=== PATIENT | female | born 1935 | race Caucasian/White ===

== ENCOUNTER → 2016-10-20 | Outpatient (REF) | payer MEDICARE ==
[~2016-10-20] MED LIST: /MOM400 PO; ACET-654 PO; ACET50TA PO; ALLO100T PO; ALLO10TA PO; ALLO15TA PO; AMLO5TAB2 PO; AMLODIPINE PO; ASPI1TAB PO; ASPI81CH21 PO; BISAC5TA PO; CALC0.5C PO; CALC1CAP31 PO; CARBAMAZEPINE PO; COCHICINE PO; COLA100C PO; COLC1TAB13 PO; COLCPOW6 PO; CORE25TA PO; DOCU10ELUD PO; DRIS50002 PO; ESTR0.5T3 PO; FERR325T PO; FLUT1SPR2; FURO20TA2 PO; HUMA75VL SC; IRON325T3 PO; KEFL250C6 PO; LIQUSOL OU; MAALSUS8 PO; METOPROLOL SUCCINATE PO; MIDO25TA PO; MOM30SS PO; NITR0.4D6 SL; NITR4TASL SL; OMEP40CA2 PO; PEG1POW PO; POLYBTL PO; PRAV80TA2 PO; PRAVASTATIN PO; REFR0.5D8 OU; SALI0.653; SODI650T PO; TYLE325T5 PO; VITA200038 PO; VITA500047 PO; [UNRECOGNIZED DRUG - CODE] SC
== END ==
LOC: M SFHCCLAY 15:53
PROVIDERS: ATTEND Family Medicine
DX: E11.43 Type 2 diabetes mellitus with diabetic autonomic (poly)neuropathy (principal); I12.9 Hypertensive chronic kidney disease with stage 1 through stage 4 chronic kidney disease, or unspecified chronic kidney disease
CPT/HCPCS: 81002; 83036; G0463

== ENCOUNTER → 2016-12-21 | Outpatient (REF) | payer MEDICARE ==
[~2016-12-21] MED LIST changes: +CEPH500C PO; +NORC5TAB PO
== END ==
LOC: M SFHCCLAY 11:14
PROVIDERS: ATTEND Family Medicine
DX: N30.00 Acute cystitis without hematuria (principal)

== ENCOUNTER → 2016-12-22 | Outpatient (REF) | payer MEDICARE ==
[~2016-12-22] MED LIST changes: -CEPH500C PO; -NORC5TAB PO
[2016-12-22 18:16] LABS: ALBUMIN 3.2 GM/DL (3.2-5.2); ALBUMIN/GLOBULIN RATIO 0.91 (1.00-1.93); BILIRUBIN,TOTAL 0.2 MG/DL (0.2-1.0); CREATININE FOR GFR 3.76 MG/DL (0.55-1.02); GLOMERULAR FILTRATION RATE 12.3 (>39); MEAN CORPUSCULAR HEMOGLOBIN 29.4 pg (27.0-33.0); MEAN CORPUSCULAR VOLUME 94.8 fl (80.0-96.0); POTASSIUM SERUM 4.6 MEQ/L (3.5-5.1); RED CELL DISTRIBUTION WIDTH 14.5 % (11.5-14.5); TOTAL PROTEIN 6.7 GM/DL (6.4-8.2); WHITE BLOOD COUNT 7.9 K/mm3 (4.0-10.0)
== END ==
LOC: M LABDRAWC 16:33
PROVIDERS: ATTEND Anesthesiology
DX: Z01.812 Encounter for preprocedural laboratory examination (principal); I25.10 Atherosclerotic heart disease of native coronary artery without angina pectoris; I12.9 Hypertensive chronic kidney disease with stage 1 through stage 4 chronic kidney disease, or unspecified chronic kidney disease; N18.9 Chronic kidney disease, unspecified; E78.00 Pure hypercholesterolemia, unspecified; D64.9 Anemia, unspecified; M10.9 Gout, unspecified; E11.9 Type 2 diabetes mellitus without complications

== ENCOUNTER 2016-12-30 06:58 | Inpatient (IN) | payer MEDICARE ==
[2016-12-30] VITALS (7 sets, daily range): BP systolic 95–138; BP diastolic 50–64
[~2016-12-30] VITALS: Ht 165.1 cm; Wt 66.2 kg
[2016-12-30] MEDS ORDERED: LR 1,000 ML IV SCH ×4 (07:15→12:00)
[2016-12-30] MEDS ORDERED: CEPH500C PO (07:54)
[2016-12-30] MEDS ORDERED: LIDOCAINE 2% INJ 100 MG/5 ML SDV (FOR ANES.) As Ordered ONE (08:28)
[2016-12-30] MEDS ORDERED: ROCURONIUM BROMIDE 50 MG/5 ML VIAL As Ordered ONE (08:28)
[2016-12-30] MEDS ORDERED: PROPOFOL 200 MG/20 ML VIAL As Ordered ONE (08:28)
[2016-12-30] MEDS ORDERED: dexameTHASONE 4 MG/ML 1ML VIAL (J1100) As Ordered ONE (08:28)
[2016-12-30] MEDS ORDERED: fentaNYL 250 MCG/5 ML INJECTION (J3010) As Ordered ONE (08:29)
[2016-12-30] MEDS ORDERED: MIDAZOLAM INJ 2 MG/2 ML VIAL (J2250) As Ordered ONE (08:29)
[2016-12-30] MEDS ORDERED: ASPIRIN 81 MG CHEW TABLET PO ONE (08:30)
[2016-12-30] MEDS ORDERED: BUPIVACAINE/EPIN 0.25% 30 ML VIAL As Ordered ONE (08:50)
[2016-12-30] MEDS ORDERED: VASOPRESSIN INJ 20 UNITS/ML VIAL As Ordered ONE (08:51)
[2016-12-30] MEDS ORDERED: NEOSTIGMINE 1MG/ML 5 ML SYRINGE (J2710) As Ordered ONE (09:49)
[2016-12-30] MEDS ORDERED: GLYCOPYRROLATE INJ 0.2 MG/ML 2 ML VIAL As Ordered ONE (09:49)
[2016-12-30] MEDS ORDERED: PHENYLephrine HCL 500 MCG/5 ML (100MCG/ML) SYRINGE (J2370) As Ordered ONE (10:28)
[2016-12-30] MEDS ORDERED: PERCOCET 5MG/325MG TAB PO PRN (12:00)
[2016-12-30] MEDS ORDERED: fentaNYL 100 MCG/2 ML INJECTION (J3010) IV PRN (12:00)
[2016-12-30] MEDS ORDERED: ONDANSETRON 4MG/2ML VIAL (J2405) IV PRN (12:00)
[2016-12-30] MEDS ORDERED: NITROGLYCERIN 0.4 MG SUBL TABLET SL PRN (12:00)
[2016-12-30] MEDS ORDERED: LACTATED RINGER'S 1000 ML IV ONE (13:15)
[2016-12-30] MEDS: ALLOPURINOL 100 MG TAB PO SCH (16:29)
[2016-12-30] MEDS: NORCO, ANEXSIA 5/325MG TABLET (HYDROcodone/ACETAMINOPHEN) PO PRN ×2 (17:30→22:34)
[2016-12-30] MEDS: VITAMIN D 1,000 INTERNATIONAL UNITS TABLET PO SCH (17:40)
[2016-12-30] MEDS: HumaLOG 75/25 MIX INSULIN PER UNIT SC SCH (17:40)
[2016-12-30] MEDS: FUROSEMIDE 20 MG TAB PO SCH (17:41)
[2016-12-30] MEDS ORDERED: PRAVASTATIN 20 MG TAB PO SCH (21:00)
[2016-12-30] MEDS: SODIUM BICARBONATE 325 MG TAB PO SCH (21:58)
[2016-12-31 02:00] VITALS: BP 112/57
[2016-12-31 06:00] VITALS: BP 96/50
[2016-12-31] MEDS: FUROSEMIDE 20 MG TAB PO SCH (08:53)
[2016-12-31] MEDS: HumaLOG 75/25 MIX INSULIN PER UNIT SC SCH (08:53)
[2016-12-31 08:54] VITALS: BP 133/60
[2016-12-31] MEDS: VITAMIN D 1,000 INTERNATIONAL UNITS TABLET PO SCH (08:54)
[2016-12-31] MEDS: SODIUM BICARBONATE 325 MG TAB PO SCH (08:54)
[2016-12-31] MEDS: ALLOPURINOL 100 MG TAB PO SCH (08:54)
[2016-12-31] MEDS ORDERED: CINACALCET 30 MG TAB (SENSIPAR) PO SCH (09:00)
[2016-12-31] MEDS ORDERED: NORC5TAB PO (09:12)
--- NOTE | 2016-12-31 09:37 | RO ---
DATE OF PROCEDURE: 12/30/2016 PREPROCEDURE DIAGNOSES: Procidentia, failed pessary. POSTPROCEDURE DIAGNOSES: Procidentia, failed pessary. PROCEDURE: Both anterior and posterior elevate with colpopexy of course and placement of both anterior and posterior mesh as well as a perineorrhaphy and cystourethroscopy. SURGEON: Dr. Aarti Ramirez PLANT MAINTENANCE ENGINEER: ANESTHESIA: General endotracheal anesthesia. ESTIMATED BLOOD LOSS: BRIEF DESCRIPTION OF PROCEDURE AND FINDINGS: Alyce was brought to the operating room where sufficient general endotracheal anesthesia was induced. She was prepped, draped and positioned in the usual sterile fashion. Bladder emptied and the anterior aspect of the vagina carefully grasped. A Morales was placed into the bladder with the balloon blown up so that we can label the bladder neck and starting there, we injected and hydrodissected with dilute mixture of vasopressin and Marcaine and saline, and the mix of this is on my surgical card. Having dissected with 30-40 mL or so, we then made a midline incision starting actually cephalad to the bladder neck so the edge of the mesh would be under the tissue dissection. Working through the dissection, the incision itself was maybe 5 cm long but we dissected all the way to the cervix and then worked laterally, cleared the tissue laterally and up to the sacrospinous. This patient does have considerable arthritis consistent with her age of 81 but she is thin and the sacrospinous was not difficult to palpate. Then placed the anterior aspect of the mesh, secured it to the bladder neck so it would not slip past using #2-0 Vicryl and using the anchors laterally to secure the anterior part of the anterior elevate mesh. We then placed the anchors into sacrospinous ligaments, passed the anchors through the eyelets in the mesh, secured the mesh by carefully guiding it down a little bit on each side, and then placing the locking nuts or however those locking rings are identified, carefully tighten, the mesh, placed the rings on, used the slider to tighten them further and then perform cystoscopy. We confirmed absence of injury to the bladder and reasonable support and slow jets of urine on both sides but jets were present and then we trimmed the hard stem off those anchors. We also secured the deeper portion of the mesh to the pubocervical fascia near the cervix at the cephalad portion that had been done before it was drawn up, and then we closed the vaginal mucosa over the mesh, again this was a full thickness dissection so there was plenty of thickness and mucosa over it. Then we turned our attention posteriorly. There was already a marked improvement after the anterior, but there was still considerable posterior relaxation and so hydrodissection was performed posteriorly as well and then a transverse incision was made over the posterior vaginal wall approximately 1.5 cm inside the hymenal ring working horizontally and then we were able to bluntly dissect, of course, a full thickness dissection below this transverse incision so that we could work our way cephalad and then laterally to the sacrospinous ligament. We then placed anchors, slid the mesh over that and then secured the mesh to the rectovaginal septum and perineal body posteriorly and of course, anchored the mesh past the locking nuts and trimmed those arms and then made sure the mesh was lying down flat and then closed the posterior vaginal incision after the mesh had been secured again to the rectovaginal septum and the perineal body. We then still had some gaping at the introitus and so a triangle of tissue was removed at the introitus itself over the line of previous obstetric scars in this 5, para 5 patient. Deep stitches of #0 Vicryl were used to reapproximate the perineal body and redevelop this tissue and then the skin over the site was closed with #2-0 Vicryl and then a vaginal pack was placed and the procedure was ended. Estimated blood loss for the procedure: 25 mL. Fluid replacement: Crystalloid. Complications: None. Condition and disposition: Alyce tolerated the procedure well and was recovering in the recovery room in good condition.
[2016-12-31 10:00] VITALS: BP 99/47
--- NOTE | 2017-01-06 16:09 | DSES ---
DATE OF ADMISSION: 12/30/2016 DATE OF DISCHARGE: 12/31/2016 ADMITTING AND FINAL DIAGNOSIS: Included symptomatic pelvic relaxation and failed pessary use. PRINCIPAL PROCEDURE: Anterior and posterior elevate mesh and perineorrhaphy and cystoscopy. BRIEF SUMMARY OF PATIENT HOSPITAL PRESENTATION: She presented on 12/30/2016, as a 81-year-old, 5, para 5 with symptomatic pelvic relaxation and failed pessary usage. Her past medical and surgical history was significant for hypertension, congestive heart failure (CHF), hypercholesterolemia, cardiac disease with diabetes, renal insufficiency, and gout. She also had a history of glasses. She had a surgical history of tonsillectomy, pacemaker placement, and cataracts. She did not have a defibrillator. FAMILY HISTORY: Significant for heart disease, hypertension, and diabetes. SOCIAL HISTORY: She is a nonsmoker, non-drinker, and non-drug user. ALLERGIES: SULFA. MEDICATIONS: Included: - nitroglycerin - aspirin - Lasix - amlodipine - Humalog - allopurinol - vitamin D - iron - pravastatin Physical examination was significant for procidentia and otherwise reassuring as noted in the history and physical (H P). Initial impression 81-year-old 5, para 5 with symptomatic prolapse and failed pessary, plan was support. She underwent surgical correction with elevate mesh, both anterior and posterior mesh were placed in separate repairs, and perineorrhaphy and cystourethroscopy were performed. She then postoperatively, on the evening of her surgery, was not able to void well so she was observed overnight with a Morales and then this was removed in the morning, following which she was able to void without difficulty and was discharged to home in good condition on 12/31/2016, with a plan for outpatient followup and discharge instructions discussed with her prior to discharge.
== END 2016-12-31 11:34 | disposition home or self-care (01) | DRG 748 ==
LOC: M OR 06:58 → M MSPAV 14:31
PROVIDERS: ADMIT Obstetrics & Gynecology; ATTEND Obstetrics & Gynecology
PROC: 0UUG8JZ Supplement Vagina with Synthetic Substitute, Via Natural or Artificial Opening Endoscopic (ICD-10-PCS; principal; 2016-12-30 08:30)
DX: N81.3 Complete uterovaginal prolapse (principal); I11.0 Hypertensive heart disease with heart failure; I50.9 Heart failure, unspecified; I25.10 Atherosclerotic heart disease of native coronary artery without angina pectoris; E11.9 Type 2 diabetes mellitus without complications; N28.9 Disorder of kidney and ureter, unspecified; E78.00 Pure hypercholesterolemia, unspecified; M10.9 Gout, unspecified; Z95.0 Presence of cardiac pacemaker; Z79.82 Long term (current) use of aspirin; Z79.899 Other long term (current) drug therapy; Z79.4 Long term (current) use of insulin

== ENCOUNTER → 2017-01-10 | Outpatient (REF) | payer MEDICARE ==
[~2017-01-10] MED LIST changes: +CEPH500C PO; +NORC5TAB PO
[2017-01-10 14:36] LABS: CHOLESTEROL LEVEL 114 MG/DL (<200); FERRITIN 345 NG/ML (8-252); PERCENT SATURATION 19.6 % (13.2-37.4); TOTAL IRON BINDING CAPACITY 230 UG/DL (250-450); TRIGLYCERIDES LEVEL 87 MG/DL (<150)
[2017-01-12 12:38] LABS: HEPATITIS B SURFACE ANTIBODY NEGATIVE (POSITIVE)
== END ==
LOC: M LAB REF 13:33
PROVIDERS: ATTEND Internal Medicine Nephrology
DX: N18.5 Chronic kidney disease, stage 5 (principal); D63.1 Anemia in chronic kidney disease; E11.22 Type 2 diabetes mellitus with diabetic chronic kidney disease; Z79.899 Other long term (current) drug therapy

== ENCOUNTER 2017-03-16 12:09 | Emergency (ER) | payer MEDICARE ==
[~2017-03-16 12:09] MED LIST changes: -COLA100C PO; +COLA100C3 PO; +NORC1TAB4 PO; -NORC5TAB PO
[2017-03-16] MEDS ORDERED: CINA30TA PO (12:28)
[2017-03-16 13:24] LABS: BASO % 0.5 % (0.0-1.0); EOS # 0.2 K/mm3 (0.0-0.50); LARGE UNSTAINED CELL # 0.1 K/mm3 (0.0-0.4); LARGE UNSTAINED CELL % 1.6 % (0.0-4.0); LYMPH # 1.7 K/mm3 (1.5-4.5); LYMPH % 20.5 % (24.0-44.0); MEAN CORPUSCULAR HEMOGLOBIN 29.5 pg (27.0-33.0); MEAN CORPUSCULAR HGB CONC 32.1 g/dl (32.0-36.5); MEAN CORPUSCULAR VOLUME 91.8 fl (80.0-96.0); MONO # 0.4 K/mm3 (0.0-0.8); MONO % 5.3 % (0.0-5.0); NEUTROPHILS # 5.3 K/mm3 (1.8-7.7); NEUTROPHILS % 70.1 % (36.0-66.0); PLATELET COUNT, AUTOMATED 204 k/mm3 (150-450); WHITE BLOOD COUNT 7.6 K/mm3 (4.0-10.0)
[2017-03-16 13:25] LABS: ALBUMIN 3.4 GM/DL (3.2-5.2); ALBUMIN/GLOBULIN RATIO 0.85 (1.00-1.93); ALKALINE PHOSPHATASE 85 U/L (45-117); ALT/SGPT 12 U/L (12-78); AMYLASE 42 U/L (25-115); ANION GAP 9 MEQ/L (8-16); AST/SGOT 11 U/L (15-37); BILIRUBIN,DIRECT < 0.1 MG/DL (0.0-0.2); BILIRUBIN,TOTAL 0.2 MG/DL (0.2-1.0); BLOOD UREA NITROGEN 62 MG/DL (7-18); CALCIUM LEVEL 9.7 MG/DL (8.8-10.2); CARBON DIOXIDE LEVEL 27 MEQ/L (21-32); CHLORIDE LEVEL 106 MEQ/L (98-107); CREATININE FOR GFR 3.84 MG/DL (0.55-1.02); GLOMERULAR FILTRATION RATE 12.1 (>39); GLUCOSE, FASTING 101 MG/DL (83-110); POTASSIUM SERUM 3.8 MEQ/L (3.5-5.1); SODIUM LEVEL 142 MEQ/L (136-145); TOTAL PROTEIN 7.4 GM/DL (6.4-8.2)
[2017-03-16 14:05] VITALS: BP 162/87
--- NOTE | 2017-03-16 14:23 | REP ---
CT abdomen pelvis without IV or bowel contrast: Comparison is 06/27/2015. The visualized lung fitzpatrick are clear. The unenhanced hepatic parenchyma is homogeneous and unremarkable. The gallbladder is unremarkable. The pancreas and spleen are normal size and unremarkable. There is calcified vascular atheroma. The celiac artery, splenic artery and hepatic artery. The adrenals are unremarkable. The kidneys appear atrophic but otherwise unremarkable. Abdominal aorta is unremarkable. There is no bowel distension or obstruction. The mesentery is unremarkable. Pelvis: The appendix has a normal appearance. There is no adenopathy or ascites. There is descending colon and sigmoid colon diverticulosis without diverticulitis. The uterus and adnexa are unremarkable. There are the bladder is unremarkable. There is bilateral hip osteoarthritis. There is multilevel degenerative disc disease in the lumbar spine. These findings are unchanged. There are no lumbar vertebral compression deformities. There are no lytic, blastic or destructive skeletal changes. There is a stable bone island in the posterior strut of the right acetabulum. These focal swelling of the left iliac this muscle on the comparison study has resolved. Impression: Diverticulosis without diverticulitis. Bilateral hip osteoarthritis. Benign bone island in the posterior strut of the right acetabulum, unchanged. No bowel distension or obstruction. No inflammatory changes or ascites. Bilateral renal cortical atrophy. Multilevel advanced degenerative disc disease throughout the lumbar spine. Signed by Jose Young MD 03/16/2017 02:15 P
--- NOTE | 2017-03-16 14:28 | REP ---
ABDOMEN, FLAT AND UPRIGHT, PA CHEST, THREE VIEWS: HISTORY: Abdominal pain. Air is present in small and large intestine. Several air fluid levels are present. There are no dilated loops of intestine. There is no pneumoperitoneum. The lungs are clear. IMPRESSION: Nonspecific bowel gas pattern. Signed by Martín Lombardo MD 03/16/2017 02:37 P
[2017-03-16] MEDS ORDERED: CEPHALEXIN 250 MG CAP PO ONE (14:45)
[2017-03-16] MEDS ORDERED: ACETAMINOPHEN TAB 650MG DOSE (2X325MG) PO ONE (14:45)
[2017-03-16] MEDS ORDERED: CEPH250T PO (14:58)
[2017-03-16] MEDS ORDERED: ACET-654 PO (14:58)
== END 2017-03-16 15:07 | disposition home or self-care (01) ==
LOC: EDBD 12:09 → M ED 12:55
DX: N39.0 Urinary tract infection, site not specified (principal); E11.9 Type 2 diabetes mellitus without complications; N18.4 Chronic kidney disease, stage 4 (severe)

== ENCOUNTER → 2017-06-01 | Outpatient (REF) | payer MEDICARE ==
[~2017-06-01] MED LIST changes: -ACET-654 PO; +ACET1TAB17 PO; +AMLO2.5T PO; +CEPH250T PO; +CINA30TA PO; -COLA100C3 PO; +COLA100C5 PO; +COLC1TAB14 PO; +FERR1TAB8 PO; -FERR325T PO; +KEFL250C11 PO; -KEFL250C6 PO; +MIRA33504 PO; +RENV2TAB PO; +SALI0.6523; -SALI0.653; +VITA200015
[2017-06-02 17:44] LABS: CHOLESTEROL LEVEL 131 MG/DL (<200); PERCENT SATURATION 19.8 % (13.2-45.0); TRIGLYCERIDES LEVEL 90 MG/DL (<150)
[2017-06-03 11:23] LABS: HEPATITIS B SURFACE ANTIBODY NEGATIVE (POSITIVE)
== END ==
LOC: M LAB REF 15:49
PROVIDERS: ATTEND Internal Medicine Nephrology
DX: N18.5 Chronic kidney disease, stage 5 (principal); D63.1 Anemia in chronic kidney disease

== ENCOUNTER → 2017-06-01 | Outpatient (REF) | payer MEDICARE | LOC: M LAB REF 17:07 | PROVIDERS: ATTEND Internal Medicine Nephrology | DX: N39.0 Urinary tract infection, site not specified (principal) ==

== ENCOUNTER 2017-09-29 20:52 | Inpatient (IN) | payer MEDICARE ==
[~2017-09-29] VITALS: Ht 167.6 cm; Wt 67.4 kg
[2017-09-29 21:30] LABS: VENOUS O2 SATURATION 58.9 % (60.0-80.0); VENOUS PARTIAL PRESSURE CO2 45.9 mmHg (38.0-50.0); VENOUS PARTIAL PRESSURE O2 29.4 mmHg (30.0-50.0); VENOUS STANDARD HCO3 28.2 MEQ/L; VENOUS TOTAL CO2 31.4 MEQ/L (24.0-28.0)
[2017-09-29] MEDS ORDERED: IPRATROPIUM 0.5MG/ALBUTEROL 2.5MG INH SOL UD 3ML (DUONEB)(J7620) NEB ONE (21:30)
[2017-09-29] MEDS ORDERED: BENZONATATE 100 MG CAP PO ONE (21:30)
[2017-09-29 21:38] LABS: BASO % 0.4 % (0.0-1.0); EOS # 0.1 10^3/uL (0.0-0.50); EOS % 1.8 % (0.0-3.0); IMMATURE GRANULOCYTE % 0.4 % (0-0); LYMPH # 1.8 10^3/uL (1.5-4.5); LYMPH % 23.6 % (24.0-44.0); MEAN CORPUSCULAR HEMOGLOBIN 28.5 pg (27.0-33.0); MEAN CORPUSCULAR HGB CONC 31.3 g/dl (32.0-36.5); MEAN CORPUSCULAR VOLUME 90.9 fl (80.0-96.0); MONO # 0.6 10^3/uL (0.0-0.8); MONO % 8.1 % (0.0-5.0); NEUTROPHILS # 5.1 10^3/uL (1.8-7.7); NEUTROPHILS % 65.7 % (36.0-66.0); PLATELET COUNT, AUTOMATED 172 10^3/uL (150-450); RED CELL DISTRIBUTION WIDTH 13.2 % (11.5-14.5); WHITE BLOOD COUNT 7.8 10^3/uL (4.0-10.0)
[2017-09-29 21:55] LABS: CALCIUM LEVEL 8.7 MG/DL (8.8-10.2); CREATININE FOR GFR 3.41 MG/DL (0.55-1.02); GLOMERULAR FILTRATION RATE 13.8 (>39); POTASSIUM SERUM 3.5 MEQ/L (3.5-5.1)
[2017-09-29] MEDS ORDERED: methylPREDNISolone INJ 40 MG/1 ML VIAL (J2920) IV ONE (22:15)
[2017-09-29] MEDS ORDERED: BENZONATATE 100 MG CAP PO PRN (23:45)
[2017-09-30] MEDS ORDERED: VITA100066 PO (00:02)
[2017-09-30] MEDS ORDERED: SENN8.6T8 PO (00:02)
[2017-09-30] MEDS ORDERED: ASPI81TAEC PO (00:02)
--- NOTE | 2017-09-30 01:25 | HPE ---
DATE OF ADMISSION: 09/29/2017 PRIMARY CARE PROVIDER: Dwight Hartman MD. ATTENDING PHYSICIAN: Dwight Hartman MD. APPLE PEELER OPERATOR: Dr. Contreras. CHIEF COMPLAINT: Coughing for about 4 days. HISTORY OF PRESENT ILLNESS: The patient is a 81-year-old white female with history of end-stage renal disease on hemodialysis, presented to the emergency room (ER) for evaluation for worsening cough for about 4 days. The history is provided by herself, as well by review of the chart. She states in the last 4 days she started with some runny nose, coughing and is getting worse gradually. Initially, she thought she got a cold, so that is why she did not see any doctor yet. However, her coughing is getting worse gradually and also she states she had chest tightness when she has a cough, but no chest pain. Also, she denies any fever or chills. No phlegm. In the emergency room (ER), she was tested and found as positive respiratory syncytial virus (RSV) infection. She was given intravenous (IV) steroid, cough medication in the ER and the ER was trying to discharge her, but she states her coughing is too bad and she is not able to go home, so medicine service was called for admission. REVIEW OF SYSTEMS: Denies fever. No chills. No headache. No blurry vision. Positive coughing. Positive shortness of breath, but no hemoptysis. No nausea. No vomiting. No chest pain, but chest tightness. No abdominal pain. No diarrhea. No tingling, numbness, weakness in the arms and lower extremities. All other systems reviewed were negative. PAST MEDICAL HISTORY: 1. End-stage renal disease on dialysis. 2. Coronary artery disease status post stenting. 3. Type 2 diabetes. 4. Chronic anemia. PAST SURGICAL HISTORY: 1. Tonsillectomy. 2. Dilation and curettage (D and C). 3. Dual-chamber pacemaker placement. 4. Cardiac stents in 2001. 5. Eye cataracts, as well as retinal detachment surgery. ALLERGIES: Allergic to SULFA, CODEINE. MEDICATIONS: - amlodipine 2.5 - aspirin 81 - Lasix 20 - pravastatin 80 - Renvela 800 mg three times a day - allopurinol 200 mg by mouth daily SOCIAL HISTORY: Denies tobacco use. Denies alcohol abuse. Denies illicit drug abuse. She is FULL CODE. FAMILY HISTORY: Her mother from hemorrhagic stroke. No family history of end-stage renal disease. PHYSICAL EXAMINATION: VITAL SIGNS: Temperature 98.8, heart rate 69, respirations 18, blood pressure 190/91, and oxygen saturation 98% on room air. GENERAL: She is awake, alert, oriented times three. She is not in acute distress. HEENT: Atraumatic. Pupils are equal, round and reactive to light. No jaundice. Extraocular muscles intact. Ears, nose, and throat are normal. There is no redness in her throat. No oral ulcer. Mouth mucosa a little bit dry. NECK: No jugular venous distention (JVD). No bruits. LUNGS: Clear, no wheezing, no crackles. HEART: S1, S2 regular. No murmur. ABDOMEN: Soft. Bowel sounds positive. Nontender. LOWER EXTREMITIES: No edema in her bilateral lower extremities. NEUROLOGICAL: Nonfocal. SKIN: No rash. PSYCHOLOGICAL: No acute psychosis. DIAGNOSTIC LABORATORY STUDIES: Including the following: CBC and differential: WBC 7.8, hemoglobin and hematocrit 10/32, platelets 172. Sodium 141, potassium 3.5, chloride 103, bicarbonate 30, BUN 22, creatinine 3.4, glucose 83. Chest x-ray unremarkable. IMPRESSION: 1. Respiratory syncytial virus (RSV) bronchitis. 2. End-stage renal disease on dialysis. 3. Type 2 diabetes. 4. Coronary artery disease. 5. Chronic anemia. PLAN: Patient will be admitted for observation. I will treat her supportively including oral prednisone, azithromycin, as well as nebulizer. Will continue her home medications. Will call nephrology for the hemodialysis tomorrow. Dr. Dwight Hartman will followup tomorrow. KARELY
[2017-09-30] MEDS ORDERED: cloNIDine 0.2 MG TAB PO ONE (02:30)
[2017-09-30] MEDS ORDERED: DEXTROSE 50% 50 ML SYRINGE IV PRN (04:00)
[2017-09-30] MEDS ORDERED: GLUCOSE 4 GM CHEW TABLET PO PRN (04:00)
[2017-09-30] MEDS ORDERED: GLUCAGON FOR INJ 1 MG VIAL (J1610) SC PRN (04:00)
--- NOTE | 2017-09-30 05:52 | ECGEPIP ---
Stationary ECG Study [facility] - ED Test Date: 2017-09-29 Pat Name: MARIA FERNANDA REDD Department: Room: - Gender: F Receiver Stocker: gabriela : 1935 Requested By: JACK Hightower Order Number: [id number] Reading MD: Yoandy Silva Measurements Intervals [place] Rate: 69 P: -34 HI: 205 QRS: 61 QRSD: 166 T: 269 QT: 477 QTc: 514 Interpretive Statements ELECTRONIC ATRIAL PACEMAKER ELECTRONIC VENTRICULAR PACEMAKER SIMILAR TO 08/18/17 Electronically Signed On 09-30-2017 5:52:22 EST by Yoandy Silva
--- NOTE | 2017-09-30 07:26 | REP ---
PA and lateral chest: Comparison 08/18/2017. The lung fitzpatrick are clear. The cardiac size is normal The darshana, mediastinum, and bony thorax are unremarkable. Impression: Negative PA and lateral chest. There is a dual-chamber pacemaker, unchanged. Signed by Jose Young MD 09/30/2017 07:18 A
[2017-09-30] MEDS: HumaLOG 75/25 MIX INSULIN PER UNIT SC SCH ×2 (07:30→21:37)
[2017-09-30] MEDS: IPRATROPIUM 0.5MG/ALBUTEROL 2.5MG INH SOL UD 3ML (DUONEB)(J7620) NEB SCH ×3 (08:15→19:40)
[2017-09-30] MEDS: predniSONE 10 MG TAB PO SCH (08:45)
[2017-09-30] MEDS: (RENVELA) SEVELAMER **CARBONate** 800 MG TAB PO SCH ×2 (08:45→20:13)
[2017-09-30] MEDS: ASPIRIN 81 MG ENTERIC TAB PO SCH (08:45)
[2017-09-30] MEDS: SENOKOT S TAB PO SCH ×2 (08:46→20:12)
[2017-09-30] MEDS: HumaLOG INSULIN (NovoLOG) PER UNIT SC SCH ×4 (08:49→21:39)
[2017-09-30] MEDS ORDERED: AZITHROMYCIN 250 MG TAB PO SCH (09:00)
--- NOTE | 2017-09-30 09:32 | IPN ---
DATE: 09/30/2017 Alyce was seen while in an ER interim bed. She was admitted with bronchitis secondary to respiratory syncytial virus (RSV) isolated from respiratory sample. Chest x-ray was clear for infiltrate. She feels much better than yesterday. She is due for dialysis today. PHYSICAL EXAMINATION: 130/60. Pulse 94. Respiratory rate 18. 100% oxygen saturation on 2 liters. General Appearance: She is resting comfortably in no distress. Elderly, alert, conversant. Lungs were entirely clear. Heart: Regular rhythm. Abdomen: Soft. Nontender. Trace peripheral edema. LABS: Were done yesterday, no morning labs. IMPRESSIONS: 1. Bronchitis secondary to RSV. She was placed on azithromycin on admission. I am discontinuing this. There is no sign of bacterial infection and RSV has been confirmed by the respiratory sample. She is on some prednisone, which I think can be discontinued tomorrow. Continue bronchodilator. 2. End stage renal disease on maintenance hemodialysis. I have communicated with Dr. Contreras and he will be giving her, her scheduled dialysis today. 3. Diabetes. She is on 75/25 insulin with sliding scale. Should be able to be discharged tomorrow.
[2017-09-30] MEDS ORDERED: HEPARIN 1,000 UNITS/ML 10ML VIAL (FOR RADIOLOGY& DIALYSIS ONLY) IV ONE (11:30)
--- NOTE | 2017-09-30 15:10 | CR.PDOC ---
[facility] Consultation Consultation DATE OF CONSULTATION: Sep 29, 2017 at 20:52 PRIMARY CARE PHYSICIAN: Dr. Hartman REFERRING PROVIDER: Dr. Hanley ATTENDING PHYSICIAN: Dr. Pollard REASON FOR CONSULTATION/CHIEF COMPLAINT: Management of end-stage renal disease on hemodialysis HISTORY OF PRESENT ILLNESS: Ms. Tejada is a 81-year-old female with a past medical history significant for end-stage renal disease on hemodialysis who presented to the emergency department for a worsening cough. Patient reports upper respiratory symptoms including a runny nose and cough over the last 4 days. She has felt like it has been getting worse and now reports a chest tightness associated with the cough. Denies fever, chills, or productive cough. Positive for respiratory syncytial virus. Given IV Solumedrol, Tessalon Perles, and Duonebs in the ED. Nephrology was consulted for management of patient's end-stage renal disease on hemodialysis. ALLERGIES: Please see below. HOME MEDICATIONS: Please see below. PAST MEDICAL HISTORY: 1. End-stage renal disease on hemodialysis. 2. Chronic anemia secondary to chronic kidney disease. 3. 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 4. Secondary hyperparathyroidism. 5. Chronic gout secondary to chronic kidney disease. 6. Diabetes mellitus, type II. 7. Coronary artery disease status-post stenting. PAST SURGICAL HISTORY: 1. Tonsillectomy. 2. Dilation and curettage. 3. Dual chamber pacemaker insertion. 4. Cardiac stenting. 5. Bilateral cataracts. 6. Retinal detachment surgery. 7. Right upper arm AV fistula. FAMILY HISTORY: No family history of end-stage renal disease. SOCIAL HISTORY: Marital status and/or living arrangements: , lives with in [place] Tobacco use: Denies ETOH: Denies Illicit drug use: Denies IV drug use: Denies REVIEW OF SYSTEMS: Denies fever, chills, headache, blurry vision, hemoptysis, hematemesis. Admits to cough with shortness of breath and chest tightness. Denies nausea, vomiting , abdominal pain, numbness, tingling, diarrhea. All other systems reviewed were negative. PHYSICAL EXAMINATION: VITAL SIGNS: Please see below. GENERAL APPEARANCE: Elderly female, appears stated age, sitting comfortably in the hospital bed, no acute distress HEENT: Atraumatic, normocephalic, PERRL, EOMI, oral mucosa appears pink and moist, nasal septum appears midline, nares are patent RESPIRATORY: Clear to auscultation bilaterally, adequate inspiratory and expiratory airway excursion, no wheeze, rhonchi, crackles CARDIOVASCULAR: Regular rate and rhythm, normal S1 and S2, no murmur, rub, click ABDOMEN: Flat, soft, non-tender, non-distended, bowel sounds appreciated EXTREMITIES: Warm, dry, intact, without peripheral edema, pulses are equal and symmetrical, +2 NEUROLOGICAL: CN II-XII grossly intact PSYCHIATRIC: Alert and conversant, pleasant LABORATORY DATA: Please see below. ASSESSMENT/PLAN: This is a 81-year-old female with a past medical history significant for end-stage renal disease on hemodialysis who tested positive for respiratory syncytial virus. Nephrology consulted for management of end-stage renal disease on hemodialysis. 1. End-stage renal disease on hemodialysis: Patient will received hemodialysis today without ultrafiltration. Patient is not currently fluid overloaded and therefore does not require excess fluid removal. Creatinine is 3.41. 2. Hypertension: Well controlled. 3. Chronic kidney disease mineral bone disease: Continue with current out- patient management protocol of Vitamin D supplementation and Renvela for phosphate management. 4. Chronic anemia due to chronic kidney disease: Continue with current out- patient management protocol. 5. Diabetes mellitus, type II: Continue with Insulin Lispro 10 units in the morning and 6 units in the evening. Continue with sliding scale insulin, fingersticks every morning and before meals, and hypoglycemic protocol. 6. Respiratory syncytial virus: Continue with Duonebs, Tessalon Perles, and oral Prednisone. No need for antibiotics at this time. DISPOSITION: Continue with hemodialysis on Tuesday, Tuesday, Tuesday. Monitor labs. Vital Signs/I&O Vital Signs Date Time Temp Pulse Resp B/P (MAP) Pulse Ox O2 Delivery O2 Flow Rate FiO2 09/30/17 10:09 74 90 09/30/17 09:09 18 130/61 (84) 09/30/17 08:09 97.6 09/29/17 20:57 Room Air Laboratory Data Labs 24H Laboratory Tests 2 09/29/17 21:20: Immature Granulocyte % (Auto) 0.4H, White Blood Count 7.8, Red Blood Count 3.51L , Hemoglobin 10.0L, Hematocrit 31.9L, Mean Corpuscular Volume 90.9, Mean Corpuscular Hemoglobin 28.5, Mean Corpuscular Hemoglobin Concent 31.3L, Red Cell Distribution Width 13.2, Platelet Count 172, Neutrophils (%) (Auto) 65.7, Lymphocytes (%) (Auto) 23.6L, Monocytes (%) (Auto) 8.1H, Eosinophils (%) (Auto) 1.8, Basophils (%) (Auto) 0.4, Neutrophils # (Auto) 5.1, Lymphocytes # (Auto) 1.8, Monocytes # (Auto) 0.6, Eosinophils # (Auto) 0.1, Basophils # (Auto) 0.0, Immature Granulocyte # (Auto) 0.0, Nucleated Red Blood Cells % (auto) 0.0, Blood Gas Bicarbonate Standard 28.2, Venous Blood pH 7.433H, Venous Blood Partial Pressure CO2 45.9, Venous Blood Partial Pressure O2 29.4L, Venous Blood Total Carbon Dioxide 31.4H, Venous Blood HCO3 30.0H, Venous Blood Oxygen Saturation 58.9L, Venous Blood Base Excess 5.0H, Anion Gap 8, Glomerular Filtration Rate 13.8L, Blood Urea Nitrogen 22H, Creatinine 3.41H, Sodium Level 141, Potassium Level 3.5, Chloride Level 103, Carbon Dioxide Level 30, Calcium Level 8.7L, Total Creatine Kinase 151, Creatine Kinase MB 1.9, Creatine Kinase MB Relative Index 1.25, Troponin I 0.03, BZ-[id number]-Type Natriuretic Peptide 5157H 09/30/17 08:42: Bedside Glucose (Misc Panel) 148H CBC/BMP Laboratory Tests 09/29/17 21:20 Red Blood Count 3.51 L, Mean Corpuscular Volume 90.9, Mean Corpuscular Hemoglobin 28.5, Mean Corpuscular Hemoglobin Concent 31.3 L, Red Cell Distribution Width 13.2, Neutrophils (%) (Auto) 65.7, Lymphocytes (%) (Auto) 23.6 L, Monocytes (%) (Auto) 8.1 H, Eosinophils (%) (Auto) 1.8, Basophils (%) ( Auto) 0.4, Neutrophils # (Auto) 5.1, Lymphocytes # (Auto) 1.8, Monocytes # (Auto ) 0.6, Eosinophils # (Auto) 0.1, Basophils # (Auto) 0.0, Calcium Level 8.7 L, Total Creatine Kinase 151 Microbiology Microbiology 09/30/17 Blood Culture, Received Pending 09/29/17 Blood Culture, Received Pending 09/29/17 Respiratory Virus Panel (PCR) ([facility]) - Final, Complete Respiratory Syncytial Virus Allergies Coded Allergies: Codeine (Verified Allergy, Intermediate, HIVES, 09/29/17) Sulfa Drugs (Verified Allergy, Intermediate, hives, 09/29/17) verified with the patient Home Medications Scheduled Aspirin (Aspirin EC) 81 Mg Tabec, 81 MG PO DAILY, (Reported) Cholecalciferol (Vitamin D) 1,000 Unit Tab, 1,000 UNIT PO QHS, (Reported) Docusate Sod/Senna (Docusate Sodium & Senna S 8.6-50 mg) 1 Tab Tab, 2 TAB PO BID , (Reported) Insulin Lispro Protamine/Lispr (Humalog Mix 75/25 (75-25) 100 Unit/ml) 1 Units/ 0.01 Ml Susp, 10 UNITS SC QAM, (Reported) Insulin Lispro Protamine/Lispr (Humalog Mix 75/25 (75-25) 100 Unit/ml) 1 Units/ 0.01 Ml Susp, 6 UNITS SC QPM, (Reported) Sevelamer Carbonate (Renvela) 800 Mg Tab, 800 MG PO BIDWM, (Reported) USUALLY TAKES FOR BREAKFAST AND AFTERNOON MEAL AT 1400 Scheduled PRN Nitroglycerin (Nitrostat) 0.4 Mg Subl, 0.4 MG SL NITRO PRN for CHEST PAIN, ( Reported) ROBINA DEJESUS DO Sep 30, 2017 15:10
[2017-09-30 17:15] VITALS: BP 156/62
[2017-09-30] MEDS: VITAMIN D 1,000 INTERNATIONAL UNITS TABLET PO SCH (20:12)
[2017-09-30 22:00] VITALS: BP 163/65
[2017-10-01 06:00] VITALS: BP 156/61
[2017-10-01] MEDS: HumaLOG 75/25 MIX INSULIN PER UNIT SC SCH ×2 (07:30→17:21)
[2017-10-01] MEDS: IPRATROPIUM 0.5MG/ALBUTEROL 2.5MG INH SOL UD 3ML (DUONEB)(J7620) NEB SCH ×3 (07:48→19:55)
[2017-10-01] MEDS: SENOKOT S TAB PO SCH ×2 (09:05→19:27)
[2017-10-01] MEDS: ASPIRIN 81 MG ENTERIC TAB PO SCH (09:05)
[2017-10-01] MEDS: HumaLOG INSULIN (NovoLOG) PER UNIT SC SCH ×4 (09:05→21:00)
[2017-10-01] MEDS: (RENVELA) SEVELAMER **CARBONate** 800 MG TAB PO SCH ×2 (09:05→16:20)
[2017-10-01] MEDS: predniSONE 10 MG TAB PO SCH (09:06)
[2017-10-01] MEDS: ACETAMINOPHEN TAB 650MG DOSE (2X325MG) PO PRN (09:06)
--- NOTE | 2017-10-01 11:30 | REP ---
PA and lateral chest: Comparison is 2016. The lung fitzpatrick are clear. The cardiac size is normal The darshana, mediastinum, and bony thorax are unremarkable. Impression: Negative PA and lateral chest. There is a dual-chamber pacemaker, unchanged. No interval change otherwise. Signed by Jose Young MD 10/01/2017 11:22 A
[2017-10-01 12:17] LABS: BASO % 0.2 % (0.0-1.0); EOS % 0.1 % (0.0-3.0); IMMATURE GRANULOCYTE % 0.6 % (0-0); LYMPH # 1.2 10^3/uL (1.5-4.5); LYMPH % 10.3 % (24.0-44.0); MEAN CORPUSCULAR HEMOGLOBIN 28.3 pg (27.0-33.0); MEAN CORPUSCULAR HGB CONC 30.8 g/dl (32.0-36.5); MEAN CORPUSCULAR VOLUME 91.9 fl (80.0-96.0); MONO # 0.5 10^3/uL (0.0-0.8); MONO % 4.5 % (0.0-5.0); NEUTROPHILS # 9.9 10^3/uL (1.8-7.7); NEUTROPHILS % 84.3 % (36.0-66.0); PLATELET COUNT, AUTOMATED 215 10^3/uL (150-450); RED CELL DISTRIBUTION WIDTH 13.3 % (11.5-14.5); WHITE BLOOD COUNT 11.7 10^3/uL (4.0-10.0)
[2017-10-01 12:45] LABS: CALCIUM LEVEL 9.6 MG/DL (8.8-10.2); CREATININE FOR GFR 2.86 MG/DL (0.55-1.02); GLOMERULAR FILTRATION RATE 16.9 (>39); POTASSIUM SERUM 3.1 MEQ/L (3.5-5.1)
[2017-10-01 14:00] VITALS: BP 136/85
[2017-10-01] MEDS: guaiFENesin ER 600 MG TAB PO SCH ×2 (14:19→19:27)
--- NOTE | 2017-10-01 14:46 | IPNPDOC ---
Date Seen The patient was seen on 10/01/17. Progress Note SUBJECTIVE: Patient is evaluated at bedside this morning. She has just returned from getting a chest x-ray and is still laying in the transport stretcher. A family member is present during my evaluation. Patient reports a continued dry cough. Reports continued body wide weakness. Admits to a pacemakers. She received dialysis yesterday and offers no complaints from that. She will continue with her regularly scheduled dialysis days once discharged. REVIEW OF SYSTEMS: Reports some shortness of breath with dry cough. Further admits to weakness. Denies headache, fever, night sweats, chills. Denies chest pain or palpitations. Other review of systems are negative. OBJECTIVE PHYSICAL EXAMINATION: VITAL SIGNS: Please see below. GENERAL: Elderly female, appears stated age, well nourished, well developed, no acute distress, alert and conversant HEENT: Atraumatic, normocephalic, PERRL, EOMI, wearing mask due to RSV infection , neck veins appears supple and non-distended CARDIOVASCULAR: Regular rate and rhythm, normal S1 and S2, no murmur, rub, click RESPIRATORY: Crackles appreciated in the lower lobes, adequate inspiratory and expiratory airway excursion ABDOMINAL: Flat, soft, non-tender, non-distended, bowel sounds appreciated EXTREMITIES: Radial pulses equal, symmetrical, +2, without peripheral edema NEUROLOGICAL: CN II-XII grossly intact PSYCHOLOGICAL: Alert and conversant, pleasant LABORATORY DATA: Please see below. CURRENT INPATIENT MEDICATIONS: All medications reviewed by myself and my attending. No changes made to Renvela or Vitamin D. IMAGING: Chest x-ray IMPRESSION: Negative PA and lateral chest. There is a dual-chamber pacemaker, unchanged. No interval change otherwise. ASSESSMENT/PLAN: This is a 81-year-old female with a past medical history significant for end-stage renal disease on hemodialysis who tested positive for respiratory syncytial virus. Nephrology consulted for management of end-stage renal disease on hemodialysis. 1. End-stage renal disease on hemodialysis: Received hemodialysis yesterday. Tolerated it well. Creatinine is 2.86. 2. Hypokalemia: Likely as a result of hemodialysis yesterday. Will replenish with oral supplementation of Potassium 40mEq one-time. 3. Hypertension: Well controlled. 3. Chronic kidney disease mineral bone disease: Continue with current out- patient management protocol of Vitamin D supplementation and Renvela for phosphate management. 4. Chronic anemia due to chronic kidney disease: Continue with current out- patient management protocol. 5. Diabetes mellitus, type II: Continue with Insulin Lispro 10 units in the morning and 6 units in the evening. Continue with sliding scale insulin, fingersticks every morning and before meals, and hypoglycemic protocol. 6. Respiratory syncytial virus: Continue with Duonebs, Tessalon Perles, and oral Prednisone. No need for antibiotics at this time. Guaifenesin added to patient's regimen. DISPOSITION: Continue with hemodialysis on Tuesday, Tuesday, Tuesday. Monitor labs. VS, I&O, 24H, Fishbone Vital Signs/I&O Vital Signs Date Time Temp Pulse Resp B/P (MAP) Pulse Ox O2 Delivery O2 Flow Rate FiO2 10/01/17 06:00 97.0 72 18 156/61 (92) 93 Room Air 10/01/17 05:29 2.0 I&O- Last 24 Hours up to 6 AM 10/02/17 06:00 Intake Total 480 ml Balance 480 ml Laboratory Data 24H LABS Laboratory Tests 2 09/30/17 19:56: Bedside Glucose (Misc Panel) 202H 10/01/17 12:00: Immature Granulocyte % (Auto) 0.6H, White Blood Count 11.7H, Red Blood Count 3.57L, Hemoglobin 10.1L, Hematocrit 32.8L, Mean Corpuscular Volume 91.9, Mean Corpuscular Hemoglobin 28.3, Mean Corpuscular Hemoglobin Concent 30.8L, Red Cell Distribution Width 13.3, Platelet Count 215, Neutrophils (%) (Auto) 84.3H, Lymphocytes (%) (Auto) 10.3L, Monocytes (%) (Auto) 4.5, Eosinophils (%) (Auto) 0.1, Basophils (%) (Auto) 0.2, Neutrophils # (Auto) 9.9H, Lymphocytes # (Auto) 1.2L, Monocytes # (Auto) 0.5, Eosinophils # (Auto) 0.0, Basophils # (Auto) 0.0, Immature Granulocyte # (Auto) 0.1H, Nucleated Red Blood Cells % (auto) 0.0, Anion Gap 6L, Glomerular Filtration Rate 16.9L, Blood Urea Nitrogen 23H, Creatinine 2.86H, Sodium Level 140, Potassium Level 3.1L, Chloride Level 103, Carbon Dioxide Level 31, Calcium Level 9.6 CBC/BMP Laboratory Tests 10/01/17 12:00 Red Blood Count 3.57 L, Mean Corpuscular Volume 91.9, Mean Corpuscular Hemoglobin 28.3, Mean Corpuscular Hemoglobin Concent 30.8 L, Red Cell Distribution Width 13.3, Neutrophils (%) (Auto) 84.3 H, Lymphocytes (%) (Auto) 10.3 L, Monocytes (%) (Auto) 4.5, Eosinophils (%) (Auto) 0.1, Basophils (%) ( Auto) 0.2, Neutrophils # (Auto) 9.9 H, Lymphocytes # (Auto) 1.2 L, Monocytes # ( Auto) 0.5, Eosinophils # (Auto) 0.0, Basophils # (Auto) 0.0, Calcium Level 9.6 Microbiology Microbiology 09/30/17 Blood Culture - Preliminary, Resulted No growth after 24 hours . All specim... 09/29/17 Blood Culture - Preliminary, Resulted No growth after 24 hours . All specim... 09/29/17 Respiratory Virus Panel (PCR) ([facility]) - Final, Complete Respiratory Syncytial Virus ROBINA DEJESUS DO Oct 01, 2017 14:46
[2017-10-01] MEDS ORDERED: POTASSIUM CHLORIDE 10 MEQ SR TABLET PO ONE (15:00)
[2017-10-01] MEDS: VITAMIN D 1,000 INTERNATIONAL UNITS TABLET PO SCH (19:27)
[2017-10-01 22:00] VITALS: BP 157/62
[2017-10-02] MEDS: IPRATROPIUM 0.5MG/ALBUTEROL 2.5MG INH SOL UD 3ML (DUONEB)(J7620) NEB SCH ×3 (01:44→13:10)
[2017-10-02 06:00] VITALS: BP 162/72
[2017-10-02] MEDS: HumaLOG INSULIN (NovoLOG) PER UNIT SC SCH ×4 (07:30→21:00)
[2017-10-02] MEDS: HumaLOG 75/25 MIX INSULIN PER UNIT SC SCH ×2 (07:30→17:14)
--- NOTE | 2017-10-02 07:52 | IPN ---
DATE: 10/01/2017 The patient is seen on rounds for family medicine. She is a 81-year-old woman who is a chronic dialysis patient who was admitted with cough and chest congestion and found to have respiratory syncytial virus infection. Since her admission, she has been getting steroids, nebulizers. She was dialyzed yesterday. She said she felt good yesterday but today she is not feeling as good. She has more coughing and more malaise. She says she breaks out in a sweat if she has a coughing spell. She is not raising up any phlegm. She has not been febrile per se. On examination her temperature is 97, pulse of 72, blood pressure 156/61, O2 saturation was 93% on room air. She has had congestion, voice is raspy. She has an intermittent cough. Mucous membranes are moist. There are no rales or wheezes in her chest, although there are some breath sounds that are harsh and increase when she coughs. Heart has regular rhythm without any murmur, click or gallop. Abdomen is soft and nontender. She has no edema. There are no labs for today. Her admission chest x-ray have been negative. ASSESSMENT: Respiratory syncytial virus bronchitis. ESRD on dialysis PLAN: Since the patient is not feeling better, we will not seek to discharge her today. Will let the nephrology service known in case they want to schedule dialysis for tomorrow. Will recheck her labs and chest x-ray. Continue on her current medications. Hopefully she will be feeling better tomorrow. KARELY
[2017-10-02] MEDS: guaiFENesin ER 600 MG TAB PO SCH ×2 (09:06→20:18)
[2017-10-02] MEDS: predniSONE 10 MG TAB PO SCH (09:07)
[2017-10-02] MEDS: (RENVELA) SEVELAMER **CARBONate** 800 MG TAB PO SCH ×2 (09:07→17:14)
[2017-10-02] MEDS: SENOKOT S TAB PO SCH ×2 (09:08→20:19)
[2017-10-02] MEDS: ASPIRIN 81 MG ENTERIC TAB PO SCH (09:08)
[2017-10-02] MEDS: ACETAMINOPHEN TAB 650MG DOSE (2X325MG) PO PRN ×2 (09:09→10:09)
[2017-10-02] MEDS ORDERED: MIRALAX *UNIT DOSE* 17GM PACKET PO ONE (11:15)
[2017-10-02] MEDS ORDERED: BENZONATATE 100 MG CAP PO ONE (12:00)
--- NOTE | 2017-10-02 13:22 | IPNPDOC ---
Subjective Date Seen The patient was seen on 10/02/17. Subjective Chief Complaint/HPI The patient is a 81-year-old female admitted with a reason for visit of Rsv Bronchitis. Events since last encounter Patient reports feeling better since admission and reports improvement since yesterday. Feels weak overall. Has been afebrile and reports some weakness with ambulation. Has not ambulated much besides going to the bathroom and back. Has been constipated, no bowel movements since admission. Usually takes senokot s at home and has regular BMs. Last had dialysis on Tuesday, is scheduled for tomorrow. Reports still having a cough. Not coughing anything up. No chest pain. No nausea or vomiting, tolerating oral intake, in fact eating more than usually at home. Constitutional: Denies: Chills, Fever Skin: Denies: Rash, Lesions Pulmonary: Reports: Cough, Denies: Dyspnea Cardiovascular: Denies: Chest Pain Gastrointestinal: Denies: Nausea, Vomiting Objective Physical Examination General Exam: Positive: Alert, Cooperative, No Acute Distress ENT Exam: Positive: Atraumatic, Mucous membr. moist/pink Neck Exam: Positive: Supple Chest Exam: Positive: Wheezing (mild) Heart Exam: Positive: Rate Normal, Normal S1, Normal S2 Abdomen Exam: Positive: Normal bowel sounds, Soft, Negative: Tenderness Assessment /Plan Assessment 1. Bronchitis secondary to RSV. Patient reports still having a cough but not as bad as before. Feeling better overall. Continue with current treatment plan. Patient reports some jitteriness after nebulizer this morning and was feeling better on exam. Does not feel she needs more nebulizers and changing to prn. Continue prednisone 30 mg daily. 2. End stage renal disease on maintenance hemodialysis Continue dialysis as needed. Scheduled for tomorrow pending discharge. Appreciate nephrology's assistance in management of this patient at this time. 3. Diabetes. She is on 75/25 insulin with sliding scale. Continue consistent carbohydrate diet. 4. Constipation Usually on senokot s for constipation. Has not had a BM since Tuesday. Dr. Contreras started patient on Polyethanene glycol. Monitor for bowel movements. 5. Deconditioning Patient has mostly been lying in bed since admission, not much ambulation. Encouraging ambulation with assistance. Patient reports feeling weak overall. Ordering PT to see patient and assist with strengthening and ambulation prior to discharge. Patient lives at home by herself and would benefit prior to discharge. VS, I&O, 24H, Fishbone Vital Signs/I&O Vital Signs Date Time Temp Pulse Resp B/P (MAP) Pulse Ox O2 Delivery O2 Flow Rate FiO2 10/02/17 06:00 96.8 69 18 162/72 (102) 97 Room Air 10/01/17 15:22 2.0 I&O- Last 24 Hours up to 6 AM 10/03/17 06:00 Intake Total 360 ml Balance 360 ml Laboratory Data 24H LABS Laboratory Tests 2 10/01/17 16:28: Bedside Glucose (Misc Panel) 237H Microbiology Microbiology 09/30/17 Blood Culture - Preliminary, Resulted No Growth after 48 hours. All Specime... 09/29/17 Blood Culture - Preliminary, Resulted No Growth after 48 hours. All Specime... 09/29/17 Respiratory Virus Panel (PCR) ([facility]) - Final, Complete Respiratory Syncytial Virus GME ATTESTATION GME ATTESTATION My faculty preceptor for this patient encounter was physically present during the encounter and was fully available. All aspects of the patient interview, examination, medical decision making process, and medical care plan development were reviewed and approved by the faculty preceptor. The faculty preceptor is aware and concurs with the plan as stated in the body of this note and will attest to such by his/her cosignature. TESSA PENALOZA DO Oct 02, 2017 13:22
[2017-10-02] MEDS ORDERED: IPRATROPIUM 0.5MG/ALBUTEROL 2.5MG INH SOL UD 3ML (DUONEB)(J7620) NEB PRN (13:30)
[2017-10-02 14:00] VITALS: BP 178/84
--- NOTE | 2017-10-02 18:57 | IPN ---
DATE: 10/02/2017 SUBJECTIVE: The patient is seen this morning at the bedside. She complains of jitteriness after receiving an albuterol treatment today and also complains of constipation, reports she has not had a bowel movement in the past several days. Notes that she slept well last night, but again is having coughing fits this morning. She denies any fevers or chills. Reports her appetite is good. No shortness of breath at rest. VITAL SIGNS: Temperature 96.8, pulse 69, respiratory rate 18, blood pressure 157/62 to 162/72, saturating 97% on room air. Intake and output: Oral intake yesterday 1200 mL, urine output recorded as 200 mL, net positive 1 liter. Weight in the bed scale today is 66.6 kg. GENERAL: The patient is seen, well-groomed, sitting up in bed in no acute distress. Extraocular muscles are intact. The oral mucosa is moist. The neck is supple. There is no jugular venous distention. CARDIAC: S1, S2. 2+ radial pulse. There is no edema in the dependent area or in the peripheries. LUNGS: Dry cough is noted, otherwise there is symmetric air entry bilaterally without crackle or rale. ABDOMEN: Soft, nontender. EXTREMITIES: Without edema. There is a fistula with thrill and bruit in the right upper extremity. NEUROLOGIC: She is at her baseline mentation. PSYCHIATRIC: Appropriate mood and affect. LABORATORY DATA: There are no new labs today. IMAGING: Chest x-ray 10/01/2017, showed clear lung fitzpatrick. INPATIENT MEDICATIONS: I have given the patient a dose of MiraLAX 17 grams by mouth once for constipation and I have also changed her Tessalon Perles to 200 mg by mouth every 8 hours around the clock. Remainder of medications are unchanged from prior. PROBLEMS: 1. End-stage renal disease on hemodialysis on a Tuesday, Tuesday, Tuesday schedule. The patient's next dialysis session will be tomorrow, 10/03/2017, and can be arranged either inpatient or outpatient depending on whether she is discharged or not. She is euvolemic on exam and chest x-ray was negative for any infiltrates or volume overload and clinically there is no edema. Potassium was noted to be low yesterday and the patient received a dose of oral potassium supplementation. 2. Respiratory syncytial virus bronchitis. The patient complains of jitteriness with DuoNeb treatments, otherwise her cough is improved from prior. She is saturating well on room air. She continues on oral prednisone, Mucinex, and I have made her Tessalon Perles around the clock. 3. Hypertension. The patient's blood pressure is acceptable at this time and expected to improve with dialysis and volume removal in the morning. She is not on any antihypertensives. 4. Renal osteodystrophy. The patient continues on Renvela and vitamin D. 5. Anemia of chronic kidney disease. The patient's hemoglobin remains at goal for end-stage renal disease (ESRD). 6. Constipation. The patient reports any bowel movement with use of Senokot. I will give her a dose of MiraLAX today.
[2017-10-02] MEDS: VITAMIN D 1,000 INTERNATIONAL UNITS TABLET PO SCH (20:19)
[2017-10-02 22:00] VITALS: BP 194/72
[2017-10-02] MEDS: BENZONATATE 100 MG CAP PO SCH (23:18)
[2017-10-03 02:00] VITALS: BP 184/78
[2017-10-03 06:00] VITALS: BP 188/64
[2017-10-03] MEDS: predniSONE 10 MG TAB PO SCH (06:48)
[2017-10-03] MEDS: SENOKOT S TAB PO SCH ×2 (06:48→21:00)
[2017-10-03] MEDS: guaiFENesin ER 600 MG TAB PO SCH ×2 (06:48→21:40)
[2017-10-03] MEDS: BENZONATATE 100 MG CAP PO SCH ×3 (06:49→21:40)
[2017-10-03] MEDS: (RENVELA) SEVELAMER **CARBONate** 800 MG TAB PO SCH ×2 (06:49→18:03)
[2017-10-03] MEDS: ASPIRIN 81 MG ENTERIC TAB PO SCH (06:54)
[2017-10-03] MEDS: HumaLOG INSULIN (NovoLOG) PER UNIT SC SCH ×4 (07:30→21:00)
[2017-10-03 07:31] LABS: CALCIUM LEVEL 9.1 MG/DL (8.8-10.2); CREATININE FOR GFR 3.67 MG/DL (0.55-1.02); GLOMERULAR FILTRATION RATE 12.7 (>39); POTASSIUM SERUM 4.2 MEQ/L (3.5-5.1)
[2017-10-03] MEDS: HumaLOG 75/25 MIX INSULIN PER UNIT SC SCH ×2 (08:25→18:04)
--- NOTE | 2017-10-03 09:43 | IPNPDOC ---
Subjective Date Seen The patient was seen on 10/03/17. Subjective Chief Complaint/HPI The patient is a 81-year-old female admitted with a reason for visit of Rsv Bronchitis. Constitutional: Denies: Chills ENT: Denies: Head Aches, Dysphagia Skin: Denies: Rash Pulmonary: Reports: Cough, Denies: Pleuritic Chest Pain Cardiovascular: Denies: Chest Pain, Palpitations Gastrointestinal: Denies: Nausea, Vomiting, Abdominal Pain Objective Physical Examination General Exam: Positive: Alert, Cooperative, No Acute Distress ENT Exam: Positive: Atraumatic, Mucous membr. moist/pink Neck Exam: Positive: Supple Chest Exam: Positive: Normal air movement, Negative: Rales, Wheezing (mild) Heart Exam: Positive: Rate Normal, Normal S1, Normal S2 Abdomen Exam: Positive: Normal bowel sounds, Soft, Negative: Tenderness Extremity Exam: Negative: Swelling Skin Exam: Positive: Nl turgor and temperature Psych Exam: Positive: Mental status NL, Mood NL Assessment /Plan Problems (1) RSV bronchitis Status: Acute Response to Treatment: Improving Problem Text: feels better today. breathing easily. jitteriness resolved w/o beta agonist inhalers (2) CKD (chronic kidney disease) stage V requiring chronic dialysis Status: Chronic Problem Specific Plan: Consult Specialist (Dr. Contreras following.) (3) Diabetes mellitus Status: Chronic Response to Treatment: Stable (4) Hypertension Status: Chronic Problem Text: pressures high today. due for dialysis. consider med addition after dialysis. would defer to Nephrology on this point, however. Plan/VTE VTE Prophylaxis Ordered?: No VTE Exclusion Mechanical Proph: Other (history of retroperitoneal hematoma on Lovenox in past.) VS, I&O, [facility]H, [facility] Vital Signs/I&O Vital Signs Date Time Temp Pulse Resp B/P (MAP) Pulse Ox O2 Delivery O2 Flow Rate FiO2 10/03/17 06:00 97.9 71 18 188/64 (105) 98 Room Air 10/01/17 15:22 2.0 Laboratory Data 24H LABS Laboratory Tests 2 10/02/17 12:08: Bedside Glucose (Misc Panel) 140H 10/02/17 16:53: Bedside Glucose (Misc Panel) 217H 10/02/17 20:38: Bedside Glucose (Misc Panel) 117H 10/03/17 06:33: Anion Gap 13, Glomerular Filtration Rate 12.7L, Blood Urea Nitrogen 54#H, Creatinine 3.67H, Sodium Level 140, Potassium Level 4.2#, Chloride Level 106, Carbon Dioxide Level 21, Calcium Level 9.1 CBC/BMP Laboratory Tests 10/03/17 06:33 Calcium Level 9.1 Microbiology Microbiology 09/30/17 Blood Culture - Preliminary, Resulted No Growth after 72 hours. All specime... 09/29/17 Blood Culture - Preliminary, Resulted No Growth after 72 hours. All specime... 09/29/17 Respiratory Virus Panel (PCR) ([facility]) - Final, Complete Respiratory Syncytial Virus Dwight Hartman MD Oct 03, 2017 09:30
[2017-10-03] MEDS ORDERED: LIDOCAINE 1% SDV 5 ML VIAL SQ ONE (11:00)
[2017-10-03] MEDS ORDERED: HEPARIN 1,000 UNITS/ML 10ML VIAL (FOR RADIOLOGY& DIALYSIS ONLY) IV ONE (11:00)
--- NOTE | 2017-10-03 14:07 | IPNPDOC ---
Date Seen The patient was seen on 10/03/17. Progress Note SUBJECTIVE: The patient is seen and evaluated during hemodialysis this afternoon. The goal is to remove 2kg during dialysis. She states that her constipation has improved and that she is having a more than adequate amount of bowel movements. Her cough has improved and she feels as if her breathing has improved as well. Her blood pressure was somewhat elevated this morning and the patient does not take any anti-hypertensives. Blood pressure during dialysis is 147/70. Denies fever or chills. VITAL SIGNS: See below. GENERAL: The patient is seen, well-groomed, laying in bed in the hemodialysis center, no acute distress. Extraocular muscles are intact. The oral mucosa is moist. The neck is supple. There is no jugular venous distention. CARDIAC: S1, S2. 2+ radial pulse. There is no edema in the dependent area or in the peripheries. LUNGS: Adequate inspiratory and expiratory airway excursion, no wheeze, rhonchi , crackles. ABDOMEN: Soft, nontender. EXTREMITIES: Without edema. There is a fistula that is currently being accessed during hemodialysis. NEUROLOGIC: She is at her baseline mentation. PSYCHIATRIC: Appropriate mood and affect. LABORATORY DATA: See below. INPATIENT MEDICATIONS: No current changes to medications. PROBLEMS: 1. End-stage renal disease on hemodialysis: Receives regularly scheduled dialysis on a Tuesday, Tuesday, Tuesday schedule. Patient is evaluated during hemodialysis with the goal of removing 2kg. She is euvolemic on exam with no overt edema appreciated. Potassium is 4.2 on this mornings labs. 2. Respiratory syncytial virus bronchitis: Patient is on scheduled Tessalon Perles, oral Prednisone, and Mucinex. Per patient, cough has improved. 3. Hypertension: Pre-dialysis blood pressure was somewhat elevated this morning. During dialysis her blood pressure is at an acceptable range of 147/ 70. Blood pressure appears adequately controlled with hemodialysis. No need to initiate anti-hypertensives at this time. 4. Renal osteodystrophy: The patient continues on Renvela and vitamin D. 5. Anemia of chronic kidney disease: Obtaining a CBC to ascertain patient's hemoglobin status. 6. Constipation: Resolved. Patient has had two bowel movements this morning. DISPOSITION: Continue with hemodialysis. Blood pressure adequately controlled with hemodialysis. VS, I&O, 24H, Fishbone Vital Signs/I&O Vital Signs Date Time Temp Pulse Resp B/P (MAP) Pulse Ox O2 Delivery O2 Flow Rate FiO2 10/03/17 09:55 98 Room Air 10/03/17 06:00 97.9 71 18 188/64 (105) 10/01/17 15:22 2.0 I&O- Last 24 Hours up to 6 AM 10/04/17 06:00 Intake Total 420 ml Output Total 100 ml Balance 320 ml Laboratory Data 24H LABS Laboratory Tests 2 10/02/17 16:53: Bedside Glucose (Misc Panel) 217H 10/02/17 20:38: Bedside Glucose (Misc Panel) 117H 10/03/17 06:33: Anion Gap 13, Glomerular Filtration Rate 12.7L, Blood Urea Nitrogen 54#H, Creatinine 3.67H, Sodium Level 140, Potassium Level 4.2#, Chloride Level 106, Carbon Dioxide Level 21, Calcium Level 9.1 10/03/17 11:27: Bedside Glucose (Misc Panel) 145H CBC/BMP Laboratory Tests 10/03/17 06:33 Calcium Level 9.1 Microbiology Microbiology 09/30/17 Blood Culture - Preliminary, Resulted No Growth after 72 hours. All specime... 09/29/17 Blood Culture - Preliminary, Resulted No Growth after 72 hours. All specime... 09/29/17 Respiratory Virus Panel (PCR) ([facility]) - Final, Complete Respiratory Syncytial Virus ROBINA DEJESUS DO Oct 03, 2017 13:43
[2017-10-03 16:45] LABS: BASO % 0.3 % (0.0-1.0); LYMPH # 1.1 10^3/uL (1.5-4.5); LYMPH % 11.2 % (24.0-44.0); MEAN CORPUSCULAR HEMOGLOBIN 28.4 pg (27.0-33.0); MEAN CORPUSCULAR HGB CONC 31.6 g/dl (32.0-36.5); MEAN CORPUSCULAR VOLUME 89.8 fl (80.0-96.0); MONO # 0.4 10^3/uL (0.0-0.8); MONO % 3.6 % (0.0-5.0); NEUTROPHILS # 8.3 10^3/uL (1.8-7.7); NEUTROPHILS % 83.9 % (36.0-66.0); PLATELET COUNT, AUTOMATED 231 10^3/uL (150-450); RED CELL DISTRIBUTION WIDTH 13.6 % (11.5-14.5); WHITE BLOOD COUNT 9.8 10^3/uL (4.0-10.0)
[2017-10-03] MEDS: VITAMIN D 1,000 INTERNATIONAL UNITS TABLET PO SCH (21:40)
[2017-10-03 22:00] VITALS: BP 127/60
[2017-10-04 06:00] VITALS: BP 128/63
[2017-10-04] MEDS: BENZONATATE 100 MG CAP PO SCH (06:10)
[2017-10-04 06:57] LABS: MEAN CORPUSCULAR HEMOGLOBIN 28.5 pg (27.0-33.0); MEAN CORPUSCULAR HGB CONC 31.5 g/dl (32.0-36.5); MEAN CORPUSCULAR VOLUME 90.6 fl (80.0-96.0); PLATELET COUNT, AUTOMATED 234 10^3/uL (150-450); RED CELL DISTRIBUTION WIDTH 13.5 % (11.5-14.5); WHITE BLOOD COUNT 11.9 10^3/uL (4.0-10.0)
[2017-10-04 07:25] LABS: ALBUMIN 3.2 GM/DL (3.2-5.2); CALCIUM LEVEL 9.5 MG/DL (8.8-10.2); CREATININE FOR GFR 2.83 MG/DL (0.55-1.02); GLOMERULAR FILTRATION RATE 17.1 (>39); PHOSPHORUS LEVEL 1.9 MG/DL (2.5-4.9); POTASSIUM SERUM 3.8 MEQ/L (3.5-5.1)
[2017-10-04] MEDS: HumaLOG INSULIN (NovoLOG) PER UNIT SC SCH ×2 (07:27→12:00)
[2017-10-04] MEDS: HumaLOG 75/25 MIX INSULIN PER UNIT SC SCH (07:30)
[2017-10-04] MEDS: (RENVELA) SEVELAMER **CARBONate** 800 MG TAB PO SCH (08:17)
[2017-10-04] MEDS: guaiFENesin ER 600 MG TAB PO SCH (08:17)
[2017-10-04] MEDS: ASPIRIN 81 MG ENTERIC TAB PO SCH (08:17)
[2017-10-04] MEDS: predniSONE 10 MG TAB PO SCH (08:17)
[2017-10-04] MEDS: SENOKOT S TAB PO SCH (08:17)
[2017-10-04] MEDS ORDERED: HUMA75VL SC (11:14)
[2017-10-04] MEDS ORDERED: PRED20TA PO (11:23)
--- NOTE | 2017-10-04 11:53 | IPNPDOC ---
Date Seen The patient was seen on 10/04/17. Progress Note SUBJECTIVE: The patient is seen and evaluated at bedside this morning. A daughter is present during my evaluation. She states that she is still coughing ; however, she feels that it is somewhat improved. She does not feel short of breath with ambulation. She usually ambulates with a seated walker at home and has been using a rolling walker while admitted. Patient has stopped taking the laxatives as they have successfully accomplished their task. Patient had three bowel movements yesterday. Successfully underwent hemodialysis yesterday with removal of 2kg. VITAL SIGNS: See below. GENERAL: The patient is seen, well-groomed, sitting in the chair, no acute distress. Extraocular muscles are intact. The oral mucosa is moist. The neck is supple. There is no jugular venous distention. CARDIAC: S1, S2. 2+ radial pulse. There is no edema in the dependent area or in the peripheries. LUNGS: Adequate inspiratory and expiratory airway excursion, no wheeze, rhonchi , crackles. ABDOMEN: Soft, nontender. EXTREMITIES: Without edema. There is a fistula in her right upper extremity that has a palpable thrill. NEUROLOGIC: She is at her baseline mentation. PSYCHIATRIC: Appropriate mood and affect. LABORATORY DATA: See below. INPATIENT MEDICATIONS: No current changes to medications. PROBLEMS: 1. End-stage renal disease on hemodialysis: Receives regularly scheduled dialysis on a Tuesday, Tuesday, Tuesday schedule. Patient to resume regularly scheduled dialysis outpatient. Continue with Renvela. 2. Respiratory syncytial virus bronchitis: Patient will continue with prescribed Prednisone as ordered at time of discharge. 3. Hypertension: Optimally controlled at time of discharge. No need for anti- hypertensives at this time. 4. Renal osteodystrophy: The patient continues on Renvela and vitamin D. 5. Anemia of chronic kidney disease: Hemoglobin of 10.9 this morning. Stable. 6. Constipation: Resolved. Patient to hold home dose of Senokot for the next couple/several days until increased bowel movements have subsided. Resume home dose Senokot afterwards. DISPOSITION: Continue with outpatient hemodialysis. Continue with current home medication regimens. VS, I&O, 24H, Fishbone Vital Signs/I&O Vital Signs Date Time Temp Pulse Resp B/P (MAP) Pulse Ox O2 Delivery O2 Flow Rate FiO2 10/04/17 06:00 98.6 65 15 128/63 (84) 98 Room Air 10/01/17 15:22 2.0 Laboratory Data 24H LABS Laboratory Tests 2 10/03/17 16:38: Immature Granulocyte % (Auto) 1.0H, White Blood Count 9.8, Red Blood Count 3.91L , Hemoglobin 11.1L, Hematocrit 35.1L, Mean Corpuscular Volume 89.8, Mean Corpuscular Hemoglobin 28.4, Mean Corpuscular Hemoglobin Concent 31.6L, Red Cell Distribution Width 13.6, Platelet Count 231, Neutrophils (%) (Auto) 83.9H, Lymphocytes (%) (Auto) 11.2L, Monocytes (%) (Auto) 3.6, Eosinophils (%) (Auto) 0.0, Basophils (%) (Auto) 0.3, Neutrophils # (Auto) 8.3H, Lymphocytes # (Auto) 1.1L, Monocytes # (Auto) 0.4, Eosinophils # (Auto) 0.0, Basophils # (Auto) 0.0, Immature Granulocyte # (Auto) 0.1H, Nucleated Red Blood Cells % (auto) 0.0 10/03/17 17:59: Bedside Glucose (Misc Panel) 147H 10/03/17 20:43: Bedside Glucose (Misc Panel) 138H 10/04/17 06:33: Nucleated Red Blood Cells % (auto) 0.0, Blood Urea Nitrogen 34H, Creatinine 2.83H, Sodium Level 141, Potassium Level 3.8, Chloride Level 106, Carbon Dioxide Level 27, Anion Gap 8, Glomerular Filtration Rate 17.1L, Calcium Level 9.5, Phosphorus Level 1.9L, Albumin 3.2 CBC/BMP Laboratory Tests 10/03/17 16:38 Red Blood Count 3.91 L, Mean Corpuscular Volume 89.8, Mean Corpuscular Hemoglobin 28.4, Mean Corpuscular Hemoglobin Concent 31.6 L, Red Cell Distribution Width 13.6, Neutrophils (%) (Auto) 83.9 H, Lymphocytes (%) (Auto) 11.2 L, Monocytes (%) (Auto) 3.6, Eosinophils (%) (Auto) 0.0, Basophils (%) ( Auto) 0.3, Neutrophils # (Auto) 8.3 H, Lymphocytes # (Auto) 1.1 L, Monocytes # ( Auto) 0.4, Eosinophils # (Auto) 0.0, Basophils # (Auto) 0.0 10/04/17 06:33 Red Blood Count 3.82 L, Mean Corpuscular Volume 90.6, Mean Corpuscular Hemoglobin 28.5, Mean Corpuscular Hemoglobin Concent 31.5 L, Red Cell Distribution Width 13.5, Anion Gap 8 Microbiology Microbiology 09/30/17 Blood Culture - Preliminary, Resulted No Growth after 72 hours. All specime... 09/29/17 Blood Culture - Preliminary, Resulted No Growth after 72 hours. All specime... 09/29/17 Respiratory Virus Panel (PCR) ([facility]) - Final, Complete Respiratory Syncytial Virus ROBINA DEJESUS DO Oct 04, 2017 11:53
--- NOTE | 2017-10-05 11:46 | DSES ---
DATE OF ADMISSION: 09/30/2017 DATE OF DISCHARGE: 10/04/2017 REASON FOR ADMISSION: Patient admitted through the emergency department with complaints of cough, approximately 4-day duration, initially runny nose and increasing cough. She had evidence of respiratory syncytial virus infection and because of her vulnerability with chronic kidney disease, history of type 2 diabetes insulin-requiring, it was felt the patient needed inpatient stay. She was admitted and given steroids, antibiotics, nebulizers, and nephrology was consulted. She continued her usual hemodialysis while inpatient under direction of Dr. Obinna Contreras. She gradually improved with decreasing cough frequency, decreasing dyspnea, resolution of any fever that might have been present before admission, room air saturations were 98% on the day of discharge with a blood pressure of 128/63. Transiently during hospital, her pressures were high, usually on the day before dialysis, typically in the 170 range being observed. Again, blood cultures were negative. Respiratory panel identified respiratory syncytial virus from which patient seems to be recovering nicely at this time. DISCHARGE DIAGNOSES: 1. Acute bronchitis with respiratory syncytial virus infection. 2. End-stage renal disease. 3. Insulin-requiring diabetes mellitus type 2. 4. Anemia secondary to chronic kidney disease. PLAN: Patient will be discharged on the following medications: - insulin lispro 75/25, 4 units in the evening, 10 units in the morning - vitamin D 1000 units daily - aspirin 81 mg daily - docusate sodium two tablets twice a day (May reduce dose if loose stool develops.) - nitroglycerin sublingual as needed - prednisone 20 mg daily times four more days - Renvela 800 mg twice a day Followup per dialysis schedule. His followup in my office in 10-14 days. Activity otherwise, as tolerated. Diet: Renal diet as specified by her software tools engineer. Call if hypoglycemic events are observed or persistent system blood sugars above 200 are observed.
== END 2017-10-04 13:25 | disposition home or self-care (01) | DRG 202 ==
LOC: M ED 20:52 → M ED INP 20:53 → OBSVTOIN 09-30 10:57 → M MS5PR 09-30 17:05
PROVIDERS: ADMIT Hospitalist; ATTEND Family Medicine
PROC: 5A1D70Z Performance of Urinary Filtration, Intermittent, Less than 6 Hours Per Day (ICD-10-PCS; principal; 2017-09-30)
DX: J20.5 Acute bronchitis due to respiratory syncytial virus (principal); N18.6 End stage renal disease; N25.81 Secondary hyperparathyroidism of renal origin; E11.9 Type 2 diabetes mellitus without complications; I25.10 Atherosclerotic heart disease of native coronary artery without angina pectoris; D63.1 Anemia in chronic kidney disease; Z95.0 Presence of cardiac pacemaker; Z98.41 Cataract extraction status, right eye; Z98.42 Cataract extraction status, left eye; Z99.2 Dependence on renal dialysis; Z88.2 Allergy status to sulfonamides; Z88.5 Allergy status to narcotic agent

== ENCOUNTER 2018-03-10 00:29 | Emergency (ER) | payer MEDICARE | END 2018-03-10 02:07 | disposition left against medical advice (07) | LOC: M ED 00:29 | DX: Z53.29 Procedure and treatment not carried out because of patient's decision for other reasons (principal) ==

== ENCOUNTER → 2018-12-19 | Outpatient (CLI) | payer MEDICARE, MEDICAID ==
[~2018-12-19] MED LIST changes: -/MOM400 PO; -ACET1TAB17 PO; +ACET1TAB55 PO; -ACET50TA PO; -AMLO2.5T PO; +AMLO2.5T3 PO; -AMLO5TAB2 PO; +AMLO5TAB6 PO; -ASPI1TAB PO; +ASPI81TA26 PO; +ASPI81TAEC PO; -CALC0.5C PO; +CALC0.5C14 PO; -DOCU10ELUD PO; +DOCU5LIQ PO; -DRIS50002 PO; +DRIS50003 PO; +FEXO60CA PO; +FEXO60TA71 PO; +ISOVUE-300 61% 50ML VIAL (Q9967) As Ordered ONE; +LIDOCAINE 2% MDV 20 ML VIAL As Ordered ONE; +MAPA500T17 PO; +MIDAZOLAM INJ 2 MG/2 ML VIAL (J2250) As Ordered ONE; -MIDO25TA PO; +MILK10SU PO; -NORC1TAB4 PO; +NORC1TAB7 PO; +PRED20TA PO; +REGL10TA6 PO; -SALI0.6523; +SALI0.6528; +SENN1TAB36 PO; +VITA100066 PO; +[UNRECOGNIZED DRUG - CODE] PO; +fentaNYL 100 MCG/2 ML INJECTION (J3010) As Ordered ONE
--- NOTE | 2019-01-17 07:29 | REPIR ---
DATE OF PROCEDURE: 12/19/2018 ATTENDING SURGEON: Dr. Oli Morris ASSISTANTS: Swati Hudson and Leola Castro PREOPERATIVE DIAGNOSES: End-stage renal disease. Diabetes mellitus. Congestive heart failure. Hyperparathyroid. Dysfunctional right brachiocephalic arteriovenous fistula with increased venous pressure, bleeding and difficulty with cannulation. Hypertension. POSTOPERATIVE DIAGNOSES: End-stage renal disease. Diabetes mellitus. Congestive heart failure. Hyperparathyroid. Dysfunctional right brachiocephalic arteriovenous fistula with increased venous pressure, bleeding and difficulty with cannulation. Hypertension. PROCEDURE: Right brachiocephalic arteriovenous fistulogram. Retrograde right brachial artery angiogram. Placement of two sheaths with two cannulations of the arteriovenous fistula. Selective right brachial artery catheter placement with angiogram runoff. Right cephalic vein angioplasty of 8 x 200 mm balloon. Right cephalic vein brachial artery anastomosis angioplasty with 6 x 40 mm balloon. COMPLICATIONS: None. DRAINS: None. SPECIMENS: None. IMPLANTS: None. FLUORO TIME: 8.9 minutes. CONTRAST: 11 mL of ISOVUE-300. ANESTHESIA: Local with sedation with 2 mg of Versed, 100 mcg of fentanyl, 2 mL of 2% lidocaine. SEDATION TIME: Was from 9:47 a.m. to 10:42 a.m. for a total of 55 minutes. Sedation was administered and cardiopulmonary monitoring performed under my direct supervision. I was present for and directed the entire case. INDICATION: Patient is an 83-year-old female with end-stage renal disease and a right brachiocephalic arteriovenous fistula which is dysfunctional. The patient will undergo a fistulogram with possible angioplasty, stent and/or atherectomy. Risks, benefits, and alternative treatment options were discussed with the patient. PROCEDURE: The patient was taken to the angiography suite, placed supine on the angiography room table, and then prepped and draped in a standard surgical fashion. The right brachiocephalic arteriovenous fistula was cannulated. A fistulogram was performed showing an approximate 85% stenosis in the cephalic vein in the midportion. The cephalic vein was then angioplastied with a 8 x 200 mm balloon, during which a retrograde brachial artery angiogram was performed showing stenosis of approximately 85% at the arteriovenous anastomosis. A second cannulation was performed. The catheter advanced through to the brachial artery in a retrograde fashion and angiogram performed, after which the brachial artery and cephalic vein were angioplastied with a 6 x 40 mm balloon. A completion brachial artery angiogram with runoff showed resolution of the stenosis in the arteriovenous anastomosis as well as at the midportion of the cephalic vein in the upper arm. Catheters and wires were removed. Sutures were placed at the puncture site for hemostasis. Dressings were then applied. The patient tolerated the procedure well. All instrument, sponge, and needle counts were correct at the end the case. There were no complications. Dr. Morris was present for and directed the entire case. The patient was transferred to the holding area and subsequently discharged in stable condition. The arteriovenous fistula is stable for continued use for hemodialysis access.
== END | disposition home or self-care (01) ==
LOC: M IRPRO 07:49
PROVIDERS: ATTEND Surgery Vascular Surgery
DX: T82.858A Stenosis of other vascular prosthetic devices, implants and grafts, initial encounter (principal); I13.2 Hypertensive heart and chronic kidney disease with heart failure and with stage 5 chronic kidney disease, or end stage renal disease; E11.22 Type 2 diabetes mellitus with diabetic chronic kidney disease; N18.6 End stage renal disease; I50.9 Heart failure, unspecified; E21.3 Hyperparathyroidism, unspecified; Z99.2 Dependence on renal dialysis
CPT/HCPCS: 36215; 36902; 75710; 99152; 99153; C1725; C1769; C1887; C1894; J2250; J3010; Q9967

== ENCOUNTER 2019-01-29 12:07 | Emergency (ER) | payer MEDICARE, MEDICAID ==
[~2019-01-29] VITALS: Ht 167.6 cm; Wt 73.3 kg
[~2019-01-29 12:07] MED LIST changes: -CINA30TA PO; +CINA30TA4 PO; -FEXO60CA PO; -FEXO60TA71 PO; -ISOVUE-300 61% 50ML VIAL (Q9967) As Ordered ONE; -LIDOCAINE 2% MDV 20 ML VIAL As Ordered ONE; -MIDAZOLAM INJ 2 MG/2 ML VIAL (J2250) As Ordered ONE; -REGL10TA6 PO; -fentaNYL 100 MCG/2 ML INJECTION (J3010) As Ordered ONE
[2019-01-29] MEDS ORDERED: diphenhydrAMINE INJ 50MG/ML VIAL (J1200) IV STA (12:39)
[2019-01-29] MEDS ORDERED: METOCLOPRAMIDE INJ 10MG/2ML VIAL (J2765) IV ONE (12:45)
[2019-01-29] MEDS ORDERED: FAMOTIDINE 20 MG TAB PO ONE (12:45)
[2019-01-29 13:10] LABS: BASO # 0.1 10^3/uL (0.0-0.2); BASO % 0.8 % (0.0-1.0); EOS # 0.1 10^3/uL (0.0-0.50); EOS % 1.9 % (0.0-3.0); HEMATOCRIT 36.6 % (36.0-47.0); HEMOGLOBIN 11.9 g/dl (12.0-15.5); LYMPH % 15.8 % (24.0-44.0); MEAN CORPUSCULAR HEMOGLOBIN 29.5 pg (27.0-33.0); MEAN CORPUSCULAR HGB CONC 32.5 g/dl (32.0-36.5); MEAN CORPUSCULAR VOLUME 90.8 fl (80.0-96.0); MONO # 0.5 10^3/uL (0.0-0.8); MONO % 8.2 % (0.0-5.0); NEUTROPHILS # 4.7 10^3/uL (1.8-7.7); PLATELET COUNT, AUTOMATED 144 10^3/uL (150-450); RED BLOOD COUNT 4.03 10^6/uL (4.00-5.40); WHITE BLOOD COUNT 6.5 10^3/uL (4.0-10.0)
--- NOTE | 2019-01-29 13:25 | REP ---
CT of the brain without IV contrast: Comparison 06/21/2013. There is no hemorrhage. There is no edema, mass effect or midline shift. There is mild enlargement of the sulci compatible with diffuse volume loss, unchanged. The visualized paranasal sinuses and mastoid air cells are clear. Impression: There is no hemorrhage, acute infarct or mass. There is mild diffuse volume loss, unchanged. Electronically Signed by Jose Young MD 01/29/2019 01:16 P
[2019-01-29 13:40] LABS: ACETAMINOPHEN LEVEL 5.8 UG/ML (10.0-30.0); ALBUMIN 3.6 GM/DL (3.2-5.2); ALT/SGPT 16 U/L (12-78); BILIRUBIN,DIRECT < 0.1 MG/DL (0.0-0.2); BILIRUBIN,TOTAL 0.3 MG/DL (0.2-1.0); BLOOD UREA NITROGEN 14 MG/DL (7-18); CALCIUM LEVEL 8.8 MG/DL (8.8-10.2); CARBON DIOXIDE LEVEL 32 MEQ/L (21-32); CHLORIDE LEVEL 103 MEQ/L (98-107); CPK CREATINE PHOSPHOKINASE 54 U/L (26-192); CREATININE FOR GFR 2.28 MG/DL (0.55-1.30); GLOMERULAR FILTRATION RATE 21.9 (>32); GLUCOSE, FASTING 217 MG/DL (70-100); POTASSIUM SERUM 3.9 MEQ/L (3.5-5.1); SALICYLATE LEVEL < 1.7 MG/DL (5.0-30.0); SODIUM LEVEL 139 MEQ/L (136-145); TOTAL PROTEIN 6.6 GM/DL (6.4-8.2); TROPONIN I < 0.02 NG/ML (< 0.10)
--- NOTE | 2019-01-29 13:51 | REP ---
PA and lateral chest: Comparison is 10/01/2017. Lung fitzpatrick are clear. Cardiac size is mildly enlarged, unchanged. There is a dual-chamber pacemaker, unchanged. The darshana, mediastinum, skeletal structures are unremarkable. There is no interval change. Impression: Chronic changes. No acute cardiopulmonary findings. Electronically Signed by Jose Young MD 01/29/2019 01:42 P
[2019-01-29] MEDS ORDERED: REGL10TA6 PO ×2 (14:21→15:19)
[2019-01-29] MEDS ORDERED: FEXO60TA71 PO (14:21)
[2019-01-29] MEDS ORDERED: KETOROLAC 30 MG/ML VIAL (J1885) IV ONE (14:30)
[2019-01-29 14:56] VITALS: BP 144/88
[2019-01-29] MEDS ORDERED: FEXO60CA PO (15:19)
== END 2019-01-29 15:20 | disposition home or self-care (01) ==
LOC: EDBD 12:07 → M ED 12:07
DX: G44.209 Tension-type headache, unspecified, not intractable (principal)
CPT/HCPCS: 70450; 71046; 80048; 80076; 82140; 82550; 82553; 84443; 84484; 85025; 94760; 96374; 96375; 99284; G0480; J1200; J1885; J2765

== ENCOUNTER 2019-02-13 14:14 | Inpatient (IN) | payer MEDICARE, MEDICAID ==
[~2019-02-13] VITALS: Ht 167.6 cm; Wt 78.9 kg
[~2019-02-13 14:14] MED LIST changes: +FEXO60CA PO; +FEXO60TA71 PO; +REGL10TA6 PO
--- NOTE | 2019-02-13 15:07 | REP ---
CT Head without contrast HISTORY: Altered mental status COMPARISON: 01/29/2019 Areas of decreased attenuation are present in the periventricular and subcortical white matter. This represents small-vessel ischemic disease. There is no intraparenchymal hemorrhage, acute infarct, mass or midline shift. The ventricular system and cortical sulci as well as subarachnoid space in the posterior fossa are dilated consistent with mild volume loss. There is no extra cerebral collection. There is no fracture. The visualized sinuses are clear. IMPRESSION: 1. Small vessel ischemic disease. 2. Mild volume loss. Electronically Signed by Martín Lombardo MD 02/13/2019 02:58 P
[2019-02-13 15:33] LABS: VENOUS BASE EXCESS 3.6 (-2.0-2.0); VENOUS O2 SATURATION 62.5 % (60.0-80.0); VENOUS PARTIAL PRESSURE CO2 53.7 mmHg (38.0-50.0); VENOUS PARTIAL PRESSURE O2 33.8 mmHg (30.0-50.0); VENOUS PH 7.365 UNITS (7.330-7.430); VENOUS STANDARD HCO3 26.9 MEQ/L; VENOUS TOTAL CO2 31.6 MEQ/L (24.0-28.0)
[2019-02-13 15:37] LABS: BASO % 0.5 % (0.0-1.0); EOS # 0.1 10^3/uL (0.0-0.50); EOS % 1.4 % (0.0-3.0); HEMATOCRIT 36.6 % (36.0-47.0); HEMOGLOBIN 11.7 g/dl (12.0-15.5); LYMPH # 1.3 10^3/uL (1.5-4.5); LYMPH % 17.2 % (24.0-44.0); MEAN CORPUSCULAR VOLUME 90.8 fl (80.0-96.0); MONO # 0.7 10^3/uL (0.0-0.8); MONO % 8.6 % (0.0-5.0); NEUTROPHILS # 5.6 10^3/uL (1.8-7.7); NEUTROPHILS % 71.7 % (36.0-66.0); PLATELET COUNT, AUTOMATED 147 10^3/uL (150-450); RED BLOOD COUNT 4.03 10^6/uL (4.00-5.40); WHITE BLOOD COUNT 7.8 10^3/uL (4.0-10.0)
[2019-02-13 16:00] LABS: INR 0.92; PROTHROMBIN TIME 12.4 SECONDS (12.1-14.4)
[2019-02-13 16:01] LABS: PARTIAL THROMBOPLASTIN TIME 27.1 SECONDS (25.4-37.6)
[2019-02-13 16:20] LABS: ALBUMIN 3.2 GM/DL (3.2-5.2); ALT/SGPT 22 U/L (12-78); BILIRUBIN,DIRECT < 0.1 MG/DL (0.0-0.2); BILIRUBIN,TOTAL 0.3 MG/DL (0.2-1.0); BLOOD UREA NITROGEN 35 MG/DL (7-18); CALCIUM LEVEL 8.5 MG/DL (8.8-10.2); CARBON DIOXIDE LEVEL 29 MEQ/L (21-32); CHLORIDE LEVEL 104 MEQ/L (98-107); CPK CREATINE PHOSPHOKINASE 59 U/L (26-192); CREATININE FOR GFR 4.14 MG/DL (0.55-1.30); GLUCOSE, FASTING 130 MG/DL (70-100); MB/CK RELATIVE INDEX 2.88 (< OR =4); POTASSIUM SERUM 3.6 MEQ/L (3.5-5.1); SODIUM LEVEL 141 MEQ/L (136-145); TOTAL PROTEIN 6.7 GM/DL (6.4-8.2); TROPONIN I < 0.02 NG/ML (< 0.10)
[2019-02-13] MEDS ORDERED: MIRA3350 PO (16:21)
[2019-02-13] MEDS ORDERED: HUMA75VL SC ×2 (16:21)
[2019-02-13] MEDS ORDERED: NASA1SPR NARES (16:21)
[2019-02-13] MEDS ORDERED: METO-535 PO (16:21)
[2019-02-13] MEDS ORDERED: COLA100C5 PO (16:21)
[2019-02-13] MEDS ORDERED: FEXO60TA71 PO (16:21)
[2019-02-13] MEDS ORDERED: QC A650T3 PO (16:21)
[2019-02-13] MEDS ORDERED: GLUCOSE 4 GM CHEW TABLET PO PRN (18:00)
[2019-02-13] MEDS ORDERED: GLUCAGON FOR INJ 1 MG VIAL (J1610) SC PRN (18:00)
[2019-02-13] MEDS ORDERED: DEXTROSE 50% 50 ML SYRINGE IV PRN (18:00)
[2019-02-13] MEDS ORDERED: DOCUSATE SODIUM 100 MG CAP PO PRN (18:00)
[2019-02-13] MEDS ORDERED: ISOVUE-370 76% 100ML VIAL (Q9967) As Ordered ONE (18:13)
--- NOTE | 2019-02-13 18:19 | HPEPDOC ---
General Date of Admission 02/13/19 Chief Complaint The patient is a 83-year-old female admitted with a reason for visit of Weakness. History of Present Illness 83-year-old female with past medical history of diabetes, end-stage renal disease on hemodialysis, hyperparathyroidism, permanent pacemaker presented to the ER from [facility] assisted living facility with a chief complaint of transient slurring of speech, expressive aphasia, and confusion. The patient states that after lunch this afternoon she became confused and had difficulty expressing what she wanted to say. She reports understanding what people were telling her, but she could not voice her thoughts. She also explained feeling generalized weakness in her upper and lower extremities bilaterally. She denied any facial droop, focal numbness/tingling, or any visual blurring. The patient does endorse a complaint of frontal headaches which she has had for the last several weeks. Of note, the patient was recently seen in the ER 2 weeks ago for headaches and was discharged home after a CT scan of the head revealed no acute findings. Upon arrival to the ER, the patient states that her symptoms have completely resolved. A CT scan of the head in the ER revealed no acute findings. The patient will be admitted under the service of the [facility] with the diagnosis of possible TIA. Home Medications Scheduled Aspirin (Aspirin EC) 81 Mg Tabec, 81 MG PO DAILY, (Reported) Fexofenadine HCl (Fexofenadine HCl) 60 Mg Tablet, 60 MG PO BID, (Reported) Insulin Lispro Protamine/Lispr (Humalog Mix 75-25 Vial) 1 Units/0.01 Ml Susp, 8 UNITS SC 4XWK, (Reported) SUN/TUE/THURS/SAT AT 0730 Insulin Lispro Protamine/Lispr (Humalog Mix 75-25 Vial) 100 Unit/1 Ml Vial, 8 UNITS SC 3XW, (Reported) MON/WED/FRI AT 0500 Insulin Lispro Protamine/Lispr (Humalog Mix 75-25 Vial) 100 Unit/1 Ml Vial, 2 UNITS SC QPM, (Reported) TAKES AT 1700 Polyethylene Glycol 3350 (Miralax) 119 Gm Powder, 17 GM PO DAILY, (Reported) dilute in 8 ounces of water or juice Sevelamer Carbonate (Renvela) 800 Mg Tab, 800 MG PO QPM, (Reported) TAKES AT 1700 Triamcinolone Acetonide (Nasacort) 10.8 Ml Bode, 2 SPRAY NARES QHS, (Reported) Scheduled PRN Acetaminophen (Acetaminophen 8 Hour) 650 Mg Tablet.er, 1,300 MG PO Q8H PRN for PAIN, (Reported) Docusate Sodium (Colace) 100 Mg Capsule, 100 MG PO BID PRN for CONSTIPATION, (Reported) Metoclopramide HCl (Metoclopramide HCl Odt) 10 Mg Tab.rapdis, 10 MG PO Q6H PRN for NAUSEA, (Reported) Allergies Coded Allergies: Sulfa (Sulfonamide Antibiotics) (Verified Allergy, Mild, hives, 01/29/19) codeine (Verified Allergy, Mild, hives, 01/29/19) Past Medical History Medical History As noted in HPI. Social History * Smoker: Denies Alcohol: Denies Drugs: denies A-FIB/CHADSVASC A-FIB History Current/History of A-Fib/PAF?: No Review of Systems Other systems 10 point review of systems negative unless otherwise specified in the HPI. Physical Examination General Exam: Positive: Alert, Cooperative, No Acute Distress Eye Exam: Positive: PERRLA, Conjunctiva & lids normal, EOMI ENT Exam: Positive: Atraumatic, Mucous membr. moist/pink Neck Exam: Negative: JVD Chest Exam: Positive: Clear to auscultation, Normal air movement Heart Exam: Positive: Rate Normal, Normal S1, Normal S2 Abdomen Exam: Positive: Soft; Negative: Tenderness Extremity Exam: Negative: Tenderness, Swelling Neuro Exam: Positive: Normal Speech, Strength at 5/5 X4 ext, Normal Tone, Sensation Intact, Cranial Nerves 3-12 NL Psych Exam: Positive: Oriented x 3 Vital Signs Vital Signs Date Time Temp Pulse Resp B/P (MAP) Pulse Ox O2 Delivery O2 Flow Rate FiO2 02/13/19 17:29 71 97 02/13/19 17:15 168/72 (104) 02/13/19 17:14 16 02/13/19 14:27 Room Air 02/13/19 14:25 97.6 Laboratory Data Labs 24H Laboratory Tests 2 02/13/19 15:23: Immature Granulocyte % (Auto) 0.6, White Blood Count 7.8, Red Blood Count 4.03, Hemoglobin 11.7L, Hematocrit 36.6, Mean Corpuscular Volume 90.8, Mean Corpuscular Hemoglobin 29.0, Mean Corpuscular Hemoglobin Concent 32.0, Red Cell Distribution Width 13.3, Platelet Count 147L, Neutrophils (%) (Auto) 71.7H, Lymphocytes (%) (Auto) 17.2L, Monocytes (%) (Auto) 8.6H, Eosinophils (%) (Auto) 1.4, Basophils (%) (Auto) 0.5, Neutrophils # (Auto) 5.6, Lymphocytes # (Auto) 1.3L, Monocytes # (Auto) 0.7, Eosinophils # (Auto) 0.1, Basophils # (Auto) 0.0, Nucleated Red Blood Cells % (auto) 0.0, Prothrombin Time 12.4, Prothromb Time In ternational Ratio 0.92, Activated Partial Thromboplast Time 27.1, Blood Gas Bicarbonate Standard 26.9, Venous Blood pH 7.365, Venous Blood Partial Pressure CO2 53.7H, Venous Blood Partial Pressure O2 33.8, Venous Blood Total Carbon Dioxide 31.6H, Venous Blood HCO3 30.0H, Venous Blood Oxygen Saturation 62.5, Venous Blood Base Excess 3.6H, Anion Gap 8, Glomerular Filtration Rate 11.0L, Lactic Acid Level 1.6, Calcium Level 8.5L, Aspartate Amino Transf (AST/SGOT) 14, Alanine Aminotransferase (ALT/SGPT) 22, Alkaline Phosphatase 96, Total Bilirubin 0.3, Direct Bilirubin < 0.1, Ammonia < 10, Total Creatine Kinase 59, Creatine Kinase MB 2.0, Creatine Kinase MB Relative Index 2.88, Troponin I < 0.02, Total Protein 6.7, Albumin 3.2, Albumin/Globulin Ratio 0.91L, Thyroid Stimulating Hormone (TSH) 2.500 02/13/19 15:34: Bedside Glucose (Misc Panel) 145H CBC/BMP Laboratory Tests 02/13/19 15:23 Red Blood Count 4.03, Mean Corpuscular Volume 90.8, Mean Corpuscular Hemoglobin 29.0, Mean Corpuscular Hemoglobin Concent 32.0, Red Cell Distribution Width 13.3, Neutrophils (%) (Auto) 71.7 H, Lymphocytes (%) (Auto) 17.2 L, Monocytes (%) (Auto) 8.6 H, Eosinophils (%) (Auto) 1.4, Basophils (%) (Auto) 0.5, Neutrophils # (Auto) 5.6, Lymphocytes # (Auto) 1.3 L, Monocytes # (Auto) 0.7, Eosinophils # (Auto) 0.1, Basophils # (Auto) 0.0 Microbiology Microbiology 02/13/19 Blood Culture, Received Pending 02/13/19 Blood Culture, Received Pending Plan / VTE VTE Prophylaxis Ordered?: Yes Plan Plan Episode of Expressive Aphasia, Confusion, Weakness possibly 2/[address] Head negative for acute event Patient unable to get an MRI 2/2 PPM-->Neuro contacted in the ER by ER provider and has recommended CTA Head and Neck. 2D ECHO Cont ASA, and Atorvastatin has been added Neurochecks Monitor on Tele PT/OT Consider official Neuro consult if Imaging is positive Accelerated HTN 2/2 Above Patient not on any antihypertensives at home as she has a chronically low blood pressure. We will allow for permissive hypertension at this time, it already appears that her blood pressure has decreased from being in the 210s systolic upon arrival to 160s in the ER. Cont to monitor DM ISS ESRD on HD Nephro consulted DVT Prophylaxis SCDs/TEDs The patient will be admitted under the service of Dr. Ruggiero of the [facility], who will start following the patient at 7 PM on 02/13/19. JOSE HOPKINS MD Feb 13, 2019 18:19
--- NOTE | 2019-02-13 20:04 | REPVR ---
EXAM: CT Angiography Head With Contrast EXAM DATE/TIME: 02/13/2019 6:47 PM CLINICAL HISTORY: 83 years old, female; Pain; Headache; Additional info: TIA TECHNIQUE: Imaging protocol: Axial computed tomographic angiography images of the head with intravenous contrast using CT angiography protocol. Coronal and sagittal reformatted images were created and reviewed. 3D rendering: MIP and 3D reconstructed images were created and reviewed. Radiation optimization: All CT scans at this facility use at least one of these dose optimization techniques: automated exposure control; mA and/or kV adjustment per patient size (includes targeted exams where dose is matched to clinical indication); or iterative reconstruction. Contrast material: ISO 370; Contrast volume: 100 ml; Contrast route: IV COMPARISON: CT Head without contrast 02/13/2019 2:38 PM FINDINGS: Ventricles, cisterns and sulci are symmetric and appropriate for age. No intracranial mass or focal mass effect. No intracranial hemorrhage, midline shift or acute territorial infarct. Anterior circulation: Normal contrast opacification and luminal caliber in the petrous, cavernous and supraclinoid internal carotid arteries. Normal appearance of the anterior cerebral artery branches and middle cerebral artery branches through the MCA trifurcations. No occlusion, high-grade focal stenosis or dissection. No aneurysm. Posterior circulation: Normal distal vertebral arteries, with patent normal caliber basilar artery, and normal superior cerebellar and posterior cerebral arteries. No occlusion, high-grade stenosis or aneurysm. Right P1 segment is diminutive and the normal caliber right posterior cerebral artery is supplied by a posterior communicating artery Dural sinuses appear patent. Bony structures show no acute fracture or destructive process. IMPRESSION: Unremarkable CT Angiogram of the head and [place]. No intracranial large vessel disease Electronically signed by: Alo Ahn On 02/13/2019 20:04:18 PM
--- NOTE | 2019-02-13 20:10 | REPVR ---
EXAM: CT Angiography Neck With Contrast EXAM DATE/TIME: 02/13/2019 6:47 PM CLINICAL HISTORY: 83 years old, female; Pain; Headache; Additional info: TIA TECHNIQUE: Imaging protocol: Axial computed tomographic angiography images of the neck with intravenous contrast using CT angiography protocol. Coronal and sagittal reformatted images were created and reviewed. 3D rendering: MIP and 3D reconstructed images were created and reviewed. Radiation optimization: All CT scans at this facility use at least one of these dose optimization techniques: automated exposure control; mA and/or kV adjustment per patient size (includes targeted exams where dose is matched to clinical indication); or iterative reconstruction. Contrast material: ISO 370; Contrast volume: 100 ml; Contrast route: IV COMPARISON: No relevant prior studies available. FINDINGS: Bilateral common, internal and external carotid system shows normal contrast opacification with no occlusion, flow limiting stenosis, or intimal flap to suggest dissection. No concerning luminal irregularity to suggest vasculitis. Bilateral carotid bulb calcified atherosclerotic plaque is present with milder than 50% short segment luminal caliber narrowing and normal luminal caliber and enhancement to the skull base level Vertebral arteries demonstrate normal course to the level of the skull base and show no occlusion, flow limiting stenosis or dissection. No flow limiting stenosis or anomaly of the great vessel origins. Imaged soft tissue structures show no abnormality. IMPRESSION: Mild bilateral carotid bulb atherosclerotic plaque with short segment, milder than 50% luminal caliber narrowing and normal flow distally. No hemodynamically significant stenosis. CAROTID STENOSIS REFERENCE USING NASCET CRITERIA: % ICA stenosis = (1 - narrowest ICA diameter/diameter of distal cervical ICA) x 100. Mild - <50% stenosis. Moderate - 50-69% stenosis. Severe - 70-94% stenosis. Near occlusion - 95-99% stenosis. Occluded - 100% stenosis. Electronically signed by: Alo Ahn On 02/13/2019 20:10:28 PM
[2019-02-13] MEDS ORDERED: hydrALAZINE INJ 20 MG/ML VIAL IV STA (20:24)
--- NOTE | 2019-02-13 20:28 | REP ---
PORTABLE CHEST: AP portable view of the chest is performed. There is no acute infiltrate. There is mild cardiomegaly. There is mild calcification and tortuosity of the thoracic aorta. 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 IMPRESSION: No acute infiltrate. Electronically Signed by Jose Collins MD 02/14/2019 04:52 P
[2019-02-13] MEDS: ACETAMINOPHEN TAB 650MG DOSE (2X325MG) PO PRN (20:32)
[2019-02-13] MEDS: FEXOFENADINE 60 MG TAB PO SCH (21:00)
[2019-02-13] MEDS: HumaLOG INSULIN (NovoLOG) PER UNIT SC SCH (21:00)
[2019-02-13 21:05] VITALS: BP 178/62
[2019-02-13 22:12] VITALS: BP 150/64
[2019-02-14] VITALS (9 sets, daily range): BP systolic 140–192; BP diastolic 70–84
--- NOTE | 2019-02-14 05:52 | ECGEPIP ---
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
[2019-02-14 06:12] LABS: ALBUMIN 2.9 GM/DL (3.2-5.2); BILIRUBIN,TOTAL 0.4 MG/DL (0.2-1.0); CALCIUM LEVEL 8.6 MG/DL (8.8-10.2); CREATININE FOR GFR 4.26 MG/DL (0.55-1.30); GLOMERULAR FILTRATION RATE 10.6 (>32); MAGNESIUM LEVEL 1.9 MG/DL (1.8-2.4); POTASSIUM SERUM 4.3 MEQ/L (3.5-5.1); TOTAL PROTEIN 6.4 GM/DL (6.4-8.2)
[2019-02-14] MEDS: HumaLOG INSULIN (NovoLOG) PER UNIT SC SCH ×4 (08:30→19:42)
[2019-02-14] MEDS: FEXOFENADINE 60 MG TAB PO SCH ×2 (08:31→19:43)
[2019-02-14] MEDS: ACETAMINOPHEN TAB 650MG DOSE (2X325MG) PO PRN ×2 (08:31→18:04)
[2019-02-14] MEDS: ASPIRIN 81 MG ENTERIC TAB PO SCH (08:31)
[2019-02-14] MEDS: ATORVASTATIN 20 MG TAB PO SCH (08:31)
--- NOTE | 2019-02-14 08:40 | IPNPDOC ---
Subjective Date Seen The patient was seen on 02/14/19. Subjective Chief Complaint/HPI Lying in bed comfortably as I entered the room. She reports to be feeling better then yesterday, however, states she doesn't feel back to her baseline. She reports feeling tired with mild SOB with activity that has been ongoing for many weeks. She denies any cough, chest pain, angina, orthopnea or edema. No further headache and she states she is able to verbally communicate per her usual, no further weakness Constitutional: Denies: Chills, Fever Pulmonary: Reports: Dyspnea; Denies: Cough, Pleuritic Chest Pain Cardiovascular: Denies: Chest Pain, Palpitations, Orthopnea, Edema Gastrointestinal: Denies: Nausea, Vomiting Neurological: Denies: Weakness, Change in speech, Confusion Psych: Reports: Mood Normal Objective Physical Examination General Exam: Positive: Alert, Cooperative, No Acute Distress Eye Exam: Positive: PERRLA, Conjunctiva & lids normal, EOMI ENT Exam: Positive: Atraumatic, Mucous membr. moist/pink Neck Exam: Negative: JVD Chest Exam: Positive: Clear to auscultation, Normal air movement; Negative: Rales, Rhonchi, Wheezing Heart Exam: Positive: Rate Normal, Normal S1, Normal S2 Abdomen Exam: Positive: Soft; Negative: Tenderness Extremity Exam: Negative: Edema Skin Exam: Positive: Nl turgor and temperature Neuro Exam: Positive: Normal Speech, Strength at 5/5 X4 ext, Normal Tone, Sensation Intact, Cranial Nerves 3-12 NL Psych Exam: Positive: Oriented x 3 A-FIB/CHADSVASC A-FIB History Current/History of A-Fib/PAF?: No Assessment /Plan Assessment 02/14 -- Patient had another episode of slurred speech while at dialysis this afternoon. Dialysis terminated early, f/u EKG and head CT ordered without acute finding. Nonfocal exam. Neurology consulted. Problems (1) TIA (transient ischemic attack) Status: Acute Response to Treatment: Stable Problem Text: 02/14/19: Patient appears to be back to her baseline. She denies further speech difficulties, no headache and strength is per her baseline CT Angio FINDINGS: Ventricles, cisterns and sulci are symmetric and appropriate for age. No intracranial mass or focal mass effect. No intracranial hemorrhage, midline shift or acute territorial infarct. Anterior circulation: Normal contrast opacification and luminal caliber in the petrous, cavernous and supraclinoid internal carotid arteries. Normal appearance of the anterior cerebral artery branches and middle cerebral artery branches through the MCA trifurcations. No occlusion, high-grade focal stenosis or dissection. No aneurysm. ] CTA Neck FINDINGS: Bilateral common, internal and external carotid system shows normal contrast opacification with no occlusion, flow limiting stenosis, or intimal flap to suggest dissection. No concerning luminal irregularity to suggest vasculitis. Bilateral carotid bulb calcified atherosclerotic plaque is present with milder than 50% short segment luminal caliber narrowing and normal luminal caliber and enhancement to the skull base level Vertebral arteries demonstrate normal course to the level of the skull base and show no occlusion, flow limiting stenosis or dissection. No flow limiting stenosis or anomaly of the great vessel origins. (2) CKD (chronic kidney disease) stage V requiring chronic dialysis Status: Chronic Response to Treatment: Stable Problem Specific Plan: Consult Specialist Problem Text: 02/14/19: Nephrology was consulted and patient is scheduled for dialysis today (3) Hypertension Status: Chronic Response to Treatment: Stable Problem Text: 02/14/19: Pressures appear to be running higher then usual for patient. She is not currently on antihypertensive medications. She was given hydralazine single dose in the ER for systolic pressure of 216. Her pressures have improved, however, still above goal. It appears patient was on Amlodipine in the past, however, this was stopped d/t hypotension related to her HD. I will consult with nephrology regarding restarting her HTN and appropriate regimen (4) Diabetes mellitus Status: Chronic Response to Treatment: Stable Problem Text: 02/14/19: SSI per protocol (5) Shortness of breath Status: Acute Response to Treatment: Stable Problem Text: 02/14/19: SOB with activity only. This has been ongoing for a few weeks. She had chest x-ray on 01/29 and again yesterday. Patient with hx of CHF, mild aortic valvular sclerosis without functional abnormality, moderate mitral annual calcification without inflow tract obstruction and only very mild insufficiency. Last ECHO 12/2016, LVEF 65% and she appears well compensated on exam today. We may want to consider repeat ECHO. I will discuss this with rosalie luther Chest X-ray: There is no acute infiltrate. There is mild cardiomegaly. There is mild calcification and tortuosity of the thoracic aorta. 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 IMPRESSION: No acute infiltrate. (6) Headache Status: Resolved Problem Text: 02/14/19: This has resolved (7) Diastolic dysfunction Status: Chronic Response to Treatment: Stable Problem Text: 02/14/19: Appears well compensated on exam today Plan/VTE VTE Prophylaxis Ordered?: Yes VS, I&O, 24H, Fishbone Vital Signs/I&O Vital Signs Date Time Temp Pulse Resp B/P (MAP) Pulse Ox O2 Delivery O2 Flow Rate FiO2 02/14/19 04:00 98.4 70 19 159/72 (101) 95 02/13/19 20:18 Room Air Laboratory Data 24H LABS Laboratory Tests 2 02/13/19 15:23: Immature Granulocyte % (Auto) 0.6, White Blood Count 7.8, Red Blood Count 4.03, Hemoglobin 11.7L, Hematocrit 36.6, Mean Corpuscular Volume 90.8, Mean Corpuscular Hemoglobin 29.0, Mean Corpuscular Hemoglobin Concent 32.0, Red Cell Distribution Width 13.3, Platelet Count 147L, Neutrophils (%) (Auto) 71.7H, Lymphocytes (%) (Auto) 17.2L, Monocytes (%) (Auto) 8.6H, Eosinophils (%) (Auto) 1.4, Basophils (%) (Auto) 0.5, Neutrophils # (Auto) 5.6, Lymphocytes # (Auto) 1.3L, Monocytes # (Auto) 0.7, Eosinophils # (Auto) 0.1, Basophils # (Auto) 0.0, Nucleated Red Blood Cells % (auto) 0.0, Prothrombin Time 12.4, Prothromb Time International Ratio 0.92, Activated Partial Thromboplast Time 27.1, Blood Gas Bicarbonate Standard 26.9, Venous Blood pH 7.365, Venous Blood Partial Pressure CO2 53.7H, Venous Blood Partial Pressure O2 33.8, Venous Blood Total Carbon Dioxide 31.6H, Venous Blood HCO3 30.0H, Venous Blood Oxygen Saturation 62.5, V enous Blood Base Excess 3.6H, Anion Gap 8, Glomerular Filtration Rate 11.0L, Lactic Acid Level 1.6, Calcium Level 8.5L, Aspartate Amino Transf (AST/SGOT) 14, Alanine Aminotransferase (ALT/SGPT) 22, Alkaline Phosphatase 96, Total Bilirubin 0.3, Direct Bilirubin < 0.1, Ammonia < 10, Total Creatine Kinase 59, Creatine Kinase MB 2.0, Creatine Kinase MB Relative Index 2.88, Troponin I < 0.02, Total Protein 6.7, Albumin 3.2, Albumin/Globulin Ratio 0.91L, Thyroid Stimulating Hormone (TSH) 2.500 02/13/19 15:34: Bedside Glucose (Misc Panel) 145H 02/13/19 21:27: Bedside Glucose (Misc Panel) 156H 02/14/19 05:14: Anion Gap 8, Glomerular Filtration Rate 10.6L, Calcium Level 8.6L, Aspartate Amino Transf (AST/SGOT) 13, Alanine Aminotransferase (ALT/SGPT) 20, Alkaline Phosphatase 83, Total Bilirubin 0.4, Total Protein 6.4, Albumin 2.9L, Albumin /Globulin Ratio 0.83L, Blood Urea Nitrogen 37H, Creatinine 4.26H, Sodium Level 141, Potassium Level 4.3, Chloride Level 105, Carbon Dioxide Level 28, Magnesium Level 1.9 CBC/BMP Laboratory Tests 02/13/19 15:23 Red Blood Count 4.03, Mean Corpuscular Volume 90.8, Mean Corpuscular Hemoglobin 29.0, Mean Corpuscular Hemoglobin Concent 32.0, Red Cell Distribution Width 13.3, Neutrophils (%) (Auto) 71.7 H, Lymphocytes (%) (Auto) 17.2 L, Monocytes (%) (Auto) 8.6 H, Eosinophils (%) (Auto) 1.4, Basophils (%) (Auto) 0.5, Neutrophils # (Auto) 5.6, Lymphocytes # (Auto) 1.3 L, Monocytes # (Auto) 0.7, Eosinophils # (Auto) 0.1, Basophils # (Auto) 0.0 02/14/19 05:14 Calcium Level 8.6 L, Aspartate Amino Transf (AST/SGOT) 13, Alanine Aminotransferase (ALT/SGPT) 20, Alkaline Phosphatase 83, Total Bilirubin 0.4, Total Protein 6.4, Albumin 2.9 L Microbiology Microbiology 02/13/19 Blood Culture, Received Pending 02/13/19 Blood Culture, Received Pending ANI YOO February 14, 2019 08:11 BERNABE BERMEO DO February 15, 2019 00:48
[2019-02-14] MEDS ORDERED: HEPARIN 1,000 UNITS/ML 10ML VIAL (FOR RADIOLOGY& DIALYSIS ONLY) IV ONE (11:15)
--- NOTE | 2019-02-14 12:50 | CR ---
DATE OF CONSULTATION: 02/14/2019 REQUESTING PHYSICIAN: Dr. Pancho Ruggiero CONSULTING PHYSICIAN: Dr. Pollard REASON FOR CONSULTATION: Management of end-stage renal disease and hemodialysis. CHIEF COMPLAINT: The patient presented to the hospital yesterday with headache, confusion, slurred speech and weakness of the arms. HISTORY OF PRESENT ILLNESS Alyce Tejada is an 83-year-old female with past medical history of end-stage renal disease on hemodialysis q. Tuesday, Tuesday and Tuesday, history of diabetes mellitus type 2, and multiple other comorbidities as mentioned below. She has no history of hypertension as baseline. She presented to the emergency room yesterday from [facility] because of sudden onset of slurred speech, confusion, expressive aphasia, and difficulty to do simple tasks with her arms. She was found to have elevated blood pressures in the emergency room. A complete CVA protocol was followed. CAT scan and CT angio of the head and neck was done. The patient's symptoms resolved after some time. She was admitted under the hospitalist service last night. The nephrology service was called for further help in the management of end-stage renal disease and arrangement of hemodialysis. I saw and evaluated the patient today morning at the bedside. The patient reports that she is feeling much better today as compared with yesterday. She was just given a dose of hydralazine yesterday for evaluated blood pressures. Her blood pressures are getting better now. 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 PAST SURGICAL HISTORY: Status post right upper arm AV fistula. ALLERGIES: She is allergic to SULFA DRUGS and CODEINE. FAMILY HISTORY: No significant family history of end-stage renal disease requiring hemodialysis. SOCIAL HISTORY: She denies any smoking or illicit drug abuse. She is currently residing at [facility]. REVIEW OF SYSTEMS: Constitutional: She denies any fevers and chills. Eyes: She denies any blurry vision, double vision. ENT: She denies any dysphagia, odynophagia or ear discharge. Cardiovascular: She denies any chest palpitations. She does report high blood pressures when she presented to the hospital. Respiratory: She denies any cough or wheezing. GI: She denies any nausea or vomiting. Genitourinary: She denies any dysuria or hematuria. Musculoskeletal: She did report muscle weakness in the upper extremities when she arrived, but she denies any muscle weakness right now. 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 Skin: She denies any rashes or ulcers. Hematology/Oncology: She denies any easy bleeding or bruising. Endocrine: She reports history of secondary hyperparathyroidism. All other review of systems is negative. PHYSICAL EXAMINATION: General: The patient is awake, alert, oriented times three, sitting up in the bed in no apparent distress. Vital Signs: Temperature is 97.8 degrees Fahrenheit, blood pressure 178/78, pulse is 70, respiratory rate of 18, and saturating 96% on room air. Intake and output: There is no urine output recorded. Head and Neck Exam: Extraocular muscles intact. Pupils equally round and reactive to light. Mucous membranes are moist. Neck is supple. There is no jugular venous distention (JVD). Cardiovascular: S1 and S2, regular rate. No edema of the bilateral lower extremities. Respiratory: Chest is clear to auscultation bilaterally. Bilateral equal air entry. No rales or rhonchi. Abdomen: Soft. Present bowel sounds. Nontender. No organomegaly. Musculoskeletal: No clubbing or cyanosis. Pulses are 2+. 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 Power is 5/5 in all extremities. AV Access: She has a right upper arm AV fistula with positive thrill and bruit. LAB REVIEW: CBC showed a WBC 7.8, hemoglobin of 11.7 and platelets are 147. INR is 0.92. BMP showed sodium 141, potassium 4.3, chloride 105, bicarb 28, BUN 37, creatinine is 4.2, calcium is 8.6, and albumin is 2.9. Microbiology: Blood cultures are pending. IMAGING STUDIES: CT angiogram of the head was done which showed no abnormality in the [place]. CT angiogram of the neck was done which showed mild bilateral carotid bulb atherosclerotic plaques. There was no significant stenosis. CURRENT INPATIENT MEDICATIONS: The patient's medications were all reviewed by me. She is on Tylenol p.r.n., aspirin 81 mg daily, Lipitor 40 mg daily, Altagracia 60 mg p.o. twice a day, hydralazine 10 mg IV one dose was given yesterday, insulin sliding scale, and Renvela 800 mg p.o. daily once a day. ASSESSMENT: 83-year-old female with end-stage renal disease on hemodialysis who admitted this time with transient ischemic attack and accelerated hypertension. PLAN: 1. End-stage renal disease on hemodialysis. Today is the patient's regular day of dialysis. She will be dialyzed today. I will try to remove about 1 kg of fluid as tolerated by her blood pressure. 2. Transient ischemic attack. All the workup done so for by neurology is negative. She is currently on statin and aspirin. The rest of the management is as per neurology recommendations. 2-D echogram was ordered. Official report is pending. 3. Hypertension. The patient does not have history of hypertension. She came in with elevated blood pressure secondary to transient ischemic attack. No apparent hypertensive medications are being used at this point. Her blood pressure is slowly improving now. Hemodialysis and ultrafiltration will also help improve her blood pressure. 4. Chronic kidney disease mineral bone disease. Continue home dose of Renvela 800 mg p.o. daily. 5. Anemia in end-stage renal disease. Hemoglobin is 11.7, which is optimal. No need of Aranesp administration at this point. Thank you for involving me in the care of this patient. I shall be happy to follow the patient along with you tomorrow morning.
--- NOTE | 2019-02-14 17:47 | ECHO ---
DATE OF PROCEDURE: 02/14/2019 REFERRING PHYSICIAN: Dio Robles MD INDICATION: Transient cerebral ischemia, unspecified. HEIGHT: 167 cm WEIGHT: 80.5 kg 2D MEASUREMENTS: Aortic root: 3.4 cm Proximal ascending aorta: 3.5 cm Left atrium: 4.7 cm Ventricular septum: 1.27 cm Posterior wall: 1.27 cm Left ventricle diastole: 3.9 cm Right ventricle: 3.8 cm Inferior vena cava: 1.8 cm (more than 50% respiratory variation) DOPPLER MEASUREMENTS: Aortic valve velocity: 165 cm/s LVOT velocity: 107 cm/s LVOT VTI: 25.1 cm Very mild mitral regurgitation. Mitral E velocity: 134 cm/s Mitral A velocity: 174 cm/s Mitral deceleration time: 275 ms Very mild tricuspid regurgitation. Estimated right ventricle systolic pressure: 48 - 53 mmHg assuming a right atrial pressure of 5 - 10 mmHg. MITRAL ANNULAR TISSUE DOPPLER: E prime septal: 4.9 cm/s E prime lateral: 4.9 cm/s DESCRIPTION: Rhythm was AV sequential paced at 70 beats per minute. This was a 2D, M-mode, color flow Doppler and pulse wave Doppler examination that included mitral annular tissue Doppler. Image quality was adequate. No pericardial effusion. CONCLUSIONS: 1. Mild concentric left ventricle hypertrophy. Normal regional left ventricle (LV) wall motion and wall thickening. No paradoxical septal motion apparent despite ventricular pacing. Left ventricular ejection fraction (LVEF) 60% (3D). Grade 1 LV diastolic dysfunction (impaired relaxation filling pattern). 2. Severe left atrial dilatation. 3. Mild mitral annular calcification. Very mild mitral regurgitation. 4. 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 The right ventricle lead probably implants somewhere in the upper portion of the anterior right ventricle free wall. 5. Suggestive of moderate elevation of estimated right ventricle systolic pressure. Mild mitral regurgitation. Normal right ventricle size and systolic function.
[2019-02-14] MEDS: (RENVELA) SEVELAMER **CARBONate** 800 MG TAB PO SCH (18:04)
--- NOTE | 2019-02-14 18:05 | REP ---
CT Head without contrast HISTORY: Slurred speech COMPARISON: 02/13/2019 Areas of decreased attenuation are present in the periventricular and subcortical white matter. This represents small-vessel ischemic disease. There is no intraparenchymal hemorrhage, acute infarct, mass or midline shift. The ventricular system and cortical sulci are dilated consistent with mild volume loss. There is no extra cerebral collection. There is no fracture. The visualized sinuses are clear. IMPRESSION: 1. Small vessel ischemic disease. 2. Mild volume loss Electronically Signed by Martín Lombardo MD 02/14/2019 05:56 P
[2019-02-14] MEDS ORDERED: SLF 3 ML SYR IV PRN (21:00)
[2019-02-14] MEDS: SLF 3 ML SYR IV SCH (21:00)
[2019-02-15 04:00] VITALS: BP 154/71
[2019-02-15] MEDS: SLF 3 ML SYR IV SCH ×3 (06:00→20:37)
[2019-02-15 06:22] LABS: CHOLESTEROL RISK RATIO 2.608 (<5)
--- NOTE | 2019-02-15 07:02 | ECGEPIP ---
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
[2019-02-15] MEDS: ASPIRIN 81 MG ENTERIC TAB PO SCH (07:55)
[2019-02-15] MEDS: FEXOFENADINE 60 MG TAB PO SCH ×2 (07:55→20:01)
[2019-02-15] MEDS: ATORVASTATIN 20 MG TAB PO SCH (07:56)
[2019-02-15] MEDS: HumaLOG INSULIN (NovoLOG) PER UNIT SC SCH ×4 (07:56→20:01)
[2019-02-15 08:00] VITALS: BP 113/54
--- NOTE | 2019-02-15 10:35 | IPNPDOC ---
Subjective Date Seen The patient was seen on 02/15/19. Subjective Chief Complaint/HPI Patient sitting comfortably in bed eating breakfast as I entered the room. She reports to be feeling much better Constitutional: Denies: Chills, Fever Pulmonary: Denies: Dyspnea, Cough Cardiovascular: Denies: Chest Pain, Palpitations, Orthopnea, Edema Gastrointestinal: Denies: Nausea, Vomiting, Abdominal Pain Neurological: Denies: Weakness, Change in speech, Confusion Psych: Reports: Mood Normal Objective Physical Examination General Exam: Positive: Alert, Cooperative, No Acute Distress Eye Exam: Positive: PERRLA, Conjunctiva & lids normal, EOMI ENT Exam: Positive: Atraumatic, Mucous membr. moist/pink Neck Exam: Negative: JVD Chest Exam: Positive: Clear to auscultation, Normal air movement; Negative: Rales, Rhonchi, Wheezing Heart Exam: Positive: Rate Normal, Normal S1, Normal S2 Abdomen Exam: Positive: Soft; Negative: Tenderness Extremity Exam: Negative: Edema Skin Exam: Positive: Nl turgor and temperature Neuro Exam: Positive: Normal Speech, Strength at 5/5 X4 ext, Normal Tone, Sensation Intact, Cranial Nerves 3-12 NL Psych Exam: Positive: Oriented x 3 A-FIB/CHADSVASC A-FIB History Current/History of A-Fib/PAF?: No Assessment /Plan Assessment 02/15: Feeling much better, has not had an additional episode of slurred speech. Family feels that she is doing well. Neurology has been consulted. -- CDT Problems (1) TIA (transient ischemic attack) Status: Acute Response to Treatment: Stable Problem Text: 02/15/19: Patient apparently had a second episode of slurred speech and confusion during dialysis yesterday. CT scan was repeated. Results negative. Neurology was consulted. We await their recommendations. Patient appears to be back to her baseline this morning 02/14/19: Patient appears to be back to her baseline. She denies further speech difficulties, no headache and strength is per her baseline CT Angio FINDINGS: Ventricles, cisterns and sulci are symmetric and appropriate for age. No intracranial mass or focal mass effect. No intracranial hemorrhage, midline shift or acute territorial infarct. Anterior circulation: Normal contrast opacification and luminal caliber in the petrous, cavernous and supraclinoid internal carotid arteries. Normal appearance of the anterior cerebral artery branches and middle cerebral artery branches through the MCA trifurcations. No occlusion, high-grade focal stenosis or dissection. No aneurysm. CTA Neck FINDINGS: Bilateral common, internal and external carotid system shows normal contrast opacification with no occlusion, flow limiting stenosis, or intimal flap to suggest dissection. No concerning luminal irregularity to suggest vasculitis. Bilateral carotid bulb calcified atherosclerotic plaque is present with milder than 50% short segment luminal caliber narrowing and normal luminal caliber and enhancement to the skull base level Vertebral arteries demonstrate normal course to the level of the skull base and show no occlusion, flow limiting stenosis or dissection. No flow limiting stenosis or anomaly of the great vessel origins. (2) CKD (chronic kidney disease) stage V requiring chronic dialysis Status: Chronic Response to Treatment: Stable Problem Specific Plan: Consult Specialist Problem Text: 02/15/19: Neurology following. She had dialysis yesterday. She is scheduled MWF 02/14/19: Nephrology was consulted and patient is scheduled for dialysis today (3) Hypertension Status: Chronic Response to Treatment: Stable Problem Text: 02/15/19: Pressure improved with dialysis yesterday. Spoke with nephrology, no addition of antihypertensives are recommended 02/14/19: Pressures appear to be running higher then usual for patient. She is not currently on antihypertensive medications. She was given hydralazine single dose in the ER for systolic pressure of 216. Her pressures have improved, however, still above goal. It appears patient was on Amlodipine in the past, however, this was stopped d/t hypotension related to her HD. I will consult with nephrology regarding restarting her HTN and appropriate regimen (4) Shortness of breath Status: Acute Response to Treatment: Stable Problem Text: 02/15/19: Unchanged. Patient worked with PT and was cleared. Her SOB does not appear to be limiting her activity and she is not de-sating ECHO CONCLUSIONS: 1. Mild concentric left ventricle hypertrophy. Normal regional left ventricle (LV) wall motion and wall thickening. No paradoxical septal motion apparent despite ventricular pacing. Left ventricular ejection fraction (LVEF) 60% (3D). Grade 1 LV diastolic dysfunction (impaired relaxation filling pattern). 2. Severe left atrial dilatation. 3. Mild mitral annular calcification. Very mild mitral regurgitation. 4. 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 The right ventricle lead probably implants somewhere in the upper portion of the anterior right ventricle free wall. 5. Suggestive of moderate elevation of estimated right ventricle systolic pressure. Mild mitral regurgitation. Normal right ventricle size and systolic function. 02/14/19: SOB with activity only. This has been ongoing for a few weeks. She had chest x-ray on 01/29 and again yesterday. Patient with hx of CHF, mild aortic valvular sclerosis without functional abnormality, moderate mitral annual calcification without inflow tract obstruction and only very mild insufficiency. Last ECHO 12/2016, LVEF 65% and she appears well compensated on exam today. Chest X-ray: There is no acute infiltrate. There is mild cardiomegaly. There is mild calcification and tortuosity of the thoracic aorta. 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 IMPRESSION: No acute infiltrate. (5) Diastolic dysfunction Status: Chronic Response to Treatment: Stable Problem Text: 02/15/19: Well compensated on exam today 02/14/19: Appears well compensated on exam today (6) Diabetes mellitus Status: Chronic Response to Treatment: Stable Problem Text: 02/14/19: SSI per protocol (7) Headache Status: Resolved Problem Text: 02/14/19: This has resolved Plan/VTE VTE Prophylaxis Ordered?: Yes VS, I&O, 24H, Fishbone Vital Signs/I&O Vital Signs Date Time Temp Pulse Resp B/P (MAP) Pulse Ox O2 Delivery O2 Flow Rate FiO2 02/15/19 04:00 98.8 72 18 154/71 (98) 91 02/14/19 18:58 2.0 02/13/19 20:18 Room Air I&O- Last 24 Hours up to 6 AM 02/15/19 06:00 Intake Total 720 ml Output Total 600 ml Balance 120 ml Laboratory Data 24H LABS Laboratory Tests 2 02/14/19 12:42: Bedside Glucose (Misc Panel) 94 02/14/19 17:58: Bedside Glucose (Misc Panel) 130H 02/14/19 19:41: Bedside Glucose (Misc Panel) 160H 02/15/19 05:23: Triglycerides Level 88, LDL Cholesterol 56, Total Cholesterol 120, Non-HDL Cholesterol (LDL + VLDL) 74, Total HDL Cholesterol 46, Cholesterol/HDL Ratio 2.608 02/15/19 06:35: Bedside Glucose (Misc Panel) 117H Microbiology Microbiology 02/13/19 Blood Culture - Preliminary, Resulted No growth after 24 hours . All specim... 02/13/19 Blood Culture - Preliminary, Resulted No growth after 24 hours . All specim... ANI YOO February 15, 2019 07:31 BERNABE BERMEO DO February 15, 2019 23:23
[2019-02-15 12:00] VITALS: BP 173/73
--- NOTE | 2019-02-15 12:56 | IPN ---
DATE: 02/15/2019 SUBJECTIVE: The patient was seen and examined at the bedside today morning. She is afebrile and hemodynamically stable. She was dialyzed yesterday and she had problem during hemodialysis at the end of dialysis. She had the same symptoms of TIA again. She had slurred speech, weakness of the upper extremities and she was confused. Dialysis was stopped earlier. Rapid assessment team evaluation was called. The patient was taken to the CT scan. A stat CT scan was done, which did not show any new findings; and the patient reports that overnight, her symptoms improved and she is feeling better again today. She denies any active complaints and her blood pressures are also better. OBJECTIVE: Vital signs: Temperature is 98.4 degrees Fahrenheit, blood pressure is 113/54, pulse is 70, respiratory of 18, saturating 95% on room air. Intake and output: Ultrafiltration with hemodialysis was 400 mL. Weight in the bed scale is 78.6 kg. PHYSICAL EXAMINATION: General: The patient is awake, alert, oriented x3, sitting up in the bed in no apparent distress. Head and neck exam: Extraocular muscles intact. Pupils equally round and reactive to light. Mucous membranes are moist. Neck is supple. There is no JVD. Cardiovascular: S1, S2 regular rate. No edema in bilateral lower extremities. Respiratory: Chest is clear to auscultation bilaterally. Bilateral equal air entry. No rales or rhonchi. Abdomen: Soft. Positive bowel sounds. Nontender. No organomegaly. Musculoskeletal: No clubbing or cyanosis. Pulses are 2+. AURICULAR THERAPIST: No focal deficit. Power is 5/5 in all extremities. AV axis: Right upper arm AV fistula with positive thrill and bruit. LABORATORY REVIEW: Complete blood count (CBC) showed a white blood count (WBC) of 7.8 and hemoglobin 11.7 and that is from January 1938. Basic metabolic panel (BMP) was reviewed and that is from yesterday. There is a lipid panel done today which showed LDL cholesterol of 56. Microbiology: Blood cultures are all negative. IMAGING STUDIES: A repeat CT scan of the head was done yesterday after dialysis, which showed small vessel ischemic disease. Mild volume loss. CURRENT MEDICATIONS: The patient's medications were all reviewed by me. There is no change in the medications today as compared with yesterday. She is not on any antihypertensives at this point. ASSESSMENT/PLAN: 1. End-stage renal disease on hemodialysis. The patient's regular hemodialysis days are Tuesday, Tuesday, Tuesday. She was dialyzed yesterday. Next hemodialysis session will be tomorrow morning. Ultrafiltration goal will be reduced because the patient does not have any edema and she did become symptomatic at the end of dialysis with fluid removal. 2. Transient acute ischemic attack. The patient has second episode of transient ischemic attack (TIA) yesterday after dialysis. All the workup so far is negative. The patient is pending evaluation by neurology. Continue statin and aspirin. 3. Elevated blood pressures the patient does not have hypertension at baseline. She actually gets hypotensive with dialysis. She does not need any antihypertensives. Blood pressures are within the acceptable range. I would avoid lowering her blood pressure because she is having transient ischemic attack (TIA) episodes 4. Anemia and end-stage renal disease. She is currently not on Aranesp, latest hemoglobin was above 11.
[2019-02-15 16:00] VITALS: BP 167/74
[2019-02-15] MEDS: (RENVELA) SEVELAMER **CARBONate** 800 MG TAB PO SCH (17:08)
[2019-02-15 19:42] VITALS: BP 156/70
[2019-02-16] VITALS (8 sets, daily range): BP systolic 134–194; BP diastolic 56–80
[2019-02-16 04:18] LABS: HEMATOCRIT 34.5 % (36.0-47.0); HEMOGLOBIN 10.9 g/dl (12.0-15.5); MEAN CORPUSCULAR HEMOGLOBIN 28.5 pg (27.0-33.0); MEAN CORPUSCULAR HGB CONC 31.6 g/dl (32.0-36.5); MEAN CORPUSCULAR VOLUME 90.1 fl (80.0-96.0); PLATELET COUNT, AUTOMATED 147 10^3/uL (150-450); RED BLOOD COUNT 3.83 10^6/uL (4.00-5.40); WHITE BLOOD COUNT 7.6 10^3/uL (4.0-10.0)
[2019-02-16 04:42] LABS: BILIRUBIN,TOTAL 0.4 MG/DL (0.2-1.0); CALCIUM LEVEL 8.6 MG/DL (8.8-10.2); CREATININE FOR GFR 4.76 MG/DL (0.55-1.30); GLOMERULAR FILTRATION RATE 9.4 (>32); POTASSIUM SERUM 4.7 MEQ/L (3.5-5.1); TOTAL PROTEIN 6.5 GM/DL (6.4-8.2)
[2019-02-16] MEDS: SLF 3 ML SYR IV SCH ×3 (06:00→20:51)
[2019-02-16] MEDS: HumaLOG INSULIN (NovoLOG) PER UNIT SC SCH ×4 (06:17→20:50)
[2019-02-16] MEDS: ATORVASTATIN 20 MG TAB PO SCH (06:19)
[2019-02-16] MEDS: FEXOFENADINE 60 MG TAB PO SCH ×2 (06:19→20:50)
--- NOTE | 2019-02-16 08:18 | IPNPDOC ---
Subjective Date Seen The patient was seen on 02/16/19. Subjective Chief Complaint/HPI Patient reports to be feeling well. No new concerns. No further episodes of slurred speech or confusion. She is scheduled for Dialysis today. Neurology consulted yesterday Constitutional: Denies: Chills, Fever Pulmonary: Denies: Dyspnea, Cough Cardiovascular: Denies: Chest Pain, Palpitations, Orthopnea, Edema Gastrointestinal: Denies: Nausea, Vomiting, Abdominal Pain Neurological: Denies: Numbness, Change in speech, Confusion Psych: Reports: Mood Normal Objective Physical Examination General Exam: Positive: Alert, Cooperative, No Acute Distress Eye Exam: Positive: PERRLA, Conjunctiva & lids normal, EOMI ENT Exam: Positive: Atraumatic, Mucous membr. moist/pink Neck Exam: Negative: JVD Chest Exam: Positive: Clear to auscultation, Normal air movement; Negative: Rales, Rhonchi, Wheezing Heart Exam: Positive: Rate Normal, Normal S1, Normal S2 Abdomen Exam: Positive: Soft; Negative: Tenderness Extremity Exam: Negative: Edema Skin Exam: Positive: Nl turgor and temperature Neuro Exam: Positive: Normal Speech, Strength at 5/5 X4 ext, Normal Tone, Sensation Intact, Cranial Nerves 3-12 NL Psych Exam: Positive: Oriented x 3 A-FIB/CHADSVASC A-FIB History Current/History of A-Fib/PAF?: No Assessment /Plan Assessment 02/16: Added low dose amlodipine for better HTN control. Sometimes BP drops precipitously during dialysis, and may need to hold this on dialysis days. -- CDT Problems (1) TIA (transient ischemic attack) Status: Acute Response to Treatment: Stable Problem Text: 02/16/19: No further episodes of slurred speech of confusion. Neurology was consulted yesterday and we await their findings and recommendations. Work-up thus far has been negative. 02/15/19: Patient apparently had a second episode of slurred speech and confusion during dialysis yesterday. CT scan was repeated. Results negative. Neurology was consulted. We await their recommendations. Patient appears to be back to her baseline this morning 02/14/19: Patient appears to be back to her baseline. She denies further speech difficulties, no headache and strength is per her baseline CT Angio FINDINGS: Ventricles, cisterns and sulci are symmetric and appropriate for age. No intracranial mass or focal mass effect. No intracranial hemorrhage, midline shift or acute territorial infarct. Anterior circulation: Normal contrast opacification and luminal caliber in the petrous, cavernous and supraclinoid internal carotid arteries. Normal appearance of the anterior cerebral artery branches and middle cerebral artery branches through the MCA trifurcations. No occlusion, high-grade focal stenosis or dissection. No aneurysm. CTA Neck FINDINGS: Bilateral common, internal and external carotid system shows normal contrast opacification with no occlusion, flow limiting stenosis, or intimal flap to suggest dissection. No concerning luminal irregularity to suggest vasculitis. Bilateral carotid bulb calcified atherosclerotic plaque is present with milder than 50% short segment luminal caliber narrowing and normal luminal caliber and enhancement to the skull base level Vertebral arteries demonstrate normal course to the level of the skull base and show no occlusion, flow limiting stenosis or dissection. No flow limiting stenosis or anomaly of the great vessel origins. (2) CKD (chronic kidney disease) stage V requiring chronic dialysis Status: Chronic Response to Treatment: Stable Problem Specific Plan: Consult Specialist Problem Text: 02/16/19:Nephrology following. Dialysis today. 02/15/19: Nephrology following. She had dialysis yesterday. She is scheduled MWF 02/14/19: Nephrology was consulted and patient is scheduled for dialysis today (3) Hypertension Status: Chronic Response to Treatment: Stable Problem Text: 02/16/19: Pressures slightly elevated today. She is scheduled for dialysis this morning. 02/15/19: Pressure improved with dialysis yesterday. Spoke with nephrology, no addition of antihypertensives are recommended 02/14/19: Pressures appear to be running higher then usual for patient. She is not currently on antihypertensive medications. She was given hydralazine single dose in the ER for systolic pressure of 216. Her pressures have improved, however, still above goal. It appears patient was on Amlodipine in the past, however, this was stopped d/t hypotension related to her HD. I will consult with nephrology regarding restarting her HTN and appropriate regimen (4) Shortness of breath Status: Acute Response to Treatment: Stable Problem Text: 02/15/19: Unchanged. Patient worked with PT and was cleared. Her SOB does not appear to be limiting her activity and she is not de-sating ECHO CONCLUSIONS: 1. Mild concentric left ventricle hypertrophy. Normal regional left ventricle (LV) wall motion and wall thickening. No paradoxical septal motion apparent despite ventricular pacing. Left ventricular ejection fraction (LVEF) 60% (3D). Grade 1 LV diastolic dysfunction (impaired relaxation filling pattern). 2. Severe left atrial dilatation. 3. Mild mitral annular calcification. Very mild mitral regurgitation. 4. 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 The right ventricle lead probably implants somewhere in the upper portion of the anterior right ventricle free wall. 5. Suggestive of moderate elevation of estimated right ventricle systolic pressure. Mild mitral regurgitation. Normal right ventricle size and systolic function. 02/14/19: SOB with activity only. This has been ongoing for a few weeks. She had chest x-ray on 01/29 and again yesterday. Patient with hx of CHF, mild aortic valvular sclerosis without functional abnormality, moderate mitral annual calcification without inflow tract obstruction and only very mild insufficiency. Last ECHO 12/2016, LVEF 65% and she appears well compensated on exam today. Chest X-ray: There is no acute infiltrate. There is mild cardiomegaly. There is mild calcification and tortuosity of the thoracic aorta. 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 IMPRESSION: No acute infiltrate. (5) Diastolic dysfunction Status: Chronic Response to Treatment: Stable Problem Text: 02/15/19: Well compensated on exam today 02/14/19: Appears well compensated on exam today (6) Diabetes mellitus Status: Chronic Response to Treatment: Stable Problem Text: 02/16/19: Controlled. SSI per protocol 02/14/19: SSI per protocol (7) Headache Status: Resolved Problem Text: 02/14/19: This has resolved Plan/VTE VTE Prophylaxis Ordered?: Yes (Mechanical TEDS and sequentials ) VS[facility]/I&O Vital Signs Date Time Temp Pulse Resp B/P (MAP) Pulse Ox O2 Delivery O2 Flow Rate FiO2 02/16/19 04:00 97.1 70 18 172/70 (104) 94 02/14/19 18:58 2.0 02/13/19 20:18 Room Air I&O- Last 24 Hours up to 6 AM 02/16/19 06:00 Intake Total 870 ml Balance 870 ml Laboratory Data 24H LABS Laboratory Tests 2 02/15/19 11:32: Bedside Glucose (Misc Panel) 160H 02/15/19 16:53: Bedside Glucose (Misc Panel) 109 02/15/19 19:57: Bedside Glucose (Misc Panel) 135H 02/16/19 03:49: Nucleated Red Blood Cells % (auto) 0.0, Anion Gap 5L, Glomerular Filtration Rate 9.4L, Blood Urea Nitrogen 41H, Creatinine 4.76H, Sodium Level 140, Potassium Level 4.7, Chloride Level 106, Carbon Dioxide Level 29, Calcium Level 8.6L, Aspartate Amino Transf (AST/SGOT) 10, Alanine Aminotransferase (ALT/SGPT) 16, Alkaline Phosphatase 82, Total Bilirubin 0.4, Total Protein 6.5, Albumin 3.0L, Albumin/Globulin Ratio 0.86L CBC/BMP Laboratory Tests 02/16/19 03:49 Red Blood Count 3.83 L, Mean Corpuscular Volume 90.1, Mean Corpuscular Hemoglobin 28.5, Mean Corpuscular Hemoglobin Concent 31.6 L, Red Cell Distribution Width 13.6, Calcium Level 8.6 L, Aspartate Amino Transf (AST/SGOT) 10, Alanine Aminotransferase (ALT/SGPT) 16, Alkaline Phosphatase 82, Total Bilirubin 0.4, Total Protein 6.5, Albumin 3.0 L Microbiology Microbiology 02/13/19 Blood Culture - Preliminary, Resulted No Growth after 48 hours. All Specime... 02/13/19 Blood Culture - Preliminary, Resulted No Growth after 48 hours. All Specime... ANI YOO [facility] February 16, 2019 08:18 BERNABE BERMEO DO February 17, 2019 00:49
[2019-02-16] MEDS: ASPIRIN 81 MG ENTERIC TAB PO SCH (08:19)
--- NOTE | 2019-02-16 09:40 | CR ---
DATE OF CONSULTATION: 02/15/2019 REFERRING PHYSICIAN: Angela Awad DO REASON FOR CONSULTATION: Suspected transient ischemic attack (TIA). HISTORY OF PRESENT ILLNESS: Alyce Tejada is an 83-year-old woman with history of diabetes, end-stage renal disease on hemodialysis in 2017, pacemaker placement who lives at [facility]. She was brought to [facility] due to sudden onset of slurred speech, trouble finding words, and confusion. The patient states that it happened in the afternoon after she had lunch. She was trying to brush her hair when she dropped her hairbrush and developed slurred speech, imbalance and trouble talking. A nurse checked her blood pressure and it was 200/100. EMS brought her to [facility] and her symptoms resolved within 2-3 hours. It happened again in hemodialysis yesterday and she states that she could not function, talk and felt weak all over. Her blood pressure was again close to 200. She states that she was given IV medications to bring her blood pressure down. She denies any dysphagia, dysarthria, diplopia, urinary incontinence, falls or loss of consciousness. She had severe headache over the last 2 days in the frontal head region. She usually does not get headaches. She denies any neck or back pain. PAST MEDICAL HISTORY: End-stage renal disease on hemodialysis. Tertiary hyperparathyroidism. Pacemaker placement. CURRENT MEDICATIONS: - aspirin 325 mg p.o. daily - insulin Humalog sliding scale - Renvela 800 mg p.o. q.h.s. - Nasacort spray two sprays in the nose once a day - Tylenol - Reglan - Colace - Altagarcia 60 mg p.o. b.i.d. ALLERGIES: 1. SULFA. 2. CODEINE. SOCIAL HISTORY: She denies smoking, alcohol or illicit drugs. FAMILY HISTORY: Noncontributory. REVIEW OF SYSTEMS: All systems were reviewed and found to be noncontributory except as mentioned is present illness. PHYSICAL EXAMINATION: Temperature 98.5, pulse 71, respiratory 18, blood pressure 167/74. Heart regular rate and rhythm. Lungs clear to auscultation. Abdomen soft, nontender, nondistended. No pedal edema. No musculoskeletal abnormalities. No rash. No signs of meningeal irritation. The patient is awake, alert, oriented to place, person and time. Normal speech, comprehension and repetition. Extraoral muscles are intact. No facial weakness. Tongue and uvula are midline. 5/5 strength in all four extremities. She has decreased cold pinprick vibration sensation in her feet. Deep tendon flexes 1+ in arms and knees and absent at ankles. She uses a walker for ambulation. DIAGNOSTIC STUDIES: CT scan of her head twice showed only small vessel ischemic disease of brain without acute disease. CT angiography of head and neck showed mild atherosclerosis. ASSESSMENT: 1. Hypertensive emergency and labile blood pressure. 2. There is concern for transient ischemic attack, although both of these episodes happened right after or during hemodialysis and her blood pressure was running very high. PLAN: 1. Echocardiogram. Patient cannot have MRI scan of brain due to her pacemaker. Her EKG and telemetry monitoring revealed paced rhythm. 2. Continue aspirin 325 mg p.o. daily. 3. Keep systolic blood pressure below 140 and diastolic blood pressure below 90. 4. Physical and occupational therapy. 5. Follow with our office in 2-4 weeks after hospital discharge.
[2019-02-16] MEDS ORDERED: HEPARIN 1,000 UNITS/ML 10ML VIAL (FOR RADIOLOGY& DIALYSIS ONLY) IV ONE (11:15)
[2019-02-16] MEDS: (RENVELA) SEVELAMER **CARBONate** 800 MG TAB PO SCH (17:29)
--- NOTE | 2019-02-16 20:19 | IPN ---
DATE: 02/16/2019 SUBJECTIVE: The patient was seen and examined at the bedside today morning. She is afebrile, hemodynamically stable. Denies any more episodes of weakness and slurred speech. Blood pressures is acceptable. Today is patient's day of dialysis. She will be dialyzed in the afternoon today. OBJECTIVE: Vital signs: Temperature 96.75 degrees Fahrenheit, blood pressure 134/56, pulse is 78, respiratory rate of 18, saturating 98% on room air. Intake and output: There is no urine output recorded. Weight on the bed scale is 79.5 kg. PHYSICAL EXAMINATION General: The patient is awake, alert, oriented times three, sitting up in the bed in no apparent distress. Head and neck exam: Extraocular muscles intact. Pupils equally round and reactive to light. Mucous membranes are moist. Neck is supple. There is no jugular venous distention (JVD). Cardiovascular: S1, S2, regular rate. No edema of the bilateral lower extremities. Respiratory: Chest is clear to auscultation bilaterally. Bilateral equal air entry. No rales or rhonchi. Abdomen: Soft. Positive bowel sounds. Nontender. No organomegaly. Musculoskeletal: No clubbing or cyanosis. Pulses are 2+. SPRING UPHOLSTERER: No focal deficit. Power is 5/5 in all extremities. Arteriovenous (AV) access: Right upper arm AV fistula with positive thrill and bruit. LAB REVIEW: CBC showed a WBC of 7.6, hemoglobin 10.9, platelets are 147. BMP showed sodium 140, potassium 4.7, chloride 106, bicarbonate 29, BUN 41, creatinine is 4.7. Microbiology: Cultures are negative so far. CURRENT INPATIENT MEDICATIONS: The patient's medications were all reviewed by me. I see that she has been started on amlodipine 2.5 mg by mouth daily. No other change in the medications today as compared with yesterday. ASSESSMENT/PLAN: 1. End-stage renal disease, on hemodialysis. Today is patient's regular day of dialysis. Patient's blood pressures are labile. I will try to remove only 500 mL of fluid as tolerated by her blood pressure. 2. Transient ischemic attacks. The patient had two side episodes of transient ischemic attack (TIA) during this admission. She is already on statin and aspirin. Rest of the management is as per neurology. Echocardiogram and a CT angio of head and neck was negative. 3. Hypertension. The patient usually has normal blood pressures, and her blood pressures tend to drop during hemodialysis. I see she has been started on low dose of amlodipine by primary team. Continue to monitor the blood pressures. 4. Anemia in end-stage renal disease. Hemoglobin is 10.9, which is optimal. She has not been receiving Aranesp at this point.
[2019-02-16] MEDS: ACETAMINOPHEN TAB 650MG DOSE (2X325MG) PO PRN (20:50)
[2019-02-17 04:00] VITALS: BP 140/69
[2019-02-17] MEDS: SLF 3 ML SYR IV SCH ×3 (04:35→20:45)
[2019-02-17 06:09] LABS: HEMATOCRIT 34.7 % (36.0-47.0); HEMOGLOBIN 10.9 g/dl (12.0-15.5); MEAN CORPUSCULAR HEMOGLOBIN 28.8 pg (27.0-33.0); MEAN CORPUSCULAR HGB CONC 31.4 g/dl (32.0-36.5); MEAN CORPUSCULAR VOLUME 91.6 fl (80.0-96.0); PLATELET COUNT, AUTOMATED 130 10^3/uL (150-450); RED BLOOD COUNT 3.79 10^6/uL (4.00-5.40); WHITE BLOOD COUNT 6.8 10^3/uL (4.0-10.0)
[2019-02-17 06:37] LABS: BILIRUBIN,TOTAL 0.4 MG/DL (0.2-1.0); CALCIUM LEVEL 8.4 MG/DL (8.8-10.2); CREATININE FOR GFR 3.21 MG/DL (0.55-1.30); GLOMERULAR FILTRATION RATE 14.7 (>32); POTASSIUM SERUM 4.2 MEQ/L (3.5-5.1); TOTAL PROTEIN 6.1 GM/DL (6.4-8.2)
[2019-02-17] MEDS: HumaLOG INSULIN (NovoLOG) PER UNIT SC SCH ×4 (07:30→20:44)
[2019-02-17 08:00] VITALS: BP 182/70
[2019-02-17] MEDS: ASPIRIN 81 MG ENTERIC TAB PO SCH (09:34)
[2019-02-17] MEDS: ATORVASTATIN 20 MG TAB PO SCH (09:34)
[2019-02-17] MEDS: FEXOFENADINE 60 MG TAB PO SCH ×2 (09:34→20:44)
[2019-02-17 12:00] VITALS: BP 140/78
[2019-02-17] MEDS: CLOPIDOGREL 75 MG TAB PO SCH (12:29)
--- NOTE | 2019-02-17 13:08 | IPNPDOC ---
Text Note Date of Service The patient was seen on 02/17/19. NOTE Nephrology Service: Subjective: Patient seen and examined at bedside. Is afebrile and hemodynamically stable today. She denies any acute complaints today. Denies fevers, chills, chest pain, SOB. Denies slurred speech or weakness in extremities today. Is eating and drinking normally. Was dialyzed yesterday for clearance of toxins only. No fluid removal was performed. Next dialysis session will be Tuesday. Still hypertensive this AM. Also, patient had reportedly ~20 minutes of slurred speech and weakness again during dialysis session yesterday as per daughter and patient. Objective: Vitals: T: 96.8 BP: 182/70 RR: 18 P: 70 O2 Saturation: 98% room air Weight: 79.5 kg yesterday and 78.3 kg today Intake: 1019 ml Output: 0 mL Balance: (+) 1019 ml General: AAO x 3. Sitting up in hospital bed comfortably. NAD. Pleasant and cooperative. Speaking full sentences without any slurring of words. HEENT: Head: normocephalic, atraumatic. Eyes: sclera nonicteric, EOMI. Ears: A bit hard of hearing grossly. Neck: Supple. No JVD. Chest: Symmetrical chest rise bilaterally. Respiratory: Clear to auscultation bilaterally with no wheezes, rales, or rhonchi. Cardiovascular: (+)S1S2, regular rate and rhythm, with no murmurs, rubs or gallops. Abdomen: Soft, nontender, nondistended, normoactive bowel sounds. No hepatosplenomegaly appreciated. Extremities: No clubbing, cyanosis, edema. R Upper Arm AV Fistula with palpable thrill and bruit. Musculoskeletal: Normal ROM on inspection. Neurological: No focal neurologic deficits appreciated bilaterally. Laboratory data: CBC is remarkable for WBC 6.8, RBC 3.79, Hgb 10.9, Hct 34.7, MCV 91.6, RDW 13.3, MCHC 31.4, platelets 130 (L). BMP is remarkable for Na 140, K 4.2, CO2 31, BUN 20 (H), Cr 3.21, GFR 14.7, glucose 95, Calcium 8.4 (L). Total Bilirubin: 0.4, AST: 12, ALT 16, Alk Phos: 79, Total Protein: 6.1 (L), Albumin: 3.0 (L) POC Glucose: 187 (H) Microbiology: Blood Cx: NGTD x 72 hours. Imaging: No new imaging today. Current Inpatient Medications: Amlodipine 2.5 mg PO daily Renvela (Sevelamer Carbonate) 800 mg daily @ 1700 PO Aspirin 81 mg PO daily Atorvastatin 40 mg PO daily Plavix (Clopidogrel) 75 mg PO daily was begun today. No other change in the medications today as compared with yesterday. Assessment/Plan: 1. End-stage renal disease on Hemodialysis: Was dialyzed yesterday for clearance (because of blood pressure drop concerns and concerns for becoming symptomatic with full dialysis) without fluid removal. Next dialysis will be Tuesday. Will be kept in the hospital until next dialysis session and until BP improved. Intake yesterday was: 1019 mL and Output was: 0 mL. Continue renvela. 2. Transient Ischemic Attacks: It seems the patient had three episodes of TIA during this admission. On atorvastatin, plavix, and aspirin. Management as per Neurology. Echocardiogram and CT Angio of the Head & Neck were negative. 3. Hypertension: Uncontrolled. BP high today at 182/70. Primary team began patient on low dose amlodipine 2.5 mg PO daily yesterday. However, patient remains hypertensive this morning. As per Dr. Ferguson of primary team, she intends to keep patient in hospital until next dialysis and until BP is improved. She plans to titrate the amlodipine dose for a stable BP to be achieved prior to discharge. Otherwise, patient's BPs do tend to drop during HD sessions. Continue to monitor BP. 4. Anemia in end-stage renal disease: Hgb stable at 10.9 today which is optimal. Patient not requiring Aranesp at this point. 5. Thrombocytopenia: Seems to be chronic and stable. My preceptor for this patient encounter was Dr. Alfredo Pollard, and was physically present in the building during the encounter and was fully available. As needed, all aspects of the patient interview, examination, medical decision making process, and medical care plan development were reviewed and approved by the preceptor. Preceptor is aware and concurs with the plan as stated in the earl dy of this note and will attest to such by his/her cosignature. A-FIB/CHADSVASC A-FIB History Current/History of A-Fib/PAF?: No Current Oral Anticoagulant The: No VS,Fishbone, I+O VS, Fishbone, I+O Laboratory Tests 02/17/19 04:59 Red Blood Count 3.79 L, Mean Corpuscular Volume 91.6, Mean Corpuscular Hemoglobin 28.8, Mean Corpuscular Hemoglobin Concent 31.4 L, Red Cell Distribution Width 13.3, Calcium Level 8.4 L, Aspartate Amino Transf (AST/SGOT) 12, Alanine Aminotransferase (ALT/SGPT) 16, Alkaline Phosphatase 79, Total Bilirubin 0.4, Total Protein 6.1 L, Albumin 3.0 L Vital Signs Date Time Temp Pulse Resp B/P (MAP) Pulse Ox O2 Delivery O2 Flow Rate FiO2 02/17/19 09:36 70 182/70 02/17/19 08:00 96.8 18 98 02/14/19 18:58 2.0 02/13/19 20:18 Room Air I&O- Last 24 Hours up to 6 AM 02/17/19 06:00 Intake Total 1019 ml Output Total 0 ml Balance 1019 ml Attending Note Attending Note PT was seen and examined with the resident. A: ESRD on HD Recurrent TIA HTN Anemia in ESRD P: Minimal UF with HD Amlodipine low dose started by medical team. Pt to get another HD in the hospital before discharge to make sure she doesn't have more symptoms. JOSE PADILLA DO February 17, 2019 13:08 ALFREDO POLLARD MD February 18, 2019 17:07
[2019-02-17 16:00] VITALS: BP 160/62
[2019-02-17] MEDS: (RENVELA) SEVELAMER **CARBONate** 800 MG TAB PO SCH (16:42)
--- NOTE | 2019-02-17 17:57 | IPNPDOC ---
Subjective Date Seen The patient was seen on 02/17/19. Subjective Chief Complaint/HPI slurred speech Events since last encounter She had an episode of slurred speech and hand numbness at the end of dialysis last night. Denies any symptoms today, feeling fine. Family supportive and at bedside. MOLST form discussed and filled out; previously only had first page (DNR) filled out. Discussed with both Dr. Pollard and Dr. Neville. Constitutional: Denies: Chills, Fever Pulmonary: Denies: Dyspnea, Cough Cardiovascular: Denies: Chest Pain Gastrointestinal: Denies: Nausea, Vomiting, Diarrhea, Constipation Neurological: Denies: Weakness, Numbness, Change in speech (not at this time, though has intermittently been present) Objective Physical Examination General Exam: Positive: Alert, Cooperative, No Acute Distress Eye Exam: Positive: PERRLA, Conjunctiva & lids normal, EOMI ENT Exam: Positive: Atraumatic, Mucous membr. moist/pink Neck Exam: Negative: JVD Chest Exam: Positive: Clear to auscultation, Normal air movement; Negative: Rales, Rhonchi, Wheezing Heart Exam: Positive: Rate Normal, Normal S1, Normal S2 Abdomen Exam: Positive: Soft; Negative: Tenderness Extremity Exam: Negative: Edema Skin Exam: Positive: Nl turgor and temperature Neuro Exam: Positive: Normal Speech, Strength at 5/5 X4 ext, Normal Tone, Sensation Intact, Cranial Nerves 3-12 NL Psych Exam: Positive: Oriented x 3 A-FIB/CHADSVASC A-FIB History Current/History of A-Fib/PAF?: No Assessment /Plan Problems (1) TIA (transient ischemic attack) Status: Acute Response to Treatment: Stable Problem Text: 02/17: She had another episode during dialysis last night. Neurology recommends adding Plavix and lowering her BP. Nephrology notes that she has tended to drop BP during dialysis. Discussed with patient and family keeping her in hospital until BP lowered and she tolerates dialysis without the se symptoms. 02/16/19: No further episodes of slurred speech of confusion. Neurology was consulted yesterday and we await their findings and recommendations. Work-up thus far has been negative. 02/15/19: Patient apparently had a second episode of slurred speech and confusion during dialysis yesterday. CT scan was repeated. Results negative. Neurology was consulted. We await their recommendations. Patient appears to be back to her baseline this morning 02/14/19: Patient appears to be back to her baseline. She denies further speech difficulties, no headache and strength is per her baseline CT Angio FINDINGS: Ventricles, cisterns and sulci are symmetric and appropriate for age. No intracranial mass or focal mass effect. No intracranial hemorrhage, midline shift or acute territorial infarct. Anterior circulation: Normal contrast opacification and luminal caliber in the petrous, cavernous and supraclinoid internal carotid arteries. Normal appearance of the anterior cerebral artery branches and middle cerebral artery branches through the MCA trifurcations. No occlusion, high-grade focal stenosis or dissection. No aneurysm. CTA Neck FINDINGS: Bilateral common, internal and external carotid system shows normal contrast opacification with no occlusion, flow limiting stenosis, or intimal flap to suggest dissection. No concerning luminal irregularity to suggest vasculitis. Bilateral carotid bulb calcified atherosclerotic plaque is present with milder than 50% short segment luminal caliber narrowing and normal luminal caliber and enhancement to the skull base level Vertebral arteries demonstrate normal course to the level of the skull base and show no occlusion, flow limiting stenosis or dissection. No flow limiting stenosis or anomaly of the great vessel origins. (2) Hypertension Status: Chronic Response to Treatment: Stable Problem Text: 02/17: She was started on low dose amlodipine, and tolerated this well, though BP still remains elevated. Plan to lower BP further with 5 mg of amlodipine. However, will hold amlodipine on dialysis days, at least until we have a better idea of how she tolerates this medication. 02/16/19: Pressures slightly elevated today. She is scheduled for dialysis this morning. 02/15/19: Pressure improved with dialysis yesterday. Spoke with nephrology, no addition of antihypertensives are recommended 02/14/19: Pressures appear to be running higher then usual for patient. She is not currently on antihypertensive medications. She was given hydralazine single dose in the ER for systolic pressure of 216. Her pressures have improved, however, still above goal. It appears patient was on Amlodipine in the past, however, this was stopped d/t hypotension related to her HD. I will consult with nephrology regarding restarting her HTN and appropriate regimen (3) CKD (chronic kidney disease) stage V requiring chronic dialysis Status: Chronic Response to Treatment: Stable Problem Specific Plan: Consult Specialist Problem Text: 02/16/19:Nephrology following. Dialysis today. 02/15/19: Nephrology following. She had dialysis yesterday. She is scheduled MWF 02/14/19: Nephrology was consulted and patient is scheduled for dialysis today (4) Shortness of breath Status: Acute Response to Treatment: Stable Problem Text: 02/15/19: Unchanged. Patient worked with PT and was cleared. Her SOB does not appear to be limiting her activity and she is not de-sating ECHO CONCLUSIONS: 1. Mild concentric left ventricle hypertrophy. Normal regional left ventricle (LV) wall motion and wall thickening. No paradoxical septal motion apparent despite ventricular pacing. Left ventricular ejection fraction (LVEF) 60% (3D). Grade 1 LV diastolic dysfunction (impaired relaxation filling pattern). 2. Severe left atrial dilatation. 3. Mild mitral annular calcification. Very mild mitral regurgitation. 4. 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 The right ventricle lead probably implants somewhere in the upper portion of the anterior right ventricle free wall. 5. Suggestive of moderate elevation of estimated right ventricle systolic pressure. Mild mitral regurgitation. Normal right ventricle size and systolic function. 02/14/19: SOB with activity only. This has been ongoing for a few weeks. She had chest x-ray on 01/29 and again yesterday. Patient with hx of CHF, mild aortic valvular sclerosis without functional abnormality, moderate mitral annual calcification without inflow tract obstruction and only very mild insufficiency. Last ECHO 12/2016, LVEF 65% and she appears well compensated on exam today. Chest X-ray: There is no acute infiltrate. There is mild cardiomegaly. There is mild calcification and tortuosity of the thoracic aorta. 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 IMPRESSION: No acute infiltrate. (5) Diastolic dysfunction Status: Chronic Response to Treatment: Stable Problem Text: 02/15/19: Well compensated on exam today 02/14/19: Appears well compensated on exam today (6) Diabetes mellitus Status: Chronic Response to Treatment: Stable Problem Text: 02/16/19: Controlled. SSI per protocol 02/14/19: SSI per protocol (7) Headache Status: Resolved Problem Text: 02/14/19: This has resolved Plan/VTE VTE Prophylaxis Ordered?: Yes (Mechanical TEDS and sequentials ) VS, I&O, 24H, Fishbone Vital Signs/I&O Vital Signs Date Time Temp Pulse Resp B/P (MAP) Pulse Ox O2 Delivery O2 Flow Rate FiO2 02/17/19 16:00 97.7 70 18 160/62 (94) 97 02/14/19 18:58 2.0 02/13/19 20:18 Room Air I&O- Last 24 Hours up to 6 AM 02/17/19 06:00 Intake Total 1019 ml Output Total 0 ml Balance 1019 ml Laboratory Data 24H LABS Laboratory Tests 2 02/16/19 20:18: Bedside Glucose (Misc Panel) 187H 02/17/19 04:59: Nucleated Red Blood Cells % (auto) 0.0, Anion Gap 5L, Glomerular Filtration Rate 14.7L, Blood Urea Nitrogen 20#H, Creatinine 3.21H, Sodium Level 140, Potassium Level 4.2, Chloride Level 104, Carbon Dioxide Level 31, Calcium Level 8.4L, Aspartate Amino Transf (AST/SGOT) 12, Alanine Aminotransferase (ALT/SGPT) 16, Alkaline Phosphatase 79, Total Bilirubin 0.4, Total Protein 6.1L, Albumin 3.0L, Albumin/Globulin Ratio 0.97L 02/17/19 11:53: Bedside Glucose (Misc Panel) 176H 02/17/19 16:39: Bedside Glucose (Misc Panel) 85 CBC/BMP Laboratory Tests 02/17/19 04:59 Red Blood Count 3.79 L, Mean Corpuscular Volume 91.6, Mean Corpuscular Hemoglobin 28.8, Mean Corpuscular Hemoglobin Concent 31.4 L, Red Cell Distribution Width 13.3, Calcium Level 8.4 L, Aspartate Amino Transf (AST/SGOT) 12, Alanine Aminotransferase (ALT/SGPT) 16, Alkaline Phosphatase 79, Total Johnny irubin 0.4, Total Protein 6.1 L, Albumin 3.0 L Microbiology Microbiology 02/13/19 Blood Culture - Preliminary, Resulted No Growth after 72 hours. All specime... 02/13/19 Blood Culture - Preliminary, Resulted No Growth after 72 hours. All specime... BERNABE BERMEO DO February 17, 2019 17:57
[2019-02-17 20:00] VITALS: BP 170/70
[2019-02-17 23:59] VITALS: BP 153/69
[2019-02-18 04:00] VITALS: BP 142/70
[2019-02-18 05:24] LABS: HEMATOCRIT 35.4 % (36.0-47.0); HEMOGLOBIN 11.3 g/dl (12.0-15.5); MEAN CORPUSCULAR HEMOGLOBIN 28.8 pg (27.0-33.0); MEAN CORPUSCULAR HGB CONC 31.9 g/dl (32.0-36.5); MEAN CORPUSCULAR VOLUME 90.3 fl (80.0-96.0); PLATELET COUNT, AUTOMATED 156 10^3/uL (150-450); RED BLOOD COUNT 3.92 10^6/uL (4.00-5.40); WHITE BLOOD COUNT 7.6 10^3/uL (4.0-10.0)
[2019-02-18 05:48] LABS: ALBUMIN 3.1 GM/DL (3.2-5.2); BILIRUBIN,TOTAL 0.4 MG/DL (0.2-1.0); CALCIUM LEVEL 8.7 MG/DL (8.8-10.2); CREATININE FOR GFR 4.08 MG/DL (0.55-1.30); GLOMERULAR FILTRATION RATE 11.2 (>32); POTASSIUM SERUM 4.4 MEQ/L (3.5-5.1); TOTAL PROTEIN 6.5 GM/DL (6.4-8.2)
[2019-02-18] MEDS: SLF 3 ML SYR IV SCH ×3 (06:00→21:11)
[2019-02-18] MEDS: HumaLOG INSULIN (NovoLOG) PER UNIT SC SCH ×4 (07:30→21:00)
[2019-02-18 08:00] VITALS: BP 162/62
[2019-02-18] MEDS: CLOPIDOGREL 75 MG TAB PO SCH (09:03)
[2019-02-18] MEDS: amLODIPine 5 MG TAB PO SCH (09:04)
[2019-02-18] MEDS: ATORVASTATIN 20 MG TAB PO SCH (09:04)
[2019-02-18] MEDS: ASPIRIN 81 MG ENTERIC TAB PO SCH (09:05)
[2019-02-18] MEDS: FEXOFENADINE 60 MG TAB PO SCH ×2 (09:05→21:11)
[2019-02-18] MEDS ORDERED: POLYVINYL ALCOHOL OPHTH SOLN 15 ML(LIQUITEARS) OU PRN (11:45)
[2019-02-18 12:00] VITALS: BP 158/60
[2019-02-18 16:00] VITALS: BP 160/72
[2019-02-18] MEDS: (RENVELA) SEVELAMER **CARBONate** 800 MG TAB PO SCH (17:30)
[2019-02-18 20:00] VITALS: BP 140/70
[2019-02-19] VITALS: BP 170/74
--- NOTE | 2019-02-19 00:14 | IPNPDOC ---
Subjective Date Seen The patient was seen on 02/18/19. Subjective Chief Complaint/HPI follow up TIA Events since last encounter She is feeling well, denies any signs of TIA. Notes dry eyes. Constitutional: Denies: Chills, Fever Pulmonary: Denies: Dyspnea, Cough Cardiovascular: Denies: Chest Pain, Palpitations Gastrointestinal: Denies: Nausea, Vomiting, Abdominal Pain, Diarrhea, Constipation Neurological: Denies: Weakness, Numbness, Change in speech Psych: Reports: Mood Normal Objective Physical Examination General Exam: Positive: Alert, Cooperative, No Acute Distress Eye Exam: Positive: PERRLA, Conjunctiva & lids normal, EOMI ENT Exam: Positive: Atraumatic, Mucous membr. moist/pink Neck Exam: Negative: JVD Chest Exam: Positive: Clear to auscultation, Normal air movement; Negative: Rales, Rhonchi, Wheezing Heart Exam: Positive: Rate Normal, Normal S1, Normal S2 Abdomen Exam: Positive: Soft; Negative: Tenderness Extremity Exam: Negative: Edema Skin Exam: Positive: Nl turgor and temperature Neuro Exam: Positive: Normal Speech, Strength at 02/18 X4 ext, Normal Tone, Sensation Intact, Cranial Nerves 3-12 NL Psych Exam: Positive: Oriented x 3 A-FIB/CHADSVASC A-FIB History Current/History of A-Fib/PAF?: No Assessment /Plan Problems (1) TIA (transient ischemic attack) Status: Acute Response to Treatment: Stable Problem Text: 02/18: Increased amlodipine 50 mg; asymptomatic. Amlodipine to be held during dialysis. 02/17: She had another episode during dialysis last night. Neurology recommends adding Plavix and lowering her BP. Nephrology notes that she has tended to drop BP during dialysis. Discussed with patient and family keeping her in hospital until BP lowered and she tolerates dialysis without these symptoms. 02/16/19: No further episodes of slurred speech of confusion. Neurology was consulted yesterday and we await their findings and recommendations. Work-up thus far has been negative. 02/15/19: Patient apparently had a second episode of slurred speech and confusion during dialysis yesterday. CT scan was repeated. Results negative. Neurology was consulted. We await their recommendations. Patient appears to be back to her baseline this morning 02/14/19: Patient appears to be back to her baseline. She denies further speech difficulties, no headache and strength is per her baseline CT Angio FINDINGS: Ventricles, cisterns and sulci are symmetric and appropriate for age. No intracranial mass or focal mass effect. No intracranial hemorrhage, midline shift or acute territorial infarct. Anterior circulation: Normal contrast opacification and luminal caliber in the petrous, cavernous and supraclinoid internal carotid arteries. Normal appearance of the anterior cerebral artery branches and middle cerebral artery branches through the MCA trifurcations. No occlusion, high-grade focal stenosis or dissection. No aneurysm. CTA Neck FINDINGS: Bilateral common, internal and external carotid system shows normal contrast opacification with no occlusion, flow limiting stenosis, or intimal flap to suggest dissection. No concerning luminal irregularity to suggest vasculitis. Bilateral carotid bulb calcified atherosclerotic plaque is present with milder than 50% short segment luminal caliber narrowing and normal luminal caliber and enhancement to the skull base level Vertebral arteries demonstrate normal course to the level of the skull base and show no occlusion, flow limiting stenosis or dissection. No flow limiting stenosis or anomaly of the great vessel origins. (2) Hypertension Status: Chronic Response to Treatment: Stable Problem Text: 02/18: Tolerating 5 mg amlodipine so far. Will evaluate BP while amlodipine is on hold tomorrow (a dialysis day.) 02/17: She was started on low dose amlodipine, and tolerated this well, though BP still remains elevated. Plan to lower BP further with 5 mg of amlodipine. However, will hold amlodipine on dialysis days, at least until we have a better idea of how she tolerates this medication. 02/16/19: Pressures slightly elevated today. She is scheduled for dialysis this morning. 02/15/19: Pressure improved with dialysis yesterday. Spoke with nephrology, no addition of antihypertensives are recommended 02/14/19: Pressures appear to be running higher then usual for patient. She is not currently on antihypertensive medications. She was given hydralazine single dose in the ER for systolic pressure of 216. Her pressures have improved, however, still above goal. It appears patient was on Amlodipine in the past, however, this was stopped d/t hypotension related to her HD. I will consult with nephrology regarding restarting her HTN and appropriate regimen (3) CKD (chronic kidney disease) stage V requiring chronic dialysis Status: Chronic Response to Treatment: Stable Problem Specific Plan: Consult Specialist Problem Text: 02/16/19:Nephrology following. Dialysis today. 02/15/19: Nephrology following. She had dialysis yesterday. She is scheduled MWF 02/14/19: Nephrology was consulted and patient is scheduled for dialysis today (4) Shortness of breath Status: Acute Response to Treatment: Stable Problem Text: 02/15/19: Unchanged. Patient worked with PT and was cleared. Her SOB does not appear to be limiting her activity and she is not de-sating ECHO CONCLUSIONS: 1. Mild concentric left ventricle hypertrophy. Normal regional left ventricle (LV) wall motion and wall thickening. No paradoxical septal motion apparent despite ventricular pacing. Left ventricular ejection fraction (LVEF) 60% (3D). Grade 1 LV diastolic dysfunction (impaired relaxation filling pattern). 2. Severe left atrial dilatation. 3. Mild mitral annular calcification. Very mild mitral regurgitation. 4. 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 The right ventricle lead probably implants somewhere in the upper portion of the anterior right ventricle free wall. 5. Suggestive of moderate elevation of estimated right ventricle systolic pressure. Mild mitral regurgitation. Normal right ventricle size and systolic function. 02/14/19: SOB with activity only. This has been ongoing for a few weeks. She had chest x-ray on 01/29 and again yesterday. Patient with hx of CHF, mild aortic valvular sclerosis without functional abnormality, moderate mitral annual calcification without inflow tract obstruction and only very mild insufficiency. Last ECHO 12/2016, LVEF 65% and she appears well compensated on exam today. Chest X-ray: There is no acute infiltrate. There is mild cardiomegaly. There is mild calcification and tortuosity of the thoracic aorta. 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 IMPRESSION: No acute infiltrate. (5) Diastolic dysfunction Status: Chronic Response to Treatment: Stable Problem Text: 02/15/19: Well compensated on exam today 02/14/19: Appears well compensated on exam today (6) Diabetes mellitus Status: Chronic Response to Treatment: Stable Problem Text: 02/16/19: Controlled. SSI per protocol 02/14/19: SSI per protocol (7) Headache Status: Resolved Problem Text: 02/14/19: This has resolved Plan/VTE VTE Prophylaxis Ordered?: Yes (Mechanical TEDS and sequentials ) VS, I&O, 24H, Fishbone Vital Signs/I&O Vital Signs Date Time Temp Pulse Resp B/P (MAP) Pulse Ox O2 Delivery O2 Flow Rate FiO2 02/18/19 20:00 98.9 66 18 140/70 (93) 95 02/14/19 18:58 2.0 02/13/19 20:18 Room Air I&O- Last 24 Hours up to 6 AM 02/19/19 06:00 Intake Total 540 ml Output Total 0 ml Balance 540 ml Laboratory Data 24H LABS Laboratory Tests 2 02/18/19 04:55: Nucleated Red Blood Cells % (auto) 0.0, Anion Gap 5L, Glomerular Filtration Rate 11.2L, Blood Urea Nitrogen 31#H, Creatinine 4.08H, Sodium Level 142, Potassium Level 4.4, Chloride Level 108H, Carbon Dioxide Level 29, Calcium Level 8.7L, Aspartate Amino Transf (AST/SGOT) 11, Alanine Aminotransferase (ALT/SGPT) 15, Alkaline Phosphatase 84, Total Bilirubin 0.4, Total Protein 6.5, Albumin 3.1L, Albumin/Globulin Ratio 0.91L 02/18/19 11:39: Bedside Glucose (Misc Panel) 214H 02/18/19 16:42: Bedside Glucose (Misc Panel) 83 02/18/19 21:01: Bedside Glucose (Misc Panel) 147H CBC/BMP Laboratory Tests 02/18/19 04:55 Red Blood Count 3.92 L, Mean Corpuscular Volume 90.3, Mean Corpuscular Hemoglobin 28.8, Mean Corpuscular Hemoglobin Concent 31.9 L, Red Cell Distribution Width 13.3, Calcium Level 8.7 L, Aspartate Amino Transf (AST/SGOT) 11, Alanine Aminotransferase (ALT/SGPT) 15, Alkaline Phosphatase 84, Total Bilirubin 0.4, Total Protein 6.5, Albumin 3.1 L Microbiology Microbiology 02/13/19 Blood Culture - Final, Complete NO GROWTH AFTER 5 DAYS 02/13/19 Blood Culture - Final, Complete NO GROWTH AFTER 5 DAYS BERNABE BERMEO DO February 19, 2019 00:14
[2019-02-19 04:00] VITALS: BP 150/70
[2019-02-19 04:23] LABS: HEMATOCRIT 33.5 % (36.0-47.0); HEMOGLOBIN 10.6 g/dl (12.0-15.5); MEAN CORPUSCULAR HEMOGLOBIN 28.3 pg (27.0-33.0); MEAN CORPUSCULAR HGB CONC 31.6 g/dl (32.0-36.5); MEAN CORPUSCULAR VOLUME 89.6 fl (80.0-96.0); PLATELET COUNT, AUTOMATED 149 10^3/uL (150-450); RED BLOOD COUNT 3.74 10^6/uL (4.00-5.40); WHITE BLOOD COUNT 7.6 10^3/uL (4.0-10.0)
[2019-02-19 04:42] LABS: ALBUMIN 2.9 GM/DL (3.2-5.2); BILIRUBIN,TOTAL 0.4 MG/DL (0.2-1.0); CALCIUM LEVEL 8.5 MG/DL (8.8-10.2); CREATININE FOR GFR 4.61 MG/DL (0.55-1.30); GLOMERULAR FILTRATION RATE 9.7 (>32); POTASSIUM SERUM 4.5 MEQ/L (3.5-5.1); TOTAL PROTEIN 6.2 GM/DL (6.4-8.2)
[2019-02-19] MEDS: SLF 3 ML SYR IV SCH ×3 (05:20→22:00)
--- NOTE | 2019-02-19 05:41 | IPN ---
DATE OF SERVICE: 02/18/2019 SUBJECTIVE: The patient is seen and examined this morning at the bedside. She denies any acute overnight complaints. Her blood pressures have been ranging systolic 140s-160s. She is a little apprehensive about dialysis tomorrow. She has not had any more episodes of weakness, numbness or slurred speech. PHYSICAL EXAMINATION: VITAL SIGNS: Temperature 97.9, pulse 70, respiratory rate 18, blood pressure 158/60, saturating 96% on room air. Intake yesterday was not fully recorded. Weight in the bed scale today is 80.6 kg. GENERAL: The patient i s seen sitting upright in bed. Family is present at the bedside. The patient is smiling, awake, alert and oriented times three. No apparent distress. HEENT: Extraocular muscles intact. Pupils equal, round, and reactive to light. Moist mucous membranes. NECK: Supple, no jugular venous distention. CARDIAC: S12, S2, regular rate. No edema in the bilateral lower extremities. LUNGS: Clear to auscultation bilaterally. No rale or rhonchi. ABDOMEN: Soft, there are bowel sounds. There is no tenderness to palpation. MUSCULOSKELETAL: No clubbing, cyanosis or edema. There are compression stockings on the legs. NEUROLOGIC: No focal deficits. She is cooperative, conversational and oriented. Arteriovenous (AV) access in the right upper arm with thrill and bruit. LABORATORY DATA: White count 7.6, hemoglobin 11.3, platelets 156. Sodium 142, potassium 4.4. INPATIENT MEDICATIONS: Reviewed by myself. She is receiving amlodipine 5 mg by mouth on nondialysis days. The remainder of the medications are unchanged from prior. PROBLEMS: 1. End-stage renal disease on hemodialysis Tuesday, Tuesday and Tuesday schedule. She has been having transient ischemic attacks that are around the time of hemodialysis. She has also had labile blood pressures. She is now receiving amlodipine on nondialysis days only. We will dialyze her tomorrow with the use of a profile on the dialysis machine to try and avoid fluctuation in her hemodynamics and I will not try to remove much fluid either as that can cause blood pressure fluctuation as well. She is already on aspirin, statin and Plavix. 2. Transient ischemic attacks, recurrent and seems to be around the time of hemodialysis treatments. The patient has a tendency of blood pressure fluctuation during dialysis. We will try a gentle prescription tomorrow without much fluid removal and also with the use of a profile. She has been evaluated by neurology. She continues on aspirin, statin and Plavix and the imaging studies are reviewed. 3. Hypertension. Agree with the addition of amlodipine on dialysis days and would not use the same on hemodialysis days as it may further hypotension of hemodialysis. J 4. Diastolic congestive heart failure. Volume status at present is reasonable. Gentle fluid removal with hemodialysis at present due to the ongoing neurologic issues.
[2019-02-19 07:00] VITALS: BP 140/70
[2019-02-19] MEDS: HumaLOG INSULIN (NovoLOG) PER UNIT SC SCH ×4 (07:40→20:44)
[2019-02-19] MEDS: FEXOFENADINE 60 MG TAB PO SCH ×2 (07:41→20:43)
[2019-02-19] MEDS: CLOPIDOGREL 75 MG TAB PO SCH (07:41)
[2019-02-19] MEDS: ATORVASTATIN 20 MG TAB PO SCH (07:41)
[2019-02-19] MEDS: ASPIRIN 81 MG ENTERIC TAB PO SCH (07:41)
[2019-02-19] MEDS ORDERED: HEPARIN 1,000 UNITS/ML 10ML VIAL (FOR RADIOLOGY& DIALYSIS ONLY) IV ONE (10:30)
--- NOTE | 2019-02-19 11:41 | IPNPDOC ---
Text Note Date of Service The patient was seen on 02/19/19. NOTE Nephrology Service: Subjective: Patient seen and examined at bedside. Is afebrile and hemodynamically stable today. She denies any acute complaints today. Denies fevers, chills, chest pain, SOB, or any overnight events. Is a bit nervous about dialysis today. Denies numbness, slurred speech or weakness in extremities today. Next dialysis session is today. BP has improved today and has been ranging 140s-170s systolic with most recent being 140 systolic. Objective: Vitals: T: 97.5 BP: 140/70 RR: 18 P: 70 O2 Saturation: 97% room air Weight: 80.6 kg yesterday and 77.2 kg today Intake: 660 ml Output: 200 mL Balance: (+) 460 ml UO: 0.10 mL/kg/hr General: AAO x 3. Sitting up in hospital bed comfortably with one family member at bedside. Smiling. NAD. Pleasant and cooperative. Speaking full sentences without any slurring of words. HEENT: Head: normocephalic, atraumatic. Eyes: sclera nonicteric, EOMI. Ears: A bit hard of hearing grossly. Neck: Supple. No JVD. Chest: Symmetrical chest rise bilaterally. Respiratory: Clear to auscultation bilaterally with no wheezes, rales, or rhonchi. Cardiovascular: (+)S1S2, regular rate and rhythm, with no murmurs, rubs or ga llops. Abdomen: Soft, nontender, nondistended, normoactive bowel sounds. No hepatosplenomegaly appreciated. Extremities: No clubbing, cyanosis, edema. R Upper Arm AV Fistula with palpable thrill and bruit (auscultated). Musculoskeletal: Normal ROM on inspection. Neurological: No focal neurologic deficits appreciated bilaterally. CN 2-12 grossly intact bilaterally. Good handgrip bilaterally. Laboratory data: CBC is remarkable for WBC 7.6, Hgb 10.6, platelets 149 (L). BMP is remarkable for Na 141, K 4.5, BUN 41 (H), Cr 4.61 (H), GFR 9.7 (L). Current Inpatient Medications: Renvela (Sevelamer Carbonate) 800 mg daily @ 1700 PO Aspirin 81 mg PO daily Atorvastatin 40 mg PO daily Plavix (Clopidogrel) 75 mg PO daily was begun today. New medication changes: On Amlodipine 5 mg SuTuThuSa PO (withheld on days of dialysis) No other change in the medications today as compared with yesterday. Assessment/Plan: 1. End-stage renal disease on hemodialysis Tuesday, Tuesday and Tuesday schedule: On amlodipine for nondialysis days. Next dialysis session is today. She is getting a Gentle Dialysis Prescription due to her recent hx of recurrent TIAs during HD sessions and labile BPs. Only clearance today and fluid removal will be minimal/gentle. Continue renvela. 2. Recurrent Transient Ischemic Attacks: Has had at least 3 episodes during most recent HD sessions. Patient's hemodynamics fluctuate with fluctuating blood pressures that can cause cerebral hypoperfusion causing the TIA symptoms. Patient on aspirin, plavix, and atorvastatin. Dr. Contreras is using an adjustment profile and using a gentle prescription today. Echocardiogram and CT Angio of the Head & Neck were negative. 3. Hypertension: Controlled today with BP at 140/70. Amlodipine was increased from 2.5 mg to 5 mg on nondialysis days yesterday. It is held during dialysis days to avoid hypotension. Continue to monitor BPs during dialysis and hopefully achieve optimal BP control as well as avoid TIAs prior to discharge. 4. Diastolic congestive heart failure: Volume status is acceptable currently. No signs of volume overload such as JVD or lower extremity edema on PE. No SOB at rest. Patient will get gentle fluid removal with hemodialysis today. 5. Anemia in end-stage renal disease: Hgb stable at 10.6 today. Patient not requiring Aranesp at this point. 5. Thrombocytopenia: Seems to be chronic and stable. My preceptor for this patient encounter was Dr. Obinna Contreras, and was physically present in the building during the encounter and was fully available. As needed, all aspects of the patient interview, examination, medical decision making process, and medical care plan development were reviewed and approved by the preceptor. Preceptor is aware and concurs with the plan as stated in the body of this note and will attest to such by his/her cosignature. A-FIB/CHADSVASC A-FIB History Current/History of A-Fib/PAF?: No Current Oral Anticoagulant The: No VS,Fishbone, I+O VS, Fishbone, I+O Laboratory Tests 02/19/19 03:52 Red Blood Count 3.74 L, Mean Corpuscular Volume 89.6, Mean Corpuscular Hemoglobin 28.3, Mean Corpuscular Hemoglobin Concent 31.6 L, Red Cell Distribution Width 13.2, Calcium Level 8.5 L, Aspartate Amino Transf (AST/SGOT) 11, Alanine Aminotransferase (ALT/SGPT) 14, Alkaline Phosphatase 85, Total Bilirubin 0.4, Total Protein 6.2 L, Albumin 2.9 L Vital Signs Date Time Temp Pulse Resp B/P (MAP) Pulse Ox O2 Delivery O2 Flow Rate FiO2 02/19/19 07:00 97.5 70 18 140/70 (93) 97 02/14/19 18:58 2.0 02/13/19 20:18 Room Air I&O- Last 24 Hours up to 6 AM 02/19/19 06:00 Intake Total 540 ml Output Total 300 ml Balance 240 ml JOSE PADILLA DO February 19, 2019 11:41
[2019-02-19 16:00] VITALS: BP 122/68
--- NOTE | 2019-02-19 17:10 | IPNPDOC ---
Subjective Date Seen The patient was seen on 02/19/19. Subjective Chief Complaint/HPI no further TIA symptoms Constitutional: Denies: Chills, Fever Eyes: Denies: Pain ENT: Denies: Head Aches Pulmonary: Denies: Dyspnea, Cough Cardiovascular: Denies: Chest Pain, Palpitations Gastrointestinal: Denies: Vomiting Objective Physical Examination General Exam: Positive: Alert, Cooperative, No Acute Distress Eye Exam: Positive: PERRLA, Conjunctiva & lids normal, EOMI ENT Exam: Positive: Atraumatic, Mucous membr. moist/pink Neck Exam: Negative: JVD Chest Exam: Positive: Clear to auscultation, Normal air movement; Negative: Rales, Rhonchi, Wheezing Heart Exam: Positive: Rate Normal, Normal S1, Normal S2 Abdomen Exam: Positive: Soft; Negative: Tenderness Extremity Exam: Negative: Edema Skin Exam: Positive: Nl turgor and temperature Neuro Exam: Positive: Normal Speech, Strength at 5/5 X4 ext, Normal Tone, Sensation Intact, Cranial Nerves 3-12 NL Psych Exam: Positive: Oriented x 3 A-FIB/CHADSVASC A-FIB History Current/History of A-Fib/PAF?: No Current Oral Anticoagulant The: No Assessment /Plan Problems (1) TIA (transient ischemic attack) Status: Acute Response to Treatment: Stable Problem Text: Stable on HI statin, clopid/asa 81 plan dc home 02/20 if OK by Nephro 02/19 Nephro attempted more "gentle" dialysis s TIA sx (although post -dialysis SBP 122) 02/17: She had another episode during dialysis last night. Neurology recommends adding Plavix and lowering her BP. Nephrology notes that she has tended to drop BP during dialysis. Discussed with patient and family keeping her in hospital until BP lowered and she tolerates dialysis without these symptoms. 02/15/19: Patient apparently had a second episode of slurred speech and confusion during dialysis yesterday. CT scan was repeated. Results negative. Neurology was consulted. We await their recommendations. Patient appears to be back to her baseline this morning 02/14/19: Patient appears to be back to her baseline. She denies further speech difficulties, no headache and strength is per her baseline 02/13, 02/14 CT head mild 02/14 CTA head NAD CTA Neck: Bilateral carotid bulb calcified atherosclerotic plaque is present with milder than 50% short segment luminal caliber narrowing (2) Hypertension Status: Chronic Response to Treatment: Stable Problem Text: Stable on amlo 5 QD (holding on dialysis days) 02/17: She was started on low dose amlodipine, and tolerated this well, though BP still remains elevated. Plan to lower BP further with 5 mg of amlodipine. However, will hold amlodipine on dialysis days, at least until we have a better idea of how she tolerates this medication. 02/16/19: Pressures slightly elevated today. She is scheduled for dialysis this morning. 02/15/19: Pressure improved with dialysis yesterday. Spoke with nephrology, no addition of antihypertensives are recommended 02/14/19: Pressures appear to be running higher then usual for patient. She is not currently on antihypertensive medications. She was given hydralazine single dose in the ER for systolic pressure of 216. Her pressures have improved, however, still above goal. It appears patient was on Amlodipine in the past, however, this was stopped d/t hypotension related to her HD. I will consult with nephrology regarding restarting her HTN and appropriate regimen (3) CKD (chronic kidney disease) stage V requiring chronic dialysis Status: Chronic Response to Treatment: Stable Problem Specific Plan: Consult Specialist Problem Text: 02/16/19:Nephrology following. Dialysis today. 02/15/19: Nephrology following. She had dialysis yesterday. She is scheduled MWF 02/14/19: Nephrology was consulted and patient is scheduled for dialysis today (4) Shortness of breath Status: Acute Response to Treatment: Stable Problem Text: 02/15/19: Unchanged. Patient worked with PT and was cleared. Her SOB does not appear to be limiting her activity and she is not de-sating ECHO CONCLUSIONS: 1. Mild concentric left ventricle hypertrophy. Normal regional left ventricle (LV) wall motion and wall thickening. No paradoxical septal motion apparent despite ventricular pacing. Left ventricular ejection fraction (LVEF) 60% (3D). Grade 1 LV diastolic dysfunction (impaired relaxation filling pattern). 2. Severe left atrial dilatation. 3. Mild mitral annular calcification. Very mild mitral regurgitation. 4. 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 The right ventricle lead probably implants somewhere in the upper portion of the anterior right ventricle free wall. 5. Suggestive of moderate elevation of estimated right ventricle systolic pressure. Mild mitral regurgitation. Normal right ventricle size and systolic function. 02/14/19: SOB with activity only. This has been ongoing for a few weeks. She had chest x-ray on 01/29 and again yesterday. Patient with hx of CHF, mild aortic valvular sclerosis without functional abnormality, moderate mitral annual calcification without inflow tract obstruction and only very mild insufficiency. Last ECHO 12/2016, LVEF 65% and she appears well compensated on exam today. Chest X-ray: There is no acute infiltrate. There is mild cardiomegaly. There is mild calcification and tortuosity of the thoracic aorta. 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 IMPRESSION: No acute infiltrate. (5) Diastolic dysfunction Status: Chronic Response to Treatment: Stable Problem Text: 02/15/19: Well compensated on exam today 02/14/19: Appears well compensated on exam today (6) Diabetes mellitus Status: Chronic Response to Treatment: Stable Problem Text: 02/16/19: Controlled. SSI per protocol 02/14/19: SSI per protocol (7) Headache Status: Resolved Problem Text: 02/14/19: This has resolved (8) Physical deconditioning Status: Chronic Problem Text: 02/14 PT: safe to dc back to prior AL status Plan/VTE VTE Prophylaxis Ordered?: Yes (Mechanical TEDS and sequentials ) VS, I&O, 24H, Fishbone Vital Signs/I&O Vital Signs Date Time Temp Pulse Resp B/P (MAP) Pulse Ox O2 Delivery O2 Flow Rate FiO2 02/19/19 16:00 97.1 70 17 122/68 (86) 94 02/14/19 18:58 2.0 02/13/19 20:18 Room Air I&O- Last 24 Hours up to 6 AM 02/19/19 06:00 Intake Total 540 ml Output Total 300 ml Balance 240 ml Laboratory Data 24H LABS Laboratory Tests 2 02/18/19 21:01: Bedside Glucose (Misc Panel) 147H 02/19/19 03:52: Nucleated Red Blood Cells % (auto) 0.0, Anion Gap 6L, Glomerular Filtration Rate 9.7L, Blood Urea Nitrogen 41H, Creatinine 4.61H, Sodium Level 141, Potassium Level 4.5, Chloride Level 109H, Carbon Dioxide Level 26, Calcium Level 8.5L, Aspartate Amino Transf (AST/SGOT) 11, Alanine Aminotransferase (ALT/SGPT) 14, Alkaline Phosphatase 85, Total Bilirubin 0.4, Total Protein 6.2L, Albumin 2.9L, Albumin/Globulin Ratio 0.88L 02/19/19 10:45: Bedside Glucose (Misc Panel) 143H 02/19/19 16:54: Bedside Glucose (Misc Panel) 141H CBC/BMP Laboratory Tests 02/19/19 03:52 Red Blood Count 3.74 L, Mean Corpuscular Volume 89.6, Mean Corpuscular Hemoglobin 28.3, Mean Corpuscular Hemoglobin Concent 31.6 L, Red Cell Distribution Width 13.2, Calcium Level 8.5 L, Aspartate Amino Transf (AST/SGOT) 11, Alanine Aminotransferase (ALT/SGPT) 14, Alkaline Phosphatase 85, Total Bilirubin 0.4, Total Protein 6.2 L, Albumin 2.9 L Microbiology Microbiology 02/13/19 Blood Culture - Final, Complete NO GROWTH AFTER 5 DAYS 02/13/19 Blood Culture - Final, Complete NO GROWTH AFTER 5 DAYS Pancho Ruggiero M.D. February 19, 2019 17:09
[2019-02-19] MEDS: (RENVELA) SEVELAMER **CARBONate** 800 MG TAB PO SCH (17:30)
[2019-02-19 20:00] VITALS: BP 158/68
[2019-02-19 23:37] VITALS: BP 154/56
[2019-02-20 03:38] VITALS: BP 150/64
[2019-02-20 03:55] LABS: HEMATOCRIT 33.7 % (36.0-47.0); HEMOGLOBIN 10.7 g/dl (12.0-15.5); MEAN CORPUSCULAR HEMOGLOBIN 28.9 pg (27.0-33.0); MEAN CORPUSCULAR HGB CONC 31.8 g/dl (32.0-36.5); MEAN CORPUSCULAR VOLUME 91.1 fl (80.0-96.0); PLATELET COUNT, AUTOMATED 141 10^3/uL (150-450)
[2019-02-20 04:23] LABS: ALBUMIN 2.9 GM/DL (3.2-5.2); BILIRUBIN,TOTAL 0.4 MG/DL (0.2-1.0); CALCIUM LEVEL 8.5 MG/DL (8.8-10.2); CREATININE FOR GFR 2.96 MG/DL (0.55-1.30); GLOMERULAR FILTRATION RATE 16.2 (>32); POTASSIUM SERUM 4.5 MEQ/L (3.5-5.1); TOTAL PROTEIN 6.5 GM/DL (6.4-8.2)
[2019-02-20] MEDS: SLF 3 ML SYR IV SCH ×2 (05:41→12:56)
[2019-02-20 07:05] VITALS: BP 144/70
[2019-02-20 07:55] VITALS: BP 144/70
[2019-02-20] MEDS: HumaLOG INSULIN (NovoLOG) PER UNIT SC SCH ×2 (07:55→12:28)
[2019-02-20] MEDS: CLOPIDOGREL 75 MG TAB PO SCH (07:55)
[2019-02-20] MEDS: FEXOFENADINE 60 MG TAB PO SCH (07:55)
[2019-02-20] MEDS: ASPIRIN 81 MG ENTERIC TAB PO SCH (07:55)
[2019-02-20] MEDS: amLODIPine 5 MG TAB PO SCH (07:55)
[2019-02-20] MEDS: ATORVASTATIN 20 MG TAB PO SCH (07:55)
[2019-02-20] MEDS ORDERED: ATOR1TAB21 PO (10:54)
[2019-02-20] MEDS ORDERED: CLOP75TA2 PO (10:54)
[2019-02-20] MEDS ORDERED: AMLO5TAB6 PO (10:54)
--- NOTE | 2019-02-20 11:21 | DSES ---
DATE OF ADMISSION: 02/13/2019 DATE OF DISCHARGE: BRIEF HISTORY AND PHYSICAL: Patient is an 83-year-old patient of Dr. Hartman who presented with acute confusion, difficulty expressing herself. She reported to understand what people were telling her but she could not voice her thoughts. She has associated generalized weakness without focal numbness or tingling. No blurry vision or facial droop. She does have a slight frontal headache last couple of weeks. PAST MEDICAL HISTORY: Patient has a history of end-stage renal disease on hemodialysis, hyperparathyroidism, permanent pacemaker placement and diabetes. Pertinent labs on admission: White count 7.8, hemoglobin 11.7, platelets 147. Sodium 41, potassium 3.6, BUN 35, creatinine 4.1, glucose 130. CT of the head showed small vessel ischemic disease and mild volume loss. Chest x-ray showed no acute infiltrates. CTA of the neck showed mild bilateral carotid bulb atherosclerotic plaques with short segment milder greater than 50% luminal caliber narrowing an a normal flow distally. No hemodynamically significant stenosis. CT angiogram of the head was unremarkable. HOSPITAL COURSE: 1. The patient was admitted for transient ischemic attack (TIA). She had two more episodes while in the hospital, both occurring after dialysis. She was seen by neurology who recommended the addition of Plavix to her regimen, atorvastatin was also added. She remains on her aspirin. Her blood pressure was high during the admission but due to the lability of blood pressure during dialysis, her dialysis regimen is being adjusted by nephrology to avoid hypotension and her new blood pressure medication, the amlodipine, will not be given on dialysis days as an effort to avoid hypotension, which may be contributing to cerebral hypoperfusion and TIA symptoms. She has been stable since her adjustments of her medications have been made and she will be discharged home. 2. Hypertension: As above amlodipine was added to her regimen. This is been adjusted such that she takes this on non-dialysis days only in order to avoid exacerbation of hypotension that occurs during dialysis. 3. Chronic kidney disease, end-stage requiring chronic dialysis. She gets dialysis Tuesday, Wednesdays and Fridays and is followed by nephrology. She will be on a more gentle dialysis regimen in an effort to avoid TIA symptoms related to blood pressure fluctuations that occurred during dialysis. 4. Diabetes: Stable on her usual regimen. 5. Physical Deconditioning: She has had physical therapy and is safe for discharge back to assisted living. DISPOSITION: She is stable for discharge back to [facility]). MEDICATIONS: - amlodipine 5 mg Tuesday, Tuesday, and Saturdays. These are her non-dialysis days. She will not be getting amlodipine on the days that she goes for dialysis. - atorvastatin 40 mg daily - clopidogrel 75 mg daily - acetaminophen 1300 mg every 8 hours as needed for pain - aspirin 81 mg daily - Colace 100 mg twice a day as needed for constipation - fexofenadine 60 mg twice a day - Humalog 75/25 8 units subcu and 2 units at bedtime. Her insulin regimen is the same as it was prior to her admission. - metoclopramide 10 mg every 6 hours as needed for nausea - MiraLAX 17 grams daily - Renvela 800 mg at bedtime - Nasacort nasal spray 2 sprays to the nostril bedtime. DISCHARGE DIAGNOSES: 1. Transient ischemic attack (TIA). 2. Hypertension. 3. End-stage renal disease. 4. Diabetes mellitus type 2. 5. Physical deconditioning.
--- NOTE | 2019-02-21 19:20 | IPNPDOC ---
Text Note Date of Service The patient was seen on 02/20/19. NOTE Nephrology Service: Subjective: Patient seen and examined sitting up in chair. Is afebrile and hemodynamically stable today. She denies any acute complaints today. Denies fevers, chills, chest pain, SOB, or any overnight events. States dialysis session went well yesterday without any neurological compromise symptoms. Had 150 mL removed. Denies blurred vision, dizziness, headache, numbness, slurred speech or weakness in extremities today. Is going to be discharged today by primary team and will return for dialysis at outpatient center. BP has improved today and has been r anging 140s-150s systolic with most recent being 144 systolic. Objective: Vitals: T: 97.6 BP: 144/70 RR: 16 P: 70 O2 Saturation: 96% room air Weight: 77.2 kg yesterday and 78.9 kg today Intake: 360 ml Output: 450 mL Balance: (-) 90 ml UO: 0.16 mL/kg/hr General: AAO x 3. Sitting up in chair with one family member at bedside. Smiling. NAD. Pleasant and cooperative. Speaking full sentences without any slurring of words. HEENT: Head: normocephalic, atraumatic. Eyes: sclera nonicteric, EOMI. Neck: Supple. No JVD. Chest: Symmetrical chest rise bilaterally. Respiratory: Clear to auscultation bilaterally with no wheezes, rales, or rhonchi. Cardiovascular: (+)S1S2, regular rate and rhythm, with no murmurs, rubs or gallops. Abdomen: Soft, nontender, nondistended, normoactive bowel sounds. Extremities: No clubbing, cyanosis, edema. R Upper Arm AV Fistula with palpable thrill and bruit. Musculoskeletal: Normal ROM on inspection. Neurological: No focal neurologic deficits appreciated bilaterally. CN 2-12 grossly intact bilaterally. Good handgrip bilaterally. Laboratory data: CBC: WBC 8, Hgb 10.7 (L), platelets 141 (L). BMP: Na 141, K 4.5, BUN 22 (H), Cr 2.96 (H), GFR 16.2 (L). POC Glucose: 144 (H) Current Inpatient Medications: Renvela (Sevelamer Carbonate) 800 mg daily @ 1700 PO Aspirin 81 mg PO daily Atorvastatin 40 mg PO daily Plavix (Clopidogrel) 75 mg PO daily Amlodipine 5 mg SuTuThuSa PO (withheld on days of dialysis) No other change in the medications today as compared with yesterday. Assessment/Plan: 1. End-stage renal disease on hemodialysis Tuesday, Tuesday and Tuesday schedule: Last received dialysis yesterday 02/19/19 with 150 mL removed without any complications or recurrent TIA symptoms. Recommend to continue amlodipine 5 mg only on nondialysis days. Next dialysis session Tuesday. Continue renvela. Will continue dialysis in the outpatient setting as patient being discharged today per primary team. 2. Recurrent Transient Ischemic Attacks: Has had at least 3 episodes during most recent HD sessions. However, tolerated dialysis well yesterday without any recurrent TIA symptoms. Continue aspirin, plavix, and atorvastatin. Dr. Contreras will work on titrating patient on an adjustment profile and using a gentle prescription with dialysis sessions as necessary as outpatient. 3. Hypertension: Controlled today with BP at 144/70. Continue amlodipine nondialysis days. It is held during dialysis days to avoid hypotension. Continue to monitor BPs during dialysis and hopefully achieve optimal BP control as well as avoid TIAs in the future. 4. Diastolic congestive heart failure: Volume status is acceptable currently. No signs of volume overload such as JVD or lower extremity edema on PE. No SOB at rest. Continue to monitor clinically and as routine as outpatient. 5. Anemia in end-stage renal disease: Hgb stable at 10.7 today. Patient not requiring Aranesp at this point. 5. Thrombocytopenia: Seems to be chronic and stable. My preceptor for this patient encounter was Dr. Obinna Contreras, and was physically present in the building during the encounter and was fully available. As needed, all aspects of the patient interview, examination, medical decision making process, and medical care plan development were reviewed and approved by the preceptor. Preceptor is aware and concurs with the plan as stated in the body of this note and will attest to such by his/her cosignature. A-FIB/CHADSVASC A-FIB History Current/History of A-Fib/PAF?: No Current Oral Anticoagulant The: No VS,Fishbone, I+O VS, Fishbone, I+O Laboratory Tests 02/20/19 03:22 Red Blood Count 3.70 L, Mean Corpuscular Volume 91.1, Mean Corpuscular Hemoglobin 28.9, Mean Corpuscular Hemoglobin Concent 31.8 L, Red Cell Distribution Width 13.2, Calcium Level 8.5 L, Aspartate Amino Transf (AST/SGOT) 13, Alanine Aminotransferase (ALT/SGPT) 16, Alkaline Phosphatase 94, Total Bilirubin 0.4, Total Protein 6.5, Albumin 2.9 L Vital Signs Date Time Temp Pulse Resp B/P (MAP) Pulse Ox O2 Delivery O2 Flow Rate FiO2 02/20/19 07:55 70 144/70 02/20/19 07:05 97.6 16 96 02/14/19 18:58 2.0 I&O- Last 24 Hours up to 6 AM 02/20/19 06:00 Intake Total 360 ml Output Total 350 ml Balance 10 ml JOSE PADILLA DO February 20, 2019 19:53
== END 2019-02-20 14:54 | DRG 69 ==
LOC: M ED 14:14 → M ED INP 17:48 → M PCU 21:07
PROVIDERS: ADMIT Internal Medicine; ATTEND Family Medicine
PROC: 5A1D70Z Performance of Urinary Filtration, Intermittent, Less than 6 Hours Per Day (ICD-10-PCS; principal; 2019-02-15)
DX: G45.9 Transient cerebral ischemic attack, unspecified (principal); N18.6 End stage renal disease; N25.81 Secondary hyperparathyroidism of renal origin; I13.2 Hypertensive heart and chronic kidney disease with heart failure and with stage 5 chronic kidney disease, or end stage renal disease; I16.1 Hypertensive emergency; I50.32 Chronic diastolic (congestive) heart failure; D63.1 Anemia in chronic kidney disease; E11.22 Type 2 diabetes mellitus with diabetic chronic kidney disease; D69.6 Thrombocytopenia, unspecified; Z95.0 Presence of cardiac pacemaker; Z79.82 Long term (current) use of aspirin; Z79.4 Long term (current) use of insulin; Z79.899 Other long term (current) drug therapy; Z88.2 Allergy status to sulfonamides; Z88.5 Allergy status to narcotic agent; Z99.2 Dependence on renal dialysis

== ENCOUNTER → 2019-04-10 | Outpatient (REF) | payer MEDICARE, MEDICAID ==
[~2019-04-10] MED LIST changes: +ATOR1TAB21 PO; +CLOP75TA2 PO; +METO-535 PO; +MIRA3350 PO; +NASA1SPR NARES; +QC A650T3 PO
[2019-04-10 10:36] LABS: CHOLESTEROL RISK RATIO 2.14 (<5)
== END ==
PROVIDERS: ATTEND Family Medicine
DX: G45.9 Transient cerebral ischemic attack, unspecified (principal)

== ENCOUNTER 2019-05-11 13:38 | Emergency (ER) | payer MEDICARE, MEDICAID ==
[~2019-05-11] VITALS: Ht 167.6 cm; Wt 73.2 kg
[2019-05-11 14:31] VITALS: BP 142/65
--- NOTE | 2019-05-11 14:54 | REP ---
REASON FOR TODAY'S EXAM: Trauma. COMPARISON: Multiple, the latest 02/14/2019. There is no change in appearance of the intracranial contents when compared to 02/14/2019. There is evidence of age-related deep white matter ischemic change and atrophy, status quo. There is no evidence of an acute intracranial hemorrhagic or nonhemorrhagic event. There is no change in appearance of the ventricles and sulci. There are no acute extra-axial fluid collections. There is no evidence of shift in the midline structures. There is a bandage over the left frontal vertex region, which has been applied over an area of soft tissue swelling, consistent with recent scalp trauma. IMPRESSION: 1. No change in appearance of the intracranial contents and no evidence of an acute skull fracture. 2. Soft tissue changes, as described above. Electronically Signed by Mustapha Kim DO 05/11/2019 03:22 P
== END 2019-05-11 15:06 | disposition home or self-care (01) ==
LOC: M ED 13:38 → EDBD 13:38 → M ED 15:06
DX: S09.90XA Unspecified injury of head, initial encounter (principal); V48.4XXA Person boarding or alighting a car injured in noncollision transport accident, initial encounter; Y92.12 Nursing home as the place of occurrence of the external cause; E10.9 Type 1 diabetes mellitus without complications; I11.0 Hypertensive heart disease with heart failure; I50.9 Heart failure, unspecified; N18.5 Chronic kidney disease, stage 5; E78.9 Disorder of lipoprotein metabolism, unspecified; I48.91 Unspecified atrial fibrillation; Z79.899 Other long term (current) drug therapy; Z79.82 Long term (current) use of aspirin; Z79.4 Long term (current) use of insulin; Z79.02 Long term (current) use of antithrombotics/antiplatelets; Z88.1 Allergy status to other antibiotic agents; Z88.2 Allergy status to sulfonamides; Z88.5 Allergy status to narcotic agent

== ENCOUNTER → 2019-09-07 | Outpatient (CLI) | payer MEDICARE, MEDICAID ==
[~2019-09-07] MED LIST changes: +ATOR40TA75 PO; +ISOVUE-300 61% 50ML VIAL (Q9967) As Ordered ONE; +LIDOCAINE 1% MDV 20ML VIAL As Ordered ONE; +MIDAZOLAM INJ 2 MG/2 ML VIAL (J2250) As Ordered ONE; -OMEP40CA2 PO; +OMEP40CA97 PO; +fentaNYL 100 MCG/2 ML INJECTION (J3010) As Ordered ONE
--- NOTE | 2019-09-07 14:12 | ROOPDOC ---
[facility] Report Of Operation Report of Operation DATE OF PROCEDURE: 09/07/19 PREPROCEDURE DIAGNOSES: End-stage renal disease with increased venous pressures right upper extremity brachiocephalic AV fistula with increased bleeding times and pulsatility. POSTPROCEDURE DIAGNOSES: Same. PROCEDURE: 1. Ultrasound-guided access right cephalic vein fistula 2. Right upper extremity fistulogram and central venogram 3. Crossing occlusion proximal right cephalic vein and right cephalic subclavian junction 4. Angioplasty right cephalic vein and right subclavian vein with 4 x 40 Nathan balloon, 8 x 20 cutting balloon and 8 x 200 [place] Woolley balloon 5. Completion arteriograms SURGEON: Yonny Cueto MD ANESTHESIA: Local anesthesia 2 mL lidocaine. Moderate intravenous conscious sedation was administered by Dr. Cueto. The patient was independently monitored by registered nurse and signed the Department of radiology using automated blood pressure, EKG, and pulse oximetry. The detailed sedation record is permanently in the hospital information system. Following is the brief sedation record: Start time 12:51, stop time: 13:36, Versed 1 mg IV, fentanyl 50 g IV. INDICATION FOR PROCEDURE: Ms. Tejada is a very pleasant 83-year-old patient's dialyzing with a right upper extremity brachiocephalic AV fistula and lately she's had increased venous pressures, increased bleeding times after dialysis, poor venous flows, and significant increase in pulsatility. Wrist benefits and alternatives to a fistulogram potential intervention were explained to the patient. She is agreeable to proceed. Informed consent was obtained. INTERPRETATION: 1. There is widely patent inflow through the AV anastomosis with 2 aneurysmal segments connected by a nonstenotic bridge of vein. Proximal to this, the cephalic vein is widely patent with a focal 30% stenosis in the mid upper arm, a 95% stenosis at the shoulder, and a near complete occlusion at the junction with the subclavian vein. 2. After angioplasty, there was a marked improvement in thrill, resolution of pulsatility in the fistula, in-line flow through the areas of stenosis with less than 10% residual stenosis noted. No extravasation or embolization was noted. REPORT OF OPERATION: The patient was brought to the angiographic suite in stable condition and her right upper extremity was prepped and draped in a sterile fashion. A timeout was performed. Local anesthesia was museum educator to the skin and subcutaneous tissue over the cephalic vein near the AV anastomosis microneedle was used to access the vein and a wire was passed through this vein under fluoroscopic guidance. A 6 Bengali sheath was placed and flushed with saline. 0.5 mg of Versed and 25 g of fentanyl were administered through the sheath. Sheath was flushed with saline. A fistulogram and central venogram were performed. Please see interpretation above. A Glidewire was advanced through the fistula, but we could not navigate through the extreme tortuosity in the vein past the areas of near occlusion. Apply cath was placed and after about 15 minutes, we were able to cross her both areas. A VAT wire was passed through the glide cath into the central system in the clinic catheter removed. We then used a 4 x 100 Nathan balloon to predilate the near occlusion at the subclavian junction. Following this, we placed an 8 x 20 cutting balloon across both areas of focal tight stenosis proximally. Several inflations were performed. After this, there was improved flow and no extravasation. We then advanced an 8 x 200 [place] Woolley balloon across the entire area and performed three-minute angioplasty. After this angioplasty, there was a excellent thrill and the fistula, all pulsatility had resolved, and there was widely patent inflow through to the central system. We retracted the balloon slightly back into the mid arm to angioplasty the focal stenosis in the mid arm, and this was performed with angioplasty 2 for three- minute inflations. There was less than 10% residual stenosis in this concluded her procedure. Local anesthesia was administered around the sheath and a Prolene suture was placed in a [id number] pattern and secured in the sheath was removed. Pressure was held for hemostasis and sterile dressings were applied. Patient tolerated the procedure well and was taken to recovery in stable condition. There were no complications and it is okay for her to use her fistula for dialysis. ESTIMATED BLOOD LOSS: Approximately 5 mL. COMPLICATIONS: None. PLAN: Okay to use AV fistula right upper extremity for dialysis. Patient later fistula check in 1-2 months to make sure she is not having restenosis of the very tight stenotic areas noted in her fistula today. YONNY CUETO MD Sep 07, 2019 14:12
[2019-09-07 14:15] VITALS: BP 189/77
== END ==
LOC: M IRPRO 11:30
PROVIDERS: ATTEND Surgery Vascular Surgery
DX: N18.6 End stage renal disease (principal); I87.8 Other specified disorders of veins; T82.898A Other specified complication of vascular prosthetic devices, implants and grafts, initial encounter; X58.XXXA Exposure to other specified factors, initial encounter; Y93.9 Activity, unspecified; Y92.9 Unspecified place or not applicable; Y99.9 Unspecified external cause status
CPT/HCPCS: 36902; 36907; 99152; 99153; C1725; C1769; C1887; C1894; J2250; J3010; Q9967

== ENCOUNTER → 2019-12-17 | Outpatient (CLI) | payer MEDICARE, MEDICAID ==
[~2019-12-17] MED LIST changes: -ISOVUE-300 61% 50ML VIAL (Q9967) As Ordered ONE; -LIDOCAINE 1% MDV 20ML VIAL As Ordered ONE; -MIDAZOLAM INJ 2 MG/2 ML VIAL (J2250) As Ordered ONE; -fentaNYL 100 MCG/2 ML INJECTION (J3010) As Ordered ONE
--- NOTE | 2019-12-17 18:48 | REP ---
Bilateral lower extremity arterial Doppler ultrasound: History: Peripheral vascular disease with ulceration. Findings: Ankle brachial index could not be obtained on the right due to noncompressible vessels. Ankle brachial index on the left is normal at 1.2. Heavily calcified vessels are seen bilaterally. Relatively normal Doppler wave forms are seen predominately biphasic bilaterally. The anterior tibial artery on the right is occluded distally. No high-grade stenosis is appreciated. Velocity chart right lower extremity arteries: CF A 113 cm/S Profunda 67 Proximal SFA 127 Mid SFA 82 Distal SFA 96 Popliteal 89 Proximal AT A 9 Tibioperoneal trunk 57 Proximal DEMOLITION WORKER 60 Distal DEMOLITION WORKER 87 Distal AT A occluded Velocity chart left lower extremity arteries: CF A 81 cm/S Profunda 57 Proximal SFA 74 Mid SFA 70 Distal SFA 69 Popliteal 88 Proximal AT A 71 Tibioperoneal trunk 70 Proximal DEMOLITION WORKER 39 Distal DEMOLITION WORKER 46 Distal AT A 83 Electronically Signed by Kristofer Kurtz MD 12/17/2019 06:39 P
== END ==
LOC: M RAD 14:33
PROVIDERS: ATTEND Podiatrist Foot & Ankle Surgery
DX: I74.3 Embolism and thrombosis of arteries of the lower extremities (principal); I73.9 Peripheral vascular disease, unspecified

== ENCOUNTER → 2020-04-29 | Outpatient (CLI) | payer MEDICARE, MEDICAID ==
[~2020-04-29] MED LIST changes: +AMLO1TAB24 PO; -AMLO5TAB6 PO; +ECOT81TA5 PO
== END ==
LOC: M LABSMTC 12:51
PROVIDERS: ATTEND Anesthesiology
DX: Z01.818 Encounter for other preprocedural examination (principal); Z11.59 Encounter for screening for other viral diseases; Z20.828 Contact with and (suspected) exposure to other viral communicable diseases
CPT/HCPCS: C9803; U0002

== ENCOUNTER 2020-05-01 08:02 | Day surgery (SDC) | payer MEDICARE, MEDICAID ==
[~2020-05-01] VITALS: Ht 167.6 cm; Wt 71.8 kg
[~2020-05-01 08:02] MED LIST changes: +BACITRACIN PWD 50,000 UNITS VIAL As Ordered ONE; -ECOT81TA5 PO; +LIDOCAINE 1% SDV 30ML VIAL As Ordered ONE; +MIDAZOLAM INJ 2MG/2ML VIAL (J2250 PER 1MG) As Ordered ONE; +fentaNYL 100 MCG/2 ML INJECTION (J3010) As Ordered ONE
[2020-05-01] MEDS ORDERED: D5W/0.2% SODIUM CHLORIDE 1,000 ML IV ONE (08:15)
[2020-05-01] MEDS ORDERED: ceFAZolin SOD 1 GM in D5W MINI-BAG PLUS 50 ML IV ONE (08:15)
[2020-05-01] MEDS ORDERED: LIDOCAINE 2% 100MG/5ML SDV (FOR ANES.) As Ordered ONE (10:06)
[2020-05-01] MEDS ORDERED: propofoL 200 MG/20 ML VIAL As Ordered ONE (10:11)
[2020-05-01] MEDS ORDERED: ONDANSETRON 4MG/2ML VIAL As Ordered ONE (10:21)
[2020-05-01 11:25] VITALS: BP 169/76
--- NOTE | 2020-05-01 12:09 | RO ---
DATE OF PROCEDURE: 05/01/2020 TITLE OF PROCEDURE: 1. Explantation of depleted pacemaker pulse generator. 2. Testing of old atrial and ventricular pacing leads. 3. Implantation of new dual-chamber pulse generator. IMPLANTING DIRECTOR OF WEB MARKETING: Dr. Rusty Sanon ANESTHESIOLOGIST: Dr. Davis PREOPERATIVE DIAGNOSES: 1. Pacemaker battery depletion. 2. Complete heart block. POSTOPERATIVE DIAGNOSES: 1. Pacemaker battery depletion. 2. Complete heart block. TYPE OF ANESTHESIA: Monitored local anesthesia. CLINICAL SUMMARY: This 84-year-old resident of [place] is well-known to our cardiology practice with ischemic, hypertensive, and valvular heart disease complicated by abnormal EKG, complete heart block and heart failure (diastolic dysfunction). She also has end-stage renal failure on dialysis since September 2017. She has been followed on a regular basis through our office. At her last visit, 04/28/2020, her pacemaker was found to be at elective replacement indicator. Customarily despite her age has remained active ultimately limited by dyspnea. Denies chest pain, orthopnea, palpitations, syncope or embolic phenomenon. Pleasant elderly woman of medium body build lay comfortably. Heart rate 68 beats per minute and regular, blood pressure 126/68 sitting, respiratory rate 16, BMI 24.7. No pallor icterus. Trachea midline. Neck veins were 3 cm above the sternal angle. Normal oral moisture. No central cyanosis. Normal-appearing chest configuration and chest expansion. Chronic bibasilar inspiratory crepitations. Slight prolongation of expiration. Apical impulse not palpable. Heart sounds, S1 was normal, S2 was paradoxically split. S4 gallop with grade 2-3/6 systolic ejection murmur left sternal border. Soft, nontender abdomen. No current dependent edema. Normal pedal pulses. EKG shows underlying sinus rhythm with appropriate atrial sensing and tracking with consistent ventricular pacing. DESCRIPTION OF PROCEDURE: In the fasting state following informed consent and Ancef 2 grams IV premedication, the patient was taken to the operating theater. Numerous skin electrodes were applied to facilitate continuous electrocardiographic monitoring. The left subclavian region was prepped and draped in the usual fashion and the old pacemaker incision was infiltrated with 1% Xylocaine. A 5 cm linear incision was made over the old pacer incision site and careful dissection was carried down to the level of her depleted pacemaker, which was then explanted ([employer] - model number 2110, serial number [id number], implanted 02/02/2012). The old atrial and ventricular pacing leads were then carefully removed and tested independently. The right ventricular lead ([employer] - model number 1388TC/58, serial number [id number]) measurements were: Stimulation threshold 0.7 V/0.4 ms/impedance 781 ohms. There was no intrinsic ventricular activity. The atrial lead ([employer] - model number 1388TC/52, serial number [id number]) measurements were: Stimulation threshold 0.7 V/0.4 ms/ impedance 378 ohms. The P wave amplitude measured 1.5 mV. These old pacing leads were then connected to a new dual-chamber pulse generator ([employer] - model number [id number], serial number [id number]) and appropriate DDD pacing was documented. The old pacer pocket was thoroughly irrigated with bacitracin solution and the new device was placed in the pocket. The subcutaneous tissues were approximated using a running chromic suture and skin was closed using juanita. A dry dressing was applied. The patient was returned to the recovery room in good condition. No apparent complications. Estimated blood loss zero mL. The patient will be allowed to go home when she is alert and ambulatory. DISCHARGE RECOMMENDATIONS AND MEDICATIONS: The patient was encouraged to resume her customary no added salt, low fat, low cholesterol diet. Activity was to be as tolerated with light activities of her left arm until she has her juaniat removed in our office 05/13/2020 at 10:15 a.m. We will request that she also try to keep her incision dry. Should she notice any abnormal erythema, swelling or discharge, she has been encouraged to contact us promptly. Her medications were to continue to be: Atorvastatin 40 mg at bedtime, aspirin 81 mg daily, Nitrostat 0.4 mg sublingually 1 tablet every 5 minutes for chest pain as necessary. Fexofenadine 60 mg by mouth twice a day, MiraLAX daily, Colace 100 mg twice a day, sevelamer 800 mg daily, Humalog mix 75/25 as directed by her primary, and Tylenol 500 mg tablets four times a day as needed.
== END 2020-05-01 11:58 | disposition home or self-care (01) ==
LOC: M SDC 08:02
PROVIDERS: ATTEND Internal Medicine Cardiovascular Disease
DX: Z45.010 Encounter for checking and testing of cardiac pacemaker pulse generator [battery] (principal); I50.30 Unspecified diastolic (congestive) heart failure; I49.5 Sick sinus syndrome; I10 Essential (primary) hypertension; E78.5 Hyperlipidemia, unspecified; E11.9 Type 2 diabetes mellitus without complications; N18.9 Chronic kidney disease, unspecified; Z86.73 Personal history of transient ischemic attack (TIA), and cerebral infarction without residual deficits; M10.9 Gout, unspecified; D64.9 Anemia, unspecified; Z79.899 Other long term (current) drug therapy; Z98.61 Coronary angioplasty status; Z88.2 Allergy status to sulfonamides; Z88.5 Allergy status to narcotic agent; Z88.8 Allergy status to other drugs, medicaments and biological substances; F41.9 Anxiety disorder, unspecified; F32.9 Major depressive disorder, single episode, unspecified; Z79.82 Long term (current) use of aspirin; Z79.4 Long term (current) use of insulin
CPT/HCPCS: 33228; 36415; 84132; C1785; J0690; J2250; J2405; J3010

== ENCOUNTER 2020-07-21 03:31 | Emergency (ER) | payer MEDICARE, MEDICAID ==
[~2020-07-21] VITALS: Ht 167.6 cm; Wt 70.9 kg
[~2020-07-21 03:31] MED LIST changes: -BACITRACIN PWD 50,000 UNITS VIAL As Ordered ONE; -LIDOCAINE 1% SDV 30ML VIAL As Ordered ONE; -MIDAZOLAM INJ 2MG/2ML VIAL (J2250 PER 1MG) As Ordered ONE; -fentaNYL 100 MCG/2 ML INJECTION (J3010) As Ordered ONE
[2020-07-21] MEDS ORDERED: ECOT81TA5 PO (03:53)
[2020-07-21 04:17] LABS: BASO % 0.3 % (0.0-1.0); EOS # 0.1 10^3/uL (0.0-0.5); EOS % 0.5 % (0.0-3.0); HEMATOCRIT 31.5 % (36.0-47.0); HEMOGLOBIN 9.7 g/dl (12.0-15.5); LYMPH # 1.1 10^3/uL (1.5-5.0); LYMPH % 10.4 % (24.0-44.0); MEAN CORPUSCULAR HGB CONC 30.8 g/dl (32.0-36.5); MEAN CORPUSCULAR VOLUME 90.8 fl (80.0-96.0); MONO # 0.8 10^3/uL (0.0-0.8); MONO % 7.9 % (0.0-5.0); NEUTROPHILS # 8.4 10^3/uL (1.5-8.5); NEUTROPHILS % 80.4 % (36.0-66.0); PLATELET COUNT, AUTOMATED 176 10^3/uL (150-450); RED BLOOD COUNT 3.47 10^6/uL (4.00-5.40); WHITE BLOOD COUNT 10.4 10^3/uL (4.0-10.0)
--- NOTE | 2020-07-21 04:44 | REPVR ---
PROCEDURE INFORMATION: Exam: XR Left Femur Exam date and time: 07/21/2020 4:31 AM Age: 84 years old Clinical indication: Pain; Hip; Left; Additional info: Leg pain TECHNIQUE: Imaging protocol: XR Left femur. Views: 2 views. COMPARISON: No relevant prior studies available. 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 There also patellofemoral DJD. There is left hip DJD. Soft tissues: Unremarkable. Vasculature: There is severe calcification of the femoropopliteal artery. IMPRESSION: No definite acute fracture or dislocation. Electronically signed by: Faizan Jackson On 07/21/2020 04:44:19 AM
[2020-07-21 04:46] LABS: CALCIUM LEVEL 8.8 MG/DL (8.8-10.2); CREATININE FOR GFR 5.03 MG/DL (0.55-1.30); GLOMERULAR FILTRATION RATE 8.8 (>32); POTASSIUM SERUM 4.3 MEQ/L (3.5-5.1)
--- NOTE | 2020-07-21 05:00 | REPVR ---
PROCEDURE INFORMATION: Exam: US Duplex Left Lower Extremity Veins, Limited Exam date and time: 07/21/2020 4:46 AM Age: 84 years old Clinical indication: Pain; Leg, lower; Left; Additional info: Leg pain TECHNIQUE: Imaging protocol: Real-time Duplex ultrasound of the Left Lower Extremity with 2-D wyatt scale, color Doppler flow and spectral waveform analysis with image documentation. Limited exam focused on the left lower extremity veins. COMPARISON: No relevant prior studies available. FINDINGS: Left deep veins: Unremarkable. The common femoral, femoral, proximal profunda femoral and popliteal veins are patent without thrombus. Normal Doppler waveforms. Normal compressibility and/or augmentation response. Left superficial veins: Unremarkable. Saphenofemoral junction is patent without thrombus. Soft tissues: There is a 3.5 x 2.2 x 2.2 cm fluid collection in the left popliteal fossa likely Sharma cyst.. Technologist reported that this is slightly larger than 2011. Please note that images from 2010 are not available for comparison at this time. IMPRESSION: 1. No sonographic evidence of left lower extremity DVT. 2. 3.5 x 2.2 x 2.2 cm mildly septated left popliteal fossa Sharma cyst. Electronically signed by: Faizan Jackson On 07/21/2020 04:59:22 AM
[2020-07-21] MEDS ORDERED: NORCO, ANEXSIA 5/325MG TABLET (HYDROcodone/ACETAMINOPHEN) PO ONE (05:15)
[2020-07-21 06:00] VITALS: BP 186/72
[2020-07-21] MEDS ORDERED: NORC1TAB7 PO (06:35)
== END 2020-07-21 07:05 | disposition home or self-care (01) ==
LOC: M ED 03:31
DX: M79.652 Pain in left thigh (principal); M71.22 Synovial cyst of popliteal space [Baker], left knee; E11.9 Type 2 diabetes mellitus without complications; N18.6 End stage renal disease; M10.9 Gout, unspecified; I77.0 Arteriovenous fistula, acquired; Z79.4 Long term (current) use of insulin; Z79.899 Other long term (current) drug therapy; Z79.82 Long term (current) use of aspirin; Z86.718 Personal history of other venous thrombosis and embolism; Z88.1 Allergy status to other antibiotic agents; Z88.5 Allergy status to narcotic agent; Z88.6 Allergy status to analgesic agent; Z88.8 Allergy status to other drugs, medicaments and biological substances

== ENCOUNTER 2020-09-29 02:23 | Emergency (ER) | payer MEDICARE, MEDICAID ==
[~2020-09-29] VITALS: Ht 167.6 cm; Wt 71.4 kg
[~2020-09-29 02:23] MED LIST changes: +COLC0.6T47 PO; -COLC1TAB13 PO; +ECOT81TA5 PO
[2020-09-29 04:45] LABS: BASO % 0.4 % (0.0-1.0); EOS # 0.2 10^3/uL (0.0-0.5); EOS % 3.2 % (0.0-3.0); HEMATOCRIT 33.2 % (36.0-47.0); LYMPH # 1.1 10^3/uL (1.5-5.0); LYMPH % 15.1 % (24.0-44.0); MEAN CORPUSCULAR HEMOGLOBIN 27.6 pg (27.0-33.0); MEAN CORPUSCULAR HGB CONC 30.1 g/dl (32.0-36.5); MEAN CORPUSCULAR VOLUME 91.7 fl (80.0-96.0); MONO # 0.6 10^3/uL (0.0-0.8); NEUTROPHILS # 5.1 10^3/uL (1.5-8.5); NEUTROPHILS % 71.9 % (36.0-66.0); PLATELET COUNT, AUTOMATED 145 10^3/uL (150-450); RED BLOOD COUNT 3.62 10^6/uL (4.00-5.40); WHITE BLOOD COUNT 7.1 10^3/uL (4.0-10.0)
[2020-09-29 04:49] LABS: CALCIUM LEVEL 8.7 MG/DL (8.8-10.2); CREATININE FOR GFR 5.02 MG/DL (0.55-1.30); GLOMERULAR FILTRATION RATE 8.8 (>32); POTASSIUM SERUM 4.3 MEQ/L (3.5-5.1)
[2020-09-29 05:55] LABS: RSV AMPLIFICATION NEGATIVE (NEGATIVE)
--- NOTE | 2020-09-29 07:23 | REP ---
INDICATION: cough. COMPARISON: 02/13/2019. TECHNIQUE: Single AP view of the chest performed portably with the patient upright. FINDINGS: Lung fitzpatrick are clear. Cardiac size is enlarged, unchanged, however there is magnification from portable positioning. The darshana, mediastinum, and skeletal structures are unremarkable. There is a dual chamber pacemaker entering from the left, unchanged. IMPRESSION: No acute cardiopulmonary findings. <Electronically signed by Jose Young > 09/29/20 0719
[2020-09-29 07:42] VITALS: BP 157/72
== END 2020-09-29 08:07 | disposition home or self-care (01) ==
LOC: M ED 02:23
DX: J06.9 Acute upper respiratory infection, unspecified (principal); N18.6 End stage renal disease; Z99.2 Dependence on renal dialysis; E11.9 Type 2 diabetes mellitus without complications; I12.0 Hypertensive chronic kidney disease with stage 5 chronic kidney disease or end stage renal disease; Z79.899 Other long term (current) drug therapy; Z79.82 Long term (current) use of aspirin; Z79.4 Long term (current) use of insulin; Z88.1 Allergy status to other antibiotic agents; Z88.2 Allergy status to sulfonamides; Z88.5 Allergy status to narcotic agent; Z88.8 Allergy status to other drugs, medicaments and biological substances

== ENCOUNTER → 2020-10-01 | Outpatient (REF) | payer MEDICARE, MEDICAID | PROVIDERS: ATTEND Internal Medicine | DX: Z20.828 Contact with and (suspected) exposure to other viral communicable diseases (principal) ==

== ENCOUNTER → 2020-10-06 | Outpatient (REF) | payer MEDICARE, MEDICAID | PROVIDERS: ATTEND Internal Medicine | DX: Z20.828 Contact with and (suspected) exposure to other viral communicable diseases (principal) ==

== ENCOUNTER → 2020-10-13 | Outpatient (REF) | payer MEDICARE, MEDICAID | PROVIDERS: ATTEND Internal Medicine | DX: Z20.828 Contact with and (suspected) exposure to other viral communicable diseases (principal) ==

== ENCOUNTER → 2020-10-20 | Outpatient (REF) | payer MEDICARE, MEDICAID | PROVIDERS: ATTEND Internal Medicine | DX: Z11.52 Encounter for screening for COVID-19 (principal) ==

== ENCOUNTER → 2020-10-27 | Outpatient (REF) | payer MEDICARE, MEDICAID | PROVIDERS: ATTEND Internal Medicine | DX: Z20.822 Contact with and (suspected) exposure to COVID-19 (principal) ==

== ENCOUNTER → 2020-11-03 | Outpatient (REF) | payer MEDICARE, MEDICAID | PROVIDERS: ATTEND Internal Medicine | DX: Z20.822 Contact with and (suspected) exposure to COVID-19 (principal) ==

== ENCOUNTER → 2020-11-10 | Outpatient (REF) | payer MEDICARE, MEDICAID | PROVIDERS: ATTEND Internal Medicine | DX: Z20.822 Contact with and (suspected) exposure to COVID-19 (principal) ==

== ENCOUNTER → 2020-11-17 | Outpatient (REF) | payer MEDICARE, MEDICAID | PROVIDERS: ATTEND Internal Medicine | DX: Z20.822 Contact with and (suspected) exposure to COVID-19 (principal) ==

== ENCOUNTER → 2020-11-24 | Outpatient (REF) | payer MEDICARE, MEDICAID | PROVIDERS: ATTEND Internal Medicine | DX: Z20.822 Contact with and (suspected) exposure to COVID-19 (principal) ==

== ENCOUNTER → 2020-12-01 | Outpatient (REF) | payer MEDICARE, MEDICAID | PROVIDERS: ATTEND Internal Medicine | DX: Z20.822 Contact with and (suspected) exposure to COVID-19 (principal) ==

== ENCOUNTER → 2021-01-27 | Outpatient (CLI) | payer MEDICARE, MEDICAID ==
[~2021-01-27] MED LIST changes: +ASPI-569 PO; -ASPI81TAEC PO; +ISOVUE-300 61% 50ML VIAL As Ordered ONE; +LIDOCAINE 1% MDV 20ML VIAL As Ordered ONE; +MIDAZOLAM INJ 2MG/2ML VIAL (J2250 PER 1MG) As Ordered ONE; -PEG1POW PO; +POLY17PO18 PO; +fentaNYL 100 MCG/2 ML INJECTION (J3010) As Ordered ONE
--- NOTE | 2021-01-27 13:57 | ROOPDOC ---
[facility] Report Of Operation Report of Operation DATE OF PROCEDURE: 01/27/21 PREPROCEDURE DIAGNOSES: End-stage renal disease with increased venous pressures and bleeding from right brachiocephalic AV fistula with dialysis POSTPROCEDURE DIAGNOSES: Same PROCEDURE: 1. Right upper extremity fistulogram and central venogram 2. Angioplasty right cephalic vein with 8 x 20 cut balloon, 8 x 200 [place] balloon, 9 x 40 [place] balloon 3. Completion venogram SURGEON: Yonny Cueto MD ANESTHESIA: Local anesthesia 2 mL lidocaine. Moderate intravenous conscious sedation was administered by Dr. Cueto. The patient was independently monitored by a registered nurse assigned to the Department of radiology using automated blood pressure, EKG, and pulse oximetry. The detailed sedation record is permanently stored in the hospital information system. The following is a brief sedation record: Start time 13:01, stop time 13:36, Versed 1 mg IV, fentanyl 50 g IV. CONTRAST: 38 mL Isovue-300 INDICATION FOR PROCEDURE: This is a very pleasant 85-year-old patient with a right brachiocephalic AV fistula and increased venous pressures during dialysis, and sometimes increased bleeding after dialysis treatments. Risks benefits and alternatives to right upper extremity fistulogram and potential intervention were explained to the patient and she is agreeable to proceed. Informed consent was obtained. INTERPRETATION: 1. Right brachiocephalic AV anastomosis is widely patent, please see ultrasound images. 2. 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 The right subclavian vein and central veins are widely patent. 3. After angioplasty of the cephalic vein between the aneurysms and proximally at the junction with the subclavian vein with 8 x 20 cutting balloon, there is no extravasation and improvement in the thrill of the fistula and improvement in flow. 4. After angioplasty along the length of the cephalic vein with an 8 x 200 cutt ing balloon for 2 three-minute inflations proximally and more distally, there is definitely improvement in flow but still some residual stenosis at the proximal cephalic vein at the right subclavian junction. However, after repeat angioplasty with a 9 x 40 [place] balloon, for three-minute inflations, there was a marked improvement in flow and improvement in the thrill. However, in order to completely eliminate pulsatility, we would likely have to replace the segment vein that is so tortuous in the upper arm. This 360 turn provide the level of resistance to flow that cannot be recommended with angioplasty. However, outflow is intact and there definitely is an improvement after today's procedure. REPORT OF OPERATION: Patient was brought to the angiographic suite in stable condition. Her right upper extremity was prepped and draped in a sterile fashion. A timeout was performed. Local anesthesia was administered to the skin and subcutaneous tissue over the cephalic vein near the AV anastomosis. Ultrasound was used to examine the AV anastomosis with color flow Doppler and found to be widely patent, please see images. We then used ultrasound to gain access to the cephalic vein with a microneedle. A wire was passed through this access needle was removed. A 4 Armenian sheath was placed and flushed with saline. Fistulogram and central venogram were performed, please interpretation above. We then advanced a 035 Glidewire through the fistula and exchanged the sheath for 7 Armenian sheath and flushed the sheath with saline. We exchanged the wire for a 018 glide wire advantage. Over the wire we advanced an 8 x 20 cutting balloon and did serial angioplastied to cross the proximal cephalic vein near the junction with the subclavian vein, and also between the aneurysmal segments. Following this, there is an improvement in flow no extravasation, but still residual stenosis. We did three-minute inflations with an 8 x 200 [place] balloon proximally and distally along the length of cephalic vein. Following this there was definitely improvement in flow but still some residual stenosis at the proximal cephalic vein near the junction with the right subclavian vein. We then exchange the balloon for 9 x 40 [place] balloon and a three-minute inflations was performed proximally. Following this, there is definitely marked improvement in flow, and improvement in the thrill. We then give additional local anesthesia around the sheath exit site, place a [id number] Prolene suture and secured the suture upon removal of the sheath. Steri-Strips and sterile dressings were applied and good hemostasis was noted. The patient was taken to recovery in stable condition. She tolerated the procedure and the sedation well. ESTIMATED BLOOD LOSS: Approximately 5 mL. COMPLICATIONS: None PLAN: It is okay to use the fistula for dialysis. It is okay to resume home diet and medications. We appreciate the opportunity to participate in the care of this patient. YONNY CUETO MD Jan 27, 2021 13:57
[2021-01-27 14:10] VITALS: BP 172/79
== END ==
LOC: M IRPRO 11:23
PROVIDERS: ATTEND Surgery Vascular Surgery
DX: T82.590A Other mechanical complication of surgically created arteriovenous fistula, initial encounter (principal); N18.6 End stage renal disease; X58.XXXA Exposure to other specified factors, initial encounter
CPT/HCPCS: 36902; 99152; 99153; C1725; C1729; C1769; C1894; J1644; J2250; J3010; Q9967

== ENCOUNTER → 2021-02-09 | Outpatient (CLI) | payer MEDICARE, MEDICAID ==
[~2021-02-09] MED LIST changes: -ISOVUE-300 61% 50ML VIAL As Ordered ONE; -LIDOCAINE 1% MDV 20ML VIAL As Ordered ONE; -MIDAZOLAM INJ 2MG/2ML VIAL (J2250 PER 1MG) As Ordered ONE; -fentaNYL 100 MCG/2 ML INJECTION (J3010) As Ordered ONE
--- NOTE | 2021-02-09 15:11 | REPPI ---
INDICATION: CHRONIC COUGH. COMPARISON: Multiple the latest 09/29/2020 a portable exam TECHNIQUE: PA and lateral FINDINGS: There is near complete opacification of the left lung with only a small amount of air density seen in the medial left apical region. This represents a significant change compared to the prior exam. All of the left heart border has been silhouetted out. There is a dual chamber bipolar pacemaker device status quo. The right lung is clear and unchanged. The right CP angle is sharp. IMPRESSION: Near complete opacification of the left lung as described above. Atelectasis versus pleural effusion versus consolidation with or without post obstruction phenomenon. Consider chest CT. <Electronically signed by Mustapha Kim > 02/09/21 [id number]
== END ==
LOC: M PLAIMG 11:28
PROVIDERS: ATTEND Family Medicine
DX: R91.8 Other nonspecific abnormal finding of lung field (principal); Z95.0 Presence of cardiac pacemaker

== ENCOUNTER 2021-02-14 09:48 | Inpatient (IN) | payer MEDICARE, MEDICAID ==
[2020-12-25] MEDS: LEVALBUTEROL 1.25 MG/0.5 ML CONCENTRATE NEB NEB SCH (21:00)
[~2021-02-14] VITALS: Ht 167.6 cm; Wt 66.5 kg
[2021-02-14 10:29] LABS: BASO % 0.3 % (0.0-1.0); EOS % 0.2 % (0.0-3.0); HEMATOCRIT 35.7 % (36.0-47.0); HEMOGLOBIN 10.7 g/dl (12.0-15.5); LYMPH # 1.2 10^3/uL (1.5-5.0); LYMPH % 11.3 % (24.0-44.0); MEAN CORPUSCULAR HEMOGLOBIN 27.5 pg (27.0-33.0); MEAN CORPUSCULAR VOLUME 91.8 fl (80.0-96.0); MONO % 8.8 % (2.0-8.0); NEUTROPHILS # 8.5 10^3/uL (1.5-8.5); NEUTROPHILS % 78.9 % (36.0-66.0); PLATELET COUNT, AUTOMATED 211 10^3/uL (150-450); RED BLOOD COUNT 3.89 10^6/uL (4.00-5.40); WHITE BLOOD COUNT 10.8 10^3/uL (4.0-10.0)
[2021-02-14 10:31] LABS: ALBUMIN 3.1 GM/DL (3.2-5.2); BILIRUBIN,DIRECT 0.1 MG/DL (0.0-0.2); BILIRUBIN,TOTAL 0.4 MG/DL (0.2-1.0); CALCIUM LEVEL 9.4 MG/DL (8.8-10.2); CREATININE FOR GFR 3.93 MG/DL (0.55-1.30); GLOMERULAR FILTRATION RATE 11.6 (>32); POTASSIUM SERUM 3.5 MEQ/L (3.5-5.1); TOTAL PROTEIN 6.4 GM/DL (6.4-8.2)
[2021-02-14] MEDS ORDERED: AMLO1TAB24 PO (10:55)
[2021-02-14] MEDS ORDERED: DRIS50003 PO (10:55)
--- NOTE | 2021-02-14 11:30 | REP ---
INDICATION: sob, productive cough, recent abnormal cxr COMPARISON: None TECHNIQUE: Axial noncontrast images from the thoracic inlet to the upper abdomen with coronal and sagittal reformations. This CT examination was performed using the following dose reduction techniques: Automated exposure control, adjustment of mA and/or kv according to the patient's size, and use of iterative reconstruction technique. FINDINGS: Examination demonstrates complete opacification of the left hemithorax due to large effusion and complete collapse to the left upper lobe and left lower lobe. Right hemithorax is relatively well aerated although minimal right basilar atelectasis is suggested. Small mediastinal lymph nodes are nonspecific in appearance. Atherosclerotic changes to the thoracic aorta and coronary arteries noted without aortic aneurysm or cardiomegaly. No pericardial effusion. Pacemaker identified. Limited upper abdomen demonstrates small amount of perihepatic ascites along with ill-defined areas of hazy opacification and nodularity is within the visualized mesentery and greater omentum highly suspicious for malignancy/metastatic disease. IMPRESSION: 1. Complete opacification of the left hemithorax with large effusion and collapse of the left upper lobe and left lower lobes. Minimal right basilar atelectasis. 2. Highly suspicious changes in the visualized upper abdomen as described above worrisome for malignancy/metastatic disease. <Electronically signed by John Bustillos > 02/14/21 [id number]
--- NOTE | 2021-02-14 12:45 | REP ---
INDICATION: pleural effusion c/f GI malignancy COMPARISON: None TECHNIQUE: Axial noncontrast images from the lung bases to the pubic symphysis with coronal and sagittal reformations. This CT examination was performed using the following dose reduction techniques: Automated exposure control, adjustment of mA and/or kv according to the patient's size, and use of iterative reconstruction technique. FINDINGS: There is a small amount of ascites extending from the perihepatic space into the right pericolic gutter and into the pelvis. There is subtle diffuse stranding and small scattered nodular densities throughout the mesentery as well as along the greater omentum with suspicious soft tissue and possible mucosal thickening involving the mid to distal stomach. These findings must be considered malignant unless proven otherwise. Liver, spleen, visualized pancreas, gallbladder, and bilateral adrenal glands are relatively normal by noncontrast evaluation. The kidneys have symmetric atrophic appearance without acute perinephric stranding or hydronephrosis. Extensive atherosclerotic changes to the aorta and branch vessels are noted without aneurysm. The enteric system is without obstruction or obvious focal acute process. Moderate fecal stasis noted along with diffuse diverticulosis primarily involving the sigmoid colon. Pelvis demonstrates normal bladder and heterogeneous changes to the uterus. No retroperitoneal adenopathy. No free air. No drainable collection/abscess identified. The osseous structures demonstrate age-related osteopenia and nonspecific changes which are likely degenerative. No obvious acute fracture/compression injury noted. IMPRESSION: 1. Findings are highly suspicious for metastatic changes involving the peritoneum and omentum. There is somewhat irregular soft tissue and suspected mucosal thickening involving the mid to distal stomach possibly site of primary malignancy. 2. Moderate fecal stasis and diffuse diverticulosis without evidence for bowel obstruction or perforation. 3. Further nonacute findings as described above. <Electronically signed by John Bustillos > 02/14/21 [id number]
--- NOTE | 2021-02-14 13:24 | ECGEPIP ---
[facility] - ED Test Date: 2021-02-14 Pat Name: MARIA FERNANDA REDD Department: Room: - Gender: Female 911 Telecommunicator: LYDIA : [id number] Requested By: COURTNEY LEAHY PA-C. Order Number: [id number] Reading MD: Elias Avelar Measurements Intervals [place] Rate: 71 P: [place]: 210 QRS: 56 QRSD: 150 T: 225 QT: 446 QTc: 484 Interpretive Statements AV dual-paced rhythm with prolonged AV conduction cw 02/14/29 rate increased Similar morphology Electronically Signed on 02-14-2021 13:23:54 EDT by Elias Avelar
[2021-02-14 14:15] VITALS: BP 152/71
[2021-02-14] MEDS: amLODIPine 5 MG TAB PO SCH (15:10)
[2021-02-14] MEDS: MIRALAX *UNIT DOSE* 17GM PACKET PO SCH (15:11)
[2021-02-14] MEDS: (RENVELA) SEVELAMER **CARBONate** 800 MG TAB PO SCH (17:00)
--- NOTE | 2021-02-14 18:52 | HPEPDOC ---
General Date of Admission February 14, 2021 at 12:12 Date of Service: February 14, 2021 Attending Physician: RK MCGHEE MD Chief Complaint Presenting compliant:The patient is a 85-year-old female admitted with a reason for visit of shortness of breath on exertion History of present illness: 85-year-old female patient with past medical history of diabetes mellitus, osteoarthritis, HTN, bilateral hearing and visual impairment, ESRD is coming in from [facility] as she is having progressively shortness of breath with activity, increased cough with sputum, pressure over the left side of chest and abdomen, decreased appetite which has been worsening since 4 days. Patient reports she always has a baseline cough but it has been worsening since 4 days which is purulent with clear sputum no blood, pressure over the left side of the chest which has been gradually increased, no chest pain, no radiation. She noticed that she has been burping a lot and is 4 days. Shortness of breath on activity only. She has to rest for a while to catch her breath. She also reports feeling very hot followed by feeling very cold more since 4 days along with subjective chills. He denies having any fever, headache, nausea, vomiting, diarrhea, constipation, chest pain, abdominal pain. Past medical history: - Diabetes mellitus type 2 : Patient used to be on 8 units of insulin 4 times a week, given that the hemoglobin A1c is around 5, her PCP asked her to discontinue the insulin. - End-stage renal and disease on dialysis M, W , F schedule - Cardiac Pacemaker by Dr. Fab kendall. - Bladder prolapse status post bladder sling surgery - Osteoarthritis she gets corticosteroid injections in her bilateral knees - Hypertension controlled by medication - Difficulty hearing likely sensorineural hearing loss - Visual impairment, he can only see things in 5-6 feet Social history: She denies any alcohol use. She denies any smoking history. She denies using any illicit drugs. Family History: - Mother at age 59 due to CVA - Father at age 92 due to old age - She has one brother who has hypertension - She has 6 children 4 of her own and 2 adopted. REVIEW OF SYSTEMS: Constitutional: Denies having fever, chills, night sweats, weight loss, headaches. Eyes: Patient reports having visual impairment field of vision is maximum 5-6 feet ENT: Denies any dysphagia, odynophagia, ear discharge. Reports having bilateral hearing difficulty Cardiovascular: Denies any chest pain or palpitations. Respiratory: She has shortness of breath on exertion and productive cough Gastrointestinal (GI): Denies any nausea or vomiting. Genitourinary: Denies dysuria, hematuria. Musculoskeletal: Reports having joint pains due to osteoarthritis Skin: Denies any rashes or ulcers. Hematology/Oncology: Denies any easy bleeding or bruising. Endocrine: Denies cold intolerance, heat intolerance, polydipsia, polyphagia, polyuria All other review of systems is negative. PHYSICAL EXAMINATION: Vital Signs: When she presented to the ED Temperature: 97.9 Pulse: 70 RR: 20/min BP: 147/67 mm HG Oxygen saturation %: 94 on room air General: Patient is awake, alert, oriented times three, laying in bed, no apparent distress. Eyes: Conjunctiva clear, pupils equal round and sluggishly reactive to light and accommodation. EOM full, Fundus: not visualized. ENT: She has bilateral hearing impairment. No nasal deviation, oropharynx clear with no lesions/erythema. Neck: supple, no masses, trachea midline, no thyroid nodules appreciated. Cardiovascular: S1, S2, normal rhythm, systolic murmur 2/6 murmur, no JVD noted Respiratory: Patient does not have any breath sounds on left lung, clear breath sounds on the right lung, normal respiratory effort with no use of accessory muscles. Dullness to percussion on left lung, No rhonchi, wheezes appreciated Abdomen: On palpation felt some lumps and bumps all over the abdomen, no masses felt, bowel sounds positive, no bruits. Nontender on palpation. Extremities: No clubbing or cyanosis. No edema, no tenderness. She does have osteoarthritis in her legs. She does have an small ulcer on the right first metatarsal medially, she reports it is because of her shoe rubbing on the medial edge. Central nervous system (BUCKET CHUCKER): Awake, alert and fully oriented. Cranial nerves III-XII grossly intact. Motor: Strength normal, patient moves all extremities. S ensory: Decreased sensation to touch and pinprick in the bilateral lower legs up till the ankle region, rest grossly normal to touch and pin prick. Skin: Patient does have a small ulcer on the right foot first metatarsal medially. Likely diabetic ulcer,No rashes. Imaging: Chest CT done on 02/14/2021: Reported as: 1. Complete opacification of the left hemithorax with large effusion and collapse of the left upper lobe and left lower lobes. Minimal right basilar atelectasis. 2. Highly suspicious changes in the visualized upper abdomen small amount of perihepatic ascites along with ill-defined areas of hazy opacification and nodularity is within the visualized mesentery and greater omentum highly suspicious for malignancy/metastatic diseas e. CT abdomen and pelvis without contrast: Done on 02/14/2021: Reported as: 1. Findings are highly suspicious for metastatic changes involving the peritoneum and omentum. There is somewhat irregular soft tissue and suspected mucosal thickening involving the mid to distal stomach possibly site of primary malignancy. 2. Moderate fecal stasis and diffuse diverticulosis without evidence for bowel obstruction or perforation. 3. Further nonacute findings as described above. LABS: W BC 10.8, hemoglobin 10.7, hematocrit 55.7, platelet 211, BMP sodium 141, K3.5, chloride 102, I can't 32, BUN 22, creatinine 3.92. Assessment: 85 year old female with PMH DM, oriented, HTN, ESRD on M, , schedule, bilateral hearing and visual impairment presenting to [facility] from [facility] due to progressive increase of shortness of breath with cough, pressure in her left chest and abdomen since 4 days. On presentation to [facility] she did get some imaging of her lungs showing complete left lung pleural effusion and suspicious abdominal findings, further imaging showed that she does have omental caking which needed further investigation. She is being admitted under medical team for further evaluation and treatment. Plan: Left lung pleural effusion: - Patient having SOB with activity is most likely due to her left-sided pleural effusion. - She is saturating well at room air at rest - She would be needing an thoracentesis to evaluate what is the type of effusion she has in order to treat it. - Given the huge effusion it might most likely be gradually progress to over a period of time. - At this point cannot rule out malignancy within her left lung due to the effusion. - Thoracocentesis orders were placed to be done on Tuesday. - Cardiothoracic surgeon should be contacted on Tuesday, to see if this effusion can be drained. Given the patient is not acutely symptomatic CT surgeon was not contacted over the weekend. - Acapella was ordered encourage patient to use it. Abdominal omental caking: - Incidental finding on the chest CT of abdominal changes to getting a CT scan of her abdomen which showed metastatic changes in her peritoneum. - The imaging also comments about the primary site being the stomach. - Given the imaging findings she would be a benefited from getting endoscopy and colonoscopy to see what's going on. - Please contact GI on Tuesday to get EGD and colonoscopy. - Cancer markers CA 1919, CA-125, CEA have been ordered. -Patient and her daughter was informed about the diagnosis and they agrees with the plan. ESRD: - Patient is on Tuesday schedule outpatient. -Nephrology was contacted for getting her dialysis inpatient as per the schedule. - Renal diet Diabetes mellitus type 2: -Patient has well-controlled sugar levels. Hypertension: - Well controlled with amlodipine 5 mg by mouth daily. - Will continue amlodipine 5 mg by mouth ASCVD; - Will continue aspirin 81 mg by mouth - Will continue Lipitor 40 mg by mouth Osteoarthritis:: - Will continue vitamin D by mouth. Constipation: - Will continue Colace, MiraLAX. DVT prophylaxis: - Teds and sequentials Disposition: - She might need a chest tube to drain the fluid in her left lung. More than 2 n ights. Home Medications Scheduled Amlodipine Besylate (Amlodipine Besylate) 5 Mg Tablet, 5 MG PO DAILY, (Reported) Aspirin (Ecotrin) 81 Mg Tablet.dr, 81 MG PO DAILY, (Reported) Atorvastatin Calcium (Atorvastatin Calcium) 40 Mg Tablet, 40 MG PO QPM, (Reported) Ergocalciferol (Vitamin D2) (Drisdol) 1,250 Mcg Capsule, 1,250 MCG PO QWEEK, (Reported) SUNDAYS Fexofenadine HCl (Fexofenadine HCl) 60 Mg Tablet, 60 MG PO DAILY, (Reported) Polyethylene Glycol 3350 (Miralax) 119 Gm Powder, 17 GM PO DAILY, (Reported) dilute in 8 ounces of water or juice Sevelamer Carbonate (Renvela) 800 Mg Tab, 800 MG PO BIDWM, (Reported) 1200/1700 Scheduled PRN Acetaminophen (Acetaminophen 8 Hour) 650 Mg Tablet.er, 1,300 MG PO Q8H PRN for PAIN, (Reported) Docusate Sodium (Colace) 100 Mg Capsule, 100 MG PO BID PRN for CONSTIPATION, (Reported) Allergies Coded Allergies: Sulfa (Sulfonamide Antibiotics) (Verified Allergy, Mild, hives, 04/30/20) codeine (Verified Allergy, Mild, hives, 04/30/20) Quinolones (Verified Allergy, Unknown, 04/30/20) metoprolol (Verified Allergy, Unknown, 04/30/20) morphine (Verified Allergy, Unknown, 04/30/20) morphine anologues A-FIB/CHADSVASC A-FIB History Current/History of A-Fib/PAF?: No Current PO Anticoag Therapy: No Vital Signs Vital Signs Date Time Temp Pulse Resp B/P (MAP) Pulse Ox O2 Delivery O2 Flow Rate FiO2 02/14/21 15:10 69 139/68 02/14/21 14:15 98.3 20 94 Room Air Laboratory Data Labs 24H Laboratory Tests 2 02/14/21 09:59: Immature Granulocyte % (Auto) 0.5, Neutrophils (%) (Auto) 78.9H, Lymphocytes (%) (Auto) 11.3L, Monocytes (%) (Auto) 8.8H, Eosinophils (%) (Auto) 0.2, Basophils (%) (Auto) 0.3, Neutrophils # (Auto) 8.5, Lymphocytes # (Auto) 1.2L, Monocytes # (Auto) 1.0H, Eosinophils # (Auto) 0.0, Basophils # (Auto) 0.0, Nucleated Red Blood Cells % (auto) 0.0, Anion Gap 7L, Glomerular Filtration Rate 11.6L, Calcium Level 9.4, Total Bilirubin 0.4, Direct Bilirubin 0.1, Aspartate Amino Transf (AST/SGOT) 8, Alanine Aminotransferase (ALT/SGPT) 10L, Alkaline Phosphatase 116, NA-Iix-P-Type Natriuretic Peptide 4592H, Total Protein 6.4, Albumin 3.1L, Albumin/Globulin Ratio 0.9L 02/14/21 10:19: POC Glucose (Misc Panel) 112H, POC Sodium (Misc Panel) 139, POC Potassium (Misc Panel) 3.3L, POC Chloride (Misc Panel) 97L, POC Total CO2 (Misc Panel) 33.0H, POC Blood Urea Nitrogen (Misc Panel 24, POC Ionized Calcium (Misc Panel) 4.9, POC Creatinine (Misc Panel) 4.0H, POC Hematocrit (Misc Panel) 36.0L 02/14/21 10:22: POC Troponin I (Misc) 0.00 CBC/BMP Laboratory Tests 02/14/21 09:59 Microbiology Microbiology 02/14/21 Respiratory Virus Panel (PCR) ([facility]) - Final, Complete Plan / VTE VTE Prophylaxis Ordered?: Yes GME ATTESTATION GME ATTESTATION My faculty preceptor for this patient encounter was physically present during the encounter and was fully available. All aspects of the patient interview, examination, medical decision making process, and medical care plan development were reviewed and approved by the faculty preceptor. The faculty preceptor is aware and concurs with the plan as stated in the body of this note and will att est to such by his/her cosignature. ATTENDING NOTE I personally examined Ms. Mead and discussed her findings, studies and plan with the resident physician as noted above. Briefly, she is a joel 85 yo W with ESRD on HD who recently developed gradually worsening SOB and BYERS and had an outpatient chest XR that noted a large left pleural effusion and she was due to get a chest CT per PCP workup but her BYERS got worse prompting hospital admission during which we have also found some trace ascites and potential omental implants c/f metastatic disease with some gastric wall thickening c/f a GI malignancy now pending thoracentesis on Tuesday and GI consult as well as we expedite an oncology workup. Job Mclean MD February 14, 2021 18:52 RK MCGHEE MD February 15, 2021 07:32
[2021-02-14] MEDS: ATORVASTATIN 20 MG TAB PO SCH (20:58)
[2021-02-14] MEDS: ACETAMINOPHEN 650MG ER TAB (TYLENOL ARTHRITIS) PO PRN (20:58)
[2021-02-14 22:00] VITALS: BP 146/66
[2021-02-15 06:00] VITALS: BP 132/64
[2021-02-15 07:53] LABS: HEMATOCRIT 35.1 % (36.0-47.0); HEMOGLOBIN 10.6 g/dl (12.0-15.5); MEAN CORPUSCULAR HGB CONC 30.2 g/dl (32.0-36.5); MEAN CORPUSCULAR VOLUME 89.5 fl (80.0-96.0); PLATELET COUNT, AUTOMATED 217 10^3/uL (150-450); RED BLOOD COUNT 3.92 10^6/uL (4.00-5.40); WHITE BLOOD COUNT 10.1 10^3/uL (4.0-10.0)
[2021-02-15 08:23] LABS: BILIRUBIN,TOTAL 0.3 MG/DL (0.2-1.0); CALCIUM LEVEL 9.1 MG/DL (8.8-10.2); CREATININE FOR GFR 4.55 MG/DL (0.55-1.30); GLOMERULAR FILTRATION RATE 9.8 (>32); MAGNESIUM LEVEL 2.5 MG/DL (1.8-2.4); POTASSIUM SERUM 4.2 MEQ/L (3.5-5.1); TOTAL PROTEIN 6.4 GM/DL (6.4-8.2)
[2021-02-15] MEDS: MIRALAX *UNIT DOSE* 17GM PACKET PO SCH (08:35)
[2021-02-15] MEDS: FEXOFENADINE 60 MG TAB PO SCH (08:36)
[2021-02-15] MEDS: ASPIRIN 81MG ENTERIC TABLET PO SCH (08:36)
[2021-02-15] MEDS: amLODIPine 5 MG TAB PO SCH (08:36)
[2021-02-15] MEDS ORDERED: DARBEPOETIN 40 MCG/0.4 ML *DIALYSIS* SYRINGE (J0882) SQ SCH (09:00)
[2021-02-15] MEDS ORDERED: VITAMIN D 50,000 UNITS CAPSULE (ERGOCALCIFEROL 1.25MG) PO SCH (09:00)
[2021-02-15] MEDS: (RENVELA) SEVELAMER **CARBONate** 800 MG TAB PO SCH (12:58)
--- NOTE | 2021-02-15 14:12 | CR ---
NEPHROLOGY CONSULTATION DATE: 02/15/2021 REQUESTING PHYSICIAN: Nidhi Enamorado REASON FOR CONSULTATION: Management of end-stage renal disease and hemodialysis. CHIEF COMPLAINT: Patient presented to the hospital yesterday with progressively worsening shortness of breath. HISTORY OF PRESENT ILLNESS: Alyce Tejada is an 85-year-old female with past medical history of end-stage renal disease on hemodialysis every Tuesday, Tuesday and Tuesday, well-known to nephrology service from outpatient nephrology clinic and outpatient hemodialysis. She is a resident of [facility]. She reports that progressively, for the last few weeks, she has been getting more and more short of breath. She is short of breath on very mild activities now. She is also complaining of cough with phlegm production. She otherwise denies any fevers, chills or rigors. She is also having decreasing appetite and feeling of fullness in the abdomen. Further evaluation in the emergency room, including CT of the chest and CT abdomen and pelvis showed that she had a large left-sided pleural effusion and there was concern for intraabdominal malignancy. She was admitted under the hospitalist service. Nephrology service was called for further help in the management of end-stage renal disease. I saw and evaluated the patient today morning at the bedside. She is awake and alert. She was able to provide me with the history. Today is patient's regular day of dialysis. PAST MEDICAL HISTORY: 1. End-stage renal disease on hemodialysis every Tuesday, Tuesday and Tuesday. 2. Diabetes mellitus type 2, insulin dependent. 3. Osteoarthritis. 4. Hypertension. 5. Hard of hearing. PAST SURGICAL HISTORY: 1. Status post right arm arteriovenous (AV) fistula placement. 2. Status post cardiac pacemaker. 3. History of bladder prolapse requiring bladder sling surgery. ALLERGIES: She is allergic to QUINOLONES, SULFA, CODEINE, METOPROLOL and MORPHINE. FAMILY HISTORY: No significant family history of end-stage renal disease requiring hemodialysis. SOCIAL HISTORY: Patient is a resident of [facility]. She denies any smoking, illicit drug abuse or alcohol abuse. REVIEW OF SYSTEMS: CONSTUTIONAL: Patient reports getting more and more weak and reports some weight loss as well. EYES: She reports visual impairment. EARS, NOSE AND THROAT (ENT): She reports she is very hard of hearing. CARDIOVASCULAR: She denies any chest pain or palpitations. RESPIRATORY: She reports progressive shortness of breath. GASTROINTESTINAL (GI): She reports decreased appetite and epigastric discomfort. GENITOURINARY: She reports decreased urine output. MUSCULOSKELETAL: She reports joint pains because of osteoarthritis. SKIN: Denies any rashes or ulcers. HEMATOLOGICAL/ONCOLOGICAL: She denies any easy bleeding or bruising. All other review of systems are negative. PHYSICAL EXAMINATION: GENERAL: Patient is awake, alert, oriented times three, laying in bed. VITAL SIGNS: Temperature 98.3 degrees Fahrenheit, blood pressure 132/64, pulse 72, respiratory rate 18, saturating 89% on room air. HEAD AND NECK EXAM: Extraocular muscles intact. Pupils equally round and reactive to light. Mucous membranes are moist. Neck is supple. There is no jugular venous distention (JVD). CARDIOVASCULAR: S1, S2. Regular rate. No edema of the bilateral lower extremities. RESPIRATORY: Decreased breath sounds on the right lung started from the base all the way up to the apices. Decreased vocal resonance on the left side as well. ABDOMEN: Soft. There is mild discomfort and mass-like sensation in the epigastrium on deep palpation. GENITOURINARY: Bladder is not palpable. MUSCULOSKELETAL: No clubbing or cyanosis. Pulses 2+. ARTERIOVENOUS (AV) ACCESS: She has a large tortuous AV fistula in the right arm. CENTRAL NERVOUS SYSTEM (MANAGER R D): No focal deficits. Power is 5/5 in all extremities. LABORATORY STUDIES: CBC showed WBC 10.1, hemoglobin 10.6, platelets 217. BMP showed sodium 137, potassium 4.2, chloride 101, bicarbonate 29, BUN 35, creatinine 4.5, magnesium 2.5. Albumin 3. MICROBIOLOGY: Respiratory viral panel is negative. IMAGING: A CT of the chest was done yesterday, which showed complete opacification of the left hemithorax with large effusion and collapse of the left upper lobe and left lower lobes. CAT scan of the abdomen and pelvis was done which showed highly suspicious for metastatic changes involving the peritoneum and omentum. Irregular soft tissue and suspected mucosal thickening involving the distal stomach, possible site of primary malignancy. There was moderate fecal stasis. CURRENT INPATIENT MEDICATIONS: Patient's medications include: - Tylenol as needed - amlodipine 5 mg daily - aspirin 81 mg daily - Lipitor 40 mg at bedtime - Altagracia as needed - Colace 100 mg by mouth twice a day - MiraLax one packet by mouth daily - Renvela 800 mg by mouth twice a day - vitamin D 50,000 units once a week. ASSESSMENT AND PLAN: 1. End-stage renal disease. Patient's regular dialysis days are Tuesday, Tuesday and Tuesday. She will be dialyzed tomorrow morning. She does not have much fluid overload. Only 500 mL of fluid will be removed. 2. Anemia in end-stage renal disease. Hemoglobin level is 10.6. I will check her outpatient erythropoiesis stimulating agents (YOSI) dose and start her on Aranesp. 3. Chronic kidney disease/mineral bone disease. Patient is currently on Renvela. There is some fecal statis on the imaging and she is getting worked up for gastrointestinal (GI) malignancy. I am going to stop Renvela at this time. 4. Hypertension. Blood pressure is controlled with current dose of amlodipine 5 mg by mouth daily. Blood pressure is optimal. 5. Large left-sided pleural effusion. Patient is going to have thoracentesis done tomorrow morning by interventional radiology (IR). 6. Possible intraabdominal malignancy with metastasis in the peritoneum. Patient will need esophagogastroduodenoscopy (EGD) with possible stomach biopsy. Tumor markers have already been sent by the medical team. Thank you for involving me in the care of this patient. I shall be happy to follow the patient along with you tomorrow morning.
[2021-02-15 14:39] VITALS: BP 157/70
[2021-02-15] MEDS: DARBEPOETIN 40 MCG/0.4 ML *NON-DIALYSIS* SYRINGE (J0881) SQ SCH (18:32)
[2021-02-15] MEDS: ACETAMINOPHEN 650MG ER TAB (TYLENOL ARTHRITIS) PO PRN (20:35)
[2021-02-15] MEDS: ATORVASTATIN 20 MG TAB PO SCH (20:36)
[2021-02-15 22:00] VITALS: BP 142/66
[2021-02-16] VITALS (12 sets, daily range): BP systolic 102–161; BP diastolic 58–72
[2021-02-16] MEDS: ASPIRIN 81MG ENTERIC TABLET PO SCH (05:32)
[2021-02-16] MEDS: DOCUSATE SODIUM 100MG CAPSULE PO PRN (05:33)
[2021-02-16] MEDS: FEXOFENADINE 60 MG TAB PO SCH (05:33)
[2021-02-16] MEDS: MIRALAX *UNIT DOSE* 17GM PACKET PO SCH (05:33)
[2021-02-16] MEDS: amLODIPine 5 MG TAB PO SCH (05:34)
[2021-02-16] MEDS ORDERED: LIDOCAINE 1% SDV 5ML VIAL SC PRN (06:00)
[2021-02-16 06:50] LABS: HEMATOCRIT 36.5 % (36.0-47.0); MEAN CORPUSCULAR HEMOGLOBIN 27.3 pg (27.0-33.0); MEAN CORPUSCULAR HGB CONC 30.1 g/dl (32.0-36.5); MEAN CORPUSCULAR VOLUME 90.6 fl (80.0-96.0); PLATELET COUNT, AUTOMATED 231 10^3/uL (150-450); RED BLOOD COUNT 4.03 10^6/uL (4.00-5.40); WHITE BLOOD COUNT 11.4 10^3/uL (4.0-10.0)
[2021-02-16 07:17] LABS: ALBUMIN 2.7 GM/DL (3.2-5.2); BILIRUBIN,TOTAL 0.4 MG/DL (0.2-1.0); CALCIUM LEVEL 9.4 MG/DL (8.8-10.2); CREATININE FOR GFR 5.58 MG/DL (0.55-1.30); GLOMERULAR FILTRATION RATE 7.8 (>32); POTASSIUM SERUM 4.2 MEQ/L (3.5-5.1); TOTAL PROTEIN 6.4 GM/DL (6.4-8.2)
[2021-02-16] MEDS ORDERED: BISACODYL 10 MG SUPP PR PRN (08:55)
[2021-02-16] MEDS ORDERED: LEVALBUTEROL 1.25 MG/0.5 ML CONCENTRATE NEB NEB PRN (08:55)
[2021-02-16] MEDS ORDERED: ONDANSETRON 4MG/2ML VIAL IV PRN (08:55)
[2021-02-16] MEDS ORDERED: KETOROLAC 30 MG/ML 1ML VIAL IV SCH (08:55)
[2021-02-16] MEDS ORDERED: PANTOPRAZOLE 40MG TAB (PROTONIX) PO SCH (09:00)
--- NOTE | 2021-02-16 09:11 | IPNPDOC ---
Text Note Date of Service The patient was seen on 02/15/21. NOTE SUBJECTIVE: -No acute complaints OBJECTIVE: Vitals: see below General: Patient is awake, alert, oriented times three, sitting up in chair eating breakfast, in no apparent distress. Eyes: Conjunctiva clear, EOMI ENT: She has bilateral hearing impairment. MMM Neck: supple, no masses, trachea midline, no thyroid nodules appreciated. Cardiovascular: S1, S2, normal rhythm, systolic murmur 2/6 murmur, no JVD Respiratory: No breath sounds heard on left lung, clear breath sounds on the right lung, normal respiratory effort with no use of accessory muscles. Abdomen: On palpation felt some lumps and bumps all over the abdomen, no masses felt, bowel sounds positive, no bruits. Nontender on palpation. Extremities: No clubbing or cyanosis. No edema, no tenderness. Has RUE fistula with a palpable thrill. GARAGE SUPERVISOR: Awake, alert and fully oriented. Cranial nerves III-XII grossly intact. Motor: Strength normal, patient moves all extremities. Labs: Reviewed. WBC 10.1 Hgb 10.6 platelets 217 Na 137 K 4.2 BUN 35 Cr 4.55 Imaging: Chest CT done on 02/14/2021: Reported as: 1. Complete opacification of the left hemithorax with large effusion and collapse of the left upper lobe and left lower lobes. Minimal right basilar atelectasis. 2. Highly suspicious changes in the visualized upper abdomen small amount of perihepatic ascites along with ill-defined areas of hazy opacification and nodularity is within the visualized mesentery and greater omentum highly suspicious for malignancy/metastatic disease. CT abdomen and pelvis without contrast: Done on 02/14/2021: Reported as: 1. Findings are highly suspicious for metastatic changes involving the peritoneum and omentum. There is somewhat irregular soft tissue and suspected mucosal thickening involving the mid to distal stomach possibly site of primary malignancy. 2. Moderate fecal stasis and diffuse diverticulosis without evidence for bowel obstruction or perforation. 3. Further nonacute findings as described above. Assessment: 85 year old female with PMH DM, oriented, HTN, ESRD on M, W, F schedule, bilateral hearing and visual impairment presenting to [facility] from [facility] due to progressive increase of shortness of breath with cough, pressure in her left chest and abdomen since 4 days. On presentation to [facility] she did get some imaging of her lungs showing complete left lung pleural effusion and suspicious abdominal findings, further imaging showed that she does have omental caking which needed further investigation. She is being admitted under medical team for further evaluation and treatment. Plan: Left lung pleural effusion: - Planning for therapeutic thoracentesis tomorrow AM. Studies and cytology ordered for fluid analysis - Likely 2/2 malignancy given imaging findings - Acapella was ordered encourage patient to use it. Abdominal omental noduled c/f implants: - Incidental finding on the chest CT of abdominal changes to getting a CT scan of her abdomen which showed metastatic changes in her peritoneum. - The imaging also comments about the primary site being the stomach. - Given the imaging findings she would be a benefited from getting endoscopy and colonoscopy to see what's going on. - Please contact GI on Tuesday to get EGD and colonoscopy. - Cancer markers CA 1919, CA-125, CEA have been ordered. -Patient and her daughter was informed about the diagnosis and they agrees with the plan. ESRD: - Patient is on Tuesday schedule outpatient. -Nephrology was contacted for getting her dialysis inpatient as per the schedule. - Renal diet Diabetes mellitus type 2: -Patient has well-controlled sugar levels. Hypertension: - Well controlled with amlodipine 5 mg by mouth daily. - Will continue amlodipine 5 mg by mouth ASCVD; - Will continue aspirin 81 mg by mouth - Will continue Lipitor 40 mg by mouth Osteoarthritis:: - Will continue vitamin D by mouth. Constipation: - Will continue Colace, MiraLAX. DVT prophylaxis: - Teds and sequentials Disposition: - She might need a chest tube to drain the fluid in her left lung. More than 2 nights. VS,Fishbone, I+O VS, Fishbone, I+O Laboratory Tests 02/15/21 07:14 Vital Signs Date Time Temp Pulse Resp B/P (MAP) Pulse Ox O2 Delivery O2 Flow Rate FiO2 02/15/21 08:36 78 163/72 02/15/21 06:00 98.3 18 89 Room Air I&O- Last 24 Hours up to 6 AM 02/15/21 06:00 Intake Total 200 ml Output Total 0 ml Balance 200 ml RK MCGHEE MD February 15, 2021 13:48
[2021-02-16] MEDS ORDERED: PERCOCET 5MG/325MG TAB PO PRN ×2 (10:00)
[2021-02-16] MEDS ORDERED: NORCO, ANEXSIA 5/325MG TABLET (HYDROcodone/ACETAMINOPHEN) PO PRN (10:00)
[2021-02-16] MEDS: LEVALBUTEROL 1.25 MG/0.5 ML CONCENTRATE NEB NEB SCH ×3 (10:02→19:15)
[2021-02-16 11:40] LABS: CA 125 532.3 U/ML (<30.2)
--- NOTE | 2021-02-16 12:05 | IPNPDOC ---
Text Note Date of Service The patient was seen on 02/16/21. NOTE SUBJECTIVE: -No acute complaints -Discussed with Dr. Marx who suggested a pigtail catheter and will now transfer to PCU OBJECTIVE: Vitals: see below General: Patient is awake, alert, oriented times three, sitting up in chair eating breakfast, in no apparent distress. Eyes: Conjunctiva clear, EOMI ENT: She has bilateral hearing impairment. MMM Neck: supple, no masses, trachea midline, no thyroid nodules appreciated. Cardiovascular: S1, S2, normal rhythm, systolic murmur 2/6 murmur, no JVD Respiratory: No breath sounds heard on left lung, clear breath sounds on the right lung, normal respiratory effort with no use of accessory muscles. Abdomen: On palpation felt some lumps and bumps all over the abdomen, no masses felt, bowel sounds positive, no bruits. Nontender on palpation. Extremities: No clubbing or cyanosis. No edema, no tenderness. Has RUE fistula with a palpable thrill. EMERGENCY MEDICINE SPECIALIST: Awake, alert and fully oriented. Cranial nerves III-XII grossly intact. Mo tor: Strength normal, patient moves all extremities. Labs: Reviewed. WBC 11.4 Hgb 11 platelets 231 Na 138 K 4.2 Cr 5.78 Imaging: Chest CT done on 02/14/2021: Reported as: 1. Complete opacification of the left hemithorax with large effusion and collapse of the left upper lobe and left lower lobes. Minimal right basilar atelectasis. 2. Highly suspicious changes in the visualized upper abdomen small amount of perihepatic ascites along with ill-defined areas of hazy opacification and nodularity is within the visualized mesentery and greater omentum highly suspicious for malignancy/metastatic disease. CT abdomen and pelvis without contrast: Done on 02/14/2021: Reported as: 1. Findings are highly suspicious for metastatic changes involving the peritoneum and omentum. There is somewhat irregular soft tissue and suspected mucosal thickening involving the mid to distal stomach possibly site of primary malignancy. 2. Moderate fecal stasis and diffuse diverticulosis without evidence for bowel obstruction or perforation. 3. Further nonacute findings as described above. Assessment: 85 year old female with PMH DM, oriented, HTN, ESRD on M, W, F schedule, bilateral hearing and visual impairment presenting to [facility] from [facility] due to progressive increase of shortness of breath with cough, pressure in her left chest and abdomen since 4 days. On presentation to [facility] she did get some imaging of her lungs showing complete left lung pleural effusion and suspicious abdominal findings, further imaging showed that she does have omental caking which needed further investigation. She is being admitted under medical team for further evaluation and treatment. Plan: Left lung pleural effusion: - Discussed with Dr. Marx, plan is for pigtail catheter and drainage with fluid analysis - Likely 2/2 malignancy given imaging findings - Acapella was ordered encourage patient to use it. - transfer to PCU Abdominal omental nodules c/f metastatic implants: - Incidental finding on the chest CT of abdominal changes to getting a CT scan of her abdomen which showed metastatic changes in her peritoneum. - The imaging also comments about the primary site being the stomach. - Given the imaging findings she would be a benefited from getting endoscopy and colonoscopy to see what's going on. - Spoke with Dr. John who will check on the call schedule because there is some confusion on GI scheduling but did recommend clear liquid diet after the pigtail catheter for potential EGD and colonoscopy. - Cancer markers CA 1919, CA-125, CEA have been ordered. Follow up -Patient and her daughter was informed about the diagnosis and they agrees with the plan. ESRD: - Patient is on Tuesday schedule outpatient. - Nephrology was contacted for getting her dialysis inpatient as per the schedule. Diabetes mellitus type 2: -Patient has well-controlled sugar levels. Hypertension: - Well controlled with amlodipine 5 mg by mouth daily. - Will continue amlodipine 5 mg by mouth ASCVD; - Will continue aspirin 81 mg by mouth - Will continue Lipitor 40 mg by mouth Osteoarthritis:: - Will continue vitamin D by mouth. Constipation: - Will continue Colace, MiraLAX. DVT prophylaxis: - Teds and sequentials Disposition: PCU VS,Fishbone, I+O VS, Fishbone, I+O Laboratory Tests 02/16/21 06:27 Vital Signs Date Time Temp Pulse Resp B/P (MAP) Pulse Ox O2 Delivery O2 Flow Rate FiO2 02/16/21 07:57 97.6 75 18 150/70 (96) 92 Room Air I&O- Last 24 Hours up to 6 AM 02/16/21 06:00 Intake Total 200 ml Output Total 0 ml Balance 200 ml RK MCGHEE MD February 16, 2021 09:21
[2021-02-16] MEDS: MOM 30ML SUSPENSION UDC PO SCH (12:07)
[2021-02-16 15:30] LABS: APPEARANCE, BODY FLUID HAZY (CLEAR); PLEURAL FL COLOR YELLOW (COLORLESS); SOURCE, BODY FLUID PLEURAL
[2021-02-16 15:32] LABS: AMYLASE, BODY FLUID 17 U/L (NOT ESTABLISHED); CHOLESTEROL, BODY FLUID 53 MG/DL (NOT ESTABLISHED); LDH, BODY FLUID 373 U/L (NOT ESTABLISHED); SOURCE, BODY FLUID AMYLASE PLEURAL; SOURCE, BODY FLUID CHOL PLEURAL; SOURCE, BODY FLUID GLUCOSE PLEURAL; SOURCE, BODY FLUID LDH PLEURAL; SOURCE, BODY FLUID TRIG PLEURAL; TRIGLYCERIDE, BODY FLUID 25 MG/DL (NOT ESTABLISHED)
[2021-02-16 15:50] LABS: PH BODY FLUID > 7.800 UNITS (NOT ESTABLISHED); SOURCE, BODY FLUID pH PLEURAL
[2021-02-16 16:01] LABS: SOURCE, BODY FLUID ALBUMIN PLEURAL; SOURCE, BODY FLUID TOT PROTEIN PLEURAL; TOTAL PROTEIN, BODY FLUID 4.2 G/DL (NOT ESTABLISHED)
--- NOTE | 2021-02-16 16:23 | REP ---
INDICATION: LEFT pigtail to pleurvac-20, see specimen orders. COMPARISON: None. TECHNIQUE: The procedure was performed under the direct supervision of Dr. Collins. The risks and benefits of the procedure were explained to the patient and informed consent was obtained. The left pleural effusion was localized using ultrasound guidance. The skin was prepped and draped in a sterile fashion. 1% lidocaine was used as a local anesthetic. Using ultrasound guidance a 10 Syriac skater APDL catheter was inserted using trocar technique. 500 cc of clear yellow fluid was withdrawn and sent to the lab for analysis. The catheter was affixed to the skin and a sterile dressing was applied. The catheter was connected to a pleura vac. The patient tolerated the procedure well and there were no immediate complications. FINDINGS: None IMPRESSION: Ultrasound-guided left thoracentesis with catheter placement. <Electronically signed by Jarrett Boston > 02/16/21 1528 <Electronically signed by Jose Collins > 02/16/21 1666
--- NOTE | 2021-02-16 16:23 | REP ---
INDICATION: POST THORA/PIGTAIL PLACEMENT, 2 VIEW. COMPARISON: 02/09/2021. TECHNIQUE: Frontal and lateral views of the chest. FINDINGS: A left pleural pigtail drainage catheter has been placed. There is no definite pneumothorax. There is still a moderate to large left pleural effusion present with adjacent parenchymal opacity in the left lung. The right lung appears clear. The heart size cannot be evaluated. There is calcification of the thoracic aorta. A left pacemaker is again noted. IMPRESSION: Placement of pigtail drainage catheter in the posteroinferior left pleural space. Moderate to large amount of left pleural fluid with adjacent left lung parenchymal opacity. No pneumothorax. <Electronically signed by Jose Collins > 02/16/21 [id number]
--- NOTE | 2021-02-16 17:32 | CR ---
CONSULTATION DATE: 02/16/2021 REQUESTING PHYSICIAN: Nidhi Enamorado M.D. REASON FOR CONSULTATION: Shortness of breath and large pleural effusion. HISTORY OF PRESENT ILLNESS: The patient is an 85-year-old white female with end-stage renal disease on renal dialysis. Her renal dialysis is probably secondary to diabetes and hypertension. Over the last month, she states that she is becoming more short of breath; however, in the past four days, her shortness of breath has markedly increased such that she is short of breath with minimum of activity. She was brought to the emergency room yesterday for the shortness of breath and she was found to have a very large pleural effusion on chest x-ray and chest CT. She complains of cough, but she only produces clear sputum over the last few days. Likewise, she has had no fever, but does feel a bit sweaty in the last few days. There is no actual pain, but she does complain of a pressure-type discomfort when she takes a deep breath. There is no dysphagia, although she has had a decreased appetite over the last four days. There is no cardia chest pain consistent with angina. PAST MEDICAL HISTORY: 1. Diabetes. 2. End-stage renal disease. 3. Cardiac pacemaker in the remote past. 4. Osteoarthritis. 5. Hypertension. 6. Hearing loss. PAST SURGICAL HISTORY: 1. The above cardiac pacemaker for complete heart block and originally sinus node dysfunction. HOME MEDICATIONS: 1. Amlodipine 5 mg q. day. 2. Aspirin 81 mg q. day. 3. Atorvastatin 40 mg q. day. 4. Vitamin D2 at 1250 mg q. week. 5. Fexofenadine 60 mg q. day. 6. Renvela 800 mg b.i.d. Tuesday and Tuesday. HABITS: Does not smoke. Does not use alcohol. Denies illicit drugs. TRAVEL HISTORY: Not obtained. FAMILY HISTORY: Mother at 59 secondary to CVA. Father at 92 of unknown causes. REVIEW OF SYSTEMS: Denies fevers or chills. Does have sweats. Thinks she has lost weight because of her decreased appetite. Eyes without amaurosis fugax or diplopia, but has impaired vision and can see only four to five feet. Nose with epistaxis. Pulmonary: See HPI. Cardiac: See HPI. Denies orthopnea, paroxysmal nocturnal dyspnea, or peripheral edema. Denies anginal pain. GI without nausea, vomiting, diarrhea, constipation, melena, hematochezia, or abdominal pain. : Status post bladder prolapse surgery in the remote past. Without dysuria or hematuria. Neurologic: Without paresthesias, paralysis, or prior seizures. Psychiatric: Without pathological psychosis, depression, or anxieties. PHYSICAL EXAMINATION: GENERAL APPEARANCE: Well-developed and well-nourished white female in no acute distress and quite conversational. VITAL SIGNS: Temperature 97.6 with a heart rate of 75 in a regular rate and rhythm. Respiratory rate is 18 without the use of accessory muscles who is 92% saturated on room air and whose blood pressure is 150/70. HEAD: Normocephalic. Eyes: Pupils equal, round, and reactive to light. Extraocular muscles intact. Sclerae nonicteric. Nose without deformity. Mouth shows the mucous membranes to be pink and moist. Lip and commisures without lesions and no thrush. NECK: Supple. There is no jugular venous distention. No subcutaneous emphysema. Trachea is midline. She has 2+ carotid upstrokes without bruits. There is no thyromegaly lymphadenopathy. LUNGS: Show markedly decreased breath sounds on the left with a dull percussion note throughout the entire span of the chest. She has E:A egophony. Right lung shows normal vesicular sounds without wheezes, rhonchi, or rales. Percussion note is full to the diaphragm on the right. CARDIAC: Without murmurs, clicks, gallops, or rubs. I cannot feel her PMI. S1, S2 are normal. ABDOMEN: Soft and nontender. Bowel sounds are positive. There is no hepatomegaly and no CVA tenderness. EXTREMITIES: Show no pretibial edema. No calf tenderness. No differential swelling of the upper extremities. SKIN: Warm, dry, and perfuse without cyanosis or mottling including that of the nail beds and knees. NEUROLOGIC: Shows 2 through 12 intact. Normal gross motor. Gross sensation intact. Gait was not tested. PSYCHIATRIC: Shows her to be awake, alert, and oriented x3 with appropriate mood and affect and conversational. Physical examination was done in the dialysis unit. LABORATORY DATA: Her white count today is 11.4 with hemoglobin and hematocrit of 11.0 and 36.5 respectively. Platelet count is 231,000. There is no differential. Differential on 02/14 showed 79% neutrophils, 11% lymphocytes, and 8% monocytes. There were no immunofixation or toxic granulations reported at that time. Her electrolytes are normal with a BUN and creatinine of 48 and 5.56 prior to dialysis today. Glucose is 98 with a calcium of 9.4. AST and ALT are 12 and 10 respectively. Albumin is 2.7 with a total protein of 6.4. IMAGING DATA: Her chest x-ray done on 02/09/2021, shows left hemithorax completely opacified except for just a small amount of the cupula, which is aerated. It looks like a pleural effusion. There is a shift to the right of the trachea. Chest CT done yesterday in the emergency room confirms a large pleural effusion. Mediastinum is slightly shifted to the right. There is complete lung compression of the lower and upper lobes. There is no pathological mediastinal lymphadenopathy. She has extensive coronary artery disease throughout the left anterior descending and the circumflex coronary arteries, as well as the right coronary artery. Underlying lung parenchyma in the right lung is nearly normal without emphysematous changes. I do not see any masses. Right adrenal has a normal configuration as does the left. IMPRESSION: 1. Large left-sided pleural effusion. 2. End-stage renal disease. 3. Hypertension. 4. Diabetes. 5. Osteoporosis. PLAN AND DISCUSSION: I will have x-ray place a pigtail catheter and drain her in that manner to a Pleur-Evac. It will send it off for all the requisite studies to include chemistries, cytologies, bacteriologies, and hematologies. We will need to be very careful observing her over the next 24 hours for postexpansion pulmonary edema. To that end, I have asked the hospitalist service to transfer her to the progressive care unit (PCU). I would also recommend undertaking an echocardiogram after she is drained. We will continue to follow her chest x-rays. Her last echocardiogram was done in 2019, which just showed some mild concentric left ventricular hypertrophy with ejection fraction of 60%. There was just mild tricuspid regurgitation with an estimated right ventricular systolic pressure of 48 to 53 mmHg.
[2021-02-16] MEDS ORDERED: NULYTELY SOLN 4000ML BTL PO ONE (18:15)
--- NOTE | 2021-02-16 18:27 | IPN ---
PROGRESS NOTE DATE: 02/16/2021 SUBJECTIVE: Ms. Tejada is seen and examined this morning in the hemodialysis unit receiving her maintenance treatment with minimal fluid removal. She is for pigtail catheter placement this afternoon with Dr. Marx to drain the left pleural effusion and the patient is receiving dialysis without any Heparin in view of the same. She notes some cough but otherwise denies any new complaints and is in good spirits despite knowing that she is being worked up for probable malignancy. OBJECTIVE: VITAL SIGNS: Temperature is 97.8, pulse is 69, respiratory rate 18, blood pressure is 137/60, saturating 93% on 2 liter nasal cannula. INTAKE AND OUTPUT: Intake was not fully recorded yesterday. Dialysis today removed no fluid. Weight on the bed scale is 70.8 kg. GENERAL: Patient is seen awake, oriented, comfortable, receiving her treatment and in no distress. HEENT: Extraocular muscles are intact. Tongue is moist. NECK: Supple. Jugular veins are not elevated. HEART: Heart sounds are regular, S1 and S2. There is a systolic murmur. There is no peripheral edema. No dependent edema. There is good breast movement on the right lung but not much air movement at all heard on the left. There is no accessory muscle use. She is seen comfortable on nasal cannula with no tachypnea and able to speak comfortably in full sentences. ABDOMEN: Soft and nontender. EXTREMITIES: There is no leg edema. There is a right arm fistula which is currently in use. NEUROLOGIC: She is awake, alert and oriented x3 at baseline mentation. LABORATORY DATA: White count 11.4, hemoglobin is 11.0, platelets 231,000, sodium 138, potassium 4.2, bicarbonate 29, BUN 48. Albumin 2.7. Respiratory viral panel is negative. CT of the chest done on February 14 showed complete opacification of the left hemithorax with large effusion and collapse of the left upper and left lower lobe. CT of the abdomen and pelvis is noted to be suspicious for metastatic changes of the peritoneum and the omentum. INPATIENT MEDICATIONS: Reviewed by myself. I note that she was in for p.r.n. Dulcolax suppository and given a dose of Milk of Magnesia 30 ml p.o. daily and her pain medications were adjusted and she was started on Protonix 40 mg p.o. daily. The remainder of medications are unchanged as compared to yesterday. PROBLEMS: 1. Endstage renal disease on hemodialysis on a Tuesday, Tuesday and Tuesday schedule. Patient is dialyzed today and she was dialyzed only for clearance with no fluid removal. Because her blood pressures were soft on dialysis, she usually does not recall require a significant amount of fluid removed in any case. Her electrolytes are acceptable and she is euvolemic with the exception of left pleural effusion that is being drained with pigtail catheter. She received Heparin pre-dialysis today. 2. Left lung pleural effusion, probably secondary to malignancy. Patient received Heparin free dialysis and plan is for a pigtail catheter this afternoon and drainage of the fluid with subsequent analysis. 3. Hypertension. Blood pressures are well-controlled and patient is on amlodipine. 4. Anemia of chronic renal failure. Hemoglobin is optimal and at goal and no changes are being made to her erythropoietin stimulating agent regimen. 5. Metastatic changes of peritoneum noted on recent CT scan concerning for malignancy with primary source as of yet unknown. The Primary Team is in discussion with Gastroenterology for setting up potential upper and lower scopes.
[2021-02-16] MEDS ORDERED: GOLYTELY SOLN 4000 ML BTL PO ONE (19:00)
[2021-02-16] MEDS: ATORVASTATIN 20 MG TAB PO SCH (20:59)
[2021-02-17] VITALS (7 sets, daily range): BP systolic 107–145; BP diastolic 53–64
[2021-02-17] MEDS: LEVALBUTEROL 1.25 MG/0.5 ML CONCENTRATE NEB NEB SCH ×4 (02:55→19:17)
[2021-02-17 05:35] LABS: ABG BASE EXCESS 2.8 (-2.0-2.0); ABG O2 SATURATION 95.6 % (95.0-99.0); ABG PARTIAL PRESSURE CO2 34.5 mmHg (35.0-45.0); ABG PARTIAL PRESSURE O2 72.2 mmHg (75.0-100.0); ABG TOTAL CO2 27.1 MEQ/L (23.0-31.0); ABG pH (ARTERIAL) 7.495 UNITS (7.350-7.450)
[2021-02-17 05:45] LABS: BASO % 0.4 % (0.0-1.0); EOS # 0.1 10^3/uL (0.0-0.5); EOS % 1.4 % (0.0-3.0); HEMOGLOBIN 9.6 g/dl (12.0-15.5); LYMPH # 1.1 10^3/uL (1.5-5.0); LYMPH % 10.8 % (24.0-44.0); MEAN CORPUSCULAR VOLUME 90.1 fl (80.0-96.0); MONO # 0.9 10^3/uL (0.0-0.8); MONO % 8.5 % (2.0-8.0); NEUTROPHILS # 7.9 10^3/uL (1.5-8.5); NEUTROPHILS % 78.4 % (36.0-66.0); PLATELET COUNT, AUTOMATED 178 10^3/uL (150-450); RED BLOOD COUNT 3.55 10^6/uL (4.00-5.40); WHITE BLOOD COUNT 10.1 10^3/uL (4.0-10.0)
[2021-02-17 05:52] LABS: ALBUMIN 2.6 GM/DL (3.2-5.2); BILIRUBIN,TOTAL 0.3 MG/DL (0.2-1.0); CALCIUM LEVEL 8.3 MG/DL (8.8-10.2); CREATININE FOR GFR 4.24 MG/DL (0.55-1.30); GLOMERULAR FILTRATION RATE 10.6 (>32); TOTAL PROTEIN 5.2 GM/DL (6.4-8.2)
[2021-02-17] MEDS: MOM 30ML SUSPENSION UDC PO SCH (09:00)
[2021-02-17] MEDS: MIRALAX *UNIT DOSE* 17GM PACKET PO SCH (09:00)
--- NOTE | 2021-02-17 09:24 | REP ---
INDICATION: pleural effusion. COMPARISON: Comparison chest x-ray 16 Feb 2021. TECHNIQUE: Two views.. FINDINGS: The pigtail drainage catheter is seen in the posterolateral pleural angle region on today's radiograph. There is a large left pleural opacity persisting although there is some improved aeration in the left upper lobe compared to the preprocedure image. There is nodular ill-defined opacity in the left apex overlying the medial clavicle. The lower 2/3 of the left hemithorax are opacified today on the frontal view. Right lung is essentially clear. Cardiomegaly with a dual lead pacemaker again noted. IMPRESSION: Large pleural opacity/effusion persists despite the pigtail catheter placement on the left. Cardiomegaly with pacemaker. Some improved aeration in the left upper lobe from preprocedure radiograph.. <Electronically signed by Ricky Kurtz > 02/17/21 4021
--- NOTE | 2021-02-17 10:05 | REP ---
INDICATION: pleural effusion, consolidation. COMPARISON: Comparison is made with today's chest x-ray. Pre pigtail catheter drainage chest CT study is from February 14, 2021.. TECHNIQUE: Helical scanning is acquired. 3 mm axial images are generated. Coronal and sagittal MPR and coronal MIP images are generated. FINDINGS: A moderate amount of pleural fluid persists on the left. The pigtail drainage catheter is seen in the posterior most pleural gutter posterolaterally and inferiorly in the left pleural space. There is partial reinflation of left lower lobe and left upper lobe. In the left upper lobe there is central peribronchovascular consolidation in the aerated left upper lobe question pneumonia. There is peripheral atelectasis and compression of the left lower lobe. No definite parietal pleural thickening is evident. There is no hilar or mediastinal adenopathy apparent. Extensive vascular calcification is noted and there is a pacemaker in the right heart view of the left side. The right lung is essentially clear. There are advanced degenerative disc changes in the lower thoracic spine. No bony destructive lesion is seen. Vascular calcifications noted. There is minimal upper abdominal ascites. IMPRESSION: Left pleural drainage pigtail catheter deep in the posterior pleural sulcus on the left. There is a moderate amount of remaining left pleural fluid and incomplete in reinflation of the left lung. An infiltrative nodular pattern is seen in the peribronchovascular region of the reinflated left upper lobe. <Electronically signed by Ricky Kurtz > 02/17/21 1001
[2021-02-17] MEDS ORDERED: fentaNYL 100 MCG/2 ML INJECTION (J3010) As Ordered ONE (10:12)
[2021-02-17] MEDS ORDERED: LIDOCAINE 2% 100MG/5ML SDV (FOR ANES.) As Ordered ONE (10:13)
[2021-02-17] MEDS ORDERED: propofoL 200 MG/20 ML VIAL As Ordered ONE (10:13)
--- NOTE | 2021-02-17 11:41 | ROOR ---
Patient Name: Alyce Tejada Procedure Date: 02/17/2021 10:19 AM Date of : 1935 Age: 85 Room: [facility] Gender: Female Note Status: Finalized Procedure: Upper GI endoscopy Indications: Abnormal CT of the GI tract Providers: Albert John MD Referring MD: 2. Inpatient 2. Inpatient Requesting Provider: Medicines: Monitored Anesthesia Care Complications: No immediate complications. Procedure: Pre-Anesthesia Assessment: - Prior to the procedure, a History and Physical was performed, and patient medications and allergies were reviewed. The patient is competent. The risks and benefits of the procedure and the sedation options and risks were discussed with the patient. All questions were answered and informed consent was obtained. Patient identification and proposed procedure were verified by the physician, the nurse and the anesthesiologist in the procedure room. Mental Status Examination: alert and oriented. Airway Examination: normal oropharyngeal airway and neck mobility. Respiratory Examination: clear to auscultation. CV Examination: normal. Prophylactic Antibiotics: The patient does not require prophylactic antibiotics. Prior Anticoagulants: The patient has taken no previous anticoagulant or antiplatelet agents. ASA Grade Assessment: III - A patient with severe systemic disease. After reviewing the risks and benefits, the patient was deemed in satisfactory condition to undergo the procedure. The anesthesia plan was to use monitored anesthesia care (MAC). Immediately prior to administration of medications, the patient was re-assessed for adequacy to receive sedatives. The heart rate, respiratory rate, oxygen saturations, blood pressure, adequacy of pulmonary ventilation, and response to care were monitored throughout the procedure. The physical status of the patient was re-assessed after the procedure. The Endoscope was introduced through the mouth, and advanced to the second part of duodenum. The upper GI endoscopy was accomplished without difficulty. The patient tolerated the procedure well. Findings: The Z-line was irregular and was found in the distal esophagus. Two non-bleeding linear gastric ulcers with a clean ulcer base (Pierce Class III) were found in the gastric antrum. The largest lesion was 15 mm in largest dimension. Biopsies were taken with a cold forceps for histology. Verification of patient identification for the specimen was done by the physician and nurse using the patient's name, date and medical record number. One non-bleeding cratered duodenal ulcer with no stigmata of bleeding was found in the second portion of the duodenum. The lesion was 10 mm in largest dimension. Impression: - Z-line irregular, in the distal esophagus. - Non-bleeding gastric ulcers with a clean ulcer base (Pierce Class III). Biopsied. - Non-bleeding duodenal ulcer with no stigmata of bleeding. Recommendation: - Patient has a contact number available for emergencies. The signs and symptoms of potential delayed complications were discussed with the patient. Return to normal activities tomorrow. Written discharge instructions were provided to the patient. - Clear liquid diet. - Continue present medications. - Use Protonix (pantoprazole) 40 mg PO BID for 8 weeks. - Await pathology results. - Repeat upper endoscopy in 3 months to check healing and depending on the symptoms and clinical response. - Return to primary care physician. Procedure Code(s): --- Professional --- 68796, Esophagogastroduodenoscopy, flexible, transoral; with biopsy, single or multiple Diagnosis Code(s): --- Professional --- K22.8, Other specified diseases of esophagus K25.9, Gastric ulcer, unspecified as acute or chronic, without hemorrhage or perforation K26.9, Duodenal ulcer, unspecified as acute or chronic, without hemorrhage or perforation R93.3, Abnormal findings on diagnostic imaging of other parts of digestive tract CPT copyright 2019 [employer]. All rights reserved. The codes documented in this report are preliminary and upon production scheduler review may be revised to meet current compliance requirements. Albert John MD Albert John MD 02/17/2021 11:41:32 AM Electronically signed by Albert John MD Number of Addenda: 0 Note Initiated On: 02/17/2021 10:19 AM Estimated Blood Loss: Estimated blood loss was minimal.
[2021-02-17] MEDS ORDERED: ALTEPLASE 2MG/2ML VIAL XX ONE (12:00)
--- NOTE | 2021-02-17 12:12 | ROOR ---
Patient Name: Alyce Tejada Procedure Date: 02/17/2021 10:21 AM Date of : 1935 Age: 85 Room: [facility] Gender: Female Note Status: Finalized Procedure: Colonoscopy Indications: Hematochezia Providers: Albert John MD Referring MD: 2. Inpatient 2. Inpatient Requesting Provider: Medicines: Monitored Anesthesia Care Complications: No immediate complications. Procedure: Pre-Anesthesia Assessment: - Prior to the procedure, a History and Physical was performed, and patient medications and allergies were reviewed. The patient is competent. The risks and benefits of the procedure and the sedation options and risks were discussed with the patient. All questions were answered and informed consent was obtained. Patient identification and proposed procedure were verified by the physician, the nurse and the anesthesiologist in the procedure room. Mental Status Examination: alert and oriented. Airway Examination: normal oropharyngeal airway and neck mobility. Respiratory Examination: clear to auscultation. CV Examination: normal. Prophylactic Antibiotics: The patient does not require prophylactic antibiotics. Prior Anticoagulants: The patient has taken no previous anticoagulant or antiplatelet agents. ASA Grade Assessment: II - A patient with mild systemic disease. After reviewing the risks and benefits, the patient was deemed in satisfactory condition to undergo the procedure. The anesthesia plan was to use monitored anesthesia care (MAC). Immediately prior to administration of medications, the patient was re-assessed for adequacy to receive sedatives. The heart rate, respiratory rate, oxygen saturations, blood pressure, adequacy of pulmonary ventilation, and response to care were monitored throughout the procedure. The physical status of the patient was re-assessed after the procedure. The Colonoscope was introduced through the anus with the intention of advancing to the cecum. The scope was advanced to the descending colon before the procedure was aborted. Medications were given. The Colonoscope was introduced through the and advanced to. The colonoscopy was performed without difficulty. The patient tolerated the procedure well. The quality of the bowel preparation was poor and inadequate. The rectum was photographed. Scope insertion time was 4 minutes. Scope withdrawal time was 2 minutes. The total duration of the procedure was 8 minutes. Findings: The perianal and digital rectal examinations were normal. Multiple small and large-mouthed diverticula were found from sigmoid to descending colon. There was narrowing of the colon in association with the diverticular opening. There was evidence of diverticular spasm. There was no evidence of diverticular bleeding. A moderate amount of semi-solid stool was found from sigmoid to descending colon, making visualization difficult. Procedure stopped duet to significant colonic inflammation and inadequate bowel preparation Impression: - Preparation of the colon was poor. - Preparation of the colon was inadequate. - Severe diverticulosis from sigmoid to descending colon. There was narrowing of the colon in association with the diverticular opening. There was evidence of diverticular spasm. There was no evidence of diverticular bleeding. - Stool from sigmoid to descending colon. - No specimens collected. Recommendation: - Patient has a contact number available for emergencies. The signs and symptoms of potential delayed complications were discussed with the patient. Return to normal activities tomorrow. Written discharge instructions were provided to the patient. - Clear liquid diet. - Continue present medications. - Miralax 1 capful (17 grams) in 8 ounces of water PO daily. - Perform an air contrast barium enema today. - Repeat colonoscopy is not recommended due to current age (66 years or older) for screening purposes and depending on clinical and functional status. - Return to primary care physician. Procedure Code(s): --- Professional --- 07489, 53, Colonoscopy, flexible; diagnostic, including collection of specimen(s) by brushing or washing, when performed (separate procedure) Diagnosis Code(s): --- Professional --- K92.1, Melena (includes Hematochezia) K57.30, Diverticulosis of large intestine without perforation or abscess without bleeding CPT copyright 2019 [employer]. All rights reserved. The codes documented in this report are preliminary and upon nut threader review may be revised to meet current compliance requirements. Albert John MD Albert John MD 02/17/2021 12:11:49 PM Electronically signed by Albert John MD Number of Addenda: 0 Note Initiated On: 02/17/2021 10:21 AM Estimated Blood Loss: Estimated blood loss was minimal.
[2021-02-17] MEDS ORDERED: LIDOCAINE 1% MDV 20ML VIAL As Ordered ONE (13:03)
--- NOTE | 2021-02-17 14:04 | REP ---
INDICATION: s/p pigtail insertion. COMPARISON: Today at 8:07 a.m. TECHNIQUE: AP and lateral views FINDINGS: The technique utilized in obtaining the radiograph has magnified the cardiac silhouette and attenuated the interstitial markings. There is improved aeration, albeit minimally, in the left lower lung region. There is persistent silhouetting out of the diaphragmatic surface of the left lung and left heart border. A pigtail catheter has been placed or repositioned, now seen in the left posterior lower lobe region. There is a dual chamber bipolar pacemaker device status quo. There are no right lung field changes. There is no change in the osseous structures. IMPRESSION: Minimally improved aeration left lung as described above. Pigtail catheter as described above. <Electronically signed by Mustapha Kmi > 02/17/21 1400
[2021-02-17] MEDS: FEXOFENADINE 60 MG TAB PO SCH (14:27)
[2021-02-17] MEDS: ASPIRIN 81MG ENTERIC TABLET PO SCH (14:27)
[2021-02-17] MEDS: amLODIPine 5 MG TAB PO SCH (14:28)
[2021-02-17] MEDS: ACETAMINOPHEN 650MG ER TAB (TYLENOL ARTHRITIS) PO PRN (14:29)
[2021-02-17] MEDS: PANTOPRAZOLE 40MG TAB (PROTONIX) PO SCH ×2 (14:29→20:58)
[2021-02-17 15:16] LABS: CA19-9 TUMOR MARKER,CARBOHYDRA 4.7 U/ML (<35.0)
--- NOTE | 2021-02-17 16:42 | REP ---
INDICATION: reposition/replace pigtail. COMPARISON: None. TECHNIQUE: Procedure was performed under the direct supervision of Dr. Collins. The patient had a left thoracic drainage tube placed yesterday however was placed low the lung and discontinued draining. A request was made to reinsert the chest tube. The risks and benefits of the procedure were explained to the patient and informed consent was obtained. The left pleural effusion was localized using ultrasound guidance. The skin was prepped and draped in a sterile fashion. 1% lidocaine was used as a local anesthetic. Using ultrasound guidance a 10 Indonesian skater APDL catheter was inserted using trocar technique. The catheter was affixed to the skin and a sterile dressing was applied. The catheter was connected to a pleura vac. The original catheter was then removed without difficulty. The patient tolerated the procedure well and there were no immediate complications. After the appropriate amount to monitor convalescence the patient was discharged from the department. FINDINGS: None IMPRESSION: Ultrasound-guided left thoracentesis with catheter placement. <Electronically signed by Jarrett Boston > 02/17/21 1534 <Electronically signed by Jose Collins > 02/17/21 0882
--- NOTE | 2021-02-17 20:27 | IPNPDOC ---
Subjective Date Seen The patient was seen on 02/17/21. Subjective Chief Complaint/HPI Patient had EGD and colonoscopy today and also had repositioning of pig tail catheter. Feeling Ok now. Having some cough. No abdominal pain or nausea or vomiting. Objective Physical Examination General Exam: Positive: Alert, Cooperative, No Acute Distress Eye Exam: Positive: PERRLA, Conjunctiva & lids normal, EOMI; Negative: Sclera icteric Neck Exam: Positive: Supple; Negative: JVD, thyromegaly Chest Exam: Positive: Other (decreased breath sounds at the left base) Heart Exam: Positive: Rate Normal, Regular Rhythm, Normal S1, Normal S2; Negative: Murmurs, Rubs Abdomen Exam: Positive: Normal bowel sounds, Soft; Negative: Tenderness, Hepatospenomegaly Extremity Exam: Negative: Clubbing, Cyanosis, Edema Assessment /Plan Assessment 85 year old female with PMH DM, oriented, HTN, ESRD on M, W, F schedule, bilateral hearing and visual impairment presenting to [facility] from [facility] due to progressive increase of shortness of breath with cough, pressure in her left chest and abdomen since 4 days. On presentation to [facility] she did get some imaging of her lungs showing complete left lung pleural effusion and suspicious abdominal findings, further imaging showed that she does have omental caking which needed further investigation. She is being admitted under medical team for further evaluation and treatment. Left lung pleural effusion: s/p pigtail catheter placement and repositioning Likely 2/2 malignancy given imaging findings Exudative cytology pending. Abdominal omental nodules c/f metastatic implants/ thickening of gastric wall. Incidental finding on the chest CT of abdominal changes led to getting a CT scan of her abdomen which showed metastatic changes in her peritoneum. The imaging also comments about the primary site being the stomach. EGD showed gastric and duodenal ulcers biopsies taken. Colonoscopy inadequate due to poor prep and also unable to advance scope beyond the descending colon due to severe diverticulosis and stricture. If Gi source still considered and no information from the pleural fluid will need a barium enema. Cancer markers CA 1919, CA-125, CEA have been ordered. clear liquids for now PPI bid. ESRD dialysis inpatient as per the schedule. Diabetes mellitus type 2: Patient has well-controlled sugar levels. Hypertension: amlodipine Ischemic/ valvular/ hypertensive heart disease ASA and statin Constipation: Colace, MiraLAX. Pacemaker due to h/o complete heart block. DVT prophylaxis: Teds and sequentials Plan/VTE VTE Prophylaxis Ordered?: Yes VS, I&O, 24H, Fishbone Vital Signs/I&O Vital Signs Date Time Temp Pulse Resp B/P (MAP) Pulse Ox O2 Delivery O2 Flow Rate FiO2 02/17/21 14:28 69 125/66 02/17/21 14:16 18 92 Room Air 02/17/21 12:10 99.1 02/17/21 11:49 1.0 I&O- Last 24 Hours up to 6 AM 02/17/21 06:00 Intake Total 1800 ml Output Total 1535 ml Balance 265 ml Laboratory Data 24H LABS Laboratory Tests 2 02/16/21 17:52: Bedside Glucose (Misc Panel) 102 02/17/21 04:18: Immature Granulocyte % (Auto) 0.5, Neutrophils (%) (Auto) 78.4H, Lymphocytes (%) (Auto) 10.8L, Monocytes (%) (Auto) 8.5H, Eosinophils (%) (Auto) 1.4, Basophils (%) (Auto) 0.4, Neutrophils # (Auto) 7.9, Lymphocytes # (Auto) 1.1L, Monocytes # (Auto) 0.9H, Eosinophils # (Auto) 0.1, Basophils # (Auto) 0.0, Nucleated Red Blood Cells % (auto) 0.0, Anion Gap 6L, Glomerular Filtration Rate 10.6L, Calcium Level 8.3L, Total Bilirubin 0.3, Aspartate Amino Transf (AST/SGOT) 12, Alanine Aminotransferase (ALT/SGPT) 9L, Alkaline Phosphatase 90, Total Protein 5.2L, Albumin 2.6L, Albumin/Globulin Ratio 1.0L 02/17/21 05:27: Blood Gas Bicarbonate Standard 27.0H, Arterial Blood pH 7.495H, Arterial Blood Partial Pressure CO2 34.5L, Arterial Blood Partial Pressure O2 72.2L, Arterial Blood Total CO2 27.1, Arterial Blood HCO3 26.0, Arterial Blood Base Excess 2.8H, Arterial Blood Oxygen Saturation 95.6 CBC/BMP Laboratory Tests 02/17/21 04:18 Microbiology Microbiology 02/16/21 Acid Fast Stain, Received Pending 02/16/21 Mycobacterial Culture, Received Pending 02/16/21 Fungal Smear, Received Pending 02/16/21 Fungal Culture, Received Pending 02/16/21 Gram Stain - Final, Resulted 02/16/21 Anaerobic Culture, Resulted Pending 02/16/21 Body Fluid Culture, Received Pending 02/14/21 Respiratory Virus Panel (PCR) ([facility]) - Final, Complete RAJESH ROY MD February 17, 2021 16:35
[2021-02-17] MEDS: ATORVASTATIN 20 MG TAB PO SCH (20:58)
[2021-02-18] VITALS: BP 132/58
[2021-02-18] MEDS: LEVALBUTEROL 1.25 MG/0.5 ML CONCENTRATE NEB NEB SCH ×4 (01:35→19:24)
[2021-02-18 04:00] VITALS: BP 128/60
[2021-02-18 05:09] LABS: BASO % 0.3 % (0.0-1.0); EOS # 0.3 10^3/uL (0.0-0.5); EOS % 2.9 % (0.0-3.0); HEMATOCRIT 34.3 % (36.0-47.0); HEMOGLOBIN 10.4 g/dl (12.0-15.5); LYMPH # 0.9 10^3/uL (1.5-5.0); LYMPH % 10.1 % (24.0-44.0); MEAN CORPUSCULAR HEMOGLOBIN 27.4 pg (27.0-33.0); MEAN CORPUSCULAR HGB CONC 30.3 g/dl (32.0-36.5); MEAN CORPUSCULAR VOLUME 90.5 fl (80.0-96.0); MONO # 0.9 10^3/uL (0.0-0.8); MONO % 9.8 % (2.0-8.0); NEUTROPHILS % 76.3 % (36.0-66.0); PLATELET COUNT, AUTOMATED 164 10^3/uL (150-450); RED BLOOD COUNT 3.79 10^6/uL (4.00-5.40); WHITE BLOOD COUNT 9.2 10^3/uL (4.0-10.0)
[2021-02-18 05:31] LABS: ALBUMIN 2.2 GM/DL (3.2-5.2); BILIRUBIN,TOTAL 0.3 MG/DL (0.2-1.0); CALCIUM LEVEL 8.4 MG/DL (8.8-10.2); CREATININE FOR GFR 5.24 MG/DL (0.55-1.30); GLOMERULAR FILTRATION RATE 8.3 (>32); TOTAL PROTEIN 5.3 GM/DL (6.4-8.2)
[2021-02-18 08:00] VITALS: BP 155/67
--- NOTE | 2021-02-18 08:29 | REP ---
INDICATION: pleural effusion. COMPARISON: Comparison chest x-ray 02/17/2021 at 1:51 p.m. as well as 02/17/2021 at 8:07 a.m.. TECHNIQUE: Two views.. FINDINGS: The reposition pigtail drainage catheter is seen in the posteromedial pleural space on the left a little higher than on the earlier film from yesterday. There is interval improvement in the size of the left pleural effusion although pleural fluid persists along the left lower lateral chest wall. A nodular opacity is again seen in the reinflated left upper lobe consistent with infiltrate and or neoplasm. There is some atelectatic changes in the right base. Right lung is otherwise clear. IMPRESSION: Improving left pleural effusion post pigtail catheter repositioning. Nodular infiltrate persists in the Ree aerated left upper lobe. Cardiac pacemaker leads.. <Electronically signed by Ricky Kurtz > 02/18/21 1068
[2021-02-18] MEDS: FEXOFENADINE 60 MG TAB PO SCH (09:04)
[2021-02-18] MEDS: amLODIPine 5 MG TAB PO SCH (09:04)
[2021-02-18] MEDS: PANTOPRAZOLE 40MG TAB (PROTONIX) PO SCH ×2 (09:04→20:03)
[2021-02-18] MEDS: ASPIRIN 81MG ENTERIC TABLET PO SCH (09:04)
[2021-02-18] MEDS: MOM 30ML SUSPENSION UDC PO SCH (09:04)
[2021-02-18] MEDS: MIRALAX *UNIT DOSE* 17GM PACKET PO SCH (09:04)
--- NOTE | 2021-02-18 09:37 | REP ---
INDICATION: status of pleural effusion. COMPARISON: 02/17/2021. TECHNIQUE: CT chest performed without the use of intravenous contrast. Sagittal and coronal reconstruction images are performed. FINDINGS: Left posteroinferior pigtail pleural drainage catheter is noted. The previously noted left pleural effusion has almost completely resolved with very small amount of residual fluid posteriorly, with very small amount of pleural air. There is diffuse pleural thickening inferiorly and laterally. There is mild atelectatic opacity in the posteroinferior right lower lobe. Ill-defined consolidative opacities again seen in the left apex. This has improved. Left lower lobe consolidative opacity has improved. There is no significant adenopathy in the chest. There is mild cardiomegaly. There is no pericardial effusion. There is scattered atherosclerotic calcification of the thoracic aorta without aneurysm. Severe bilateral renal atrophy is again noted. There is a small amount of perihepatic fluid. There is a left pacemaker. There are degenerative changes of the spine without compression deformity. IMPRESSION: There is almost complete resolution of the left pleural effusion with a small amount of residual pleural fluid noted, as well as small amount of pleural air. There is diffuse left pleural thickening inferolaterally. Mild dependent atelectatic change posteroinferior right lower lobe. Diffuse consolidative opacities in the left lung have improved. <Electronically signed by Jose Collins > 02/18/21 0903
--- NOTE | 2021-02-18 09:54 | CR.PDOC ---
General Date of Consultation: February 16, 2021 Referring Provider: RK ENAMORADO MD Attending Physician: RAFIQ CRESPO MD Consultation Referring physician / PCP : Dr Enamorado, Reason for consult: Abnormal CT scan findings. HPI: 85-year-old female patient with DM type 2, osteoarthritis, HTN, bilateral hearing and visual impairment, ESRD on HD ( MWF), was admitted from [facility] for progressive shortness of breath and cough with sputum. Patient had further work up and noted to have large left sided pleural effusion and incidental finding of nodularity in visualized in omentum suggesting metastatic disease. GI was consulted for the same. Patient denies any active GI symptoms. She denies having any fever, headache, nausea, vomiting, diarrhea, constipation, chest pain, abdom inal pain, unintentional weight loss. Review of Systems: GI: as stated above CVS: No chest pain, No palpitations, No leg swelling RS: As above. Reports shortness of breath, No Wheezing GRINDING ROOM INSPECTOR: No loss of consciousness, No focal motor weakness., Hematology: No easy bruising, No gum bleeding, Musculoskeletal: ambulating well. : No blood in urine, No burning sensation of the urine ENT: No ear discharge/ pain, No dysphagia. Eyes: No photophobia. Skin: No rash Home medications: reviewed. No Plavix and No anticoagulants Medical h/o: As above. Surgical h/o: None on abdomen. Social h/o: Denies Alcohol, smoking, IVDA/ drugs. Family h/o of GI cancers - None Prior Endoscopies: None in [facility]. Prior GI evaluation: None in [facility] Exam: Vitals: reviewed General: Alert and oriented x 3, not in acute distress HEENT: No pallor, no icterus. Normal oropharynx, NO cervical lymphadenopathy. Chest: symmetric with bilateral air entry, CVS: S1, S2 heard, Abdomen: non-distended, soft, non-tender, no rigidity or guarding, no palpable masses, normal bowel sounds heard. Rectal exam: Patient refused / Deferred at this time in view of scheduled colonoscopy. Extremities: pulses palpable, no pedal edema, GRINDING ROOM INSPECTOR: no focal motor or sensory deficits. Moves all extremities Skin: no rash. Labs: reviewed. Imaging: reviewed. Impression: -- 85 year old female patient with large left sided pleural effusion, with omental involvement suggestive of metastatic cancer ( noted in CT abdomen) Needs further evaluation for the primary cancer. DDxPossible metastatic lung cancer vs rule out Gastric cancer, colon cancer vs ovarian cancer. Recommendations: -- Patient educated about the prior test results and all questions answered. -- IN view of the CT scan findings, will proceed with EGD and Colonoscopy after the bowel prep. Patient and her daughter were educated on the procedures, indications, risk and benefits. Patient verbalized understanding and signed informed consent. -- NPO and Bowel prep for the procedures ordered. -- Please follow operative notes for post procedure recommendations. -- Plan of care educated to patient and patient verbalized understanding and agreed. All questions answered. -- Recommendations communicated to primary team. Patient to follow with PCP upon discharge for routine medical care. Addendum -- post procedures: Patient tolerated the procedures well. NO post procedure complications. Patient was noted to have gastric and duodenal ulcers without endoscopic features suggestive of cancer. Biopsies were taken. Colonoscopy showed severe diverticulosis in sigmoid colon with significant restriction of movement, poor bowel preparation and procedure was aborted in descending colon. Recommendations: As the patient had pleural biopsy and fluid cytology, which might give the possible source of Primary cancer, as per discussion with patient and primary team, would recommended to review the pathology from those sample and based on the clinical course to consider Barium enema and/ or repeat Colonoscopy after extended bowel prep. At this time, patient can be advanced on the diet as tolerated. GI will follow after the above biopsy results. Vital Signs/I&O Vital Signs Date Time Temp Pulse Resp B/P (MAP) Pulse Ox O2 Delivery O2 Flow Rate FiO2 02/18/21 06:00 69 96 Nasal Cannula 0.5 02/18/21 04:00 97.4 20 128/60 (82) I&O- Last 24 Hours up to 6 AM 02/18/21 05:59 Intake Total 800 ml Output Total 1740 ml Balance -940 ml Laboratory Data Labs 24H Laboratory Tests 2 02/17/21 17:42: Bedside Glucose (Misc Panel) 116H 02/18/21 04:46: Immature Granulocyte % (Auto) 0.6, Neutrophils (%) (Auto) 76.3H, Lymphocytes (%) (Auto) 10.1L, Monocytes (%) (Auto) 9.8H, Eosinophils (%) (Auto) 2.9, Basophils (%) (Auto) 0.3, Neutrophils # (Auto) 7.0, Lymphocytes # (Auto) 0.9L, Monocytes # (Auto) 0.9H, Eosinophils # (Auto) 0.3, Basophils # (Auto) 0.0, Nucleated Red Blood Cells % (auto) 0.0, Anion Gap 8, Glomerular Filtration Rate 8.3L, Calcium Level 8.4L, Total Bilirubin 0.3, Aspartate Amino Transf (AST/SGOT) 12, Alanine Aminotransferase (ALT/SGPT) 8L, Alkaline Phosphatase 85, Total Protein 5.3L, Albumin 2.2L, Albumin/Globulin Ratio 0.7L CBC/BMP Laboratory Tests 02/18/21 04:46 Microbiology Microbiology 02/16/21 Acid Fast Stain, Received Pending 02/16/21 Mycobacterial Culture, Received Pending 02/16/21 Fungal Smear, Received Pending 02/16/21 Fungal Culture, Received Pending 02/16/21 Gram Stain - Final, Resulted 02/16/21 Anaerobic Culture, Resulted Pending 02/16/21 Body Fluid Culture, Received Pending 02/14/21 Respiratory Virus Panel (PCR) ([facility]) - Final, Complete Allergies Coded Allergies: Sulfa (Sulfonamide Antibiotics) (Verified Allergy, Mild, hives, 04/30/20) codeine (Verified Allergy, Mild, hives, 04/30/20) Quinolones (Verified Allergy, Unknown, 04/30/20) metoprolol (Verified Allergy, Unknown, 04/30/20) morphine (Verified Adverse Reaction, Mild, FEELS FUNNY, 02/16/21) Home Medications Scheduled Amlodipine Besylate (Amlodipine Besylate) 5 Mg Tablet, 5 MG PO DAILY, (Reported) Aspirin (Ecotrin) 81 Mg Tablet.dr, 81 MG PO DAILY, (Reported) Atorvastatin Calcium (Atorvastatin Calcium) 40 Mg Tablet, 40 MG PO QPM, (Reported) Ergocalciferol (Vitamin D2) (Drisdol) 1,250 Mcg Capsule, 1,250 MCG PO QWEEK, (Reported) SUNDAYS Fexofenadine HCl (Fexofenadine HCl) 60 Mg Tablet, 60 MG PO DAILY, (Reported) Polyethylene Glycol 3350 (Miralax) 119 Gm Powder, 17 GM PO DAILY, (Reported) dilute in 8 ounces of water or juice Sevelamer Carbonate (Renvela) 800 Mg Tab, 800 MG PO BIDWM, (Reported) 1200/1700 Scheduled PRN Acetaminophen (Acetaminophen 8 Hour) 650 Mg Tablet.er, 1,300 MG PO Q8H PRN for PAIN, (Reported) Docusate Sodium (Colace) 100 Mg Capsule, 100 MG PO BID PRN for CONSTIPATION, (Reported) RAFIQ CRESPO MD February 18, 2021 09:54
[2021-02-18 12:00] VITALS: BP 149/70
--- NOTE | 2021-02-18 14:21 | IPN ---
PROGRESS NOTE DATE: 02/18/2021 I was not able to see Ms. Tejada yesterday, as she was in both gastrointestinal (GI) and interventional radiology (IR) both times that I came by. I had obtained a CT scan of her chest yesterday after noting a large opacity is still continuing in the left chest. CT scan showed retained pleural fluid, and the pigtail catheter was right at the very bottom of the costophrenic angle and probably blocked off at the costophrenic angle from the apposition of the diaphragm to the chest wall. I therefore had that replaced one level up with good results. Today, Ms. Tejada is sitting up comfortably and breathing comfortably. She says she is doing a lot better even than she was yesterday. Vital signs show a maximum temperature of 98.0 with a heart rate that ranges between 69-71 in a paced rhythm with a respiratory rate of 17-20 without the use of accessory muscles, who is 94%-97% saturated on half-liter nasal cannula and whose blood pressure is ranging between 155/67 to 128/60. PHYSICAL EXAMINATION: She still has some decreased breath sounds on the left side. Percussion note, however, is full to the diaphragm. There are some inspiratory crackles on the left side with some coarse rhonchi, not all of which clear with coughing. Cardiac exam is without murmurs, clicks, gallops, or rubs. I cannot feel her point of maximal impulse (PMI). S1 and S2 are normal. Abdomen is soft and nontender. Bowel sounds are positive. There is no hepatomegaly. No costovertebral angle (CVA) tenderness. Extremities show no pretibial edema, no calf tenderness, no differential swelling of the upper extremities. Skin is warm, dry, and perfused without cyanosis or mottling, including that of the nailbeds and knees. Neck is supple. There is no jugular venous distention. No subcutaneous emphysema. Trachea is midline. Mouth shows the mucous membranes to be pink and moist. Lips and commissures without lesions. No thrush. Eyes show her pupils to be equal and reactive. Extraocular motion intact. Sclerae anicteric. Neurologic shows II-XII intact. Normal gross motor, gross sensation intact. Gait is not tested. Psychiatric shows her to be awake, alert, and oriented times three with appropriate mood and affect and conversational. Her white count today is 9.2 with a hemoglobin and hematocrit of 10.4 and 34.3, respectively. Platelet count is 164 and differential shows 76% neutrophils, 10% lymphocytes, 9% monocytes. There are no immature forms or toxic granulations. Her electrolytes are normal with a BUN and creatinine of 34 and 5.24. She is due for dialysis. Calcium is 8.4 with a glucose of 101 and a corresponding albumin of 2.2. Her chest x-ray still shows opacity in the left lower hemithorax. I therefore obtained yet another CT scan. CT scan shows some residual but minimal pleural effusion with most of the left lower lobe being either consolidated or compressed. She also has an infiltrative process in the left upper lobe. It may be a malignant process. I do not see liver lesions, and her adrenals have a normal configuration. Pathology cell block is still pending, however, the cytology is positive for malignancy. Her GI biopsies done yesterday on the duodenum show no malignancy in either the duodenum or the stomach. IMPRESSION: 1. Large left-sided pleural effusion. 2. End-stage renal disease. 3. Hypertension. 4. Diabetes. 5. Osteoporosis. 6. 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 7. Left upper lobe lesion, may be malignant. 8. Hypertension. 9. End-stage renal disease. 10. Diabetes. PLAN AND DISCUSSION: We will have to wait for the cell block and further pathology. I have a sinking feeling that the large infiltrative process in the left upper lobe is indeed malignancy. By definition she is stage IV, and we could not offer a surgical option. KARELY
[2021-02-18 16:00] VITALS: BP 150/66
--- NOTE | 2021-02-18 17:59 | IPNPDOC ---
Subjective Date Seen The patient was seen on 02/18/21. Subjective Chief Complaint/HPI Had HD today. CT chest almost complete resolution of the left pleural effusion. There is ill defined patchy opacities in the TONY and some in LLL both have improved . Also there is pleural thickening at the lower and lateral part on the left. Objective Physical Examination General Exam: Positive: Alert, Cooperative, No Acute Distress Eye Exam: Positive: PERRLA, Conjunctiva & lids normal, EOMI; Negative: Sclera icteric Neck Exam: Positive: Supple; Negative: JVD, thyromegaly Chest Exam: Positive: Other (decreased breath sounds at the left base) Heart Exam: Positive: Rate Normal, Regular Rhythm, Normal S1, Normal S2; Negative: Murmurs, Rubs Abdomen Exam: Positive: Normal bowel sounds, Soft; Negative: Tenderness, Hepatospenomegaly Extremity Exam: Negative: Clubbing, Cyanosis, Edema Assessment /Plan Assessment 85 year old female with PMH DM, oriented, HTN, ESRD on M, W, schedule, bilateral hearing and visual impairment presenting to [facility] from [facility] due to progressive increase of shortness of breath with cough, pressure in her left chest and abdomen since 4 days. On presentation to [facility] she did get some imaging of her lungs showing complete left lung pleural effusion and suspicious abdominal findings, further imaging showed that she does have omental caking which needed further investigation. She is being admitted under medical team for further evaluation and treatment. Left lung pleural effusion: s/p pigtail catheter placement and repositioning Pleural fluid cytology positive for malignancy. Likely source is the lung. Has a TONY patchy mass. This is stage 4 cancer and option for treatment is chemotherapy. Patient tells me that she has decided not to go for chemotherapy. Abdominal omental nodules c/f metastatic implants/ thickening of gastric wall. Incidental finding on the chest CT of abdominal changes led to getting a CT scan of her abdomen which showed metastatic changes in her peritoneum. EGD showed gastric and duodenal ulcers. Biopsies were negative for malignancy. Colonoscopy inadequate due to poor prep and also unable to advance scope beyond the descending colon due to severe diverticulosis and stricture. Cancer markers CA 1919, CA-125, CEA have been ordered. PPI bid. ESRD dialysis inpatient as per the schedule. Diabetes mellitus type 2: Patient has well-controlled sugar levels. Hypertension: amlodipine Ischemic/ valvular/ hypertensive heart disease ASA and statin Constipation: Colace, MiraLAX. Pacemaker due to h/o complete heart block. DVT prophylaxis: Teds and sequentials Plan/VTE VTE Prophylaxis Ordered?: Yes VS, I&O, 24H, Fishbone Vital Signs/I&O Vital Signs Date Time Temp Pulse Resp B/P (MAP) Pulse Ox O2 Delivery O2 Flow Rate FiO2 02/18/21 16:00 97.7 69 16 150/66 (94) 96 Room Air 02/18/21 06:00 0.5 I&O- Last 24 Hours up to 6 AM 02/18/21 07:00 Intake Total 800 ml Output Total 1710 ml Balance -910 ml Laboratory Data 24H LABS Laboratory Tests 2 02/18/21 04:46: Immature Granulocyte % (Auto) 0.6, Neutrophils (%) (Auto) 76.3H, Lymphocytes (%) (Auto) 10.1L, Monocytes (%) (Auto) 9.8H, Eosinophils (%) (Auto) 2.9, Basophils (%) (Auto) 0.3, Neutrophils # (Auto) 7.0, Lymphocytes # (Auto) 0.9L, Monocytes # (Auto) 0.9H, Eosinophils # (Auto) 0.3, Basophils # (Auto) 0.0, Nucleated Red Blood Cells % (auto) 0.0, Anion Gap 8, Glomerular Filtration Rate 8.3L, Calcium Level 8.4L, Total Bilirubin 0.3, Aspartate Amino Transf (AST/SGOT) 12, Alanine Aminotransferase (ALT/SGPT) 8L, Alkaline Phosphatase 85, Total Protein 5.3L, Albumin 2.2L, Albumin/Globulin Ratio 0.7L CBC/BMP Laboratory Tests 02/18/21 04:46 Microbiology Microbiology 02/16/21 Acid Fast Stain, Received Pending 02/16/21 Mycobacterial Culture, Received Pending 02/16/21 Fungal Smear, Received Pending 02/16/21 Fungal Culture, Received Pending 02/16/21 Gram Stain - Final, Resulted 02/16/21 Anaerobic Culture, Resulted Pending 02/16/21 Body Fluid Culture, Received Pending 02/14/21 Respiratory Virus Panel (PCR) ([facility]) - Final, Complete RAJESH ROY MD February 18, 2021 17:59
[2021-02-18 20:00] VITALS: BP 122/60
[2021-02-18] MEDS: ATORVASTATIN 20 MG TAB PO SCH (20:04)
[2021-02-19] VITALS: BP 129/63
[2021-02-19] MEDS: LEVALBUTEROL 1.25 MG/0.5 ML CONCENTRATE NEB NEB SCH ×4 (01:24→19:07)
[2021-02-19 04:00] VITALS: BP 139/65
[2021-02-19 04:52] LABS: BASO % 0.2 % (0.0-1.0); EOS # 0.2 10^3/uL (0.0-0.5); EOS % 1.6 % (0.0-3.0); HEMATOCRIT 30.2 % (36.0-47.0); HEMOGLOBIN 9.4 g/dl (12.0-15.5); LYMPH # 0.8 10^3/uL (1.5-5.0); LYMPH % 8.5 % (24.0-44.0); MEAN CORPUSCULAR HEMOGLOBIN 27.8 pg (27.0-33.0); MEAN CORPUSCULAR HGB CONC 31.1 g/dl (32.0-36.5); MEAN CORPUSCULAR VOLUME 89.3 fl (80.0-96.0); MONO # 0.8 10^3/uL (0.0-0.8); NEUTROPHILS # 7.5 10^3/uL (1.5-8.5); NEUTROPHILS % 79.7 % (36.0-66.0); PLATELET COUNT, AUTOMATED 180 10^3/uL (150-450); RED BLOOD COUNT 3.38 10^6/uL (4.00-5.40); WHITE BLOOD COUNT 9.4 10^3/uL (4.0-10.0)
[2021-02-19 05:16] LABS: ALBUMIN 2.3 GM/DL (3.2-5.2); BILIRUBIN,TOTAL 0.3 MG/DL (0.2-1.0); CALCIUM LEVEL 8.4 MG/DL (8.8-10.2); CREATININE FOR GFR 6.09 MG/DL (0.55-1.30); POTASSIUM SERUM 3.8 MEQ/L (3.5-5.1)
--- NOTE | 2021-02-19 07:27 | IPN ---
PROGRESS NOTE DATE: 02/18/2021 SUBJECTIVE: Alyce is seen and examined this morning at the [facility] in the Intensive Care Unit. She denies any complaints. She reports shortness of breath is improved. Her chest tube has put out almost a total of 3 liters since it was placed. She underwent EGD and colonoscopy yesterday but the colonoscopy had a poor prep. The patient denies any shortness of breath, chest pain or vomiting. OBJECTIVE: VITAL SIGNS: Temperature 97.6, pulse is 69, respiratory rate 18, blood pressure is 149/70, saturating 98% on room air. INTAKE AND OUTPUT: Intake yesterday was 1280, chest tube drainage yesterday was 1560. There were six bowel movements yesterday (colonoscopy prep). Weight on the bed scale 64.9 kg. GENERAL: Patient is seen sitting out of bed to the chair. Elderly female, awake, alert and oriented x3, comfortable in no apparent distress. HEENT: Extraocular muscles are intact. Tongue is moist. NECK: Supple. Jugular veins are not elevated. HEART: Heart sounds are regular, S1 and S2. LUNGS: Good air entry bilaterally including improved air movement all throughout the left lung. There is a pigtail catheter at the left lung base. ABDOMEN: Soft and nontender. EXTREMITIES: Negative for clubbing, cyanosis and edema. There is a fistula present in the right arm. NEUROLOGIC: She is awake, alert and oriented x3 and at baseline mentation. SKIN: Normal temperature and turgor. LABORATORY DATA: White count 9.2, hemoglobin 10.4, platelets 164,000, sodium 141, potassium 4.0, bicarbonate 27, BUN 34, calcium 8.4. IMAGING: CT of the chest done today shows almost complete resolution of left pleural effusion, diffuse consolidative opacities in the left lung has improved. INPATIENT MEDICATIONS: Reviewed by myself and no changes noted over the past 24 hours. PROBLEMS: 1. Endstage renal disease on hemodialysis on MWF schedule. The patient is due for dialysis today but we are going to hold dialysis given that she has left sided pigtail catheter that has drained almost 3 liters of fluid and also given that she had an endoscopy and colonoscopy yesterday with bowel prep. Patient is down several kilograms since admission. There is no urgent need for dialysis today. Her electrolytes and volume status are acceptable. I will plan for no procedure today and we will dialyze her on . 2. Left lung pleural effusion status post pigtail catheter, almost 3 liters have drained and now output seems to be slowing down. Her CT chest today shows significant improvement and resolution of the effusion. She also has a lesion in the left upper lobe which may be malignancy. So far, her scopes have not revealed primary source of cancer although the colonoscopy prep was poor. 3. Hypertension, patient continues on amlodipine and blood pressures are very well-controlled. 4. Anemia related to chronic renal failure. Patient continues on Aranesp and hemoglobin is at goal.
[2021-02-19 08:00] VITALS: BP 135/65
[2021-02-19] MEDS ORDERED: SODIUM CHLORIDE 0.9% 1000ML IV PRN (08:15)
[2021-02-19] MEDS ORDERED: LIDOCAINE 1% SDV 5ML VIAL SC PRN (08:15)
[2021-02-19] MEDS: DARBEPOETIN 40 MCG/0.4 ML *NON-DIALYSIS* SYRINGE (J0881) SQ SCH (09:27)
--- NOTE | 2021-02-19 09:30 | REP ---
INDICATION: pleural effusion COMPARISON: 02/18/2021. TECHNIQUE: PA/Lateral FINDINGS: Pigtail pleural drainage catheter is noted projecting over the lower left hemithorax posteriorly. There may be a small amount of loculated pleural air inferiorly as seen on the lateral view. Left pleural effusion/thickening and basilar consolidation is unchanged. There is improved infiltrate in the left upper lobe. There appears to be a small right pleural effusion. Cardiomediastinal silhouette and left pacemaker are unchanged. IMPRESSION: Lower left pigtail drainage catheter again noted. Possible small amount of loculated pleural air inferiorly on the left. Left pleural fluid/thickening and basilar consolidation unchanged. Improved infiltrate left upper lobe. <Electronically signed by Jose Collins > 02/19/21 0985
--- NOTE | 2021-02-19 10:32 | IPNPDOC ---
Subjective Date Seen The patient was seen on 02/19/21. Subjective Chief Complaint/HPI Getting HD. No complaints. no SOB or chest discomfort. Likely the Pig tail cath will come out today. Objective Physical Examination General Exam: Positive: Alert, Cooperative, No Acute Distress Eye Exam: Positive: PERRLA, Conjunctiva & lids normal, EOMI; Negative: Sclera icteric Neck Exam: Positive: Supple; Negative: JVD, thyromegaly Chest Exam: Positive: Other (decreased breath sounds at the left base) Heart Exam: Positive: Rate Normal, Regular Rhythm, Normal S1, Normal S2; Negative: Murmurs, Rubs Abdomen Exam: Positive: Normal bowel sounds, Soft; Negative: Tenderness, Hepatospenomegaly Extremity Exam: Negative: Clubbing, Cyanosis, Edema Assessment /Plan Assessment 85 year old female with PMH DM, oriented, HTN, ESRD on , W, schedule, bilateral hearing and visual impairment presenting to [facility] from [facility] due to progressive increase of shortness of breath with cough, pressure in her left chest and abdomen since 4 days. On presentation to [facility] she did get some imaging of her lungs showing complete left lung pleural effusion and suspicious abdominal findings, further imaging showed that she does have omental caking which needed further investigation. She is being admitted under medical team for further evaluation and treatment. 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 Source yet undetermined. Ca 125 is very elevated. Has a TONY patchy density and heterogeneous changes to the uterus. There is thickening in the gastric wall. Pathology of gastric ulcer biopsies are negative. This is stage 4 cancer and option for treatment is chemotherapy. Patient tells me that she has decided not to go for chemotherapy. Abdominal omental nodules c/f metastatic implants/ thickening of gastric wall. Incidental finding on the chest CT of abdominal changes led to getting a CT scan of her abdomen which showed metastatic changes in her peritoneum. EGD showed gastric and duodenal ulcers. Biopsies were negative for malignancy. Colonoscopy inadequate due to poor prep and also unable to advance scope beyond the descending colon due to severe diverticulosis and stricture. Cancer markers CA 1919, CEA normal. But Ca 125 is very elevated. PPI bid. ESRD dialysis inpatient as per the schedule. Diabetes mellitus type 2: Patient has well-controlled sugar levels. Hypertension: amlodipine Ischemic/ valvular/ hypertensive heart disease ASA and statin Constipation: Colace, MiraLAX. Pacemaker due to h/o complete heart block. DVT prophylaxis: Teds and sequentials Plan/VTE VTE Prophylaxis Ordered?: Yes VS, I&O, 24H, Fishbone Vital Signs/I&O Vital Signs Date Time Temp Pulse Resp B/P (MAP) Pulse Ox O2 Delivery O2 Flow Rate FiO2 02/19/21 04:00 98.2 76 20 139/65 (89) 92 Room Air 02/18/21 06:00 0.5 I&O- Last 24 Hours up to 6 AM 02/19/21 06:00 Intake Total 1020 ml Output Total 225 ml Balance 795 ml Laboratory Data 24H LABS Laboratory Tests 2 02/19/21 04:12: Immature Granulocyte % (Auto) 1.0, Neutrophils (%) (Auto) 79.7H, Lymphocytes (%) (Auto) 8.5L, Monocytes (%) (Auto) 9.0H, Eosinophils (%) (Auto) 1.6, Basophils (%) (Auto) 0.2, Neutrophils # (Auto) 7.5, Lymphocytes # (Auto) 0.8L, Monocytes # (Auto) 0.8, Eosinophils # (Auto) 0.2, Basophils # (Auto) 0.0, Nucleated Red Blood Cells % (auto) 0.0, Anion Gap 7L, Glomerular Filtration Rate 7.0L, Calcium Level 8.4L, Total Bilirubin 0.3, Aspartate Amino Transf (AST/SGOT) 10, Alanine Aminotransferase (ALT/SGPT) 7L, Alkaline Phosphatase 92, Total Protein 5.0L, Albumin 2.3L, Albumin/Globulin Ratio 0.9L CBC/BMP Laboratory Tests 02/19/21 04:12 Microbiology Microbiology 02/16/21 Acid Fast Stain, Received Pending 02/16/21 Mycobacterial Culture, Received Pending 02/16/21 Fungal Smear, Received Pending 02/16/21 Fungal Culture, Received Pending 02/16/21 Gram Stain - Final, Resulted 02/16/21 Anaerobic Culture, Resulted Pending 02/16/21 Body Fluid Culture - Final, Complete 02/14/21 Respiratory Virus Panel (PCR) ([facility]) - Final, Complete RAJESH ROY MD February 19, 2021 10:32
[2021-02-19 12:00] VITALS: BP 119/57
[2021-02-19] MEDS: ASPIRIN 81MG ENTERIC TABLET PO SCH (12:00)
[2021-02-19] MEDS: MIRALAX *UNIT DOSE* 17GM PACKET PO SCH (12:00)
[2021-02-19] MEDS: FEXOFENADINE 60 MG TAB PO SCH (12:00)
[2021-02-19] MEDS: PANTOPRAZOLE 40MG TAB (PROTONIX) PO SCH ×2 (12:01→20:40)
[2021-02-19] MEDS: MOM 30ML SUSPENSION UDC PO SCH (12:01)
[2021-02-19] MEDS: amLODIPine 5 MG TAB PO SCH (12:01)
[2021-02-19] MEDS: DOCUSATE SODIUM 100MG CAPSULE PO PRN (12:01)
--- NOTE | 2021-02-19 13:53 | IPN ---
PROGRESS NOTE DATE: 02/19/2021 Mrs. Tejada is sitting up comfortably in bed. She is bright and alert. Pain is being well controlled at the chest catheter insertion site. Her vital signs show a maximum temperature of 98.2 with a heart rate that ranges between 69-76 in a paced rhythm with a respiratory rate of 16-20 without the use of accessory muscles, who is 92%-95% saturated on room air and whose blood pressure is ranging between 139/65 to 119/57. Her intake and output for the past 24 hours has been recorded as 1080 in and 295 out, for a positivity of 785 mL. She has put out 45 mL from the chest tube and only 10 mL in the last 12 hours. Weight today is 65.4 kg compared to 64.9 kg yesterday. She is back from dialysis, where they removed 500 mL of fluid. PHYSICAL EXAMINATION: Her lungs still show decreased breath sounds with bronchophony in the left lower hemithorax. Percussion is still dull at the left lower hemithorax. Right side shows normal vesicular sounds and a full percussion note to the diaphragm. Cardiac exam is without murmurs, clicks, gallops, or rubs. I cannot feel her point of maximal impulse (PMI). S1 and S2 are normal. Abdomen is soft and nontender. Bowel sounds are positive. There is no hepatomegaly. No costovertebral angle (CVA) tenderness. Extremities show no pretibial edema, no calf tenderness, no differential swelling of the upper extremities. Skin is warm, dry, and perfused without cyanosis or mottling, including that of the nailbeds and knees. Neck is supple. There is no jugular venous distention. No subcutaneous emphysema. Trachea is midline. Mouth shows her mucous membranes to be pink and moist. Lips and commissures without lesions. No thrush. Eyes show her pupils to be equal and reactive. Extraocular motion intact. Sclerae anicteric. Neurologic shows II-XII intact. Normal gross motor, gross sensation intact. Gait is not tested. Psychiatric shows her to be awake, alert, and oriented times three with appropriate mood and affect and conversational. Her pathology has come back as a high-grade serous carcinoma, unknown primary; however, it is positive for WT1 and PAX8, which is very suggestive of ovarian. That combined with her negative gastrointestinal (GI) biopsies probably points to ovarian to endometrial cancers. It is by definition stage IV disease. Her white count today is 9.4 with a hemoglobin and hematocrit of 9.4 and 30.2, down form 10.4 and 34.3 yesterday. Platelet count is 180. Differential shows 79% neutrophils, 8% lymphocytes, and 9% monocytes. There are no immature forms or toxic granulations. Her chemistries show normal electrolytes with BUN and creatinine of 38 and 6.09 prior to dialysis. Calcium is 8.4 with a albumin of 2.3. Her chest x-ray still shows an opacity in the left hemithorax, which is unchanged from yesterday. Her CT yesterday shows a lung that is consolidated with just a little bit of pleural fluid left in the costophrenic angle. IMPRESSION: 1. Large left-sided malignant pleural effusion. 2. End-stage renal disease, on dialysis. 3. Hypertension. 4. Diabetes. 5. Osteoporosis. 6. Left upper lobe infiltrate. 7. Hypertension. 8. End-stage renal disease. 9. Diabetes. PLAN AND DISCUSSION: The pathology markers all point to malignancy below the diaphragm and, in fact, ovarian or uterine. She does have described caking of the omentum, which is certainly consistent with ovarian cancer. I have informed the patient that her pleural fluid is malignant, and that the pathology is suggestive of ovarian carcinoma. She will need to have oncologic followup. She asked me how long she has to live, and I honestly told her that I am not given that knowledge and that statistics apply to populations, not to individuals. She resides at [facility] and has good support systems there. I will discontinue her chest catheter today. Her pleural effusion may very well return, at which time we will have to consider placing a PleurX catheter.
[2021-02-19 16:15] VITALS: BP 150/65
[2021-02-19 20:00] VITALS: BP 135/63
[2021-02-19] MEDS: ATORVASTATIN 20 MG TAB PO SCH (20:39)
[2021-02-20] VITALS: BP 139/64
[2021-02-20] MEDS: LEVALBUTEROL 1.25 MG/0.5 ML CONCENTRATE NEB NEB SCH ×4 (02:47→19:38)
[2021-02-20 04:00] VITALS: BP 127/58
[2021-02-20 05:07] LABS: BASO % 0.4 % (0.0-1.0); EOS # 0.2 10^3/uL (0.0-0.5); EOS % 2.3 % (0.0-3.0); HEMOGLOBIN 9.2 g/dl (12.0-15.5); LYMPH # 0.9 10^3/uL (1.5-5.0); LYMPH % 10.4 % (24.0-44.0); MEAN CORPUSCULAR HEMOGLOBIN 27.8 pg (27.0-33.0); MEAN CORPUSCULAR HGB CONC 30.7 g/dl (32.0-36.5); MEAN CORPUSCULAR VOLUME 90.6 fl (80.0-96.0); MONO % 11.3 % (2.0-8.0); NEUTROPHILS # 6.4 10^3/uL (1.5-8.5); NEUTROPHILS % 74.9 % (36.0-66.0); PLATELET COUNT, AUTOMATED 175 10^3/uL (150-450); RED BLOOD COUNT 3.31 10^6/uL (4.00-5.40); WHITE BLOOD COUNT 8.5 10^3/uL (4.0-10.0)
[2021-02-20 05:23] LABS: CALCIUM LEVEL 8.3 MG/DL (8.8-10.2); CREATININE FOR GFR 3.83 MG/DL (0.55-1.30); POTASSIUM SERUM 4.1 MEQ/L (3.5-5.1)
[2021-02-20] MEDS ORDERED: PANT40TA29 PO (07:21)
[2021-02-20 08:00] VITALS: BP 155/68
--- NOTE | 2021-02-20 08:40 | REP ---
INDICATION: pleural effusion. COMPARISON: Comparison chest x-ray February 19, 2021 and February 18, 2021. TECHNIQUE: Two views.. FINDINGS: The recently placed pigtail drainage catheter is been removed from the left hemithorax in the interval since yesterday's radiograph. There is pleural opacity persisting along the left lateral chest wall and blunting left lateral pleural angle. The posterior pleural angle is blunted and the posterior diaphragm is obscured on the left. No right pleural effusion is evident. No right lung infiltrate is seen. There is a small air-fluid level posteriorly and medially in the left chest. Mild cardiomegaly with pacemaker. IMPRESSION: Left pleural drainage catheter has been removed. Left-sided pleural effusion and pleural thickening persist unchanged. A small pleural air fluid level is visible on the left.. <Electronically signed by Ricky Kurtz > 02/20/21 0881
[2021-02-20] MEDS: MIRALAX *UNIT DOSE* 17GM PACKET PO SCH (09:00)
[2021-02-20] MEDS: MOM 30ML SUSPENSION UDC PO SCH (09:00)
[2021-02-20] MEDS: PANTOPRAZOLE 40MG TAB (PROTONIX) PO SCH ×2 (09:54→21:41)
[2021-02-20] MEDS: ASPIRIN 81MG ENTERIC TABLET PO SCH (09:54)
[2021-02-20] MEDS: amLODIPine 5 MG TAB PO SCH (09:54)
[2021-02-20] MEDS: FEXOFENADINE 60 MG TAB PO SCH (09:54)
--- NOTE | 2021-02-20 10:44 | IPN ---
PROGRESS NOTE DATE: 02/20/2021 SUBJECTIVE: Ms. Tejada is sitting up comfortably in the chair. She is breathing well and she has walked around the room. We are going to walk her around the circuit of the ICU or PCU today. OBJECTIVE: VITAL SIGNS: Show a T-max of 97.3 with a heart rate that ranges between 69 and 71 in a paced rhythm. Respiratory rate of 14-15 without the use of accessory muscles who is 92% to 94% saturated on room air and whose blood pressure is ranging between 139/64 to 127/58. INTAKE AND OUTPUT: Over the past 24 hours has been recorded as 500 in and 760 out for a negativity of 260 mL; 500 mL was taken off yesterday at hemodialysis. Her weight today is 65.5 kg compared to 65.4 kg yesterday. RESPIRATORY: She has decreased breath sounds in the left hemithorax with a dull percussion note in the left hemithorax along with E:A egophony in the left lower hemithorax. Right side shows normal vesicular sounds without wheezing or rales. CARDIAC: Does show a systolic murmur heard best at the left upper sternal border. I cannot feel her PMI. S1 and S2 are normal. ABDOMEN: Soft and nontender. Bowel sounds are positive. There is no hepatomegaly. No CVA tenderness. EXTREMITIES: Show no pretibial edema. No calf tenderness. No differential swelling of the upper extremities. SKIN: Warm, dry, and perfused without cyanosis or mottling, including that of the nail beds and knees. NECK: Supple. There is no jugular venous distention. No subcutaneous emphysema. Trachea is midline. MOUTH: Shows the mucous membranes to be pink and moist. Lips and commisures are without lesions and no thrush. EYES: Show her pupils equal and reactive. Extraocular muscles are intact. Sclerae nonicteric. NEUROLOGIC: Shows II through XII intact. Normal gross motor, gross sensation intact. Gait is not tested. PSYCHIATRIC: Shows her to be awake, alert, and oriented x3 with appropriate mood and affect and conversational. LABORATORY DATA: Her white count today is 8.5 with hemoglobin and hematocrit of 9.2 and 30.0 unchanged from yesterday with a platelet count of 175,000. Differential shows 74% neutrophils, 10% lymphocytes, and 11% monocytes. There are no immature forms and no toxic granulations. Her electrolytes are normal with a BUN and creatinine of 16 and 3.83 after hemodialysis yesterday. Glucose is 102 with a calcium of 8.3. IMAGING DATA: Her chest x-ray today still shows opacity in the left lower hemithorax and that is also reflected on the lateral film, which looks more like an infiltrate rather than an effusion, as I do not see a meniscus. IMPRESSION: 1. Large left-sided malignancy pleural effusion. 2. End-stage renal disease on dialysis. 3. Hypertension. 4. Diabetes. 5. Osteoporosis. 6. Left upper lobe infiltrate. 7. Hypertension. 8. End-stage renal disease. 9. Diabetes. 10. 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 PLAN AND DISCUSSION: Additional pathology came back today with a negative TTF-1 marker. This gives further credence that her malignancy is below the diaphragm and referable to either her ovaries or uterus. She seems none the worse for her consolidation. She will continue on chest expansion therapy. She was scheduled to be transferred to [facility] today, but there are some logistical problems going on. She may have to stay in the hospital over the weekend. I will sign off on her today. If her pleural effusion recurs, we may have to place a PleurX catheter. It is going to be arranged for her to see oncology as an outpatient and I am sure oncology will notify me if the pleural effusion reoccurs.
--- NOTE | 2021-02-20 11:10 | IPN ---
INPATIENT PROGRESS NOTE DATE: 02/19/2021 SUBJECTIVE: Ms. Tejada is seen and examined this afternoon at the bedside in the Hemodialysis Unit receiving her dialysis session. She denies any complaints. She reports improved shortness of breath. She states she is hungry. She is now on a soft diet. She is tolerating her dialysis treatment without any issue. PHYSICAL EXAMINATION: Vital signs: Temperature 97.3, pulse 71, respiratory rate 16, blood pressure 119/57, saturating 94% on room air. Dialysis today removed 500 mL. Her chest tube drainage is now minimal. Weight on the bed scale is 65.4 kg. General: Patient is seen receiving her hemodialysis treatment awake, alert, oriented, comfortable and in no apparent distress. HEENT: Extraocular muscles are intact. Tongue is moist. Neck: Supple. Jugular veins are not elevated. Heart sounds: Regular S1 and S2. There is no murmur. There is no peripheral edema. There is no dependent edema. Lungs: There are diminished breath sounds at the left base otherwise auscultate good air flow. She is comfortable on room air. Abdomen: Soft and nontender. Extremities: No edema, clubbing or cyanosis. The fistula in her arm is presently in use. Neurologic: She is oriented times 3 and at baseline mentation. Skin: Warm and dry. LABORATORY DATA: White count 9.4, hemoglobin 9.4, platelets 180. Calcium 8.4. Albumin 2.3. Sodium 140, potassium 3.8, bicarbonate 29. IMAGING STUDIES: Chest x-ray: Opacity in the left hemithorax. INPATIENT MEDICATIONS: Reviewed by myself and no changes noted as compared to yesterday. PROBLEMS/PLAN: 1. End-stage renal disease: On hemodialysis on a Tuesday, Tuesday, Tuesday schedule. The patient is off of her usual schedule. She is dialyzed today with only 500 mL of fluid removed. She is tolerating her treatments without any issues. Next dialysis will be on Tuesday. Her electrolytes and volume status are acceptable. 2. Left lung malignant pleural effusion status post pigtail catheter: Her drainage from the catheter is minimal now and there is a plan to remove the chest tube. Her lung imaging shows good resolution. Pleural fluid shows metastatic adenocarcinoma, but primary source is as of yet undetermined. 3. Hypertension: Blood pressures are well controlled with amlodipine. There was no hypotension of hemodialysis. 4. Anemia of chronic renal failure: Hemoglobin is slightly below goal and she continues on Aranesp.
[2021-02-20] MEDS ORDERED: DARBEPOETIN 100 MCG/0.5 ML *DIALYSIS* SYRINGE (J0882) IV SCH (13:10)
--- NOTE | 2021-02-20 13:40 | IPN ---
PROGRESS NOTE DATE: 02/20/2021 SUBJECTIVE: Ms. Mead is seen and examined this morning at the bedside in the Intensive Care Unit. She denies any complaints. Her pigtail catheter was removed yesterday. She was dialyzed yesterday with 500 ml removed. She denies shortness of breath. She is back on a soft diet. OBJECTIVE: VITAL SIGNS: Temperature 97.3, pulse 71, respiratory rate 15, blood pressure 127/58, saturating 92 to 94% on room air. INTAKE AND OUTPUT: Intake yesterday was 500, dialysis yesterday removed 500 and weight on the bed scale today is 65.5 kg. GENERAL: The patient is seen sitting out of bed to the chair, elderly female, awake, alert, bright, articulate in no distress. HEENT: Extraocular muscles are intact. Tongue is moist. NECK: Supple. Jugular veins are not elevated. HEART: Heart sounds are regular S1 and S2. There is no murmur. There is no peripheral edema. There is no dependent edema. LUNGS: Symmetric breath sounds which are clear. There are no rales or wheeze. She is comfortable on room air. ABDOMEN: Soft and nontender. EXTREMITIES: Negative for edema, clubbing or cyanosis. There is a fistula in the arm which is patent. NEUROLOGIC: She is oriented x3 at baseline mentation. LABORATORY DATA: Sodium 141, potassium 4.1, bicarbonate 29, BUN 16. Hemoglobin 9.2. Chest x-ray done this morning shows pleural opacity at the left lateral chest wall and blunted left lateral pleural angle. INPATIENT MEDICATIONS: Reviewed by myself. No changes noted as compared to prior. PROBLEMS: 1. Endstage renal disease on hemodialysis. Patient is off of her usual maintenance schedule. She will be dialyzed tomorrow and then on Tuesday we will return back to her maintenance Tuesday, Tuesday and Tuesday schedule. Her electrolytes and volume status are acceptable. She has been tolerating her treatments without any issue. 2. Left lung malignant pleural effusion status post pigtail catheter placement and removal. Today's chest x-ray is noted. She still has a small residual pleural effusion. Pleural fluid analysis shows metastatic adenocarcinoma and tumor markers are suggestive of ovarian primary. Her CA-125 antigen was markedly elevated. 3. Anemia of chronic renal failure. Hemoglobin is below goal, it is 9.2 and Aranesp has been ordered with dialysis. 4. Hypertension. Blood pressures are well-controlled with amlodipine.
[2021-02-20 15:35] VITALS: BP 140/65
[2021-02-20 20:06] VITALS: BP 134/64
[2021-02-20] MEDS: ATORVASTATIN 20 MG TAB PO SCH (21:41)
[2021-02-20] MEDS: ACETAMINOPHEN 650MG ER TAB (TYLENOL ARTHRITIS) PO PRN (21:41)
[2021-02-21] MEDS: LEVALBUTEROL 1.25 MG/0.5 ML CONCENTRATE NEB NEB SCH ×3 (01:14→15:15)
[2021-02-21 06:00] VITALS: BP 137/60
[2021-02-21] MEDS: MIRALAX *UNIT DOSE* 17GM PACKET PO SCH (06:26)
[2021-02-21] MEDS: MOM 30ML SUSPENSION UDC PO SCH (06:26)
[2021-02-21] MEDS: ASPIRIN 81MG ENTERIC TABLET PO SCH (06:32)
[2021-02-21] MEDS: FEXOFENADINE 60 MG TAB PO SCH (06:32)
[2021-02-21] MEDS: amLODIPine 5 MG TAB PO SCH (06:32)
[2021-02-21] MEDS: PANTOPRAZOLE 40MG TAB (PROTONIX) PO SCH ×2 (06:34→20:33)
[2021-02-21] MEDS ORDERED: EMLA CREAM 5GM TUBE (LIDOCAINE/PRILOCAINE) TOP SCH (08:40)
[2021-02-21] MEDS ORDERED: PERCOCET 5MG/325MG TAB PO PRN (15:35)
[2021-02-21] MEDS ORDERED: fentaNYL 100 MCG/2 ML INJECTION (J3010) As Ordered ONE (16:08)
[2021-02-21] MEDS ORDERED: LIDOCAINE W/EPINEPHRINE 1% 20ML VIAL As Ordered ONE (16:08)
[2021-02-21] MEDS ORDERED: ceFAZolin 1GM VIAL (J0690 PER 500MG) As Ordered ONE (16:41)
--- NOTE | 2021-02-21 17:49 | CR.PDOC ---
General Date of Consultation: February 21, 2021 Consultation REASON FOR CONSULTATION/CHIEF COMPLAINT: Thrombosed AV access HISTORY OF PRESENT ILLNESS: This is a very pleasant 85-year-old patient with end-stage renal disease currently dialyzing with a right brachiocephalic AV fistula. She underwent a fistulogram on 01/27/2021 that revealed to aneurysmal segments of the fistula near the AV anastomosis in the areas of frequent access, and more proximal to this over the biceps the vein narrowed and had to 360 turns creating significant tortuosity that somewhat affected outflow. These areas were not necessarily stenotic, but they affect the physics of the flow. The patient was having no difficulty with her access, but then we were notified that she was not able to be dialyzed today because her AV fistula was thrombosed. Upon my seeing her this afternoon, the patient had a sweater on with a fairly tight wrist cuff that had been pushed up above the areas were the access her fistula and created a tight band/tourniquet. This, in combination with her likely hypercoagulable state due to metastatic ovarian cancer, likely resulted in thrombosis of her fistula. On my exam she also has some pulsatility proximal in the first aneurysmal segment, but no flow distal to this, even after I removed the sweater. The patient and her family and I had a long discussion. She recently had an upper GI and lower GI study, and they found 2 gastric ulcers and significant inflammation of the colon due to diverticulosis, neither of which have active bleeding now, but this puts her at increased risk for bleeding with TPA. Additionally the patient has metastatic cancer and recent pigtail catheter placement for a ligament pleural effusion and catheter removal, also increasing her risk for bleed with TPA. This, in combination with her other comorbidities and advanced age, and her poor prognosis from stage IV metastatic ovarian cancer make the patient high risk for a declot procedure. We cannot do a low TPA balloon push of the clot due to the tortuosity and small nature of the vein proximal, so we would have to do an overnight TPA thrombolysis requiring more TPA then we would typically use. The patient and her family are fairly risk averse. She says she is not pursuing chemotherapy to treat her cancer, thus her longevity is likely limited. Therefore, I think the safest thing today is just to place a PermCath for dialysis. Risks and visits and alternatives were explained and the patient and her family were agreeable to proceed. Informed consent was obtained. ALLERGIES: Please see below. HOME MEDICATIONS: Please see below. PAST MEDICAL HISTORY: ESRD PAST SURGICAL HISTORY: Right brachiocephalic AV fistula creation, fistulogram FAMILY HISTORY: Heart disease, cancer, hypertension SOCIAL HISTORY: Patient denies tobacco alcohol or illicit drug use REVIEW OF SYSTEMS: CONSTITUTIONAL: Denies fevers or chills HEENT: Positive hearing loss CARDIOVASCULAR: Denies chest pain or palpitations positive hypertension and hyperlipidemia RESPIRATORY: Positive cough and shortness of breath GENITOURINARY: Denies dysuria MUSCULOSKELETAL: Positive arthritis GASTROINTESTINAL: Denies nausea or vomiting positive occasional diarrhea or constipation positive GERD SKIN: Denies rashes NEUROLOGICAL: Denies headache seizures or stroke PSYCHIATRIC: Denies anxiety or depression ENDOCRINE: Denies diabetes or thyroid disease HEMATOLOGIC/LYMPHATIC: Denies anemia bleeding or clotting disorders ALLERGIC/IMMUNOLOGIC: Denies immune disorder PHYSICAL EXAMINATION: VITAL SIGNS: Please see below. GENERAL APPEARANCE: Medically stable no acute distress HEENT: Normocephalic hard of hearing vision diminished as patient does not have her glasses RESPIRATORY: Slightly coarse breath sounds bilaterally, slightly diminished on the left lower CARDIOVASCULAR: Regular rate and rhythm ABDOMEN: Soft nontender nondistended EXTREMITIES: Warm and well perfused NEUROLOGICAL: Alert and oriented 3 no acute distress PSYCHIATRIC: Pleasant and cooperative LABORATORY DATA: Please see below. ASSESSMENT/PLAN: Very pleasant 85-year-old patient in need of access for dialysis 1. Plan for PermCath placement 2. Will hold off on declot right brachiocephalic AV fistula for now We appreciate the opportunity to participate in the care of this patient. Vital Signs/I&O Vital Signs Date Time Temp Pulse Resp B/P (MAP) Pulse Ox O2 Delivery O2 Flow Rate FiO2 02/21/21 17:25 69 18 96 Nasal Cannula 2.0 02/21/21 16:27 96.4 02/21/21 06:32 137/60 I&O- Last 24 Hours up to 6 AM 02/21/21 06:00 Intake Total 720 ml Output Total 75 ml Balance 645 ml Laboratory Data Microbiology Microbiology 02/16/21 Acid Fast Stain, Received Pending 02/16/21 Mycobacterial Culture, Received Pending 02/16/21 Fungal Smear, Received Pending 02/16/21 Fungal Culture, Received Pending 02/16/21 Gram Stain - Final, Complete 02/16/21 Anaerobic Culture - Final, Complete 02/16/21 Body Fluid Culture - Final, Complete 02/14/21 Respiratory Virus Panel (PCR) ([facility]) - Final, Complete Allergies Coded Allergies: Sulfa (Sulfonamide Antibiotics) (Verified Allergy, Mild, hives, 04/30/20) codeine (Verified Allergy, Mild, hives, 04/30/20) Quinolones (Verified Allergy, Unknown, 04/30/20) metoprolol (Verified Allergy, Unknown, 04/30/20) morphine (Verified Adverse Reaction, Mild, FEELS FUNNY, 02/16/21) Home Medications Scheduled Amlodipine Besylate (Amlodipine Besylate) 5 Mg Tablet, 5 MG PO DAILY, (Reported) Aspirin (Ecotrin) 81 Mg Tablet.dr, 81 MG PO DAILY, (Reported) Atorvastatin Calcium (Atorvastatin Calcium) 40 Mg Tablet, 40 MG PO QPM, (Reported) Ergocalciferol (Vitamin D2) (Drisdol) 1,250 Mcg Capsule, 1,250 MCG PO QWEEK, (Reported) SUNDAYS Fexofenadine HCl (Fexofenadine HCl) 60 Mg Tablet, 60 MG PO DAILY, (Reported) Pantoprazole Sodium (Pantoprazole Sodium) 40 Mg Tablet.dr, 40 MG PO BID, #60 Polyethylene Glycol 3350 (Miralax) 119 Gm Powder, 17 GM PO DAILY, (Reported) dilute in 8 ounces of water or juice Sevelamer Carbonate (Renvela) 800 Mg Tab, 800 MG PO BIDWM, (Reported) 1200/1700 Scheduled PRN Acetaminophen (Acetaminophen 8 Hour) 650 Mg Tablet.er, 1,300 MG PO Q8H PRN for PAIN, (Reported) Docusate Sodium (Colace) 100 Mg Capsule, 100 MG PO BID PRN for CONSTIPATION, (Reported) YONNY SMITH MD February 21, 2021 17:49
--- NOTE | 2021-02-21 17:54 | ROOPDOC ---
[facility] Report Of Operation Report of Operation DATE OF PROCEDURE: 02/21/21 PREPROCEDURE DIAGNOSES: End-stage renal disease with thrombosed right brachiocephalic AV access POSTPROCEDURE DIAGNOSES: Same PROCEDURE: 1. Ultrasound-guided access right internal jugular vein 2. Right internal jugular vein 23 cm tunneled PermCath basement SURGEON: Yonny Cueto MD ANESTHESIA: Local anesthesia 13 mL lidocaine. Full sedation was not utilized for this patient. We did the procedure only with fentanyl 25 g IV analgesia. Nevertheless, she was monitored by myself and a registered nurse assigned to the Department of radiology using automated blood pressure, EKG, and pulse oximetry. She did very well with the procedure with just a small amount of analgesia. The patient also received 2 g of IV Ancef prior to the procedure. INDICATION FOR PROCEDURE: This is a very pleasant 85-year-old patient who requires access for dialysis. Risks benefits and alternatives were explained to the patient and her family for PermCath placement and she is agreeable to proceed. Informed consent was obtained. INTERPRETATION: The patient's catheter is in good position with no kinks in the catheter and the tip freely mobile at the right atrial SVC junction. There is no pneumothorax. It is okay to use the catheter for dialysis. REPORT OF OPERATION: The patient was brought to the angiographic suite in stable condition. Her right neck and chest were prepped and draped in a sterile fashion. A timeout was performed. Antibiotics were administered without complication. Analgesia was administered without complication. Local anesthesia was administered to the skin and subcutaneous tissue over the right neck and chest. A microneedle was used to access the vein under ultrasound guidance. A wire was passed through this access and the needle was removed. A micro-sheath was placed and flushed with saline. A J-wire was advanced into the superior vena cava and then the inferior vena cava under fluoroscopic guidance. We then perf ormed 2 serial dilations over the wire and a peel-away sheath was placed. We then made a small incision at the jugular access site and on the right chest. A 23 cm PermCath was tunneled from the right chest to the jugular access site. Once the cuff was within the subcutaneous tissue, we then advanced the tips of the catheter through the peel-away sheath and removed the peel-away sheath. The soft tissue in the catheter were arranged to prevent any kinks in the catheter. Both ports gretta back and flushed easily and were heparin locked. Appropriate sterile caps were placed. Final imaging showed the catheter in good position no kinks in the tip freely mobile at the right atrial SVC junction with no pneumothorax. We then irrigated the jugular access site closed with deep and superficial interrupted Monocryl sutures. Dermabond was placed at the skin. We close the access site on the chest with a Prolene suture. The catheter was then secured to the chest wall in 2 additional Prolene sutures. Sterile dressings were applied and the patient was taken back to recovery in stable condition. He kept her head of bed elevated to minimize the risk of bleeding or bruising after catheter placement. She tolerated the procedure very well. ESTIMATED BLOOD LOSS: Approximately 2 mL. COMPLICATIONS: NONE PLAN: Okay to use PermCath for dialysis. Okay to resume diet medications. We appreciate the opportunity to participate in the care of this patient. YONNY CUETO MD February 21, 2021 17:54
[2021-02-21] MEDS: ACETAMINOPHEN 650MG ER TAB (TYLENOL ARTHRITIS) PO PRN (20:33)
[2021-02-21] MEDS: ATORVASTATIN 20 MG TAB PO SCH (20:33)
[2021-02-22] MEDS: LEVALBUTEROL 1.25 MG/0.5 ML CONCENTRATE NEB NEB SCH ×4 (02:00→18:12)
[2021-02-22] MEDS: ACETAMINOPHEN 650MG ER TAB (TYLENOL ARTHRITIS) PO PRN ×2 (05:10→20:24)
[2021-02-22 06:00] VITALS: BP 139/57
[2021-02-22 09:33] VITALS: BP 137/58
[2021-02-22] MEDS: PANTOPRAZOLE 40MG TAB (PROTONIX) PO SCH ×2 (09:33→20:23)
[2021-02-22] MEDS: FEXOFENADINE 60 MG TAB PO SCH (09:33)
[2021-02-22] MEDS: ASPIRIN 81MG ENTERIC TABLET PO SCH (09:33)
[2021-02-22] MEDS: amLODIPine 5 MG TAB PO SCH (09:33)
[2021-02-22] MEDS: MIRALAX *UNIT DOSE* 17GM PACKET PO SCH (09:33)
--- NOTE | 2021-02-22 19:05 | IPN ---
NEPHROLOGY PROGRESS NOTE DATE: 02/21/2021 SUBJECTIVE: Mrs. Tejada is seen this morning on her bedside. She is feeling much better and reports that her dyspnea has improved since she had left pleuracentesis done. She was noticed to have a large left pleural effusion, which was malignant, related to her prior history of adenocarcinoma of ovarian origin. Patient has declined any chemotherapy. She remains on maintenance hemodialysis three times a week. She is regularly dialyzed on Tuesday, Tuesday and Tuesday schedule. However, during her hospital stay, her schedule has been disturbed and she was dialyzed on . She could not be dialyzed yesterday and we will plan to dialyze her today and then she can be back to her regular schedule of Tuesday, Tuesday and Tuesday next week. PHYSICAL EXAMINATION: Patient is awake and alert and without any acute distress. Temperature 98.9 degrees Fahrenheit, heart rate 70 per minute, respiratory rate 18 per minute, blood pressure 137/60 mmHg, oxygen saturation 96% on room air. HEAD: Atraumatic. She is edentulous. NECK: Supple and without jugular venous distention (JVD) or thyroid enlargement. HEART SOUNDS: Regular. LUNGS: Slightly diminished breath sounds at left base with a few basilar rales. ABDOMEN: Soft and nontender. Bowel sounds are normal. EXTREMITIES: Without any cyanosis or clubbing. NEUROLOGIC: She is awake, alert and oriented times three. LABORATORY STUDIES: She did not have any new labs done today. Yesterday, her sodium was 141, potassium 4.1, BUN 16, creatinine 3.83. Hemoglobin was 9.2 and hematocrit was 30. PROBLEMS: 1. End-stage renal disease. Patient missed her dialysis yesterday. She was dialyzed on . Her labs looked appropriate yesterday. I will plan to dialyze her later today. I have advised the nursing staff to apply Emla cream to her arteriovenous (AV) fistula before dialysis today. 2. Anemia related to end-stage renal disease. It is stable at this point. No urgent intervention is needed. She will continue to receive weekly doses of Aranesp 100 mcg. 3. Left pleural effusion. 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 She had pleuracentesis done and she does not have any PleurX catheter at this point. DISPOSITION: Patient is likely to be ready for discharge back to [facility] next week. We will plan to dialyze her again on Tuesday morning prior to discharge.
--- NOTE | 2021-02-22 19:06 | IPN ---
PROGRESS NOTE DATE: 02/22/2021 SUBJECTIVE: Ms. Tejada is seen this morning on his bedside. Yesterday, her dialysis attempt was unsuccessful as the AV fistula in her right arm was mostly thrombosed. She still has a bruit and a thrill, however, no appreciable blood flow could be obtained, so dialysis was cancelled. She was seen by Dr. Cueto yesterday and Dr. Cueto did not feel that her fistula is salvageable as patient is hypercoagulable due to her metastatic malignancy. Dr. Cueto then placed a right internal jugular vein Permacath yesterday for dialysis. In the meantime, patient had a complaint of pain in her right arm at the site of her large AV fistula, but denies any dyspnea or chest pain. She has no nausea or vomiting. PHYSICAL EXAMINATION: VITALS: Temperature 99.8 degrees Fahrenheit, heart rate 70 per minute, respiratory rate 18 per minute, blood pressure 137/58 mmHg and oxygen saturation 98% on room air. HEENT: Head is atraumatic. Neck is supple and without JVD or thyroid enlargement. A new Permacath is present on the right upper chest without any bleeding or redness. LUNGS: Clear with slightly diminished breath sounds at the left base. HEART: Sounds are regular. ABDOMEN: Soft and nontender. Bowel sounds are normal. EXTREMITIES: Without any cyanosis or clubbing. Right upper arm AV fistula still has a bruit and a thrill, however, it is very hard and mostly thrombosed. I feel that she has developed some phlebitis on it. NEUROLOGIC: She is awake and alert, and without any focal deficit. PROBLEMS: 1. End-stage renal disease: Patient could not be dialyzed yesterday due to a nonfunctioning right arm AV fistula. She has a new Permacath placed now and will plan to dialyze her tomorrow. 2. 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 3. Anemia: Her anemia has been stable with hemoglobin 9.2 on February 20. We will check her CBC again tomorrow. 4. Right arm thrombosed AV fistula with phlebitis: I have advised the nursing staff to apply heating pad on her right arm. DISPOSITION: Patient needs to be discharged back to longterm facility. We will dialyze division director on February 23 and then she can be discharged to longterm.
[2021-02-22] MEDS: ATORVASTATIN 20 MG TAB PO SCH (20:24)
[2021-02-23] MEDS: LEVALBUTEROL 1.25 MG/0.5 ML CONCENTRATE NEB NEB SCH ×4 (02:00→20:12)
[2021-02-23 06:00] VITALS: BP 122/51
[2021-02-23] MEDS: ASPIRIN 81MG ENTERIC TABLET PO SCH (06:00)
[2021-02-23] MEDS: DOCUSATE SODIUM 100MG CAPSULE PO PRN (06:00)
[2021-02-23] MEDS: PANTOPRAZOLE 40MG TAB (PROTONIX) PO SCH ×2 (06:00→20:06)
[2021-02-23] MEDS: ACETAMINOPHEN 650MG ER TAB (TYLENOL ARTHRITIS) PO PRN ×2 (06:00→20:07)
[2021-02-23] MEDS: FEXOFENADINE 60 MG TAB PO SCH (06:01)
[2021-02-23] MEDS: amLODIPine 5 MG TAB PO SCH (06:01)
[2021-02-23] MEDS: MIRALAX *UNIT DOSE* 17GM PACKET PO SCH (06:01)
[2021-02-23 07:13] LABS: HEMATOCRIT 31.2 % (36.0-47.0); HEMOGLOBIN 9.5 g/dl (12.0-15.5); MEAN CORPUSCULAR HEMOGLOBIN 27.4 pg (27.0-33.0); MEAN CORPUSCULAR HGB CONC 30.4 g/dl (32.0-36.5); MEAN CORPUSCULAR VOLUME 89.9 fl (80.0-96.0); PLATELET COUNT, AUTOMATED 187 10^3/uL (150-450); RED BLOOD COUNT 3.47 10^6/uL (4.00-5.40); WHITE BLOOD COUNT 12.6 10^3/uL (4.0-10.0)
[2021-02-23 07:39] LABS: ALBUMIN 2.4 GM/DL (3.2-5.2); CALCIUM LEVEL 9.3 MG/DL (8.8-10.2); CREATININE FOR GFR 6.54 MG/DL (0.55-1.30); GLOMERULAR FILTRATION RATE 6.5 (>32); PHOSPHORUS LEVEL 3.7 MG/DL (2.5-4.9); POTASSIUM SERUM 4.6 MEQ/L (3.5-5.1)
--- NOTE | 2021-02-23 11:46 | IPN ---
PROGRESS NOTE DATE: 02/23/2021 SUBJECTIVE: Mrs. Tejada is seen this morning during hemodialysis. She could not have dialysis on Tuesday as her right arm AV fistula was nonfunctioning. Tuesday afternoon she had a Perm-A-Cath placed by Dr. Cueto and this morning it is being used. The patient is feeling well and denies any complaints. OBJECTIVE: VITAL SIGNS: Temperature is 96.6 degrees Fahrenheit, heart rate is 80 per minute and respiratory rate is 18 per minute. Blood pressure is 122/50 mmHg and oxygen saturation 96% on room air. HEENT: Head is atraumatic. NECK: Supple without JVD or thyroid nodule. Perm-A-Cath is present in right internal jugular vein. HEART: Heart sounds are regular. LUNGS: Clear to auscultation. ABDOMEN: Soft and nontender. Bowel sounds are normal. EXTREMITIES: Without any cyanosis or clubbing. Right arm AV fistula is thrombosed with some erythema at the fistula site. NEUROLOGIC: She is at her baseline mentation without any focal deficit. LABORATORY DATA: Today's labs shows a WBC count of 12.6, hemoglobin of 9.5, and hematocrit 31.2, platelets are 187,000. Sodium is 137, potassium is 4.6, CO2 is 25, BUN 35 and creatinine 6.54. Calcium is 9.3. Phosphorus is 3.7. Albumin level is 2.4. PROBLEMS: 1. Endstage renal disease. Patient is being dialyzed via new Perm-A-Cath today which is working well so far. She is tolerating her dialysis treatment very well. Next dialysis will be on Tuesday which is her regular day. 2. Anemia, her anemia is stable and we will continue with weekly dose of Aranesp as she has been receiving 100 mcg once a week. 3. Leukocytosis, she has mild leukocytosis probably related to thrombosed right arm AV fistula where she has developed phlebitis. She does not have any other signs of infection. 4. Disposition: The patient is likely to be discharged back to [facility] after dialysis today. She will go to outpatient dialysis clinic on Tuesday.
[2021-02-23] MEDS: ATORVASTATIN 20 MG TAB PO SCH (20:06)
[2021-02-24] MEDS: LEVALBUTEROL 1.25 MG/0.5 ML CONCENTRATE NEB NEB SCH ×2 (01:13→07:26)
[2021-02-24] MEDS: MIRALAX *UNIT DOSE* 17GM PACKET PO SCH (09:22)
[2021-02-24] MEDS: ACETAMINOPHEN 650MG ER TAB (TYLENOL ARTHRITIS) PO PRN (09:22)
[2021-02-24] MEDS: ASPIRIN 81MG ENTERIC TABLET PO SCH (09:22)
[2021-02-24 09:23] VITALS: BP 122/51
[2021-02-24] MEDS: amLODIPine 5 MG TAB PO SCH (09:23)
[2021-02-24] MEDS: FEXOFENADINE 60 MG TAB PO SCH (09:23)
[2021-02-24] MEDS: PANTOPRAZOLE 40MG TAB (PROTONIX) PO SCH (09:23)
[2021-02-24 10:03] LABS: BASO # 0.1 10^3/uL (0.0-0.2); BASO % 0.6 % (0.0-1.0); EOS # 0.1 10^3/uL (0.0-0.5); EOS % 0.5 % (0.0-3.0); HEMATOCRIT 31.5 % (36.0-47.0); HEMOGLOBIN 9.4 g/dl (12.0-15.5); LYMPH % 8.9 % (24.0-44.0); MEAN CORPUSCULAR HEMOGLOBIN 27.2 pg (27.0-33.0); MEAN CORPUSCULAR HGB CONC 29.8 g/dl (32.0-36.5); MEAN CORPUSCULAR VOLUME 91.3 fl (80.0-96.0); MONO # 1.2 10^3/uL (0.0-0.8); MONO % 10.9 % (2.0-8.0); NEUTROPHILS # 8.5 10^3/uL (1.5-8.5); NEUTROPHILS % 77.7 % (36.0-66.0); PLATELET COUNT, AUTOMATED 185 10^3/uL (150-450); RED BLOOD COUNT 3.45 10^6/uL (4.00-5.40); WHITE BLOOD COUNT 10.9 10^3/uL (4.0-10.0)
[2021-02-24] MEDS ORDERED: PERCOCET PO (11:01)
[2021-02-24] MEDS ORDERED: LEVA12INH NEB (11:01)
[2021-02-24] MEDS ORDERED: BISA10SU PR (11:01)
[2021-02-24] MEDS ORDERED: DULC5TAB PO (11:36)
--- NOTE | 2021-02-24 12:05 | DSES ---
DISCHARGE SUMMARY DATE OF ADMISSION: 02/14/2021 DATE OF DISCHARGE: 02/24/2021 CONSULTANTS: 1. Amari Marx MD, Thoracic Surgeon. 2. Albert John MD, Gastroenterology. 3. Obinna Contreras MD, Nephrology. 4. Cliff Contreras MD, Nephrology. PRIMARY DISCHARGE DISAGNOSES: 1. 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 2. End-stage renal disease on maintenance dialysis. 3. Hypertension. 4. Diabetes. 5. Osteoporosis. 6. Left upper lobe infiltrate. 7. 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 8. Anemia of chronic disease on Aranesp weekly. 9. Thrombosed right arm AV fistula. 10. Right arm phlebitis status post right brachiocephalic AV access for dialysis with right internal jugular vein tunneled Permacath placement. 11. History of ischemic and valvular heart disease. 12. Chronic constipation. 13. History of complete heart block with pacemaker. 14. Duodenal and gastric ulcers. PROCEDURES DURING THIS ADMISSION: 1. 02/16/2021 left thoracentesis pigtailed to Pleur-Evac. 2. 02/17/[address] John - severe diverticulosis from sigmoid to descending colon with evidence of diverticular spasm. 3. EGD on 02/17/2021 2 non-bleeding linear gastric ulcer with clean ulcer base found in the gastric antrum, 1 non-bleeding cratered duodenal ulcer with no stigmata of bleeding. 4. Permacath placement for dialysis needs on 02/21/2021. DISCHARGE INSTRUCTIONS: 1. Follow up with Dr. John regarding gastric and duodenal ulcers. 2. Follow up with Dr. Contreras for dialysis needs. 3. Medical oncology referral for new onset of POWDER CORE TESTER possible ovarian or uterine metastatic cancer with malignant pleural effusion. 4. Follow up with Dr. Amari Marx for recurrent malignant effusion if needed. 5. Follow up with primary care physician within a week of discharge. HISTORY AND HOSPITAL COURSE: This is an 85-year-old female admitted on 02/14/2021 with past medical history significant for end-stage renal disease on maintenance dialysis Tuesday, Tuesday, Tuesday, diabetes, complete heart block with pacemaker, bladder prolapse, osteoarthritis, hypertension, hearing loss and visual impairment with complaints of shortness of breath on exertion, found to have pleural effusion status post pleural effusion with complete opacification of the left pneumothorax and collapsed upper and lower lobes with mild bibasilar atelectasis. CT abdomen shows abdominal omental nodules consistent with metastatic implants. EGD, colonoscopy done by Dr. John showed gastric and duodenal ulcers, diverticulosis without signs of bleeding. Cell block showed metastatic adenocarcinoma of POWDER CORE TESTER origin with high grade serous carcinoma. Patient received dialysis Tuesday, Tuesday, Tuesday. She received a pigtail catheter and repositioning managed by Dr. Amari Marx. Glucose was well controlled with her insulin regimen. She was continued on aspirin and statins. A tunneled catheter was placed for dialysis needs. She was given I.V. Aranesp for anemia of chronic disease due to renal failure. She developed a right arm thrombosed AV fistula with phlebitis. Heating pads were placed on the right arm with resolution. Patient is discharged in stable condition. PHYSICAL EXAMINATION ON DISCHARGE: Temperature 96.6, pulse 79, respiratory rate 18, blood pressure 122/51, 96% on room air. General: Cooperative, in no distress. HEENT: Pupils are equal, round and reactive to light and accommodation, extraocular muscles intact. Neck: Supple, full range of motion, no JVD or thyromegaly. Chest: Decreased breath sounds at the bases on the left. Heart: S1 and S2 sinus rhythm, no murmurs, rubs or gallops. Abdomen: Soft, nontender, nondistended, positive bowel sounds. Extremities: No cyanosis, clubbing or pitting edema. LABORATORY DATA ON DISCHARGE: White count 10.9, hemoglobin 9.4, hematocrit 31, platelet count 185. Sodium 137, potassium 4.6, chloride 104, bicarb 25, BUN 35, creatinine 6.54, glucose 92. Pleural fluid gram stain, anaerobic culture: No organism, few WBCs, moderate RBCs, no growth anaerobically. Pleural fluid no growth aerobically. Respiratory panel negative for Coronavirus. Pathology: Duodenal ulcer gastric mucosa with erosion and reactive gastropathy, no H. pylori seen, no evidence of malignancy. February 17, 2021 pathology cell block: Pleural fluid cell block with metastatic adenocarcinoma compatible with high grade serous carcinoma. Diagnosis of high grade carcinoma is unchanged, overall metastatic from x-ray uterine, POWDER CORE TESTER primary site is favored. Weak and focal ER stainings strong and diffuse WT1 staining. IMAGING STUDIES: Chest CT 02/14/2021: Complete opacification of the left hemithoracic with large effusion, collapse of left upper and lower lobe, minimal right basilar atelectasis, highly suspicious changes in visualized upper abdomen worrisome for malignancy or metastatic disease. 02/14/2021 CT abdomen and pelvis: Highly suspicious for metastatic changes involving the peritoneum and omentum, irregularly soft tissue and suspected mucosal thickening involving mid to distal stomach, possibly site of primary malignancy, moderate fecal stasis and diffuse diverticulosis without evidence of bowel obstruction or perforation. Time spent on discharge: Thirty minutes MTDD
[2021-02-24] MEDS ORDERED: NEBU1EAC71 MC (12:21)
--- NOTE | 2021-02-24 12:34 | IPN ---
PROGRESS NOTE DATE: 02/24/2021 SUBJECTIVE: Mrs. Tejada is seen this morning on her bedside. She is sitting in the chair at the time of my visit all dressed up as she is anticipating to go home. Nursing staff reports that [facility] having staffing problems and she might not be able to go to [facility] today. In any event, she was dialyzed yesterday via her new Permacath and she tolerated her dialysis well and without any complaints at present. PHYSICAL EXAMINATION: VITALS: Temperature 97 degrees Fahrenheit, heart rate 80 per minute, respiratory rate 18 per minute, blood pressure 122/50 mmHg and oxygen saturation 96% on room air. HEENT: Head is atraumatic. Neck is supple and without JVD or thyroid enlargement. She has a Permacath in right upper chest. She is edentulous and without any thrush or ulcers. LUNGS: Clear to auscultation. HEART: Sounds are regular. ABDOMEN: Soft and nontender. Bowel sounds are normal. EXTREMITIES: Without any cyanosis or clubbing. Right upper arm AV fistula is thrombosed. NEUROLOGIC: She is at her baseline mentation without a focal deficit. LABORATORY STUDIES: Today's labs show WBC 10.9, hemoglobin 9.4, hematocrit 31.5. She did not have any chemistries done today. PROBLEMS: 1. End-stage renal disease: Patient was dialyzed yesterday and next dialysis will be scheduled for tomorrow, which is her regular day. 2. Clotted right arm AV fistula: Her right upper arm fistula is thrombosed and she had a new Permacath placed. Dr. Cueto feels that patient is high risk for de-clotting her fistula due to high risk for re-clotting in the setting of metastatic malignancy. At present, we will continue with her Permacath use. 3. Anemia: Anemia is stable at present and will continue to manage with dialysis. 4. Metastatic ovarian cancer with left malignant effusion: Patient had a large pleural effusion, which has been drained. She is feeling much better now. She has decided to not receive any treatment for her metastatic ovarian cancer. DISPOSITION: From a renal standpoint, patient is ready for discharge from the hospital.
[2021-02-24] MEDS ORDERED: PROTPAK PO (16:15)
[2021-03-01] MEDS ORDERED: DARBEPOETIN 40 MCG/0.4 ML *DIALYSIS* SYRINGE (J0882) SQ SCH (09:00)
== END 2021-02-24 14:50 | DRG 754 ==
LOC: M ED 09:48 → EDBD 09:48 → M ED INP 12:12 → M MS5PR 14:15 → M ICU 02-16 09:19 → M MS5PR 02-20 15:51
PROVIDERS: ADMIT Internal Medicine; ATTEND General Practice
PROC: 0W9B30Z Drainage of Left Pleural Cavity with Drainage Device, Percutaneous Approach (ICD-10-PCS; 2021-02-16)
PROC: 5A1D70Z Performance of Urinary Filtration, Intermittent, Less than 6 Hours Per Day (ICD-10-PCS; 2021-02-16)
PROC: 0DB68ZX Excision of Stomach, Via Natural or Artificial Opening Endoscopic, Diagnostic (ICD-10-PCS; 2021-02-17)
PROC: 0DJD8ZZ Inspection of Lower Intestinal Tract, Via Natural or Artificial Opening Endoscopic (ICD-10-PCS; 2021-02-17)
PROC: 0W9B30Z Drainage of Left Pleural Cavity with Drainage Device, Percutaneous Approach (ICD-10-PCS; principal; 2021-02-17 10:30)
PROC: 0JH60XZ Insertion of Tunneled Vascular Access Device into Chest Subcutaneous Tissue and Fascia, Open Approach (ICD-10-PCS; 2021-02-21)
PROC: 02HV33Z Insertion of Infusion Device into Superior Vena Cava, Percutaneous Approach (ICD-10-PCS; 2021-02-21)
DX: C56.9 Malignant neoplasm of unspecified ovary (principal); N18.6 End stage renal disease; C78.6 Secondary malignant neoplasm of retroperitoneum and peritoneum; J91.0 Malignant pleural effusion; I12.0 Hypertensive chronic kidney disease with stage 5 chronic kidney disease or end stage renal disease; T82.868A Thrombosis due to vascular prosthetic devices, implants and grafts, initial encounter; C78.01 Secondary malignant neoplasm of right lung; C78.02 Secondary malignant neoplasm of left lung; T81.72XA Complication of vein following a procedure, not elsewhere classified, initial encounter; K92.1 Melena; E11.22 Type 2 diabetes mellitus with diabetic chronic kidney disease; K25.9 Gastric ulcer, unspecified as acute or chronic, without hemorrhage or perforation; K26.9 Duodenal ulcer, unspecified as acute or chronic, without hemorrhage or perforation; M81.0 Age-related osteoporosis without current pathological fracture; D63.1 Anemia in chronic kidney disease; Z95.0 Presence of cardiac pacemaker; M19.90 Unspecified osteoarthritis, unspecified site; Z79.82 Long term (current) use of aspirin; Z79.899 Other long term (current) drug therapy; Z88.8 Allergy status to other drugs, medicaments and biological substances; Z88.2 Allergy status to sulfonamides; Z88.5 Allergy status to narcotic agent; K59.00 Constipation, unspecified; K57.30 Diverticulosis of large intestine without perforation or abscess without bleeding; Y83.1 Surgical operation with implant of artificial internal device as the cause of abnormal reaction of the patient, or of later complication, without mention of misadventure at the time of the procedure